=== PATIENT | female | born 1990 | race Caucasian/White ===

== ENCOUNTER → 2017-03-17 | Outpatient (CLI) | payer MEDICAID ==
[2016-03-23 10:17] VITALS: BMI 18.0
[~2017-03-17] MED LIST: ACE3 PO; ACE500 PO; ACET-1966 PO; AMIT-106 PO; AMOX-556 PO; AMOX-559 PO; AMOX1TAB9 PO; AMOX500T10 PO; ANTI10DR13 OT; ANTIDEPRESSANT PO; ANXIETY MED; ARIP15TA9 PO; ARIP20TA11 PO; ARIP300S3 IM; ARIP400S IM; ARIP5TAB28 PO; ASPI-757 PO; ASPI81TA86 PO; AUG875 PO; Acetamin/Butalbital/Caffeine PO; BACDS PO; BIRTH CONTROL PILL; BUPR-126 PO; BUTA1CAP4 PO; BUTA1TAB14 PO; CEFT1VIA52 IM; CEFU500T50 PO; CEP500 PO; CEPH500T7 PO; CHOL10005 PO; CHOL100058 PO; CIP500 PO; CITA-139 PO; CYCL10TA29 PO; DICL-190 PO; DICL100G7 TOP; DICY-42 PO; DIVA-6 PO; DIVA500T98 PO; DOC100 PO; ESZ2 PO; ESZO1TAB19 PO; ETON68IM SQ; ETON68IM2 SQ; FAMO20TA28 PO; FIO PO; FLU20 PO; FLU60SYR30 IM ONLY; FLUC150T40 PO; FLUO-201 PO; FLUO-202 PO; FLUT16SP19 NS; FLUT9.9S; GABA-549 PO; GABA-583 PO; HYDR-3083 PO; HYDR-317; HYDR-317 PO; HYDR-4225 PO; HYDR-4309 PO; HYDR25 PO; HYDR25CA PO; HYDR25CA83 PO; HYDROXZINE; IBU600 PO; KET10 PO; LAM25 PO; LAMO100T56 PO; LAMO150T36 PO; LAMO200T46 PO; LAMO25TA60 PO; LAMO5TB.2 PO; LEVO25TA61 PO; LEVO750T27 PO; LIOT25TA19 PO; LOR05 PO; LOR5 PO; LOR5/325 PO; LORA-1456 PO; MECL25TA9 PO; META800T18 PO; METH-543 PO; METH4TAB66 PO; METR-1 PO; MIR15 PO; MIRT-1 PO; MULT-1379 PO; MULT-865 PO; MULT1TAB64 PO; NICO-219 PO; NICO1PAT45 TD; NICO4LOZ35 BC; NIF10 PO; NIFE10CA38 PO; NITR-105 PO; NO ROUTINE MEDS; NO RTN MEDS; OMEP-125 PO; ORP100 PO; OXAP-1 PO; OXYC1TAB54 PO; PANT40TA13 PO; PANT40TA65 PO; PER PO; PHENA200 PO; POLY119P24 PO; PRE20 PO; PRED-1 PO; PRED20TA6 PO; PREG50CA48 PO; PREG75CA60 PO; PREN-129 PO; PREN-85 PO; PRO25 PO; PROC10TA4 PO; PROM-110 PO; PROM12.514 RC; PROM25SU9 RC; QUET25TA31 PO; RISP0.5T82 PO; Return to Work; SCOT TD; SULF-198 PO; SUMA50TA34 PO; TIZA2CAP3 PO; TIZA4CAP3 PO; TRA50 PO; TRAM-420 PO; TRAM-627 PO; TRAZ50 PO; VEN375 PO; Work Note; ZALE5CAP PO; ZOLP-1 PO; [UNRECOGNIZED DRUG - CODE] PO; [UNRECOGNIZED DRUG - CODE] PO; [UNRECOGNIZED DRUG - CODE] PO; antibiotic PO
--- NOTE | 2017-03-17 14:27 | RADIOLOGY IMAGING REPORT ---
FACILITY: [facility] PATIENT NAME: Jayna Gee : 1990 MR: [id number] V: [id number] EXAM DATE: ORDERING PHYSICIAN: LIBORIO GOTTLIEB TECHNOLOGIST: Location: [facility] Patient: Jayna Gee : 1990 Visit/Account:[id number] Date of Sevice: 03/17/2017 MRI of the right hand without contrast Indication: Fifth metacarpal fracture with persistent pain. Comparison: Plain films 11/08/2016 are reviewed. Technique: T1-weighted and proton density fat saturated, sagittal STIR and proton density fat saturat ed, axial proton-density fat-saturated, T1-weighted, images were obtained through the right hand. Findings: There is subtle marrow edema which remains visible within the fifth metacarpal distally at the juncti on of the head and neck. On the T1 sequences, no residual fracture line is seen. The fifth metacarpal neck fracture healed with a component of volar angulation of the distal fracture fragment which dom ures approximately 40 degrees. No acute appearing fracture deformity seen. The marrow pattern of the remaining included portions of the right hand are normal. Included joint sp aces within the [id number] are normal. The visualized intrinsic musculature of the hand is normal in signal. The flexor tendons to the fingers are well seen and are intact. The visualized extensor te ndons to the fingers also appear unremarkable. IMPRESSION: 1. No residual fracture line seen at the right hand fifth metacarpal neck. There is some residual mar row edema identified. This fracture healed with abnormal volar angulation of the distal fracture frag ment as reported above. Report Dictated By: Esa Serna at 03/17/2017 2:12 PM Report E-Signed By: Esa Serna at 03/17/2017 2:22 PM WSN:[id number]
== END ==
LOC: MRI 01:21
PROVIDERS: ATTEND Clinical Nurse Specialist Family Health
DX: M79.641 Pain in right hand (principal)
CPT/HCPCS: 73221

== ENCOUNTER 2017-04-05 19:03 | Emergency (ER) | payer MEDICAID ==
[2016-03-23 10:17] VITALS: Ht 165.1 cm; Wt 51.7 kg
[~2017-04-05] VITALS: Ht 165.1 cm; Wt 51.7 kg
[2017-04-05 19:09] VITALS: BP 125/84
[2017-04-05] MEDS ORDERED: OLAN10VI IM (19:09)
--- NOTE | 2017-04-05 19:15 | ER Report ---
History and Physical Time Seen By MD: 19:06 Hx. of Stated Complaint: RIGHT HAND PAIN, SLAMMED IT IN CAR DOOR. HPI/ROS CHIEF COMPLAINT: Right hand injury HISTORY OF PRESENT ILLNESS: Patient is a 26-year-old female who presents the ED with complaint of right hand injury that occurred yesterday. She states that she accidentally slammed her hand in a car door. She is continuing to have some pain. She denies any swelling or bruising. She is on taken anything for the pain. REVIEW OF SYSTEMS: Respiratory: No cough, no dyspnea. Cardiovascular: No chest pain, no palpitations. Gastrointestinal: No vomiting, no abdominal pain. Musculoskeletal: See history of present illness. Allergies: Coded Allergies: amoxicillin (Verified Allergy, Mild, itching, 04/05/17) ondansetron HCl (Verified Adverse Reaction, Intermediate, ARRYTHMIA, ) ON 16 APR 2012, AFTER ZOFRAN 4MG IVP ADMIN, PT BRADYCARDIC (PULSE 30-35BPM), ARRHTHMIA ON 3-LEAD EKG. sumatriptan (Verified Adverse Reaction, Intermediate, NAUSEA/VOMITING, ) nitrofurantoin (Verified Adverse Reaction, Mild, 04/05/17) itching ibuprofen (Verified Adverse Reaction, Unknown, REACTION TO COATING ON IBU TABS, 04/05/17) "tears up my stomach" Home Meds Reported Medications Olanzapine (ZYPREXA) 10 Mg Vial, 10 MG IM, VIAL 04/05/17 Lamotrigine (LAMICTAL) 200 Mg Tablet, 1 TAB PO DAILY 01/07/17 Discontinued Reported Medications Multivits,Th W-Fe,Other Min (THERA-M) 1 Each Tablet, 1 EACH PO QDAY 02/05/17 Aripiprazole (ABILIFY MAINTENA) 400 Mg Suser.vial, 400 MG IM Q30D Next injection due 02/06/17. 12/03/16 Discontinued Scripts Butalb/Acetaminophen/Caff 50-325-40 Mg (FIORICET 50-325-40) 1 Each Tablet, 1-2 TAB PO Q6H Y for MIGRAINE, #16 TAB 0 Refills Prov:MAGUI MORRIS APRN [employer]-C 02/11/17 Reviewed Nurses Notes: Yes Old Medical Records Reviewed: Yes Hx Smoking: Yes Smoking Status: Former Smoker Exposure to Second Hand Smoke?: Yes Hx Substance Use Disorder: Yes (marijuana) Hx Alcohol Use: Yes Constitutional Vital Sign - Last 24 Hours 04/05/17 19:09 Temp 98.3 Pulse 94 Resp 18 B/P (MAP) 125/84 Pulse Ox 97 O2 Delivery Room Air Physical Exam General Appearance: The patient is alert, has no immediate need for airway protection and no current signs of toxicity. Patient appears to be no acute distress. Eyes: Pupils equal and round no injection. Respiratory: Chest is non tender, lungs are clear to auscultation. Cardiac: regular rate and rhythm Gastrointestinal: Abdomen is soft and non tender, no masses, bowel sounds normal. Musculoskeletal: Neck: Neck is supple and non tender. There is pain with palpation of the right 4th and 5th MCP areas. No swelling but possible slight ecchymosis in this area. Radial pulses 2+ with normal capillary refill. Normal sensation. Full range of motion of the right fingers with some pain. Skin: No rashes or lesions. DIFFERENTIAL DIAGNOSIS: After history and physical exam differential diagnosis was considered for right hand injury including fracture, sprain, contusion. Medical Decision Making EKG/Imaging Imaging Right Hand Xrays: IMPRESSION: 1. Healed distal fifth metacarpal fracture. 2. No acute osseous abnormality. Report Dictated By: Ubaldo Arce MD at 04/05/2017 7:53 PM Report E-Signed By: Ubaldo Arce MD at 04/05/2017 7:58 PM ED Course/Re-evaluation ED Course Will obtain right hand x-rays. 04/05/2017 8:06:29 pm - discussed normal x-ray results with patient. She does have an old healed fracture of the right 5th metacarpal. She likely has a hand contusion now. May take Tylenol for pain relief. Decision to Disposition Date: Apr 05, 2017 Decision to Disposition Time: 20:07 Depart Departure Latest Vital Signs Vital Signs Date Time Temp Pulse Resp B/P (MAP) Pulse Ox O2 Delivery O2 Flow Rate FiO2 04/05/17 19:09 98.3 94 18 125/84 97 Room Air Impression: Primary Impression: Contusion of right hand Condition: Improved Disposition: HOME OR SELF-CARE Referrals: MAGUI MORRIS APRN [employer]-C (PCP) Patient Instructions: Contusion in Adults (ED) Additional Instructions: Rest, ice, elevate. May take Tylenol for pain relief. Follow up with her primary care provider in 2-3 days. If having any worsening or concerning symptoms may return to the emergency department. Problem Qualifiers Primary Impression: Contusion of right hand Encounter type: initial encounter Qualified Codes: S60.221A - Contusion of right hand, initial encounter DAVEY DANIEL PA-C Apr 05, 2017 19:15
--- NOTE | 2017-04-05 20:03 | RADIOLOGY IMAGING REPORT ---
[place] [facility] [place]IENT NAME: Jayna Gee : 1990 MR: [id number] V: [id number] EXAM DATE: ORDERING PHYSICIAN: DAVEY DANIEL [place]CHN[place]: [place] [facility] [place] : 1990 Visit/Account:[id number] Date of Sevice: 04/05/2017 HAND COMPLETE RIGHT HISTORY: right hand pain, slammed in car door, pain of 4-5th MCP COMPARISON: 11/08/2016 FINDINGS: Healed distal fifth metacarpal fracture. No acute fracture or dislocation. No radiopaque fo reign body. IMPRESSION: 1. Healed distal fifth metacarpal fracture. 2. No acute osseous abnormality. Report Dictated By: Ubaldo Arce MD at 04/05/2017 7:53 PM Report E-Signed By: Ubaldo Arce MD at 04/05/2017 7:58 PM WSN:[id number]
== END 2017-04-05 20:19 | disposition home or self-care (01) ==
LOC: ER 19:08
DX: S60.221A Contusion of right hand, initial encounter (principal); S67.21XA Crushing injury of right hand, initial encounter
CPT/HCPCS: 99282

== ENCOUNTER → 2017-06-06 | Outpatient (CLI) | payer MEDICAID ==
[2016-03-23 10:17] VITALS: BMI 18.0
[~2017-06-06] MED LIST changes: +BENZ200C15 PO; +OLAN10VI IM; +PALI78DI IM
[2017-06-06 16:44] LABS: PLATELET COUNT, AUTOMATED 217 K/uL (150-450)
== END ==
LOC: LAB 16:23
PROVIDERS: ATTEND Nurse Practitioner Family
DX: D75.1 Secondary polycythemia (principal)
CPT/HCPCS: 36415; 85025

== ENCOUNTER 2017-06-23 17:03 | Emergency (ER) | payer MEDICAID ==
[2016-03-23 10:17] VITALS: Wt 51.7 kg
[~2017-06-23 17:03] MED LIST changes: +CHOL200074 PO
[2017-06-23 17:07] VITALS: BP 130/88
--- NOTE | 2017-06-23 17:14 | ER Report ---
History and Physical Time Seen By MD: 17:14 Hx. of Stated Complaint: LOWER BACK PAIN FOR TWO DAYS. "I THINK I PULLED SOMETHING IN MY BACK WHEN I TRIED PICKING UP MY DAUGHTER." HPI/ROS 20-year-old female in [employer] states that she was in [employer] 2 days ago lifted up her 9-year-old daughter who was throwing a tantrum has had low back pain with sciatica sort of symptoms going down bilateral legs him no incontinence of bowel or bladder Allergies: Coded Allergies: amoxicillin (Verified Allergy, Mild, itching, 04/05/17) ondansetron HCl (Verified Adverse Reaction, Intermediate, ARRYTHMIA, ) ON 16 APR 2012, AFTER ZOFRAN 4MG IVP ADMIN, PT BRADYCARDIC (PULSE 30-35BPM), ARRHTHMIA ON 3-LEAD EKG. sumatriptan (Verified Adverse Reaction, Intermediate, NAUSEA/VOMITING, ) nitrofurantoin (Verified Adverse Reaction, Mild, 04/05/17) itching ibuprofen (Verified Adverse Reaction, Unknown, REACTION TO COATING ON IBU TABS, 04/05/17) "tears up my stomach" Home Meds Active Scripts Methylprednisolone (METHYLPREDNISOLONE) 4 Mg Tab.ds.pk, 4 MG PO DIRECTED, #1 TAB Prov:TWILA GRIFFIN 06/23/17 Reported Medications Gabapentin (GABAPENTIN) 300 Mg Capsule, 1 CAP PO TID, CAPSULE 06/16/17 Paliperidone Palmitate (INVEGA SUSTENNA) 78 Mg/0.5 Ml Disp.syrin, 1 TAB IM once a month 06/06/17 Discontinued Reported Medications Cholecalciferol (Vitamin D3) (VITAMIN D-3) 2,000 Unit Capsule, 2000 UNIT PO DAILY, CAPSULE 06/16/17 Hx Smoking: Yes Smoking Status: Former Smoker Exposure to Second Hand Smoke?: Yes Hx Substance Use Disorder: Yes (marijuana) Hx Alcohol Use: Yes Family History of: HTN Constitutional Vital Sign - Last 24 Hours 06/23/17 17:07 Temp 98.0 Pulse 65 Resp 16 B/P (MAP) 130/88 Pulse Ox 97 Physical Exam General Appearance: [The patient is alert, has no immediate need for airway protection and no current signs of toxicity.] [ ] Eyes: Pupils equal and round no injection. Respiratory: Chest is non tender, lungs are clear to auscultation. Cardiac: regular rate and rhythm [ ] Gastrointestinal: Abdomen is soft and non tender, no masses, bowel sounds normal. Musculoskeletal: Low back pain to palpation approximately the level of L5 negative straight leg raise Extremities have full range of motion and are non tender. Skin: No rashes or lesions. [ ] DIFFERENTIAL DIAGNOSIS: After history and physical exam differential diagnosis was considered for lumbar strain versus sciatica [ ] Medical Decision Making Data Points Laboratory Hematology Test 06/23/17 17:31 Urine Color Straw Urine Clarity Clear Urine pH 6.0 pH (4.8-9.5) Urine Specific [place] 1.006 Urine Protein Negative mg/dL (NEGATIVE) Urine Glucose (UA) Negative mg/dL (NEGATIVE) Urine Ketones Negative mg/dL (NEGATIVE) Urine Blood Negative (NEGATIVE) Urine Nitrite Negative (NEGATIVE) Urine Bilirubin Negative (NEGATIVE) Urine Urobilinogen Negative mg/dL (0.2-1.9) Urine Leukocyte Esterase Negative (NEGATIVE) Urine RBC None /HPF (0-2/HPF) Urine WBC <1 /HPF (0-5/HPF) Urine Squamous Epithelial Cells Many /LPF (</=FEW) Urine Bacteria Negative /HPF (NONE-FEW) Urine Mucus None /HPF (NONE-FEW) Urine HCG, Qualitative Negative (NEGATIVE) Chemistry Test 06/23/17 17:31 Urine Color Straw Urine Clarity Clear Urine pH 6.0 pH (4.8-9.5) Urine Specific [place] 1.006 Urine Protein Negative mg/dL (NEGATIVE) Urine Glucose (UA) Negative mg/dL (NEGATIVE) Urine Ketones Negative mg/dL (NEGATIVE) Urine Blood Negative (NEGATIVE) Urine Nitrite Negative (NEGATIVE) Urine Bilirubin Negative (NEGATIVE) Urine Urobilinogen Negative mg/dL (0.2-1.9) Urine Leukocyte Esterase Negative (NEGATIVE) Urine RBC None /HPF (0-2/HPF) Urine WBC <1 /HPF (0-5/HPF) Urine Squamous Epithelial Cells Many /LPF (</=FEW) Urine Bacteria Negative /HPF (NONE-FEW) Urine Mucus None /HPF (NONE-FEW) Urine HCG, Qualitative Negative (NEGATIVE) Urinalysis Test 06/23/17 17:31 Urine Color Straw Urine Clarity Clear Urine pH 6.0 pH (4.8-9.5) Urine Specific [place] 1.006 Urine Protein Negative mg/dL (NEGATIVE) Urine Glucose (UA) Negative mg/dL (NEGATIVE) Urine Ketones Negative mg/dL (NEGATIVE) Urine Blood Negative (NEGATIVE) Urine Nitrite Negative (NEGATIVE) Urine Bilirubin Negative (NEGATIVE) Urine Urobilinogen Negative mg/dL (0.2-1.9) Urine Leukocyte Esterase Negative (NEGATIVE) Urine RBC None /HPF (0-2/HPF) Urine WBC <1 /HPF (0-5/HPF) Urine Squamous Epithelial Cells Many /LPF (</=FEW) Urine Bacteria Negative /HPF (NONE-FEW) Urine Mucus None /HPF (NONE-FEW) Urine HCG, Qualitative Negative (NEGATIVE) EKG/Imaging Imaging FACILITY: [facility] [place] PATIENT NAME: Jayna Gee : 1990 MR: [id number] V: [id number] EXAM DATE: [id number] ORDERING PHYSICIAN: TWILA GRIFFIN TECHNOLOGIST: Location: [facility] Patient: Jayna Gee : 1990 Visit/Account:[id number] Date of Sevice: 06/23/2017 LUMBAR SPINE 2 OR 3 VIEW INDICATION: Low back pain after lifting child 2 days ago. COMPARISON: 02/23/2016. FINDINGS: 3 views lumbar spine. There are 5 nonrib-bearing lumbar vertebral bodies. The vertebral bodies are aligned. No compression fractures, bony lesions or spondylolysis. No significant degenerative changes. The endplates are maintained. The pedicles are well seen. Soft tissues unremarkable. IMPRESSION: Normal exam. Report Dictated By: Álvaro Mera at 06/23/2017 6:19 PM Report E-Signed By: Álvaro Mera at 06/23/2017 6:21 PM WSN:[id number] ED Course/Re-evaluation ED Course Patient did request narcotics for treatment I did give her prednisone stating this was the right medication for her acute back pain she will take Tylenol prednisone at home follow-up with primary care provider as needed Re-evaluation X-rays were read as negative urine showed no infection was negative she is home with a Medrol Dosepak follow-up with primary care physician diagnosis of muscle strain Decision to Disposition Date: Jun 23, 2017 Decision to Disposition Time: 18:31 Depart Departure Latest Vital Signs Vital Signs Date Time Temp Pulse Resp B/P (MAP) Pulse Ox O2 Delivery O2 Flow Rate FiO2 06/23/17 17:07 98.0 65 16 130/88 97 Impression: Primary Impression: Strain of lumbar spine Condition: Improved Disposition: HOME OR SELF-CARE Referrals: MAGUI MORRIS APRN [employer]UFFER-C (PCP) 5 Days New Scripts Methylprednisolone (METHYLPREDNISOLONE) 4 Mg Tab.ds.pk 4 MG PO DIRECTED, #1 TAB Prov: TWILA GRIFFIN 06/23/17 Patient Instructions: Muscle Strain (ED) Additional Instructions: Heating pad, Tylenol for pain, Medrol Dosepak, follow-up with your physician TWILA GRIFFIN Jun 23, 2017 17:14
[2017-06-23] MEDS ORDERED: predniSONE 20 MG TAB PO ONE (17:25)
[2017-06-23] MEDS ORDERED: METH4TAB66 PO (17:32)
--- NOTE | 2017-06-23 18:26 | RADIOLOGY IMAGING REPORT ---
FACILITY: [facility] PATIENT NAME: Jayna Gee : 1990 MR: [id number] V: [id number] EXAM DATE: ORDERING PHYSICIAN: TWILA GRIFFIN TECHNOLOGIST: Location: [facility] [place] Patient: Jayna Gee : 1990 Visit/Account:[id number] Date of Sevice: 06/23/2017 LUMBAR SPINE 2 OR 3 VIEW INDICATION: Low back pain after lifting child 2 days ago. COMPARISON: 02/23/2016. FINDINGS: 3 views lumbar spine. There are 5 nonrib-bearing lumbar vertebral bodies. The vertebral b odies are aligned. No compression fractures, bony lesions or spondylolysis. No significant degenerati ve changes. The endplates are maintained. The pedicles are well seen. Soft tissues unremarkable. IMPRESSION: Normal exam. Report Dictated By: Álvaro Mera at 06/23/2017 6:19 PM Report E-Signed By: Álvaro Mera at 06/23/2017 6:21 PM WSN:[id number]
[2017-06-24] MEDS ORDERED: DULO20CA3 PO (17:25)
== END 2017-06-23 18:40 | disposition home or self-care (01) ==
LOC: ER 17:13
DX: S39.012A Strain of muscle, fascia and tendon of lower back, initial encounter (principal)
CPT/HCPCS: 72100; 81001; 81025; 99283; J7512

== ENCOUNTER → 2017-07-11 | Outpatient (CLI) | payer MEDICAID ==
[2016-03-23 10:17] VITALS: BMI 18.0
[~2017-07-11] MED LIST changes: +DULO20CA3 PO; +MIL50PT PO; +MILN1TAB2 PO; +[UNRECOGNIZED DRUG - CODE] PO
== END ==
LOC: LAB 10:56
PROVIDERS: ATTEND Nurse Practitioner Family
DX: R30.9 Painful micturition, unspecified (principal)
CPT/HCPCS: 81001

== ENCOUNTER 2017-07-12 14:57 | Emergency (ER) | payer MEDICAID ==
[2016-03-23 10:17] VITALS: Wt 58.1 kg
--- NOTE | 2017-07-12 15:10 | ER Report ---
History and Physical Time Seen By MD: 15:10 Hx. of Stated Complaint: Pt states she is dehydrated after hand surgery cannot eat/drink much HPI/ROS CHIEF COMPLAINT: I THINK IM DEHYDRATED HISTORY OF PRESENT ILLNESS: Pt here for evaluation of possible dehydration. Pt states she had surgery on her r hand to clean out her mcp joint after a prior fx. pts surgery was on the . Pt satse the tramadol she was taking for pain made her not want to drink or eat. Pt stopped the tramadol a few days ago but feels that she may be dehydrated because she is urinating less frequently. States hand feels okay so she stopped the tramadol to take motrin and tylenol. no fevers. no abd pain. Pt did have a loose stool today. REVIEW OF SYSTEMS: GEN: no fevers Respiratory: No cough, no dyspnea. Cardiovascular: No chest pain, no palpitations. Gastrointestinal: No vomiting, no abdominal pain. Musculoskeletal: No hand pain Skin: sutures at 5th mcp Allergies: Coded Allergies: amoxicillin (Verified Allergy, Mild, itching, 04/05/17) ondansetron HCl (Verified Adverse Reaction, Intermediate, ARRYTHMIA, ) ON 16 APR 2012, AFTER ZOFRAN 4MG IVP ADMIN, PT BRADYCARDIC (PULSE 30-35BPM), ARRHTHMIA ON 3-LEAD EKG. sumatriptan (Verified Adverse Reaction, Intermediate, NAUSEA/VOMITING, ) nitrofurantoin (Verified Adverse Reaction, Mild, 04/05/17) itching ibuprofen (Verified Adverse Reaction, Unknown, REACTION TO COATING ON IBU TABS, 04/05/17) "tears up my stomach" Home Meds Active Scripts Milnacipran (SAVELLA) 50 Mg Tab, 1 TAB PO BID, #60 TAB 0 Refills Start after completing one week of 25mg tabs Prov:MAGUI MORRIS APRN-Ira 07/01/17 Milnacipran (SAVELLA) 25 Mg Tab, 0.5-1 TAB PO BID for 7 Days, #11 TAB 0 Refills Day 1 - 0.5 tab once Day 2 & 3 - 0.5 tab twice daily Day 4-7 - 1 tab twice daily Prov:MAGUI MORRIS APRN-Ira 07/01/17 Duloxetine HCl (Duloxetine HCl) 20 Mg Capsule.dr, 1 CAP PO DAILY, #30 TAB 0 Refills Prov:N[place] MORRISYN [employer] HEAR[employer] WORKER [employer]-C 06/24/17 Reported Medications Paliperidone Palmitate (INVEGA SUSTENNA) 78 Mg/0.5 Ml Disp.syrin, 1 TAB IM once a month 06/06/17 Discontinued Reported Medications Gabapentin (GABAPENTIN) 300 Mg Capsule, 1 CAP PO TID, CAPSULE 06/16/17 Discontinued Scripts Methylprednisolone (METHYLPREDNISOLONE) 4 Mg Tab.ds.pk, 4 MG PO DIRECTED, #1 TAB Prov:TWILA GRIFFIN Valentina OPEN HEARTH WORKER-C 06/23/17 Past Medical/Surgical History pmhx: otitis media, bipolar Pshx: appy, delvis, meniscusectomy Reviewed Nurses Notes: Yes Old Medical Records Reviewed: Yes Hx Smoking: Yes Smoking Status: Former Smoker Exposure to Second Hand Smoke?: Yes Hx Substance Use Disorder: Yes (marijuana) Hx Alcohol Use: Yes Constitutional Vital Sign - Last 24 Hours 07/12/17 15:02 Temp 98.0 Pulse 72 Resp 16 B/P (MAP) 116/77 Pulse Ox 98 O2 Delivery Room Air Physical Exam General Appearance: The patient is alert, has no immediate need for airway protection and no signs of toxicity. Eyes: Pupils equal and round no pallor or injection, EOMI ENT: no pharyngeal erythema or exudates, Mucous membranes are moist, TM are nl b/l Respiratory: There are no retractions, lungs are clear to auscultation. Cardiovascular: Regular rate and rhythm. pulses are equal and symmetrical Gastrointestinal: Abdomen is soft and non tender, no masses, bowel sounds normal, no guarding, no rigidity or rebound Neurological: Cranial nerves II-XII grossly intact, no sensory or motor loss Skin: Warm and dry, no rashes. Musculoskeletal: Neck is supple non tender, no vertebral tenderness Extremities are nontender, non swollen and have full range of motion. DIFFERENTIAL DIAGNOSIS: After history and physical exam differential diagnosis was considered for dehydration, uti, electrolyte abnl Medical Decision Making Data Points Result Diagram: 07/12/17 1525 Laboratory Hematology Test 07/12/17 15:25 Sodium Level 138 mmol/L (137-145) Potassium Level 3.4 mmol/L (3.5-5.0) Chloride Level 102 mmol/L (98-107) Carbon Dioxide Level 22 mmol/L (22-31) Blood Urea Nitrogen 16 mg/dl (7-18) Creatinine 0.70 mg/dl (0.52-1.04) Glomerular Filtration Rate Calc > 60.0 Random Glucose 97 mg/dl (75-110) Calcium Level 9.4 mg/dl (8.4-10.2) Chemistry Test 07/12/17 15:25 Glomerular Filtration Rate Calc > 60.0 Calcium Level 9.4 mg/dl (8.4-10.2) ED Course/Re-evaluation Clinical Indication for ER IV: Hydration, IV Access ED Course 07/12/2017 4:12:35 pm Pt feeling much better after the liter on NS. Pt potassium is just below normal. will replace Decision to Disposition Date: July 12, 2017 Decision to Disposition Time: 16:13 Depart Departure Latest Vital Signs Vital Signs Date Time Temp Pulse Resp B/P (MAP) Pulse Ox O2 Delivery O2 Flow Rate FiO2 07/12/17 15:02 98.0 72 16 116/77 98 Room Air Impression: Primary Impression: Dehydration, mild Additional Impression: Hypokalemia Condition: Improved Disposition: HOME OR SELF-CARE Referrals: MAGUI MORRIS APRN [employer]-C (PCP) 5 Days Departure Forms: ER Transition Record, Medications Reconciliation, Patient Portal Information Patient Instructions: GENERAL ER DISCHARGE INSTRUCTIONS Additional Instructions: Follow up with your surgeon as scheduled. Return for any concerns Problem Qualifiers NICHELLE CALVERT DO July 12, 2017 15:10
[2017-07-12] MEDS ORDERED: NS(*) 0.9% 1000 ML BAG 1,000 ML IV ONE (15:15)
[2017-07-12] MEDS ORDERED: POTASSIUM CHL 20 MEQ TABCR PO ONE (16:15)
[2017-07-12 16:16] VITALS: BP 112/81
== END 2017-07-12 16:23 | disposition home or self-care (01) ==
LOC: ER 15:11
DX: E86.0 Dehydration (principal); E87.6 Hypokalemia
CPT/HCPCS: 96360; 99284; J7030; 82310; 82374; 82435; 82565; 82947; 84132; 84295; 84520

== ENCOUNTER 2017-07-26 22:50 | Emergency (ER) | payer MEDICAID ==
[2016-03-23 10:17] VITALS: Wt 54.4 kg
[~2017-07-26 22:50] MED LIST changes: -CITA-139 PO; +CITA-145 PO
--- NOTE | 2017-07-26 22:53 | ER Report ---
History and Physical Time Seen By MD: 22:53 HPI/ROS CHIEF COMPLAINT: Depression with suicidal ideation HISTORY OF PRESENT ILLNESS: 27-year-old female presents ambulatory to the ER by herself requesting admission to behavioral health. She's been feeling suicidal for one week. She has plans to do self cutting with a razor blade. She does have a history of cutting. She has 3 previous admissions to behavioral health unit in the last year. , , The last one was in January proximal was 6 months ago. Patient states she last used marijuana 5 days ago. She denies alcohol ingestion. She thinks her symptoms are the result of starting on a new medication, Savella, which she started taking one week ago. She states she's had gradual worsening of her mood. Patient denies overdosing on any medication or [id number] products. REVIEW OF SYSTEMS: Respiratory: No cough, no dyspnea. Cardiovascular: No chest pain, no palpitations. Gastrointestinal: No vomiting, no abdominal pain. Musculoskeletal: No back pain. Allergies: Coded Allergies: amoxicillin (Verified Allergy, Mild, itching, 07/27/17) ondansetron HCl (Verified Adverse Reaction, Intermediate, ARRYTHMIA, ) ON 16 APR 2012, AFTER ZOFRAN 4MG IVP ADMIN, PT BRADYCARDIC (PULSE 30-35BPM), ARRHTHMIA ON 3-LEAD EKG. sumatriptan (Verified Adverse Reaction, Intermediate, NAUSEA/VOMITING, ) nitrofurantoin (Verified Adverse Reaction, Mild, 07/27/17) itching ibuprofen (Verified Adverse Reaction, Unknown, REACTION TO COATING ON IBU TABS, 07/27/17) "tears up my stomach" Home Meds Active Scripts Milnacipran (SAVELLA) 50 Mg Tab, 1 TAB PO BID, #60 TAB 0 Refills Start after completing one week of 25mg tabs Prov:MAGUI MORRIS APRN [employer] 07/01/17 Milnacipran (SAVELLA) 25 Mg Tab, 0.5-1 TAB PO BID for 7 Days, #11 TAB 0 Refills Day 1 - 0.5 tab once Day 2 & 3 - 0.5 tab twice daily Day 4-7 - 1 tab twice daily Prov:MAGUI MORRIS APRN [employer] 07/01/17 Reported Medications Paliperidone Palmitate (INVEGA SUSTENNA) 78 Mg/0.5 Ml Disp.syrin, 1 TAB IM once a month 06/06/17 Discontinued Scripts Duloxetine HCl (Duloxetine HCl) 20 Mg Capsule.dr, 1 CAP PO DAILY, #30 TAB 0 Refills Prov:MAGUI MORRIS APRNP-C 06/24/17 Reviewed Nurses Notes: Yes Old Medical Records Reviewed: Yes Hx Smoking: Yes Smoking Status: Former Smoker Exposure to Second Hand Smoke?: Yes Hx Substance Use Disorder: Yes (marijuana) Hx Alcohol Use: Yes Constitutional Vital Sign - Last 24 Hours 07/26/17 07/26/17 07/26/17 07/26/17 23:00 23:01 23:05 23:20 Temp 98.3 Pulse 66 70 69 Resp 14 B/P (MAP) 139/103 (115) 139/103 Pulse Ox 98 96 95 O2 Delivery Room Air 07/26/17 07/26/17 07/26/17 07/27/17 23:30 23:35 23:50 00:00 Pulse 63 61 B/P (MAP) 110/86 (94) 112/76 (88) Pulse Ox 95 95 Physical Exam General Appearance: The patient is alert, has no immediate need for airway protection and no current signs of toxicity. Vital signs stable, afebrile, pulse ox normal, depressed mood HEENT:: Pupils equal and round no injection. TMs normal, oropharynx without redness or exudate, mucous. Membranes are moist Respiratory: Chest is non tender, lungs are clear to auscultation. Cardiac: regular rate and rhythm Gastrointestinal: Abdomen is soft and non tender, no masses, bowel sounds normal. Musculoskeletal: Neck: Neck is supple and non tender. No thyromegaly Extremities have full range of motion and are non tender. Skin: No rashes or lesions. DIFFERENTIAL DIAGNOSIS: After history and physical exam differential diagnosis was considered for depression including functional and major depression, situational depression, medication side effect, suicidal ideation, adverse medication effect drugs and alcohol abuse. Medical Decision Making Data Points Result Diagram: 07/26/17 3729 07/26/17 4495 Laboratory Hematology Test 07/26/17 22:54 07/26/17 23:15 Urine Color Straw Urine Clarity Slightly-cloudy Urine pH 6.0 pH (4.8-9.5) Urine Specific [place] 1.004 Urine Protein Negative mg/dL (NEGATIVE) Urine Glucose (UA) Negative mg/dL (NEGATIVE) Urine Ketones Negative mg/dL (NEGATIVE) Urine Blood Large (NEGATIVE) Urine Nitrite Negative (NEGATIVE) Urine Bilirubin Negative (NEGATIVE) Urine Urobilinogen Negative mg/dL (0.2-1.9) Urine Leukocyte Esterase Negative (NEGATIVE) Urine RBC 4 /HPF (0-2/HPF) Urine WBC <1 /HPF (0-5/HPF) Urine Squamous Epithelial Cells Many /LPF (</=FEW) Urine Bacteria Few /HPF (NONE-FEW) Urine Mucus None /HPF (NONE-FEW) Urine HCG, Qualitative Negative (NEGATIVE) Urine Opiates Screen Negative Urine Barbiturates Screen Negative Ur Tricyclic Antidepressants Screen Negative Urine Phencyclidine Screen Negative Urine Amphetamines Screen Negative Urine Benzodiazepines Screen Negative Urine Cocaine Screen Negative Urine Cannabinoids Screen Negative Red Blood Count 4.62 M/uL (4.17-5.56) Mean Corpuscular Volume 91.7 fL (80.0-96.0) Mean Corpuscular Hemoglobin 32.7 pg (26.0-33.0) Mean Corpuscular Hemoglobin Concent 35.7 g/dL (32.0-36.0) Red Cell Distribution Width 12.9 % (11.5-14.5) Mean Platelet Volume 7.7 fL (7.2-11.1) Neutrophils (%) (Auto) 58.1 % (39.4-72.5) Lymphocytes (%) (Auto) 31.7 % (17.6-49.6) Monocytes (%) (Auto) 6.7 % (4.1-12.4) Eosinophils (%) (Auto) 2.4 % (0.4-6.7) Basophils (%) (Auto) 1.1 % (0.3-1.4) Nucleated RBC Relative Count (auto) 0.0 /100WBC Neutrophils # (Auto) 3.8 K/uL (2.0-7.4) Lymphocytes # (Auto) 2.1 K/uL (1.3-3.6) Monocytes # (Auto) 0.4 K/uL (0.3-1.0) Eosinophils # (Auto) 0.2 K/uL (0.0-0.5) Basophils # (Auto) 0.1 K/uL (0.0-0.1) Nucleated RBC Absolute Count (auto) 0.00 K/uL Sodium Level 138 mmol/L (137-145) Potassium Level 3.2 mmol/L (3.5-5.0) Chloride Level 102 mmol/L (98-107) Carbon Dioxide Level 24 mmol/L (22-31) Blood Urea Nitrogen 12 mg/dl (7-18) Creatinine 0.80 mg/dl (0.52-1.04) Glomerular Filtration Rate Calc > 60.0 Random Glucose 101 mg/dl (75-110) Calcium Level 9.1 mg/dl (8.4-10.2) Magnesium Level 1.9 mg/dl (1.7-2.2) Total Bilirubin 1.9 mg/dl (0.2-1.3) Aspartate Amino Transf (AST/SGOT) 17 U/L (0-35) Alanine Aminotransferase (ALT/SGPT) 19 U/L (0-56) Alkaline Phosphatase 68 U/L (0-126) Total Protein 6.7 gm/dl (6.3-8.2) Albumin 3.9 g/dl (3.5-5.0) Salicylates Level < 10 mg/L Salicylate Last Dose Date unk Acetaminophen Level < 10 ug/ml Serum Alcohol < 10 mg/dl Chemistry Test 07/26/17 22:54 07/26/17 23:15 Urine Color Straw Urine Clarity Slightly-cloudy Urine pH 6.0 pH (4.8-9.5) Urine Specific [place] 1.004 Urine Protein Negative mg/dL (NEGATIVE) Urine Glucose (UA) Negative mg/dL (NEGATIVE) Urine Ketones Negative mg/dL (NEGATIVE) Urine Blood Large (NEGATIVE) Urine Nitrite Negative (NEGATIVE) Urine Bilirubin Negative (NEGATIVE) Urine Urobilinogen Negative mg/dL (0.2-1.9) Urine Leukocyte Esterase Negative (NEGATIVE) Urine RBC 4 /HPF (0-2/HPF) Urine WBC <1 /HPF (0-5/HPF) Urine Squamous Epithelial Cells Many /LPF (</=FEW) Urine Bacteria Few /HPF (NONE-FEW) Urine Mucus None /HPF (NONE-FEW) Urine HCG, Qualitative Negative (NEGATIVE) Urine Opiates Screen Negative Urine Barbiturates Screen Negative Ur Tricyclic Antidepressants Screen Negative Urine Phencyclidine Screen Negative Urine Amphetamines Screen Negative Urine Benzodiazepines Screen Negative Urine Cocaine Screen Negative Urine Cannabinoids Screen Negative White Blood Count 6.5 k/uL (4.5-11.0) Red Blood Count 4.62 M/uL (4.17-5.56) Hemoglobin 15.1 g/dL (12.0-16.0) Hematocrit 42.4 % (34.0-47.0) Mean Corpuscular Volume 91.7 fL (80.0-96.0) Mean Corpuscular Hemoglobin 32.7 pg (26.0-33.0) Mean Corpuscular Hemoglobin Concent 35.7 g/dL (32.0-36.0) Red Cell Distribution Width 12.9 % (11.5-14.5) Platelet Count 205 K/uL (150-450) Mean Platelet Volume 7.7 fL (7.2-11.1) Neutrophils (%) (Auto) 58.1 % (39.4-72.5) Lymphocytes (%) (Auto) 31.7 % (17.6-49.6) Monocytes (%) (Auto) 6.7 % (4.1-12.4) Eosinophils (%) (Auto) 2.4 % (0.4-6.7) Basophils (%) (Auto) 1.1 % (0.3-1.4) Nucleated RBC Relative Count (auto) 0.0 /100WBC Neutrophils # (Auto) 3.8 K/uL (2.0-7.4) Lymphocytes # (Auto) 2.1 K/uL (1.3-3.6) Monocytes # (Auto) 0.4 K/uL (0.3-1.0) Eosinophils # (Auto) 0.2 K/uL (0.0-0.5) Basophils # (Auto) 0.1 K/uL (0.0-0.1) Nucleated RBC Absolute Count (auto) 0.00 K/uL Glomerular Filtration Rate Calc > 60.0 Calcium Level 9.1 mg/dl (8.4-10.2) Magnesium Level 1.9 mg/dl (1.7-2.2) Total Bilirubin 1.9 mg/dl (0.2-1.3) Aspartate Amino Transf (AST/SGOT) 17 U/L (0-35) Alanine Aminotransferase (ALT/SGPT) 19 U/L (0-56) Alkaline Phosphatase 68 U/L (0-126) Total Protein 6.7 gm/dl (6.3-8.2) Albumin 3.9 g/dl (3.5-5.0) Salicylates Level < 10 mg/L Salicylate Last Dose Date unk Acetaminophen Level < 10 ug/ml Serum Alcohol < 10 mg/dl Toxicology Test 07/26/17 22:54 07/26/17 23:15 Urine Opiates Screen Negative Urine Barbiturates Screen Negative Ur Tricyclic Antidepressants Screen Negative Urine Phencyclidine Screen Negative Urine Amphetamines Screen Negative Urine Benzodiazepines Screen Negative Urine Cocaine Screen Negative Urine Cannabinoids Screen Negative Salicylates Level < 10 mg/L Salicylate Last Dose Date unk Acetaminophen Level < 10 ug/ml Serum Alcohol < 10 mg/dl Urinalysis Test 07/26/17 22:54 Urine Color Straw Urine Clarity Slightly-cloudy Urine pH 6.0 pH (4.8-9.5) Urine Specific [place] 1.004 Urine Protein Negative mg/dL (NEGATIVE) Urine Glucose (UA) Negative mg/dL (NEGATIVE) Urine Ketones Negative mg/dL (NEGATIVE) Urine Blood Large (NEGATIVE) Urine Nitrite Negative (NEGATIVE) Urine Bilirubin Negative (NEGATIVE) Urine Urobilinogen Negative mg/dL (0.2-1.9) Urine Leukocyte Esterase Negative (NEGATIVE) Urine RBC 4 /HPF (0-2/HPF) Urine WBC <1 /HPF (0-5/HPF) Urine Squamous Epithelial Cells Many /LPF (</=FEW) Urine Bacteria Few /HPF (NONE-FEW) Urine Mucus None /HPF (NONE-FEW) Urine HCG, Qualitative Negative (NEGATIVE) ED Course/Re-evaluation ED Course Patient was admitted to an examination room. H&P was done. The differential diagnosis was considered. Patient presents ambulatory to the ER in requesting voluntary admission to [facility]. She's been having suicidal thoughts for one week. She plans and cutting herself with a razor. Had previous self injurious behaviors. Patient has 3 previous psychiatric admissions. Patient with known history of bipolar disorder. Patient admits to some cannabis use, which she discontinued 5 days ago. Patient denies drug or alcohol ingestion. Otherwise. Diagnostic studies are unremarkable. Her tox screen is negative. Blood alcohol level is 0. 07/27/2016 11:53:18 pm case discussed with Mica Cadena nurse practitioner a behavioral health service who accepts the patient for admission. Decision to Disposition Date: July 26, 2017 Decision to Disposition Time: 23:17 Depart Departure Latest Vital Signs Vital Signs Date Time Temp Pulse Resp B/P (MAP) Pulse Ox O2 Delivery O2 Flow Rate FiO2 07/27/17 00:00 112/76 (88) 07/26/17 23:50 61 95 07/26/17 23:01 98.3 14 Room Air Impression: Primary Impression: Depression with suicidal ideation Additional Impressions: Bipolar disorder Cannabis use disorder, mild, abuse Adverse drug reaction Condition: Improved Disposition: XFER TO [facility] Referrals: MAGUI MORRIS APRN [employer] (PCP) Problem Qualifiers Additional Impressions: Bipolar disorder Active/Remission status: remission status unspecified Qualified Codes: F31.9 - Bipolar disorder, unspecified Adverse drug reaction Encounter type: initial encounter Qualified Codes: T88.7XXA - Unspecified adverse effect of drug or medicament, initial encounter DOUGLAS GAYTAN DO July 26, 2017 22:53
[2017-07-26 23:30] LABS: PLATELET COUNT, AUTOMATED 205 K/uL (150-450)
[2017-07-27] VITALS: BP 112/76
[2017-07-28] MEDS ORDERED: MULT-1335 PO (10:25)
[2017-07-28] MEDS ORDERED: OMEG1CAP39 PO (10:26)
== END 2017-07-27 00:40 ==
LOC: ER 23:07
DX: F31.9 Bipolar disorder, unspecified (principal); T88.7XXA Unspecified adverse effect of drug or medicament, initial encounter; F32.9 Major depressive disorder, single episode, unspecified; R45.851 Suicidal ideations; F12.10 Cannabis abuse, uncomplicated
CPT/HCPCS: 80305; 81001; 81025; 83735; 84443; 85025; 99285; G0480; 80320; 80329; 82040; 82247; 82310; 82374; 82435; 82565; 82947; 84075; 84132; 84155; 84295; 84450; 84460; 84520

== ENCOUNTER 2017-07-27 00:11 | Inpatient (IN) | payer MEDICAID ==
[2016-03-23 10:17] VITALS: Ht 165.1 cm; Wt 54.4 kg
[~2017-07-27] VITALS: Ht 165.1 cm; Wt 54.4 kg
[2017-07-27 01:31] VITALS: BP 119/84
[2017-07-27] MEDS: MULTIVITAMINS TAB PO SCH (09:00)
[2017-07-27 13:02] VITALS: BP 92/50
[2017-07-27 20:55] VITALS: BP 102/74
[2017-07-28 06:14] VITALS: BP 112/64
[2017-07-28] MEDS: MULTIVITAMINS TAB PO SCH (08:42)
[2017-07-28] MEDS ORDERED: MULT-1335 PO (10:25)
[2017-07-28] MEDS ORDERED: OMEG1CAP39 PO (10:26)
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
--- NOTE | 2017-07-29 18:20 | DISCHARGE SUMMARY ---
Patient was seen at approximately 1100 hours on July 28, 2017 for note concerning this dictation. FINAL DIAGNOSES PER DSM-V Bipolar 2 disorder. Cannabis use disorder, moderate. Likely cannabis-related disorder. Rule out borderline intellectual functioning. Patient is known to have a very supportive relationship with her . REASON FOR ADMISSION This is a well known 27-year-old female who reports suicidal ideation which she attributes to the use of Savella, a medication recently given to her in injectable form by primary care provider for fibromyalgia. Patient has a long history of somatic complaints and visiting providers, coming to the ER. Patient reports that her bout with fibromyalgia was on the mend prior to getting dose of Savella, which patient no longer wants to take. Patient voluntarily admitted for suicidal ideations, which quickly resolved. Patient then requesting to go home. Contact was made with patient's , who had no reservations about patient's discharge. Patient very polite, cooperative throughout her stay and taking an active role in her treatment. PHYSICAL EXAM GENERAL: Please see emergency room note. Notable for a well-known 27-year-old female who is often in the emergency room with various somatic complaints. VITAL SIGNS: At the time of admission, temperature 98.3, pulse 66, respiratory rate 14, blood pressure 139/103 and pulse oximetry 98 on room air. At the time of discharge from [facility], temperature 99.3. Pulse 48 and low, patient asymptomatic. Respiratory rate 15, blood pressure 112/64, pulse oximetry 96 on room air. LABORATORY DATA CBC unremarkable. CMP unremarkable overall as well. Total bilirubin was, however, 1.9. TSH 3.29 in normal range. Urinalysis unremarkable. screen negative. Toxicology screen negative with a nondetectable serum alcohol level. MENTAL STATUS EXAMINATION AT THE TIME OF DISCHARGE GENERAL APPEARANCE, BEHAVIOR AND ATTITUDE: This is a well-known 27-year-old female, appropriately groomed, making good eye contact. No bizarre mannerisms or tics. No periods of tearfulness. No psychomotor agitation or retardation. Patient interacting well with this provider, treatment team staff and her on the phone. SPEECH: Within normal limits, regular rate, rhythm volume and tone. MOOD: Described as improved and okay. AFFECT: Full at times and mood congruent overall. THOUGHT PROCESSES: Goal directed, logical. No loose associations or flight of ideas. THOUGHT CONTENT: Free of auditory or visual hallucinations, ideas of reference , thought broadcastings, delusions, obsessions, compulsions. Patient adamantly denying suicidal or homicidal ideation. SENSORIUM: Clear. COGNITION: Alert and oriented to person, place, time and situation. MEMORY: Immediate, recent and remote estimated intact. INTELLIGENCE: Below average based on interview and previous knowledge of this patient. INSIGHT AND JUDGMENT: Limited by potential borderline intellectual functioning and illicit substance use. RESULTS OF TESTING IMAGING: None. LABORATORY DATA: See above. PSYCHOLOGICAL TESTING: Not done. CONSULTATIONS: None. TREATMENT Patient was maintained on medications including Invega injectable, which was not changed on the unit. It was recommended that patient take [place]-3 fish oil daily and vitamin D3 daily. Patient was encouraged to stop cannabis and patient continued to improve. CONDITION OF PATIENT ON DISCHARGE Stable. Considered minimal risk to herself or others and appropriate for outpatient care in the absence of cannabis use. DISPOSITION Patient discharged to home to the care of her . She would follow up with continued outpatient followup as scheduled. Patient would continue Invega injectable as scheduled and meet with therapist. Would recommend vitamin D3 1000 international units daily, and [place]-3 fish oil 1000 mg daily. Patient agreed to stop all cannabis use. Crisis line was given should symptoms return. Risks, benefits and alternatives of the above discharge plan were discussed. Informed consent was given to proceed with above discharge plan by this patient and patient's present on the phone. [facility]
[2017-07-31] MEDS ORDERED: KETO30CA16 IM (16:51)
[2017-08-05] MEDS ORDERED: ATEN-65 PO (11:40)
== END 2017-07-28 11:56 | disposition home or self-care (01) | DRG 885 ==
LOC: BHS 00:11
PROVIDERS: ADMIT Nurse Practitioner Psychiatric/Mental Health; ATTEND Nurse Practitioner Psychiatric/Mental Health
DX: F31.81 Bipolar II disorder (principal); R45.851 Suicidal ideations; F41.9 Anxiety disorder, unspecified; I49.9 Cardiac arrhythmia, unspecified; M79.7 Fibromyalgia; R51 Headache; K58.9 Irritable bowel syndrome, unspecified; Z91.5 Personal history of self-harm; Z87.891 Personal history of nicotine dependence; Z90.49 Acquired absence of other specified parts of digestive tract; Z90.89 Acquired absence of other organs; Z98.51 Tubal ligation status; Z97.3 Presence of spectacles and contact lenses; Z62.810 Personal history of physical and sexual abuse in childhood; Z62.820 Parent-biological child conflict; Z83.3 Family history of diabetes mellitus; Z81.8 Family history of other mental and behavioral disorders; T50.995A Adverse effect of other drugs, medicaments and biological substances, initial encounter; F12.280 Cannabis dependence with cannabis-induced anxiety disorder; R41.83 Borderline intellectual functioning
CPT/HCPCS: 80305; 80320; 80329; 81001; 81025; 82040; 82247; 82310; 82374; 82435; 82565; 82947; 83735; 84075; 84132; 84155; 84295; 84443; 84450; 84460; 84520; 85025; 99285

== ENCOUNTER 2017-08-03 18:47 | Emergency (ER) | payer MEDICAID ==
[2016-03-23 10:17] VITALS: BMI 18.0
[~2017-08-03 18:47] MED LIST changes: +KETO30CA16 IM; +MULT-1335 PO; +OMEG1CAP39 PO
--- NOTE | 2017-08-03 19:28 | ER Report ---
History and Physical Time Seen By MD: 19:27 Hx. of Stated Complaint: pT REPORTING MIGRAINE FOR A MONTH. WORSE TODAY. EXCEDRIN MIGRAINE HAS NOT HELPED. NO HEAD TRAUMA OR FEVERS OR STIFF NECK. HPI/ROS CHIEF COMPLAINT: Migraine headache HISTORY OF PRESENT ILLNESS: This is a 27-year-old female, well-known to the emergency department, who presents for a migraine headache. Patient states that she's had an intermittent migraine headache for the past month, patient states that the medications that she's been taking at home such as Excedrin migraine has not been working, she is tried sleeping in a darkened room but the migraine is persistent. Patient states she's had intermittent nausea with no vomiting. This is a typical migraine that's behind the right eye. No neuro deficits or any other concerns. Although the patient does state she thinks she has a urinary tract infection too. Patient denies chest pain or shortness of breath, rashes, or visual changes. REVIEW OF SYSTEMS: Constitutional: No fever, no chills. Eyes: No discharge. ENT: No sore throat. Cardiovascular: No chest pain, no palpitations. Respiratory: No cough, no shortness of breath. Gastrointestinal: No abdominal pain, no vomiting. Genitourinary: As above. Musculoskeletal: No back pain. Skin: No rashes. Neurological: As above. Allergies: Coded Allergies: amoxicillin (Verified Allergy, Mild, itching, 07/27/17) ondansetron HCl (Verified Adverse Reaction, Intermediate, ARRYTHMIA, ) ON 16 APR 2012, AFTER ZOFRAN 4MG IVP ADMIN, PT BRADYCARDIC (PULSE 30-35BPM), ARRHTHMIA ON 3-LEAD EKG. sumatriptan (Verified Adverse Reaction, Intermediate, NAUSEA/VOMITING, ) nitrofurantoin (Verified Adverse Reaction, Mild, 07/27/17) itching amitriptyline (Verified Adverse Reaction, Unknown, 07/31/17) syncope / orthostatic hypotension ibuprofen (Verified Adverse Reaction, Unknown, REACTION TO COATING ON IBU TABS, 07/27/17) "tears up my stomach" lurasidone (Verified Adverse Reaction, Unknown, NAUSEA/VOMITING, 07/31/17) Home Meds Active Scripts Sulfamethoxazole/Trimet 800-160 Mg Tab (BACTRIM DS TABLET) 1 Each Tablet, 1 TAB PO Q12H, #4 TAB 0 Refills Prov:SRIDEONDRECRISTINO [place] Valentina WATCH INSPECTOR FINAL MOVEMENT-BC 08/03/17 Reported Medications Paliperidone Palmitate (INVEGA SUSTENNA) 78 Mg/0.5 Ml Disp.syrin, 1 TAB IM once a month 06/06/17 Discontinued Reported Medications [place]-3S/Dha/Epa/Fish Oil/D3 (FISH OIL + D3 SOFTGEL) 1 Each Capsule, 1 EACH PO DAILY, CAPSULE 07/28/17 Multivitamin With Minerals (MULTIPLE VITAMIN) 1 Each Tablet, 1 EACH PO DAILY, TAB 07/28/17 Discontinued Scripts Milnacipran (SAVELLA) 50 Mg Tab, 1 TAB PO BID, #60 TAB 0 Refills Start after completing one week of 25mg tabs Prov:MAGUI MORRIS APRN WATCH INSPECTOR FIN[employer] MOVEMENT-C 07/01/17 Milnacipran (SAVELLA) 25 Mg Tab, 0.5-1 TAB PO BID for 7 Days, #11 TAB 0 Refills Day 1 - 0.5 tab once Day 2 & 3 - 0.5 tab twice daily Day 4-7 - 1 tab twice daily Prov:MAGUI MORRIS APRN WATCH INSPECTOR [employer]OVEMENT-C 07/01/17 Past Medical/Surgical History Patient has a past medical and surgical history of fibromyalgia, migraines, bradycardia, tachycardia, IBS, cholecystectomy, wears glasses, astigmatism, uses marijuana, anxiety, depression, attempted suicide with overdose, left knee scoped, right hand surgery, Reviewed Nurses Notes: Yes Hx Smoking: Yes Smoking Status: Former Smoker Exposure to Second Hand Smoke?: No Hx Substance Use Disorder: Yes (marijuana) Hx Alcohol Use: Yes Constitutional Vital Sign - Last 24 Hours 08/03/17 08/03/17 08/03/17 08/03/17 19:20 19:21 19:25 19:32 Temp 99.6 Pulse 59 Resp 16 B/P (MAP) 136/85 (102) 136/85 124/71 (88) Pulse Ox 96 95 O2 Delivery Room Air 08/03/17 08/03/17 08/03/17 08/03/17 19:40 19:47 20:00 20:02 Pulse 54 57 B/P (MAP) 117/76 (90) 123/84 (97) Pulse Ox 95 97 5/27/08/03/17 08/03/17 08/03/17 20:07 20:20 20:22 20:37 Pulse 57 50 54 B/P (MAP) 139/86 (103) Pulse Ox 97 96 97 08/03/17 08/03/17 08/03/17 08/03/17 20:40 20:52 21:07 21:12 Pulse 49 47 B/P (MAP) 135/89 (104) 121/78 (92) Pulse Ox 94 95 Physical Exam General Appearance: The patient is alert, has no immediate need for airway protection and no signs of toxicity. Eyes: Pupils equal and round no pallor or injection. ENT, Mouth: Mucous membranes are moist. Respiratory: There are no retractions, lungs are clear to auscultation. Cardiovascular: Regular rate and rhythm. Gastrointestinal: Abdomen is soft and non tender, no masses, bowel sounds normal. Neurological: Alert and oriented 4. Moving all extremities. Following all commands. No focal neuro deficits. Cranial nerves II through XII intact. Skin: Warm and dry, no rashes. Musculoskeletal: Neck is supple non tender. Extremities are nontender, nonswollen and have full range of motion. DIFFERENTIAL DIAGNOSIS: After history and physical exam differential diagnosis was considered for headache including but not limited to subarachnoid hemorrhage , migraine headache, tension headache and infectious causes such as meningitis, pharyngitis and sinusitis. Medical Decision Making Data Points Laboratory Hematology Test 08/03/17 19:40 Urine Color [place] Urine Clarity Slightly-cloudy Urine pH 6.0 pH (4.8-9.5) Urine Specific [place] 1.019 Urine Protein Negative mg/dL (NEGATIVE) Urine Glucose (UA) Negative mg/dL (NEGATIVE) Urine Ketones Negative mg/dL (NEGATIVE) Urine Blood Moderate (NEGATIVE) Urine Nitrite Positive (NEGATIVE) Urine Bilirubin Negative (NEGATIVE) Urine Urobilinogen 4.0 mg/dL (0.2-1.9) Urine Leukocyte Esterase Moderate (NEGATIVE) Urine RBC 8 /HPF (0-2/HPF) Urine WBC 56 /HPF (0-5/HPF) Urine Squamous Epithelial Cells Many /LPF (</=FEW) Urine Bacteria Few /HPF (NONE-FEW) Urine Mucus Few /HPF (NONE-FEW) Chemistry Test 08/03/17 19:40 Urine Color [place] Urine Clarity Slightly-cloudy Urine pH 6.0 pH (4.8-9.5) Urine Specific [place] 1.019 Urine Protein Negative mg/dL (NEGATIVE) Urine Glucose (UA) Negative mg/dL (NEGATIVE) Urine Ketones Negative mg/dL (NEGATIVE) Urine Blood Moderate (NEGATIVE) Urine Nitrite Positive (NEGATIVE) Urine Bilirubin Negative (NEGATIVE) Urine Urobilinogen 4.0 mg/dL (0.2-1.9) Urine Leukocyte Esterase Moderate (NEGATIVE) Urine RBC 8 /HPF (0-2/HPF) Urine WBC 56 /HPF (0-5/HPF) Urine Squamous Epithelial Cells Many /LPF (</=FEW) Urine Bacteria Few /HPF (NONE-FEW) Urine Mucus Few /HPF (NONE-FEW) Urinalysis Test 08/03/17 19:40 Urine Color [place] Urine Clarity Slightly-cloudy Urine pH 6.0 pH (4.8-9.5) Urine Specific [place] 1.019 Urine Protein Negative mg/dL (NEGATIVE) Urine Glucose (UA) Negative mg/dL (NEGATIVE) Urine Ketones Negative mg/dL (NEGATIVE) Urine Blood Moderate (NEGATIVE) Urine Nitrite Positive (NEGATIVE) Urine Bilirubin Negative (NEGATIVE) Urine Urobilinogen 4.0 mg/dL (0.2-1.9) Urine Leukocyte Esterase Moderate (NEGATIVE) Urine RBC 8 /HPF (0-2/HPF) Urine WBC 56 /HPF (0-5/HPF) Urine Squamous Epithelial Cells Many /LPF (</=FEW) Urine Bacteria Few /HPF (NONE-FEW) Urine Mucus Few /HPF (NONE-FEW) ED Course/Re-evaluation Clinical Indication for ER IV: Hydration, IV Access ED Course The patient was admitted to room. A history and physical were obtained. Differential diagnoses were considered. An IV was started. A 1 L normal saline bolus was given. 12.5 mg IV Phenergan, 25 mg IV Benadryl, 8 mg IV Decadron, 30 mg IV Toradol were given. Patient was also concerned about a urinary tract infection, UA was obtained, showing a UTI. Patient was given 1 dose of Bactrim in the ED. A prescription was sent to the patient's pharmacy for 2 days of Bactrim. Patient was instructed to follow-up with her primary care provider and consider following up with the headache specialist in [place]. The patient states he is feeling better after medications and fluids and is rated go home. Patient had no other questions or concerns at this time and discharged home. 08/03/2017 8:51:55 pm patient states she is feeling much better, headache is resolving nausea is resolved. Patient is to get up to go the bathroom. I did tell the patient that she does have a urinary tract infection as well, and treat that with antibiotics. Patient was given 1 dose of antibiotics in the emergency department prescription was sent to the patient's pharmacy. Patient requesting to go home. Decision to Disposition Date: August 03, 2017 Decision to Disposition Time: 21:03 Depart Departure Latest Vital Signs Vital Signs Date Time Temp Pulse Resp B/P (MAP) Pulse Ox O2 Delivery O2 Flow Rate FiO2 08/03/17 21:12 121/78 (92) 08/03/17 21:07 47 95 08/03/17 19:21 99.6 16 Room Air Impression: Primary Impression: Migraine Additional Impression: UTI (urinary tract infection) Condition: Improved Disposition: HOME OR SELF-CARE Referrals: MAGUI MORRIS APRN-C (PCP) New Scripts Sulfamethoxazole/Trimet 800-160 Mg Tab (BACTRIM DS TABLET) 1 Each Tablet 1 TAB PO Q12H, #4 TAB 0 Refills Prov: CRISTINO DONALDSONP- 08/03/17 Patient Instructions: Migraine Headache (ED), Urinary Tract Infection in Women (ED) Additional Instructions: Continue to drink plenty of fluids. Go home and sleep. Follow-up with your primary care provider as scheduled and consider discussing the headache clinic in [place]. Take your medications as prescribed. Return to the emergency department for any other concerns or worsening symptoms. Problem Qualifiers Primary Impression: Migraine Migraine type: unspecified Status migrainosus presence: without status migrainosus Intractability: not intractable Qualified Codes: G43.909 - Migraine, unspecified, not intractable, without status migrainosus Additional Impression: UTI (urinary tract infection) Urinary tract infection type: acute cystitis Hematuria presence: with hematuria Qualified Codes: N30.01 - Acute cystitis with hematuria CRISTINO DONALDSON WATCH INSPECTOR FINAL MOVEMENT- August 03, 2017 19:27
[2017-08-03] MEDS ORDERED: DEXAMETHASONE SOD PHOS 10MG/ML IVP ONE (19:35)
[2017-08-03] MEDS ORDERED: NS(*) 0.9% 1000 ML BAG 1,000 ML IV ONE (19:35)
[2017-08-03] MEDS ORDERED: diphenhydrAMINE 50 MG/ML VIAL IVP ONE (19:35)
[2017-08-03] MEDS ORDERED: PROMETHAZINE 25 MG/ML 1 ML AMP IVP ONE (19:35)
[2017-08-03] MEDS ORDERED: KETOROLAC 30 MG/ML VIAL IVP ONE (19:40)
[2017-08-03] MEDS ORDERED: SULF-198 PO (20:19)
[2017-08-03] MEDS ORDERED: TRIMETHOPRIM/SULFA 160-800 TH 2 TAB/BOTTLE PO ONE (20:20)
[2017-08-03 21:12] VITALS: BP 121/78
[2017-08-05] MEDS ORDERED: ATEN-65 PO (11:40)
[2017-08-07] MEDS ORDERED: DULO30CA6 PO (16:52)
[2017-08-07] MEDS ORDERED: DULO60CA56 PO (16:52)
== END 2017-08-03 21:15 | disposition home or self-care (01) ==
LOC: ER 19:22
DX: G43.909 Migraine, unspecified, not intractable, without status migrainosus (principal); N30.01 Acute cystitis with hematuria
CPT/HCPCS: 81001; 96361; 96374; 96375; 99284; J1100; J1200; J1885; J2550; J7030

== ENCOUNTER 2017-08-05 15:42 | Emergency (ER) | payer MEDICAID ==
[2016-03-23 10:17] VITALS: Wt 54.4 kg
[~2017-08-05 15:42] MED LIST changes: +ATEN-65 PO
--- NOTE | 2017-08-05 15:56 | ER Report ---
History and Physical Time Seen By MD: 15:48 HPI/ROS CHIEF COMPLAINT: Headache HISTORY OF PRESENT ILLNESS: Patient is a 27-year-old female here with complaints of retro-orbital headaches and mild fuzzy vision consistent with her typical migraines. Patient reports taking Excedrin Migraine at home without relief of symptoms. Her current symptoms started approximately 3:00 this morning not been persistent ever since. Patient is afebrile, normotensive. She reports mild photosensitivity. Denies chest pain, shortness breath, vomiting. He does report having mild nausea. REVIEW OF SYSTEMS: Constitutional: No fever, no chills. Eyes: No discharge, + retro orbital pain ENT: No sore throat. Cardiovascular: No chest pain, no palpitations. Respiratory: No cough, no shortness of breath. Gastrointestinal: No abdominal pain, no vomiting, + nausea Genitourinary: No hematuria. Musculoskeletal: No back pain. Skin: No rashes. Neurological: + retro orbital headache. Allergies: Coded Allergies: amoxicillin (Verified Allergy, Mild, itching, 08/05/17) ondansetron HCl (Verified Adverse Reaction, Intermediate, ARRYTHMIA, ) ON 16 APR 2012, AFTER ZOFRAN 4MG IVP ADMIN, PT BRADYCARDIC (PULSE 30-35BPM), ARRHTHMIA ON 3-LEAD EKG. sumatriptan (Verified Adverse Reaction, Intermediate, NAUSEA/VOMITING, ) nitrofurantoin (Verified Adverse Reaction, Mild, 08/05/17) itching amitriptyline (Verified Adverse Reaction, Unknown, 08/05/17) syncope / orthostatic hypotension ibuprofen (Verified Adverse Reaction, Unknown, REACTION TO COATING ON IBU TABS, 08/05/17) "tears up my stomach" lurasidone (Verified Adverse Reaction, Unknown, NAUSEA/VOMITING, 08/05/17) Home Meds Active Scripts Atenolol (ATENOLOL) 25 Mg Tablet, 1 TAB PO QDAY, #30 TAB 1 Refill Prov:MAGUI MORRIS APRN QUALITY ASSURANCE ASSISTANT-C 08/05/17 Sulfamethoxazole/Trimet 800-160 Mg Tab (BACTRIM DS TABLET) 1 Each Tablet, 1 TAB PO Q12H, #4 TAB 0 Refills Prov:CRISTINO DONALDSON QUALITY ASSURANCE ASSISTANT-BC 08/03/17 Reported Medications Paliperidone Palmitate (INVEGA SUSTENNA) 78 Mg/0.5 Ml Disp.syrin, 1 TAB IM once a month 06/06/17 Discontinued Reported Medications [place]-3S/Dha/Epa/Fish Oil/D3 (FISH OIL + D3 SOFTGEL) 1 Each Capsule, 1 EACH PO DAILY, CAPSULE 07/28/17 Multivitamin With Minerals (MULTIPLE VITAMIN) 1 Each Tablet, 1 EACH PO DAILY, TAB 07/28/17 Past Medical/Surgical History migraines Hx Smoking: Yes Smoking Status: Former Smoker Exposure to Second Hand Smoke?: No Hx Substance Use Disorder: Yes (marijuana) Hx Alcohol Use: Yes Constitutional Vital Sign - Last 24 Hours 08/05/17 08/05/17 08/05/17 08/05/17 15:46 15:48 15:57 16:00 Temp 98.0 Pulse 60 68 Resp 16 B/P (MAP) 129/74 (92) 129/74 116/76 (89) Pulse Ox 97 97 O2 Delivery Room Air 08/05/17 08/05/17 08/05/17 08/05/17 16:12 16:27 16:30 16:42 Pulse 57 58 73 B/P (MAP) 119/84 (96) Pulse Ox 97 97 97 08/05/17 08/05/17 16:57 17:00 Pulse 57 B/P (MAP) 114/71 (85) Pulse Ox 97 Physical Exam General Appearance: The patient is alert, has no immediate need for airway protection and no signs of toxicity. Eyes: Pupils equal and round no pallor or injection. ENT, Mouth: Mucous membranes are moist. Respiratory: There are no retractions, lungs are clear to auscultation. Cardiovascular: Regular rate and rhythm. Gastrointestinal: Abdomen is soft and non tender, no masses, bowel sounds normal. Neurological: No focal neuro deficits Skin: Warm and dry, no rashes. Musculoskeletal: Neck is supple non tender. Extremities are nontender, nonswollen and have full range of motion. DIFFERENTIAL DIAGNOSIS: After history and physical exam differential diagnosis was considered for tension headache, migraine, atypical migraine, rebound headaches Medical Decision Making ED Course/Re-evaluation ED Course Patient is a 27-year-old female here with recurrence of her typical migraines. She reports having her typical migraine starting approximately 3:00 this morning refractory to her Excedrin. She was seen for the same symptoms 2 days prior and had complete resolution of symptoms at that time. She was given Reglan , normal saline bolus, Toradol, magnesium, Decadron. Decision to Disposition Date: August 05, 2017 Decision to Disposition Time: 17:15 Depart Departure Latest Vital Signs Vital Signs Date Time Temp Pulse Resp B/P (MAP) Pulse Ox O2 Delivery O2 Flow Rate FiO2 08/05/17 17:00 114/71 (85) 08/05/17 16:57 57 97 08/05/17 15:48 98.0 16 Room Air Impression: Primary Impression: Migraine Condition: Improved Disposition: HOME OR SELF-CARE Referrals: MAGUI MORRIS APRN QUALITY ASSURANCE ASSISTANT-C (PCP) Patient Instructions: Migraine Headache (ED) Additional Instructions: Please continue to keep hydrated. Please follow-up with a family doctor in the next week. Please return promptly if you develop worsening headaches, blurred vision, fevers, chills, chest pain, shortness of breath, nausea, vomiting. SUHA TRIVEDI DO August 05, 2017 15:56
[2017-08-05] MEDS ORDERED: METOCLOPRAMIDE 10 MG/2 ML SDV IVP ONE (16:05)
[2017-08-05] MEDS ORDERED: DEXAMETHASONE SOD PHOS 10MG/ML IVP ONE (16:05)
[2017-08-05] MEDS ORDERED: diphenhydrAMINE 50 MG/ML VIAL IVP ONE (16:05)
[2017-08-05] MEDS ORDERED: IV BOLUS 500 ML IVSOL IV ONE (16:05)
[2017-08-05] MEDS ORDERED: KETOROLAC 30 MG/ML VIAL IVP ONE (16:05)
[2017-08-05] MEDS ORDERED: MAGNESIUM SUL/D5W* 1 GM/100 ML 100 ML IVPB ONE (16:05)
[2017-08-05] MEDS ORDERED: NS(*) 0.9% 1000 ML BAG 1,000 ML IV ONE (16:25)
[2017-08-05 17:00] VITALS: BP 114/71
[2017-08-06] MEDS ORDERED: BACL-1 PO (20:59)
[2017-08-06] MEDS ORDERED: KET10 PO (20:59)
[2017-08-07] MEDS ORDERED: DULO30CA6 PO (16:52)
[2017-08-07] MEDS ORDERED: DULO60CA56 PO (16:52)
== END 2017-08-05 17:20 | disposition home or self-care (01) ==
LOC: ER 15:59
DX: G43.909 Migraine, unspecified, not intractable, without status migrainosus (principal)
CPT/HCPCS: 96365; 96375; 99284; J1100; J1200; J1885; J2765; J3475; J7030

== ENCOUNTER 2017-08-06 09:41 | Emergency (ER) | payer MEDICAID ==
[2016-03-23 10:17] VITALS: Wt 54.4 kg
--- NOTE | 2017-08-06 09:56 | ER Report ---
History and Physical Time Seen By MD: 09:54 Hx. of Stated Complaint: MID TO LOWER BACK PAIN FOR ONE WEEK. HPI/ROS CHIEF COMPLAINT: Right-sided back pain HISTORY OF PRESENT ILLNESS: Patient is a 27-year-old female who reports having right-sided back pain for approximately one week which is progressively worsening. Patient denies hematuria however she does describe pain that radiates to her right groin. Patient reports right paraspinal muscle tenderness worse with range of motion. Patient is afebrile and hemodynamically stable at time of evaluation and denies fevers at home, vomiting. She does endorse nausea and chills. REVIEW OF SYSTEMS: Respiratory: No cough, no dyspnea. Cardiovascular: No chest pain, no palpitations. Gastrointestinal: No vomiting, + Mild abdominal pain. Musculoskeletal: + Right flank back pain. Allergies: Coded Allergies: amoxicillin (Verified Allergy, Mild, itching, 08/05/17) ondansetron HCl (Verified Adverse Reaction, Intermediate, ARRYTHMIA, ) ON 16 APR 2012, AFTER ZOFRAN 4MG IVP ADMIN, PT BRADYCARDIC (PULSE 30-35BPM), ARRHTHMIA ON 3-LEAD EKG. sumatriptan (Verified Adverse Reaction, Intermediate, NAUSEA/VOMITING, ) nitrofurantoin (Verified Adverse Reaction, Mild, 08/05/17) itching amitriptyline (Verified Adverse Reaction, Unknown, 08/05/17) syncope / orthostatic hypotension ibuprofen (Verified Adverse Reaction, Unknown, REACTION TO COATING ON IBU TABS, 08/05/17) "tears up my stomach" lurasidone (Verified Adverse Reaction, Unknown, NAUSEA/VOMITING, 08/05/17) Home Meds Active Scripts Atenolol (ATENOLOL) 25 Mg Tablet, 1 TAB PO QDAY, #30 TAB 1 Refill Prov:MAGUI MORRIS APRN WIG COMBER-C 08/05/17 Sulfamethoxazole/Trimet 800-160 Mg Tab (BACTRIM DS TABLET) 1 Each Tablet, 1 TAB PO Q12H, #4 TAB 0 Refills Prov:CRISTINO DONALDSON WIG COMBER-BC 08/03/17 Reported Medications Paliperidone Palmitate (INVEGA SUSTENNA) 78 Mg/0.5 Ml Disp.syrin, 1 TAB IM once a month 06/06/17 Discontinued Reported Medications [place]-3S/Dha/Epa/Fish Oil/D3 (FISH OIL + D3 SOFTGEL) 1 Each Capsule, 1 EACH PO DAILY, CAPSULE 07/28/17 Multivitamin With Minerals (MULTIPLE VITAMIN) 1 Each Tablet, 1 EACH PO DAILY, TAB 07/28/17 Hx Smoking: Yes Smoking Status: Former Smoker Exposure to Second Hand Smoke?: No Hx Substance Use Disorder: Yes (marijuana) Hx Alcohol Use: Yes Constitutional Vital Sign - Last 24 Hours 08/06/17 08/06/17 08/06/17 09:45 10:00 11:30 Temp 98.8 Pulse 72 72 68 Resp 18 B/P (MAP) 117/74 118/68 (85) 112/70 (84) Pulse Ox 95 97 O2 Delivery Room Air Physical Exam General Appearance: The patient is alert, has no immediate need for airway protection and no current signs of toxicity. Eyes: Pupils equal and round no injection. Respiratory: Chest is non tender, lungs are clear to auscultation. Cardiac: regular rate and rhythm Gastrointestinal: Abdomen is soft and non tender, no masses, bowel sounds normal. Musculoskeletal: Neck: Neck is supple and non tender. + Right paraspinal muscle tenderness from ~ T11-L5 Extremities have full range of motion and are non tender. Skin: No rashes or lesions. [ ] DIFFERENTIAL DIAGNOSIS: After history and physical exam differential diagnosis was considered for muscle strain, muscle spasm, nephrolithiasis, UTI Medical Decision Making Data Points Result Diagram: 08/06/17 1020 08/06/17 1020 Laboratory Hematology Test 08/06/17 09:45 08/06/17 10:20 Urine Color [place] Urine Clarity Clear Urine pH 6.0 pH (4.8-9.5) Urine Specific [place] 1.008 Urine Protein Negative mg/dL (NEGATIVE) Urine Glucose (UA) Negative mg/dL (NEGATIVE) Urine Ketones Negative mg/dL (NEGATIVE) Urine Blood Negative (NEGATIVE) Urine Nitrite Positive (NEGATIVE) Urine Bilirubin Negative (NEGATIVE) Urine Urobilinogen 2.0 mg/dL (0.2-1.9) Urine Leukocyte Esterase Negative (NEGATIVE) Urine RBC <1 /HPF (0-2/HPF) Urine WBC <1 /HPF (0-5/HPF) Urine Squamous Epithelial Cells Many /LPF (</=FEW) Urine Bacteria Negative /HPF (NONE-FEW) Urine Mucus None /HPF (NONE-FEW) Red Blood Count 4.40 M/uL (4.17-5.56) Mean Corpuscular Volume 91.5 fL (80.0-96.0) Mean Corpuscular Hemoglobin 32.2 pg (26.0-33.0) Mean Corpuscular Hemoglobin Concent 35.2 g/dL (32.0-36.0) Red Cell Distribution Width 12.7 % (11.5-14.5) Mean Platelet Volume 8.3 fL (7.2-11.1) Neutrophils (%) (Auto) 90.2 % (39.4-72.5) Lymphocytes (%) (Auto) 5.3 % (17.6-49.6) Monocytes (%) (Auto) 4.3 % (4.1-12.4) Eosinophils (%) (Auto) 0.0 % (0.4-6.7) Basophils (%) (Auto) 0.2 % (0.3-1.4) Nucleated RBC Relative Count (auto) 0.0 /100WBC Neutrophils # (Auto) 9.9 K/uL (2.0-7.4) Lymphocytes # (Auto) 0.6 K/uL (1.3-3.6) Monocytes # (Auto) 0.5 K/uL (0.3-1.0) Eosinophils # (Auto) 0.0 K/uL (0.0-0.5) Basophils # (Auto) 0.0 K/uL (0.0-0.1) Nucleated RBC Absolute Count (auto) 0.00 K/uL Sodium Level 142 mmol/L (137-145) Potassium Level 3.4 mmol/L (3.5-5.0) Chloride Level 107 mmol/L (98-107) Carbon Dioxide Level 19 mmol/L (22-31) Blood Urea Nitrogen 8 mg/dl (7-18) Creatinine 0.70 mg/dl (0.52-1.04) Glomerular Filtration Rate Calc > 60.0 Random Glucose 107 mg/dl (75-110) Calcium Level 9.7 mg/dl (8.4-10.2) Total Bilirubin 1.2 mg/dl (0.2-1.3) Aspartate Amino Transf (AST/SGOT) 22 U/L (0-35) Alanine Aminotransferase (ALT/SGPT) 32 U/L (0-56) Alkaline Phosphatase 72 U/L (0-126) Total Protein 6.9 gm/dl (6.3-8.2) Albumin 4.1 g/dl (3.5-5.0) Lipase 102 U/L (23-300) Human Chorionic Gonadotropin, Qual Negative (NEGATIVE) Chemistry Test 08/06/17 09:45 08/06/17 10:20 Urine Color [place] Urine Clarity Clear Urine pH 6.0 pH (4.8-9.5) Urine Specific [place] 1.008 Urine Protein Negative mg/dL (NEGATIVE) Urine Glucose (UA) Negative mg/dL (NEGATIVE) Urine Ketones Negative mg/dL (NEGATIVE) Urine Blood Negative (NEGATIVE) Urine Nitrite Positive (NEGATIVE) Urine Bilirubin Negative (NEGATIVE) Urine Urobilinogen 2.0 mg/dL (0.2-1.9) Urine Leukocyte Esterase Negative (NEGATIVE) Urine RBC <1 /HPF (0-2/HPF) Urine WBC <1 /HPF (0-5/HPF) Urine Squamous Epithelial Cells Many /LPF (</=FEW) Urine Bacteria Negative /HPF (NONE-FEW) Urine Mucus None /HPF (NONE-FEW) White Blood Count 11.0 k/uL (4.5-11.0) Red Blood Count 4.40 M/uL (4.17-5.56) Hemoglobin 14.2 g/dL (12.0-16.0) Hematocrit 40.2 % (34.0-47.0) Mean Corpuscular Volume 91.5 fL (80.0-96.0) Mean Corpuscular Hemoglobin 32.2 pg (26.0-33.0) Mean Corpuscular Hemoglobin Concent 35.2 g/dL (32.0-36.0) Red Cell Distribution Width 12.7 % (11.5-14.5) Platelet Count 219 K/uL (150-450) Mean Platelet Volume 8.3 fL (7.2-11.1) Neutrophils (%) (Auto) 90.2 % (39.4-72.5) Lymphocytes (%) (Auto) 5.3 % (17.6-49.6) Monocytes (%) (Auto) 4.3 % (4.1-12.4) Eosinophils (%) (Auto) 0.0 % (0.4-6.7) Basophils (%) (Auto) 0.2 % (0.3-1.4) Nucleated RBC Relative Count (auto) 0.0 /100WBC Neutrophils # (Auto) 9.9 K/uL (2.0-7.4) Lymphocytes # (Auto) 0.6 K/uL (1.3-3.6) Monocytes # (Auto) 0.5 K/uL (0.3-1.0) Eosinophils # (Auto) 0.0 K/uL (0.0-0.5) Basophils # (Auto) 0.0 K/uL (0.0-0.1) Nucleated RBC Absolute Count (auto) 0.00 K/uL Glomerular Filtration Rate Calc > 60.0 Calcium Level 9.7 mg/dl (8.4-10.2) Total Bilirubin 1.2 mg/dl (0.2-1.3) Aspartate Amino Transf (AST/SGOT) 22 U/L (0-35) Alanine Aminotransferase (ALT/SGPT) 32 U/L (0-56) Alkaline Phosphatase 72 U/L (0-126) Total Protein 6.9 gm/dl (6.3-8.2) Albumin 4.1 g/dl (3.5-5.0) Lipase 102 U/L (23-300) Human Chorionic Gonadotropin, Qual Negative (NEGATIVE) Urinalysis Test 08/06/17 09:45 Urine Color [place] Urine Clarity Clear Urine pH 6.0 pH (4.8-9.5) Urine Specific [place] 1.008 Urine Protein Negative mg/dL (NEGATIVE) Urine Glucose (UA) Negative mg/dL (NEGATIVE) Urine Ketones Negative mg/dL (NEGATIVE) Urine Blood Negative (NEGATIVE) Urine Nitrite Positive (NEGATIVE) Urine Bilirubin Negative (NEGATIVE) Urine Urobilinogen 2.0 mg/dL (0.2-1.9) Urine Leukocyte Esterase Negative (NEGATIVE) Urine RBC <1 /HPF (0-2/HPF) Urine WBC <1 /HPF (0-5/HPF) Urine Squamous Epithelial Cells Many /LPF (</=FEW) Urine Bacteria Negative /HPF (NONE-FEW) Urine Mucus None /HPF (NONE-FEW) ED Course/Re-evaluation ED Course Patient is a 27-year-old female here with complaints of flank pain with mild right abdominal pain. Patient reports having similar pain for the past week which has been worsening and is located primarily in the right paraspinal musculature at approximately T11-L5. Patient is afebrile, normotensive, hemodynamically stable and in no acute distress. She was given Reglan, Toradol, 1 L normal saline bolus as the patient was complaining of pain and nausea. Labs were unremarkable. I completed a bedside ultrasound evaluation of the kidneys and no hydronephrosis was identified. Bladder was normal size without signs of inflammation or free fluid. Patient moderate relief of symptoms and was discharged in stable condition. Decision to Disposition Date: August 06, 2017 Decision to Disposition Time: 12:00 Depart Departure Latest Vital Signs Vital Signs Date Time Temp Pulse Resp B/P (MAP) Pulse Ox O2 Delivery O2 Flow Rate FiO2 08/06/17 11:30 68 112/70 (84) 08/06/17 10:00 97 08/06/17 09:45 98.8 18 Room Air Impression: Primary Impression: Back pain Condition: Improved Disposition: HOME OR SELF-CARE Referrals: MAGUI MORRIS APRN WIG COMBER-C (PCP) Patient Instructions: Back Pain (ED) SUHA TRIVEDI DO August 06, 2017 09:56
[2017-08-06] MEDS ORDERED: NS(*) 0.9% 1000 ML BAG 1,000 ML IV ONE (10:03)
[2017-08-06] MEDS ORDERED: KETOROLAC 30 MG/ML VIAL IVP ONE (10:05)
[2017-08-06] MEDS ORDERED: METOCLOPRAMIDE 10 MG/2 ML SDV IVP ONE (10:05)
[2017-08-06 10:44] LABS: PLATELET COUNT, AUTOMATED 219 K/uL (150-450)
[2017-08-06 11:30] VITALS: BP 112/70
[2017-08-06] MEDS ORDERED: BACL-1 PO (20:59)
[2017-08-06] MEDS ORDERED: KET10 PO (20:59)
[2017-08-07] MEDS ORDERED: DULO60CA56 PO (16:52)
[2017-08-07] MEDS ORDERED: DULO30CA6 PO (16:52)
== END 2017-08-06 12:07 | disposition home or self-care (01) ==
LOC: ER 09:52
DX: M54.5 Low back pain (principal); M54.6 Pain in thoracic spine
CPT/HCPCS: 81001; 83690; 84703; 85025; 96361; 96374; 96375; 99283; J1885; J2765; J7030; 72120; 82040; 82247; 82310; 82374; 82435; 82565; 82947; 84075; 84132; 84155; 84295; 84450; 84460; 84520; 96372; 99282; A4216; J3490

== ENCOUNTER 2017-08-06 19:08 | Emergency (ER) | payer MEDICAID ==
[2016-03-23 10:17] VITALS: Wt 54.4 kg
--- NOTE | 2017-08-06 19:19 | ER Report ---
History and Physical Time Seen By MD: 19:19 HPI/ROS CHIEF COMPLAINT: Back pain HISTORY OF PRESENT ILLNESS: 27-year-old female patient presents to emergency room with complaint of back pain. Patient states she's been having back pain for the past 2 weeks. Patient states that seems to be getting worse. She states the pain is in the back but does not radiate anywhere. Patient denies having loss of bowel or bladder control. Patient denies having any saddle paresthesia. Patient states that she has not taken any medication for this. She states that any type of movement seems to make the pain worse. States she is unable to sit or lay comfortably. Patient states that couple weeks ago her daughter was throwing a fit at [employer] and she bent down and picked her up and felt a twinge in her back at that time. She believes that this is likely related to that. REVIEW OF SYSTEMS: Respiratory: No cough, no dyspnea. Cardiovascular: No chest pain, no palpitations. Gastrointestinal: No vomiting, no abdominal pain. Musculoskeletal: As noted above Allergies: Coded Allergies: amoxicillin (Verified Allergy, Mild, itching, 08/06/17) ondansetron HCl (Verified Adverse Reaction, Intermediate, ARRYTHMIA, ) ON 16 APR 2012, AFTER ZOFRAN 4MG IVP ADMIN, PT BRADYCARDIC (PULSE 30-35BPM), ARRHTHMIA ON 3-LEAD EKG. sumatriptan (Verified Adverse Reaction, Intermediate, NAUSEA/VOMITING, ) nitrofurantoin (Verified Adverse Reaction, Mild, 08/06/17) itching amitriptyline (Verified Adverse Reaction, Unknown, 08/06/17) syncope / orthostatic hypotension ibuprofen (Verified Adverse Reaction, Unknown, REACTION TO COATING ON IBU TABS, 08/06/17) "tears up my stomach" lurasidone (Verified Adverse Reaction, Unknown, NAUSEA/VOMITING, 08/06/17) Home Meds Active Scripts Baclofen (BACLOFEN) 10 Mg Tablet, 5 MG PO TID, #10 TAB Prov:SUNDAR PUENTES 08/06/17 Ketorolac Tromethamine (KETOROLAC TROMETHAMINE) 10 Mg Tab, 10 MG PO Q6H, #20 TAB Prov:SUNDAR PUENTES 08/06/17 Atenolol (ATENOLOL) 25 Mg Tablet, 1 TAB PO QDAY, #30 TAB 1 Refill Prov:MAGUI MORRIS APRN [employer]-C 08/05/17 Sulfamethoxazole/Trimet 800-160 Mg Tab (BACTRIM DS TABLET) 1 Each Tablet, 1 TAB PO Q12H, #4 TAB 0 Refills Prov:CRISTINO DONALDSON [employer]-BC 08/03/17 Reported Medications Paliperidone Palmitate (INVEGA SUSTENNA) 78 Mg/0.5 Ml Disp.syrin, 1 TAB IM once a month 06/06/17 Discontinued Reported Medications Hammond-3S/Dha/Epa/Fish Oil/D3 (FISH OIL + D3 SOFTGEL) 1 Each Capsule, 1 EACH PO DAILY, CAPSULE 07/28/17 Multivitamin With Minerals (MULTIPLE VITAMIN) 1 Each Tablet, 1 EACH PO DAILY, TAB 07/28/17 Past Medical/Surgical History Patient has a past medical history of fibromyalgia, migraines, bradycardia, tachycardia, asthma, IBS, cholecystitis, right hand fracture, marijuana use, depression, bipolar, anxiety, borderline personality, suicide attempt. Patient has a surgical history of appendectomy, cholecystectomy, tubal ligation , knee surgery 2, right hand surgery. Patient has a family medical history of stroke, diabetes, psychiatric problems. Reviewed Nurses Notes: Yes Hx Smoking: Yes Smoking Status: Former Smoker Exposure to Second Hand Smoke?: No Hx Substance Use Disorder: Yes (marijuana) Hx Alcohol Use: Yes Constitutional Vital Sign - Last 24 Hours 08/06/17 19:24 Temp 98.9 Pulse 78 Resp 14 B/P (MAP) 128/71 Pulse Ox 95 O2 Delivery Room Air Physical Exam General Appearance: The patient is alert, has no immediate need for airway protection and no current signs of toxicity. ENT: Tympanic membranes are pearly-mayes, auditory canals are patent, mucous membranes are moist. Respiratory: Chest is non tender, lungs are clear to auscultation. Cardiac: regular rate and rhythm Gastrointestinal: Abdomen is soft and non tender, no masses, bowel sounds normal. Musculoskeletal: Neck: Neck is supple and non tender. Extremities have full range of motion and are non tender. Back: Patient complaining of midline tenderness to the lumbar spine, no bruising noted, no swelling. Patient didn't have any paraspinous tightness that I noted. Skin: No rashes or lesions. DIFFERENTIAL DIAGNOSIS: After history and physical exam differential diagnosis was considered for back pain including but not limited to muscular pain, herniated disc, spine fracture, intra-abdominal causes and urinary tract infection. Medical Decision Making EKG/Imaging Imaging 4 view lumbar spine COMPARISONS: Two-view lumbar spine dated June 23, 2017 ADDITIONAL PERTINENT HISTORY: Back pain FINDINGS: Vertebral body heights and alignments: Negative. Vertebral bodies: Negative. Disc spaces: Negative. Visualized bony pelvis: Negative. Surrounding soft tissues: Negative. IMPRESSION: Normal views of the lumbar spine. Report Dictated By: Sunny Abraham MD at 08/06/2017 8:26 PM Report E-Signed By: Sunny Abraham MD at 08/06/2017 8:27 PM ED Course/Re-evaluation ED Course Patient was admitted to exam room, history and physical were obtained. Differential diagnoses were considered. On examination patient did have some tenderness to the midline of the lumbar spine. A x-ray was done of the lumbar spine. Patient did receive an IM dose of Zyprexa. The x-ray results were negative. On reevaluation the patient the patient states that she feels significantly better. She states the pain has gone from a 10/10 to a 5/10. Patient states she's feeling much more relaxed. I discussed x-ray results with the patient. We will go ahead and discharge patient home at this time. We will go ahead and treat her with Toradol 10 mg 4 times a day for 5 days. We will also give her a limited supply of baclofen for muscle spasms. I discussed this with the patient who verbalized understanding and agreement with plan. Decision to Disposition Date: August 06, 2017 Decision to Disposition Time: 21:00 Depart Departure Latest Vital Signs Vital Signs Date Time Temp Pulse Resp B/P (MAP) Pulse Ox O2 Delivery O2 Flow Rate FiO2 08/06/17 19:24 98.9 78 14 128/71 95 Room Air Impression: Primary Impression: Back pain Condition: Improved Disposition: HOME OR SELF-CARE Referrals: MAGUI MORRIS APRN-C (PCP) New Scripts Baclofen (BACLOFEN) 10 Mg Tablet 5 MG PO TID, #10 TAB Prov: SUNDAR PUENTES 08/06/17 Ketorolac Tromethamine (KETOROLAC TROMETHAMINE) 10 Mg Tab 10 MG PO Q6H, #20 TAB Prov: SUNDAR PUENTES 08/06/17 Patient Instructions: Acute Low Back Pain (ED) Additional Instructions: Limit activity by pain. Alternate ice and heat to the back. Get plenty of rest. Follow up with your primary care provider. Return to the ER if condition worsens. Take prescriptions as prescribed. No heavy lifting. Increase low impact aerobic activity such as walking. Problem Qualifiers Primary Impression: Back pain Back pain location: low back pain Chronicity: acute Back pain laterality: midline Sciatica presence: without sciatica Qualified Codes: M54.5 - Low back pain SUNDAR PUENTES August 06, 2017 19:19
[2017-08-06] MEDS ORDERED: WATER STERILE 10 ML VIAL IM ONLY ONE (19:30)
[2017-08-06] MEDS ORDERED: OLANZapine 10 MG VIAL IM ONLY ONE (19:30)
[2017-08-06] MEDS ORDERED: WATER FOR INJ,STERILE 20 ML 20 ML ONE (19:45)
[2017-08-06 20:30] VITALS: BP 95/37
--- NOTE | 2017-08-06 20:30 | RADIOLOGY IMAGING REPORT ---
FACILITY: [facility] PATIENT NAME: Jayna Gee : 1990 MR: [id number] V: [id number] EXAM DATE: ORDERING PHYSICIAN: SUNDAR PUENTES TECHNOLOGIST: Location: [facility] Patient: Jayna Gee : 1990 Visit/Account:[id number] Date of Sevice: 08/06/2017 4 view lumbar spine COMPARISONS: Two-view lumbar spine dated June 23, 2017 ADDITIONAL PERTINENT HISTORY: Back pain FINDINGS: Vertebral body heights and alignments: Negative. Vertebral bodies: Negative. Disc spaces: Negative. Visualized bony pelvis: Negative. Surrounding soft tissues: Negative. IMPRESSION: Normal views of the lumbar spine. Report Dictated By: Sunny Abraham MD at 08/06/2017 8:26 PM Report E-Signed By: Sunny Abraham MD at 08/06/2017 8:27 PM WSN:[id number]
[2017-08-06] MEDS ORDERED: BACL-1 PO (20:59)
[2017-08-06] MEDS ORDERED: KET10 PO (20:59)
[2017-08-07] MEDS ORDERED: DULO30CA6 PO (16:52)
[2017-08-07] MEDS ORDERED: DULO60CA56 PO (16:52)
== END 2017-08-06 21:06 | disposition home or self-care (01) ==
LOC: ER 19:32
DX: M54.5 Low back pain (principal)
CPT/HCPCS: 72120; 96372; 99282; A4216; J3490

== ENCOUNTER 2017-09-16 19:30 | Emergency (ER) | payer MEDICAID ==
[2016-03-23 10:17] VITALS: Wt 56.7 kg
[~2017-09-16 19:30] MED LIST changes: -DIVA-6 PO; +DIVA500T47 PO
[2017-09-16] MEDS ORDERED: NS(*) 0.9% 1000 ML BAG 1,000 ML IV ONE (19:51)
[2017-09-16] MEDS ORDERED: KETOROLAC 30 MG/ML VIAL IVP ONE (19:55)
[2017-09-16] MEDS ORDERED: diphenhydrAMINE 50 MG/ML VIAL IVP ONE (19:55)
[2017-09-16] MEDS ORDERED: DEXAMETHASONE SOD PHOS 10MG/ML IVP ONE (19:55)
[2017-09-16] MEDS ORDERED: PROMETHAZINE 25 MG/ML 1 ML AMP IVP ONE (19:55)
--- NOTE | 2017-09-16 20:05 | ER Report ---
History and Physical Time Seen By MD: 19:38 Hx. of Stated Complaint: PATIENT STATES SHE HAS BEEN FEELING DIZZY FOR THE LAST COUPLE OF DAYS, FEELING NAUSEATED WELL. PATIENT STATES SHE PASSED OUT EARILER TODAY. PATIENT STATES SHE HAS A HEADACHE WELL FOR 3DAYS, EXCEDRINE NOT WORKING. HPI/ROS CHIEF COMPLAINT: Migraine headache and dizziness HISTORY OF PRESENT ILLNESS: This is a 27-year-old female, well-known to the emergency department, who presents to the emergency department for a migraine headache and vertigo-type symptoms. Patient states that about 3 days ago she developed a migraine headache has been taking Excedrin Migraine with little relief. Patient also states that about 2 days ago she developed some dizziness worse with positional changes and with her eyes closed. Patient denies any other deficits, no numbness or tingling, no shortness of breath no chest pain intermittent nausea she states that she had one episode of vomiting prior to arrival. No fevers or chills. No rashes or any other complaints. REVIEW OF SYSTEMS: Constitutional: No fever, no chills. Eyes: No discharge. ENT: No sore throat. Cardiovascular: No chest pain, no palpitations. Respiratory: No cough, no shortness of breath. Gastrointestinal: As above. Genitourinary: No hematuria. Musculoskeletal: No back pain. Skin: No rashes. Neurological: As above. Allergies: Coded Allergies: amoxicillin (Verified Allergy, Mild, itching, 09/16/17) ondansetron HCl (Verified Adverse Reaction, Intermediate, ARRYTHMIA, ) ON 16 APR 2012, AFTER ZOFRAN 4MG IVP ADMIN, PT BRADYCARDIC (PULSE 30-35BPM), ARRHTHMIA ON 3-LEAD EKG. sumatriptan (Verified Adverse Reaction, Intermediate, NAUSEA/VOMITING, 12/25) nitrofurantoin (Verified Adverse Reaction, Mild, 09/16/17) itching amitriptyline (Verified Adverse Reaction, Unknown, 09/16/17) syncope / orthostatic hypotension ibuprofen (Verified Adverse Reaction, Unknown, REACTION TO COATING ON IBU TABS, 09/16/17) "tears up my stomach" lurasidone (Verified Adverse Reaction, Unknown, NAUSEA/VOMITING, 09/16/17) milnacipran (Verified Adverse Reaction, Unknown, 09/16/17) suicidal ideation Home Meds Active Scripts Meclizine Hcl (MECLIZINE HCL) 25 Mg Tablet, 25 MG PO BID Y for prn, #10 TAB 0 Refills Prov:CRISTINO DONALDSON [facility]- 09/16/17 Duloxetine Hcl (CYMBALTA) 60 Mg Capsule.dr, 1 TAB PO DAILY, #30 TAB 2 Refills Prov:MAGUI MORRIS APRN [facility]-C 09/15/17 Reported Medications Paliperidone Palmitate (INVEGA SUSTENNA) 78 Mg/0.5 Ml Disp.syrin, 1 TAB IM once a month 06/06/17 Discontinued Scripts Baclofen (BACLOFEN) 10 Mg Tablet, 5 MG PO TID, #10 TAB Prov:SUNDAR PUENTES [facility] 08/06/17 Ketorolac Tromethamine (KETOROLAC TROMETHAMINE) 10 Mg Tab, 10 MG PO Q6H, #20 TAB Prov:SUNDAR PUENTES [facility] 08/06/17 Atenolol (ATENOLOL) 25 Mg Tablet, 1 TAB PO QDAY, #30 TAB 1 Refill Prov:MAGUI MORRIS APRN [facility] 08/05/17 Sulfamethoxazole/Trimet 800-160 Mg Tab (BACTRIM DS TABLET) 1 Each Tablet, 1 TAB PO Q12H, #4 TAB 0 Refills Prov:CRISTINO DONALDSON [facility]-BC 08/03/17 Duloxetine HCl (Duloxetine HCl) 30 Mg Capsule.dr, 1 CAP PO DAILY, #7 CAP 0 Refills Prov:MAGUI MORRIS APRN [facility] 08/07/17 Past Medical/Surgical History Patient has a past medical and surgical history of fibromyalgia, migraines, bradycardia, tachycardia, asthma, IBS, gallbladder disease, GERD, cholecystectomy, right hand fracture, wears glasses, uses marijuana, depression , bipolar, anxiety, borderline personality, suicide attempt, tubal ligation, right hand surgery, orthopedic spoke to the left knee. Reviewed Nurses Notes: Yes Hx Smoking: Yes Smoking Status: Former Smoker Exposure to Second Hand Smoke?: No Hx Substance Use Disorder: Yes (marijuana) Hx Alcohol Use: Yes Constitutional Vital Sign - Last 24 Hours 09/16/17 09/16/17 09/16/17 09/16/17 19:35 19:45 20:00 20:15 Temp 98.2 Pulse 101 108 102 102 Resp 16 0 22 0 B/P (MAP) 127/63 119/86 (97) Pulse Ox 94 95 96 94 O2 Delivery Room Air 09/16/17 09/16/17 09/16/17 09/16/17 20:30 20:35 20:50 21:00 Pulse 92 97 90 Resp 11 19 22 B/P (MAP) 115/80 (92) 118/82 (94) Pulse Ox 95 96 95 Intake and Output 09/16/17 09/16/17 09/17/17 14:59 22:59 06:59 Intake Total 1000 ml Balance 1000 ml Physical Exam General Appearance: The patient is alert, has no immediate need for airway protection and no signs of toxicity, smiling and conversing with her friend at the bedside. Eyes: Pupils equal and round no pallor or injection. EOMs intact. No lateral or vertical nystagmus. ENT, Mouth: Mucous membranes are moist. Respiratory: There are no retractions, lungs are clear to auscultation. Cardiovascular: Regular rate and rhythm, no murmurs, clicks or rubs. Gastrointestinal: Abdomen is soft and non tender, no masses, bowel sounds normal. Neurological: Alert and oriented 4. Moving all extremities. Following all commands. No focal neuro deficits. Cranial nerves II through XII intact. Skin: Warm and dry, no rashes. Musculoskeletal: Neck is supple non tender. Extremities are nontender, nonswollen and have full range of motion. DIFFERENTIAL DIAGNOSIS: After history and physical exam differential diagnosis was considered for headache including but not limited to subarachnoid hemorrhage , migraine headache, tension headache and infectious causes such as meningitis, pharyngitis and sinusitis.dizziness including but not limited to peripheral and central causes of vertigo, orthostatic causes including dehydration, and blood loss. Medical Decision Making Data Points Result Diagram: 09/16/17200309/16/172003 Laboratory Hematology Test 09/16/17 20:04 Red Blood Count 4.78 M/uL (4.17-5.56) Mean Corpuscular Volume 90.0 fL (80.0-96.0) Mean Corpuscular Hemoglobin 32.5 pg (26.0-33.0) Mean Corpuscular Hemoglobin Concent 36.1 g/dL (32.0-36.0) Red Cell Distribution Width 12.4 % (11.5-14.5) Mean Platelet Volume 7.7 fL (7.2-11.1) Neutrophils (%) (Auto) 68.6 % (39.4-72.5) Lymphocytes (%) (Auto) 24.0 % (17.6-49.6) Monocytes (%) (Auto) 5.5 % (4.1-12.4) Eosinophils (%) (Auto) 1.1 % (0.4-6.7) Basophils (%) (Auto) 0.8 % (0.3-1.4) Nucleated RBC Relative Count (auto) 0.0 /100WBC Neutrophils # (Auto) 5.3 K/uL (2.0-7.4) Lymphocytes # (Auto) 1.9 K/uL (1.3-3.6) Monocytes # (Auto) 0.4 K/uL (0.3-1.0) Eosinophils # (Auto) 0.1 K/uL (0.0-0.5) Basophils # (Auto) 0.1 K/uL (0.0-0.1) Nucleated RBC Absolute Count (auto) 0.00 K/uL Sodium Level 141 mmol/L (137-145) Potassium Level 3.5 mmol/L (3.5-5.0) Chloride Level 104 mmol/L (98-107) Carbon Dioxide Level 24 mmol/L (22-31) Blood Urea Nitrogen 12 mg/dl (7-18) Creatinine 1.00 mg/dl (0.52-1.04) Glomerular Filtration Rate Calc > 60.0 Random Glucose 93 mg/dl (75-110) Calcium Level 9.1 mg/dl (8.4-10.2) Total Bilirubin 0.9 mg/dl (0.2-1.3) Aspartate Amino Transf (AST/SGOT) 23 U/L (0-35) Alanine Aminotransferase (ALT/SGPT) 26 U/L (0-56) Alkaline Phosphatase 78 U/L (0-126) Total Protein 7.2 g/dl (6.3-8.2) Albumin 4.2 g/dl (3.5-5.0) Human Chorionic Gonadotropin, Qual Negative (NEGATIVE) Chemistry Test 09/16/17 20:04 White Blood Count 7.7 k/uL (4.5-11.0) Red Blood Count 4.78 M/uL (4.17-5.56) Hemoglobin 15.5 g/dL (12.0-16.0) Hematocrit 43.0 % (34.0-47.0) Mean Corpuscular Volume 90.0 fL (80.0-96.0) Mean Corpuscular Hemoglobin 32.5 pg (26.0-33.0) Mean Corpuscular Hemoglobin Concent 36.1 g/dL (32.0-36.0) Red Cell Distribution Width 12.4 % (11.5-14.5) Platelet Count 220 K/uL (150-450) Mean Platelet Volume 7.7 fL (7.2-11.1) Neutrophils (%) (Auto) 68.6 % (39.4-72.5) Lymphocytes (%) (Auto) 24.0 % (17.6-49.6) Monocytes (%) (Auto) 5.5 % (4.1-12.4) Eosinophils (%) (Auto) 1.1 % (0.4-6.7) Basophils (%) (Auto) 0.8 % (0.3-1.4) Nucleated RBC Relative Count (auto) 0.0 /100WBC Neutrophils # (Auto) 5.3 K/uL (2.0-7.4) Lymphocytes # (Auto) 1.9 K/uL (1.3-3.6) Monocytes # (Auto) 0.4 K/uL (0.3-1.0) Eosinophils # (Auto) 0.1 K/uL (0.0-0.5) Basophils # (Auto) 0.1 K/uL (0.0-0.1) Nucleated RBC Absolute Count (auto) 0.00 K/uL Glomerular Filtration Rate Calc > 60.0 Calcium Level 9.1 mg/dl (8.4-10.2) Total Bilirubin 0.9 mg/dl (0.2-1.3) Aspartate Amino Transf (AST/SGOT) 23 U/L (0-35) Alanine Aminotransferase (ALT/SGPT) 26 U/L (0-56) Alkaline Phosphatase 78 U/L (0-126) Total Protein 7.2 g/dl (6.3-8.2) Albumin 4.2 g/dl (3.5-5.0) Human Chorionic Gonadotropin, Qual Negative (NEGATIVE) ED Course/Re-evaluation Clinical Indication for ER IV: Hydration, IV Access ED Course The patient was admitted to room. A history of physical obtained. Differential diagnoses were considered. An IV was started. A CBC, CMP were obtained. A 1 L normal saline bolus was given. 12.5 mg IV Phenergan, 25 mg IV Benadryl, 5 mg IV Decadron, 30 mg IV Toradol were given. The lab studies were unremarkable. Patient does have improvement of the headache, still having intermittent dizziness. Was given 25 mg meclizine. Mild improvement with the meclizine however still having some dizziness, patient states she is willing to go home and sleep. I did send the patient home with a home pack of meclizine as well as a prescription. Patient was instructed to follow-up with her primary care provider in one week for reevaluation. Patient was also instructed to return to ER for worsening symptoms. Patient had no other questions or concerns at this time and was discharged home. Patient was in agreement with this plan of care. 09/16/2017 8:59:10 pm . The patient, she does still have some mild dizziness however she states she is willing to go home and rest I did send her home with prescription for meclizine and a take home pack as well. Decision to Disposition Date: Sep 16, 2017 Decision to Disposition Time: 20:59 Depart Departure Latest Vital Signs Vital Signs Date Time Temp Pulse Resp B/P (MAP) Pulse Ox O2 Delivery O2 Flow Rate FiO2 09/16/17 21:00 118/82 (94) 09/16/17 20:50 90 22 95 09/16/17 19:35 98.2 Room Air Impression: Primary Impression: Migraine Additional Impression: Vertigo Condition: Improved Disposition: HOME OR SELF-CARE Referrals: MAGUI MORRIS APRN [employer]ER-C (PCP) 1 Week New Scripts Meclizine Hcl (MECLIZINE HCL) 25 Mg Tablet 25 MG PO BID Y for prn, #10 TAB 0 Refills Prov: CRISTINO ODNALDSON [employer]-BC 09/16/17 Patient Instructions: Benign Paroxysmal Positional Vertigo (ED), Migraine Headache (ED) Additional Instructions: Drink plenty of water. Get plenty of rest. Take the Meclizine for the vertigo, be careful it can cause drowsiness. Take your regular migraine headache medications. Be sure to follow up with your primary care provider within one week for reevaluation. Return to the ED for any other concerns or worsening symptoms. Problem Qualifiers Primary Impression: Migraine Migraine type: unspecified Status migrainosus presence: without status migrainosus Intractability: not intractable Qualified Codes: G43.909 - Migraine, unspecified, not intractable, without status migrainosus CRISTINO DONALDSON [employer] Sep 16, 2017 20:05
[2017-09-16 20:23] LABS: PLATELET COUNT, AUTOMATED 220 K/uL (150-450)
[2017-09-16] MEDS ORDERED: MECLIZINE HCL 25 MG TAB PO ONE (20:40)
[2017-09-16] MEDS ORDERED: MECLIZINE HCL 12.5 MG TAB TH PO ONE (20:50)
[2017-09-16] MEDS ORDERED: MECL25TA9 PO (20:53)
[2017-09-16 21:00] VITALS: BP 118/82
== END 2017-09-16 21:08 | disposition home or self-care (01) ==
LOC: ER 19:53
DX: G43.909 Migraine, unspecified, not intractable, without status migrainosus (principal); R42 Dizziness and giddiness
CPT/HCPCS: 84703; 85025; 96374; 96375; 99284; J1100; J1200; J1885; J2550; J7030; J8597; 82040; 82247; 82310; 82374; 82435; 82565; 82947; 84075; 84132; 84155; 84295; 84450; 84460; 84520

== ENCOUNTER → 2017-09-16 | Outpatient (CLI) | payer MEDICAID ==
[2016-03-23 10:17] VITALS: BMI 18.0
[~2017-09-16] MED LIST changes: +BACL-1 PO; +DULO30CA6 PO; +DULO60CA56 PO
== END ==
LOC: LAB 10:24
PROVIDERS: ATTEND Nurse Practitioner Family
DX: N91.2 Amenorrhea, unspecified (principal)
CPT/HCPCS: 36415; 84703

== ENCOUNTER 2017-09-19 23:06 | Emergency (ER) | payer MEDICAID ==
[2016-03-23 10:17] VITALS: Wt 56.7 kg
--- NOTE | 2017-09-19 23:29 | ER Report ---
History and Physical Time Seen By MD: 23:29 HPI/ROS CHIEF COMPLAINT: Alcohol intoxication, crying HISTORY OF PRESENT ILLNESS: 27-year-old female brought to the ER by her friend is concerned about her. Patient's repeatedly saying that she F'D up. She was drinking tonight and had an argument with her . There was no physical or verbal abuse. Patient's here. She does not express suicidal ideation. She notes that she suffers from depression. She needs a respite from caring for her 3 children. She denies other drug ingestion. REVIEW OF SYSTEMS: Respiratory: No cough, no dyspnea. Cardiovascular: No chest pain, no palpitations. Gastrointestinal: No vomiting, no abdominal pain. Musculoskeletal: No back pain. Allergies: Coded Allergies: amoxicillin (Verified Allergy, Mild, itching, 09/19/17) ondansetron HCl (Verified Adverse Reaction, Intermediate, ARRYTHMIA, ) ON 16 APR 2012, AFTER ZOFRAN 4MG IVP ADMIN, PT BRADYCARDIC (PULSE 30-35BPM), ARRHTHMIA ON 3-LEAD EKG. sumatriptan (Verified Adverse Reaction, Intermediate, NAUSEA/VOMITING, ) nitrofurantoin (Verified Adverse Reaction, Mild, 09/19/17) itching amitriptyline (Verified Adverse Reaction, Unknown, 09/19/17) syncope / orthostatic hypotension ibuprofen (Verified Adverse Reaction, Unknown, REACTION TO COATING ON IBU TABS, 09/19/17) "tears up my stomach" lurasidone (Verified Adverse Reaction, Unknown, NAUSEA/VOMITING, 09/19/17) milnacipran (Verified Adverse Reaction, Unknown, 09/19/17) suicidal ideation Home Meds Active Scripts Meclizine Hcl (MECLIZINE HCL) 25 Mg Tablet, 25 MG PO BID Y for prn, #10 TAB 0 Refills Prov:CRISTINO DONALDSON [employer] 09/16/17 Duloxetine Hcl (CYMBALTA) 60 Mg Capsule.dr, 1 TAB PO DAILY, #30 TAB 2 Refills Prov:MAGUI MORRIS APRN [employer] 09/15/17 Reported Medications Paliperidone Palmitate (INVEGA SUSTENNA) 78 Mg/0.5 Ml Disp.syrin, 1 TAB IM once a month 06/06/17 Discontinued Scripts Baclofen (BACLOFEN) 10 Mg Tablet, 5 MG PO TID, #10 TAB Prov:SUNDAR PUENTES [facility] 08/06/17 Ketorolac Tromethamine (KETOROLAC TROMETHAMINE) 10 Mg Tab, 10 MG PO Q6H, #20 TAB Prov:SUNDAR PUENTES [employer] 08/06/17 Atenolol (ATENOLOL) 25 Mg Tablet, 1 TAB PO QDAY, #30 TAB 1 Refill Prov:MAGUI MORRIS APRN [employer] 08/05/17 Sulfamethoxazole/Trimet 800-160 Mg Tab (BACTRIM DS TABLET) 1 Each Tablet, 1 TAB PO Q12H, #4 TAB 0 Refills Prov:CRISTINO DONALDSON [employer] 08/03/17 Duloxetine HCl (Duloxetine HCl) 30 Mg Capsule.dr, 1 CAP PO DAILY, #7 CAP 0 Refills Prov:MAGUI MORRIS APRN [employer] 08/07/17 Reviewed Nurses Notes: Yes Old Medical Records Reviewed: Yes Hx Smoking: Yes Smoking Status: Former Smoker Exposure to Second Hand Smoke?: No Hx Substance Use Disorder: Yes (marijuana) Hx Alcohol Use: Yes Constitutional Vital Sign - Last 24 Hours 09/19/17 09/19/17 09/19/17 09/19/17 23:20 23:21 23:26 23:27 Temp 98.2 Pulse 121 116 114 Resp 14 B/P (MAP) 134/99 (111) 134/99 Pulse Ox 98 96 98 O2 Delivery Room Air 09/19/17 09/19/17 09/20/17 09/20/17 23:41 23:56 00:11 00:26 Pulse ? 09/20/17 09/20/17 00:41 00:51 Pulse ??? B/P (MAP) 98/69 (79) Physical Exam General Appearance: The patient is alert, has no immediate need for airway protection and no current signs of toxicity. Tearful, withdrawn HEENT: Pupils equal and round no injection. Oropharynx without redness or exudate, mucous. Membranes are moist Respiratory: Chest is non tender, lungs are clear to auscultation. Cardiac: regular rate and rhythm Gastrointestinal: Abdomen is soft and non tender, no masses, bowel sounds normal. Musculoskeletal: Neck: Neck is supple and non tender. Extremities have full range of motion and are non tender. Skin: No rashes or lesions. DIFFERENTIAL DIAGNOSIS: After history and physical exam differential diagnosis was considered for depression including functional and major depression, situational depression, medication side effect, drugs and alcohol abuse. Medical Decision Making Data Points Result Diagram: 09/19/17 5527 09/19/17 4357 Laboratory Hematology Test 09/19/17 23:41 09/19/17 23:47 Urine Color Colorless Urine Clarity Clear Urine pH 7.0 pH (4.8-9.5) Urine Specific [place] 1.002 Urine Protein Negative mg/dL (NEGATIVE) Urine Glucose (UA) Negative mg/dL (NEGATIVE) Urine Ketones Negative mg/dL (NEGATIVE) Urine Blood Negative (NEGATIVE) Urine Nitrite Negative (NEGATIVE) Urine Bilirubin Negative (NEGATIVE) Urine Urobilinogen Negative mg/dL (0.2-1.9) Urine Leukocyte Esterase Negative (NEGATIVE) Urine RBC None /HPF (0-2/HPF) Urine WBC None /HPF (0-5/HPF) Urine Squamous Epithelial Cells Few /LPF (</=FEW) Urine Bacteria Negative /HPF (NONE-FEW) Urine Mucus None /HPF (NONE-FEW) Urine HCG, Qualitative Negative (NEGATIVE) Urine Opiates Screen Negative Urine Barbiturates Screen Negative Ur Tricyclic Antidepressants Screen Negative Urine Phencyclidine Screen Negative Urine Amphetamines Screen Negative Urine Benzodiazepines Screen Negative Urine Cocaine Screen Negative Urine Cannabinoids Screen Negative Red Blood Count 4.88 M/uL (4.17-5.56) Mean Corpuscular Volume 90.9 fL (80.0-96.0) Mean Corpuscular Hemoglobin 32.0 pg (26.0-33.0) Mean Corpuscular Hemoglobin Concent 35.2 g/dL (32.0-36.0) Red Cell Distribution Width 12.1 % (11.5-14.5) Mean Platelet Volume 7.2 fL (7.2-11.1) Neutrophils (%) (Auto) 54.3 % (39.4-72.5) Lymphocytes (%) (Auto) 37.9 % (17.6-49.6) Monocytes (%) (Auto) 5.6 % (4.1-12.4) Eosinophils (%) (Auto) 1.4 % (0.4-6.7) Basophils (%) (Auto) 0.8 % (0.3-1.4) Nucleated RBC Relative Count (auto) 0.0 /100WBC Neutrophils # (Auto) 4.0 K/uL (2.0-7.4) Lymphocytes # (Auto) 2.8 K/uL (1.3-3.6) Monocytes # (Auto) 0.4 K/uL (0.3-1.0) Eosinophils # (Auto) 0.1 K/uL (0.0-0.5) Basophils # (Auto) 0.1 K/uL (0.0-0.1) Nucleated RBC Absolute Count (auto) 0.00 K/uL Sodium Level 146 mmol/L (137-145) Potassium Level 3.1 mmol/L (3.5-5.0) Chloride Level 109 mmol/L (98-107) Carbon Dioxide Level 19 mmol/L (22-31) Blood Urea Nitrogen 9 mg/dl (7-18) Creatinine 0.80 mg/dl (0.52-1.04) Glomerular Filtration Rate Calc > 60.0 Random Glucose 98 mg/dl (75-110) Calcium Level 9.0 mg/dl (8.4-10.2) Magnesium Level 2.3 mg/dl (1.7-2.2) Total Bilirubin 0.7 mg/dl (0.2-1.3) Aspartate Amino Transf (AST/SGOT) 58 U/L (0-35) Alanine Aminotransferase (ALT/SGPT) 34 U/L (0-56) Alkaline Phosphatase 93 U/L (0-126) Total Protein 7.6 g/dl (6.3-8.2) Albumin 4.4 g/dl (3.5-5.0) Salicylates Level < 10 mg/L Salicylate Last Dose Date unk Acetaminophen Level < 10 ug/ml Serum Alcohol 200 mg/dl Chemistry Test 09/19/17 23:41 09/19/17 23:47 Urine Color Colorless Urine Clarity Clear Urine pH 7.0 pH (4.8-9.5) Urine Specific [place] 1.002 Urine Protein Negative mg/dL (NEGATIVE) Urine Glucose (UA) Negative mg/dL (NEGATIVE) Urine Ketones Negative mg/dL (NEGATIVE) Urine Blood Negative (NEGATIVE) Urine Nitrite Negative (NEGATIVE) Urine Bilirubin Negative (NEGATIVE) Urine Urobilinogen Negative mg/dL (0.2-1.9) Urine Leukocyte Esterase Negative (NEGATIVE) Urine RBC None /HPF (0-2/HPF) Urine WBC None /HPF (0-5/HPF) Urine Squamous Epithelial Cells Few /LPF (</=FEW) Urine Bacteria Negative /HPF (NONE-FEW) Urine Mucus None /HPF (NONE-FEW) Urine HCG, Qualitative Negative (NEGATIVE) Urine Opiates Screen Negative Urine Barbiturates Screen Negative Ur Tricyclic Antidepressants Screen Negative Urine Phencyclidine Screen Negative Urine Amphetamines Screen Negative Urine Benzodiazepines Screen Negative Urine Cocaine Screen Negative Urine Cannabinoids Screen Negative White Blood Count 7.4 k/uL (4.5-11.0) Red Blood Count 4.88 M/uL (4.17-5.56) Hemoglobin 15.6 g/dL (12.0-16.0) Hematocrit 44.3 % (34.0-47.0) Mean Corpuscular Volume 90.9 fL (80.0-96.0) Mean Corpuscular Hemoglobin 32.0 pg (26.0-33.0) Mean Corpuscular Hemoglobin Concent 35.2 g/dL (32.0-36.0) Red Cell Distribution Width 12.1 % (11.5-14.5) Platelet Count 241 K/uL (150-450) Mean Platelet Volume 7.2 fL (7.2-11.1) Neutrophils (%) (Auto) 54.3 % (39.4-72.5) Lymphocytes (%) (Auto) 37.9 % (17.6-49.6) Monocytes (%) (Auto) 5.6 % (4.1-12.4) Eosinophils (%) (Auto) 1.4 % (0.4-6.7) Basophils (%) (Auto) 0.8 % (0.3-1.4) Nucleated RBC Relative Count (auto) 0.0 /100WBC Neutrophils # (Auto) 4.0 K/uL (2.0-7.4) Lymphocytes # (Auto) 2.8 K/uL (1.3-3.6) Monocytes # (Auto) 0.4 K/uL (0.3-1.0) Eosinophils # (Auto) 0.1 K/uL (0.0-0.5) Basophils # (Auto) 0.1 K/uL (0.0-0.1) Nucleated RBC Absolute Count (auto) 0.00 K/uL Glomerular Filtration Rate Calc > 60.0 Calcium Level 9.0 mg/dl (8.4-10.2) Magnesium Level 2.3 mg/dl (1.7-2.2) Total Bilirubin 0.7 mg/dl (0.2-1.3) Aspartate Amino Transf (AST/SGOT) 58 U/L (0-35) Alanine Aminotransferase (ALT/SGPT) 34 U/L (0-56) Alkaline Phosphatase 93 U/L (0-126) Total Protein 7.6 g/dl (6.3-8.2) Albumin 4.4 g/dl (3.5-5.0) Salicylates Level < 10 mg/L Salicylate Last Dose Date unk Acetaminophen Level < 10 ug/ml Serum Alcohol 200 mg/dl Toxicology Test 09/19/17 23:41 09/19/17 23:47 Urine Opiates Screen Negative Urine Barbiturates Screen Negative Ur Tricyclic Antidepressants Screen Negative Urine Phencyclidine Screen Negative Urine Amphetamines Screen Negative Urine Benzodiazepines Screen Negative Urine Cocaine Screen Negative Urine Cannabinoids Screen Negative Salicylates Level < 10 mg/L Salicylate Last Dose Date unk Acetaminophen Level < 10 ug/ml Serum Alcohol 200 mg/dl Urinalysis Test 09/19/17 23:41 Urine Color Colorless Urine Clarity Clear Urine pH 7.0 pH (4.8-9.5) Urine Specific [place] 1.002 Urine Protein Negative mg/dL (NEGATIVE) Urine Glucose (UA) Negative mg/dL (NEGATIVE) Urine Ketones Negative mg/dL (NEGATIVE) Urine Blood Negative (NEGATIVE) Urine Nitrite Negative (NEGATIVE) Urine Bilirubin Negative (NEGATIVE) Urine Urobilinogen Negative mg/dL (0.2-1.9) Urine Leukocyte Esterase Negative (NEGATIVE) Urine RBC None /HPF (0-2/HPF) Urine WBC None /HPF (0-5/HPF) Urine Squamous Epithelial Cells Few /LPF (</=FEW) Urine Bacteria Negative /HPF (NONE-FEW) Urine Mucus None /HPF (NONE-FEW) Urine HCG, Qualitative Negative (NEGATIVE) ED Course/Re-evaluation ED Course Patient was admitted to an examination room. H&P was done. The differential diagnoses was considered. On clinical examination. Patient has findings of gross alcohol intoxication and regrets. She feels like she needs a break from caring for her children. She is feeling overwhelmed. She denies suicidal ideation. On specific questioning. She denies actual plan. She does have a history of suicidal ideation and previous admits to [facility]. She does not think she needs to be admitted to [facility] tonight. Diagnostic studies returned a blood alcohol of 200. Tox screen is negative. Her vital signs and other diagnostic studies are unremarkable. Tylenol and aspirin are 0. Patient's released home to a sober friend to take her home. Patient's advised to follow-up with her mental health counselor and primary care as instructed. Decision to Disposition Date: Sep 20, 2017 Decision to Disposition Time: 00:39 Depart Departure Latest Vital Signs Vital Signs Date Time Temp Pulse Resp B/P (MAP) Pulse Ox O2 Delivery O2 Flow Rate FiO2 09/20/17 00:51 98/69 (79) 09/20/17 00:41 ??? 09/19/17 23:27 98.2 14 98 Room Air Impression: Primary Impression: Alcohol intoxication Additional Impression: Depression Condition: Improved Disposition: HOME OR SELF-CARE Referrals: MAGUI MORRIS APRN-C (PCP) Patient Instructions: Alcohol Intoxication (ED) Additional Instructions: Follow-up with your primary care and mental health counselor next week Problem Qualifiers Primary Impression: Alcohol intoxication Complication of substance-induced condition: uncomplicated Qualified Codes: F10.920 - Alcohol use, unspecified with intoxication, uncomplicated Additional Impression: Depression Depression Type: unspecified Qualified Codes: F32.9 - Major depressive disorder, single episode, unspecified DOUGLAS GAYTAN DO Sep 19, 2017 23:29
[2017-09-20 00:04] LABS: PLATELET COUNT, AUTOMATED 241 K/uL (150-450)
[2017-09-20 00:51] VITALS: BP 98/69
[2017-09-22] MEDS ORDERED: POTA20TA85 PO (08:39)
== END 2017-09-20 00:53 | disposition home or self-care (01) ==
LOC: ER 23:41
DX: F10.920 Alcohol use, unspecified with intoxication, uncomplicated (principal); F32.9 Major depressive disorder, single episode, unspecified; Y90.7 Blood alcohol level of 200-239 mg/100 ml
CPT/HCPCS: 36415; 80305; 81001; 81025; 83735; 84443; 85025; 99282; G0480; 80320; 80329; 82040; 82247; 82310; 82374; 82435; 82565; 82947; 84075; 84132; 84155; 84295; 84450; 84460; 84520

== ENCOUNTER 2017-09-21 15:51 | Emergency (ER) | payer MEDICAID ==
[2016-03-23 10:17] VITALS: Wt 59.0 kg
--- NOTE | 2017-09-21 16:13 | ER Report ---
History and Physical Time Seen By MD: 16:06 Hx. of Stated Complaint: PELVIC PAIN AND LEFT LOWER ABDO PAIN FOR SEVERAL DAYS. STATES THAT SHE HAS BEEN LAST 2 PERIODS AND IS USUALLY "VERY REGULAR" HPI/ROS CHIEF COMPLAINT: Left lower pelvic pain HISTORY OF PRESENT ILLNESS: This is a 27 year old female. She has been having lower left abdominal/pelvic area pain for a couple of days now. Does not radiate. No dysuria, frequency or urgency. She has only had a few days of spotting with last period, last day was yesterday, no real period the month prior, last normal period was 2 months ago and she is usually very regular. Denies vaginal discharge. No history of sexually transmitted infections. She is sexually active with her only. She has had normal bowels without blood or melena. No other abdominal pain. Has had some nausea, but no vomiting. No shortness of breath or chest pain. She has had some dizziness with some vertigo recently. She has mild blurred vision, no tinnitus or hearing change, no headache. No recent illnesses, fevers, chills, runny nose, cough, or sore throat. Allergies: Coded Allergies: amoxicillin (Verified Allergy, Mild, itching, 09/21/17) ondansetron HCl (Verified Adverse Reaction, Intermediate, ARRYTHMIA, ) ON 16 APR 2012, AFTER ZOFRAN 4MG IVP ADMIN, PT BRADYCARDIC (PULSE 30-35BPM), ARRHTHMIA ON 3-LEAD EKG. sumatriptan (Verified Adverse Reaction, Intermediate, NAUSEA/VOMITING, ) nitrofurantoin (Verified Adverse Reaction, Mild, 09/21/17) itching amitriptyline (Verified Adverse Reaction, Unknown, 09/21/17) syncope / orthostatic hypotension ibuprofen (Verified Adverse Reaction, Unknown, REACTION TO COATING ON IBU TABS, 09/21/17) "tears up my stomach" lurasidone (Verified Adverse Reaction, Unknown, NAUSEA/VOMITING, 09/21/17) milnacipran (Verified Adverse Reaction, Unknown, 09/21/17) suicidal ideation Home Meds Active Scripts Potassium Chloride (KLOR-CON M20) 20 Meq Tab.er.prt, 20 MEQ PO QDAY, #30 TAB 0 Refills Prov:KIRSTIN ARRIAGA MD 09/22/17 Meclizine Hcl (MECLIZINE HCL) 25 Mg Tablet, 25 MG PO BID Y for prn, #10 TAB 0 Refills Prov:CRISTINO DONALDSON [employer]- 09/16/17 Duloxetine Hcl (CYMBALTA) 60 Mg Capsule., 1 TAB PO DAILY, #30 TAB 2 Refills Prov:MAGUI MORRIS APRN-C 09/15/17 Reported Medications Paliperidone Palmitate (INVEGA SUSTENNA) 78 Mg/0.5 Ml Disp.syrin, 1 TAB IM once a month 06/06/17 Discontinued Scripts Baclofen (BACLOFEN) 10 Mg Tablet, 5 MG PO TID, #10 TAB Prov:SUNDAR PUENTESP 08/06/17 Ketorolac Tromethamine (KETOROLAC TROMETHAMINE) 10 Mg Tab, 10 MG PO Q6H, #20 TAB Prov:SUNDAR PUENTES 08/06/17 Atenolol (ATENOLOL) 25 Mg Tablet, 1 TAB PO QDAY, #30 TAB 1 Refill Prov:MAGUI MORRIS APRNP-C 08/05/17 Sulfamethoxazole/Trimet 800-160 Mg Tab (BACTRIM DS TABLET) 1 Each Tablet, 1 TAB PO Q12H, #4 TAB 0 Refills Prov:CRISTINO DONALDSON [facility]- 08/03/17 Duloxetine HCl (Duloxetine HCl) 30 Mg Capsule.dr, 1 CAP PO DAILY, #7 CAP 0 Refills Prov:MAUGI MORRIS APRNP-C 08/07/17 Reviewed Nurses Notes: Yes Hx Smoking: Yes Smoking Status: Former Smoker Exposure to Second Hand Smoke?: No Hx Substance Use Disorder: Yes (marijuana) Hx Alcohol Use: Yes Constitutional Vital Sign - Last 24 Hours 09/21/17 09/21/17 09/21/17 09/21/17 15:58 16:00 16:06 16:18 Temp 98.0 Pulse 103 ??? Resp 18 B/P (MAP) 139/91 139/91 (107) 127/100 (109) Pulse Ox 97 O2 Delivery Room Air 09/21/17 09/21/17 09/21/17 09/21/17 16:30 17:00 17:30 18:00 B/P (MAP) 116/88 (97) 124/90 (101) 112/90 (97) 122/78 (93) 09/21/17 18:30 B/P (MAP) 124/86 (99) Physical Exam General Appearance: The patient is alert. No acute distress. Eyes: Pupils are equal, round. No pallor, injection or icterus. ENT: Mucous membranes are moist. Neck: Supple and non tender. No lymphadenopathy. Respiratory: Lungs are clear to auscultation. Cardiovascular: Regular rate and rhythm. No murmurs, gallops or rubs. Normal capillary refill. No edema. Gastrointestinal: Abdomen is soft, tender in left lower quadrant only. Nondistended. No rebound or guarding. Normal active bowel sounds. No costovertebral angle tenderness with percussion. Neurological: Alert and oriented x3. Skin: Warm and dry. No rashes. Pelvic exam: The vulva was normal no lesions. The vagina did not have significant discharge. The cervix was closed no bleeding and no purulent drainage. The uterus was normal size and non tender. The adnexa had no masses and left adnexal tenderness, but none on the right or over the cervix. The exam was performed by our nurse practitioner student with my direct supervision , and I repeated the bimanual exam. DIFFERENTIAL DIAGNOSIS: After history and physical exam, differential diagnosis was considered for abdominal pain in a female including but not limited to ovarian cyst, pelvic inflammatory disease, ovarian torsion, urinary tract infection, diverticulitis and appendicitis. Medical Decision Making Data Points Result Diagram: 09/21/17 1620 09/21/17 1620 Laboratory Hematology Test 09/21/17 16:10 09/21/17 16:20 09/21/17 16:25 Urine Color Yellow Urine Clarity Slightly-cloudy Urine pH 6.0 pH (4.8-9.5) Urine Specific [place] 1.009 Urine Protein Negative mg/dL (NEGATIVE) Urine Glucose (UA) Negative mg/dL (NEGATIVE) Urine Ketones Trace mg/dL (NEGATIVE) Urine Blood Negative (NEGATIVE) Urine Nitrite Negative (NEGATIVE) Urine Bilirubin Negative (NEGATIVE) Urine Urobilinogen Negative mg/dL (0.2-1.9) Urine Leukocyte Esterase Large (NEGATIVE) Urine RBC 2 /HPF (0-2/HPF) Urine WBC 9 /HPF (0-5/HPF) Urine Squamous Epithelial Cells Many /LPF (</=FEW) Urine Bacteria Negative /HPF (NONE-FEW) Urine Mucus None /HPF (NONE-FEW) Red Blood Count 5.06 M/uL (4.17-5.56) Mean Corpuscular Volume 90.4 fL (80.0-96.0) Mean Corpuscular Hemoglobin 32.2 pg (26.0-33.0) Mean Corpuscular Hemoglobin Concent 35.6 g/dL (32.0-36.0) Red Cell Distribution Width 12.2 % (11.5-14.5) Mean Platelet Volume 7.6 fL (7.2-11.1) Neutrophils (%) (Auto) 68.6 % (39.4-72.5) Lymphocytes (%) (Auto) 24.3 % (17.6-49.6) Monocytes (%) (Auto) 4.8 % (4.1-12.4) Eosinophils (%) (Auto) 1.6 % (0.4-6.7) Basophils (%) (Auto) 0.7 % (0.3-1.4) Nucleated RBC Relative Count (auto) 0.0 /100WBC Neutrophils # (Auto) 5.4 K/uL (2.0-7.4) Lymphocytes # (Auto) 1.9 K/uL (1.3-3.6) Monocytes # (Auto) 0.4 K/uL (0.3-1.0) Eosinophils # (Auto) 0.1 K/uL (0.0-0.5) Basophils # (Auto) 0.1 K/uL (0.0-0.1) Nucleated RBC Absolute Count (auto) 0.00 K/uL Sodium Level 141 mmol/L (137-145) Potassium Level 2.9 mmol/L (3.5-5.0) Chloride Level 104 mmol/L (98-107) Carbon Dioxide Level 20 mmol/L (22-31) Blood Urea Nitrogen 14 mg/dl (7-18) Creatinine 1.00 mg/dl (0.52-1.04) Glomerular Filtration Rate Calc > 60.0 Random Glucose 97 mg/dl (75-110) Calcium Level 9.4 mg/dl (8.4-10.2) Total Bilirubin 1.3 mg/dl (0.2-1.3) Aspartate Amino Transf (AST/SGOT) 28 U/L (0-35) Alanine Aminotransferase (ALT/SGPT) 32 U/L (0-56) Alkaline Phosphatase 109 U/L (0-126) Total Protein 7.7 g/dl (6.3-8.2) Albumin 4.5 g/dl (3.5-5.0) Human Chorionic Gonadotropin, Qual Negative (NEGATIVE) Chemistry Test 09/21/17 16:10 09/21/17 16:20 09/21/17 16:25 Urine Color Yellow Urine Clarity Slightly-cloudy Urine pH 6.0 pH (4.8-9.5) Urine Specific [place] 1.009 Urine Protein Negative mg/dL (NEGATIVE) Urine Glucose (UA) Negative mg/dL (NEGATIVE) Urine Ketones Trace mg/dL (NEGATIVE) Urine Blood Negative (NEGATIVE) Urine Nitrite Negative (NEGATIVE) Urine Bilirubin Negative (NEGATIVE) Urine Urobilinogen Negative mg/dL (0.2-1.9) Urine Leukocyte Esterase Large (NEGATIVE) Urine RBC 2 /HPF (0-2/HPF) Urine WBC 9 /HPF (0-5/HPF) Urine Squamous Epithelial Cells Many /LPF (</=FEW) Urine Bacteria Negative /HPF (NONE-FEW) Urine Mucus None /HPF (NONE-FEW) White Blood Count 7.8 k/uL (4.5-11.0) Red Blood Count 5.06 M/uL (4.17-5.56) Hemoglobin 16.3 g/dL (12.0-16.0) Hematocrit 45.7 % (34.0-47.0) Mean Corpuscular Volume 90.4 fL (80.0-96.0) Mean Corpuscular Hemoglobin 32.2 pg (26.0-33.0) Mean Corpuscular Hemoglobin Concent 35.6 g/dL (32.0-36.0) Red Cell Distribution Width 12.2 % (11.5-14.5) Platelet Count 270 K/uL (150-450) Mean Platelet Volume 7.6 fL (7.2-11.1) Neutrophils (%) (Auto) 68.6 % (39.4-72.5) Lymphocytes (%) (Auto) 24.3 % (17.6-49.6) Monocytes (%) (Auto) 4.8 % (4.1-12.4) Eosinophils (%) (Auto) 1.6 % (0.4-6.7) Basophils (%) (Auto) 0.7 % (0.3-1.4) Nucleated RBC Relative Count (auto) 0.0 /100WBC Neutrophils # (Auto) 5.4 K/uL (2.0-7.4) Lymphocytes # (Auto) 1.9 K/uL (1.3-3.6) Monocytes # (Auto) 0.4 K/uL (0.3-1.0) Eosinophils # (Auto) 0.1 K/uL (0.0-0.5) Basophils # (Auto) 0.1 K/uL (0.0-0.1) Nucleated RBC Absolute Count (auto) 0.00 K/uL Glomerular Filtration Rate Calc > 60.0 Calcium Level 9.4 mg/dl (8.4-10.2) Total Bilirubin 1.3 mg/dl (0.2-1.3) Aspartate Amino Transf (AST/SGOT) 28 U/L (0-35) Alanine Aminotransferase (ALT/SGPT) 32 U/L (0-56) Alkaline Phosphatase 109 U/L (0-126) Total Protein 7.7 g/dl (6.3-8.2) Albumin 4.5 g/dl (3.5-5.0) Human Chorionic Gonadotropin, Qual Negative (NEGATIVE) Urinalysis Test 09/21/17 16:10 Urine Color Yellow Urine Clarity Slightly-cloudy Urine pH 6.0 pH (4.8-9.5) Urine Specific [place] 1.009 Urine Protein Negative mg/dL (NEGATIVE) Urine Glucose (UA) Negative mg/dL (NEGATIVE) Urine Ketones Trace mg/dL (NEGATIVE) Urine Blood Negative (NEGATIVE) Urine Nitrite Negative (NEGATIVE) Urine Bilirubin Negative (NEGATIVE) Urine Urobilinogen Negative mg/dL (0.2-1.9) Urine Leukocyte Esterase Large (NEGATIVE) Urine RBC 2 /HPF (0-2/HPF) Urine WBC 9 /HPF (0-5/HPF) Urine Squamous Epithelial Cells Many /LPF (</=FEW) Urine Bacteria Negative /HPF (NONE-FEW) Urine Mucus None /HPF (NONE-FEW) Microbiology Microbiology Date/Time Source Procedure Growth Status 09/21/17 16:25 Cervical Wet Prep - Final Complete 09/21/17 16:10 Clean Catch Midstream Ur Urine Culture - Preliminary CONTAMINATED URINE:... Resulted ED Course/Re-evaluation ED Course Pelvic pain, non-febrile and normal white count, urinalysis without infection but with signs of contamination. Urine culture and Chlamydia/GC pending. Ultrasound negative. Potassium was low, and gave 20mEq KCL rider with a liter of normal saline. Starting Decision to Disposition Date: Sep 21, 2017 Decision to Disposition Time: 18:06 Depart Departure Latest Vital Signs Vital Signs Date Time Temp Pulse Resp B/P (MAP) Pulse Ox O2 Delivery O2 Flow Rate FiO2 09/21/17 18:30 124/86 (99) 09/21/17 16:00 ??? 09/21/17 15:58 98.0 18 97 Room Air Impression: Primary Impression: Pelvic pain Additional Impression: Hypokalemia Condition: Improved Disposition: HOME OR SELF-CARE Referrals: MAGUI MORRIS APRN [employer]-[facility] (PCP) New Scripts Potassium Chloride (KLOR-CON M20) 20 Meq Tab.er.prt 20 MEQ PO QDAY, #30 TAB 0 Refills Prov: KIRSTIN ARRIAGA MD 09/22/17 Patient Instructions: Pelvic Pain in Women (ED) Additional Instructions: We did not find a cause for your pelvic pain. Urine culture and cervical swab testing should be done in the next 48 hours. Take Tylenol for pain. If pain persists, please make and appointment with your [facility] for further evaluation. Problem Qualifiers KIRSTIN ARRIAGA MD Sep 21, 2017 16:13
[2017-09-21 16:35] LABS: PLATELET COUNT, AUTOMATED 270 K/uL (150-450)
[2017-09-21] MEDS ORDERED: KCL (*) 20 MEQ/100 ML PREMIX 100 ML IV ONE (16:45)
[2017-09-21] MEDS ORDERED: NS(*) 0.9% 1000 ML BAG 1,000 ML IV ONE (16:45)
--- NOTE | 2017-09-21 18:20 | RADIOLOGY IMAGING REPORT ---
FACILITY: [facility] PATIENT NAME: Jayna Gee : 1990 MR: [id number] V: [id number] EXAM DATE: ORDERING PHYSICIAN: KIRSTIN ARRIAGA TECHNOLOGIST: Location: [facility] - [place], [place] Patient: Jayna Gee : 1990 Visit/Account:[id number] Date of Sevice: 09/21/2017 Transvaginal pelvic ultrasound INDICATION: Left-sided lower pelvic pain. COMPARISON: None Available FINDINGS: Uterus measures 7.4 x 3.3 x 4.3 cm. Double wall endometrial stripe measures 5 mm. There is no free fluid in the cul-de-sac. Urinary bladder is empty. Pelvic vessels appear unremarkable on this examination. Right ovary measures 3.0 x 2.6 x 1.8 cm cm and shows normal blood flow and contains several small fol licles. Left ovary measures 3.0 x 1.9 x 1.3 cm and shows normal blood flow and contains several small follicl es. IMPRESSION: 1. No acute findings. No explanation for the patient's clinical symptoms. Report Dictated By: Aleksandr Wiggins MD at 09/21/2017 6:16 PM Report E-Signed By: Aleksandr Wiggins MD at 09/21/2017 6:17 PM WSN:[id number]
[2017-09-21 18:30] VITALS: BP 124/86
[2017-09-22] MEDS ORDERED: POTA20TA85 PO (08:39)
== END 2017-09-21 19:06 | disposition home or self-care (01) ==
LOC: ER 15:59
DX: E87.6 Hypokalemia (principal); R10.2 Pelvic and perineal pain
CPT/HCPCS: 76830; 81001; 84703; 85025; 87088; 87210; 87491; 87591; 96365; 96366; 99284; J3480; J7030; 82040; 82247; 82310; 82374; 82435; 82565; 82947; 84075; 84132; 84155; 84295; 84450; 84460; 84520

== ENCOUNTER 2017-09-23 11:26 | Inpatient (IN) | payer MEDICAID ==
[~2017-09-23] VITALS: Ht 165.1 cm; Wt 55.3 kg
[~2017-09-23 11:26] MED LIST changes: +POTA20TA85 PO
--- NOTE | 2017-09-23 11:35 | ER Report ---
History and Physical Time Seen By MD: 11:35 HPI/ROS CHIEF COMPLAINT: Benadryl overdose, suicidal ideation HISTORY OF PRESENT ILLNESS: This is a 27-year-old female. She came to ER today because she overdosed on Benadryl. She says that she took a half bottle of Benadryl, uncertain of the exact amount. She thinks the bottle would've held about about 360 tablets one full 360 tablets when full, she does not know the amount that was left in the bottle, but did take the remainder. She did so with the intent to kill herself. She is not forthcoming on the reasons for her depression, but does state that she hates herself. The ingestion happened about 45 minutes prior to arrival. REVIEW OF SYSTEMS: Allergies: Coded Allergies: amoxicillin (Verified Allergy, Mild, itching, 09/23/17) ondansetron HCl (Verified Adverse Reaction, Intermediate, ARRYTHMIA, ) ON 16 APR 2012, AFTER ZOFRAN 4MG IVP ADMIN, PT BRADYCARDIC (PULSE 30-35BPM), ARRHTHMIA ON 3-LEAD EKG. sumatriptan (Verified Adverse Reaction, Intermediate, NAUSEA/VOMITING, ) nitrofurantoin (Verified Adverse Reaction, Mild, 09/23/17) itching amitriptyline (Verified Adverse Reaction, Unknown, 09/23/17) syncope / orthostatic hypotension ibuprofen (Verified Adverse Reaction, Unknown, REACTION TO COATING ON IBU TABS, 09/23/17) "tears up my stomach" lurasidone (Verified Adverse Reaction, Unknown, NAUSEA/VOMITING, 09/23/17) milnacipran (Verified Adverse Reaction, Unknown, 09/23/17) suicidal ideation Home Meds Active Scripts Duloxetine Hcl (CYMBALTA) 60 Mg Capsule.dr, 1 TAB PO DAILY, #30 TAB 2 Refills Prov:MAGUI MORRIS APRN [employer] 09/15/17 Discontinued Reported Medications Paliperidone Palmitate (INVEGA SUSTENNA) 78 Mg/0.5 Ml Disp.syrin, 1 TAB IM once a month 06/06/17 Discontinued Scripts Potassium Chloride (KLOR-CON M20) 20 Meq Tab.er.prt, 20 MEQ PO QDAY, #30 TAB 0 Refills Prov:KIRSTIN ARRIAGA MD 09/22/17 Meclizine Hcl (MECLIZINE HCL) 25 Mg Tablet, 25 MG PO BID Y for prn, #10 TAB 0 Refills Prov:CRISTINO DONALDSON [employer] 09/16/17 Reviewed Nurses Notes: Yes Hx Smoking: Yes Smoking Status: Former Smoker Exposure to Second Hand Smoke?: No Hx Substance Use Disorder: Yes (marijuana) Hx Alcohol Use: Yes Constitutional Vital Sign - Last 24 Hours 09/23/17 09/23/17 09/23/17 09/23/17 11:30 11:34 11:41 11:56 Temp 98.5 Pulse 107 123 254 Resp 16 10 6 B/P (MAP) 134/102 134/102 (113) Pulse Ox 97 97 98 O2 Delivery Room Air 09/23/17 09/23/17 09/23/17 09/23/17 12:00 12:11 12:16 12:30 Pulse 127 126 Resp 6 6 B/P (MAP) 126/91 (103) 118/96 (103) Pulse Ox 97 97 09/23/17 09/23/17 09/23/17 09/23/17 12:31 12:46 13:00 13:01 Pulse 119 119 110 Resp 22 18 B/P (MAP) 120/96 (104) Pulse Ox 95 99 96 09/23/17 09/23/17 09/23/17 09/23/17 13:16 13:30 13:31 13:46 Pulse 107 107 103 B/P (MAP) 114/85 (95) Pulse Ox 98 97 96 09/23/17 09/23/17 09/23/17 09/23/17 13:51 14:00 14:06 14:21 Pulse 98 98 Resp 7 13 B/P (MAP) 105/87 (93) Pulse Ox 96 96 95 09/23/1718 18 09/23/17 14:30 14:36 14:51 15:00 Pulse 89 89 Resp 11 17 B/P (MAP) 105/78 (87) 119/89 (99) Pulse Ox 94 93 18 18 09/23/17 15:03 15:08 15:23 Pulse 91 94 98 Resp 11 10 13 Pulse Ox 93 95 96 Physical Exam General Appearance: The patient is alert. Sad and depressed affect, but otherwise calm and no distress. Non-toxic in appearance. Eyes: Pupils are equal, round. Reactive to light. No pallor, injection or icterus. Extraocular movements are intact. ENT: Mucous membranes are moist. Normal oral mucosa. Posterior oropharynx is normal. Neck: Supple and non tender. No lymphadenopathy. Respiratory: Lungs are clear to auscultation. Cardiovascular: Regular rate and rhythm. No murmurs, gallops or rubs. Normal capillary refill. No edema. Gastrointestinal: Abdomen is soft and non tender. Nondistended. Normal active bowel sounds. No costovertebral angle tenderness with percussion. Neurological: Alert and oriented x3. Cranial nerves II through XII show no acute deficits on my exam. No focal neurologic deficits in the extremities. Skin: Warm and dry. No rashes. DIFFERENTIAL DIAGNOSIS: After history and physical exam, differential diagnosis was considered for a patient with suicidal ideation and Benadryl overdose. The nurses are in contact with the Poison Control Center. Medical Decision Making Data Points Result Diagram: 09/24/17 0535 09/24/17 0535 Laboratory Hematology Test 09/23/17 11:30 09/23/17 11:45 Urine Color Straw Urine Clarity Clear Urine pH 6.0 pH (4.8-9.5) Urine Specific [place] 1.005 Urine Protein Negative mg/dL (NEGATIVE) Urine Glucose (UA) Negative mg/dL (NEGATIVE) Urine Ketones Trace mg/dL (NEGATIVE) Urine Blood Negative (NEGATIVE) Urine Nitrite Negative (NEGATIVE) Urine Bilirubin Negative (NEGATIVE) Urine Urobilinogen Negative mg/dL (0.2-1.9) Urine Leukocyte Esterase Trace (NEGATIVE) Urine RBC <1 /HPF (0-2/HPF) Urine WBC 1 /HPF (0-5/HPF) Urine Squamous Epithelial Cells Many /LPF (</=FEW) Urine Bacteria Few /HPF (NONE-FEW) Urine Mucus None /HPF (NONE-FEW) Urine HCG, Qualitative Negative (NEGATIVE) Urine Opiates Screen Negative Urine Barbiturates Screen Negative Ur Tricyclic Antidepressants Screen Negative Urine Phencyclidine Screen Negative Urine Amphetamines Screen Negative Urine Benzodiazepines Screen Negative Urine Cocaine Screen Negative Urine Cannabinoids Screen Negative Thyroid Stimulating Hormone (TSH) 1.63 uIU/ml (0.46-4.68) Serum Alcohol < 10 mg/dl Chemistry Test 09/23/17 11:30 09/23/17 11:45 Urine Color Straw Urine Clarity Clear Urine pH 6.0 pH (4.8-9.5) Urine Specific [place] 1.005 Urine Protein Negative mg/dL (NEGATIVE) Urine Glucose (UA) Negative mg/dL (NEGATIVE) Urine Ketones Trace mg/dL (NEGATIVE) Urine Blood Negative (NEGATIVE) Urine Nitrite Negative (NEGATIVE) Urine Bilirubin Negative (NEGATIVE) Urine Urobilinogen Negative mg/dL (0.2-1.9) Urine Leukocyte Esterase Trace (NEGATIVE) Urine RBC <1 /HPF (0-2/HPF) Urine WBC 1 /HPF (0-5/HPF) Urine Squamous Epithelial Cells Many /LPF (</=FEW) Urine Bacteria Few /HPF (NONE-FEW) Urine Mucus None /HPF (NONE-FEW) Urine HCG, Qualitative Negative (NEGATIVE) Urine Opiates Screen Negative Urine Barbiturates Screen Negative Ur Tricyclic Antidepressants Screen Negative Urine Phencyclidine Screen Negative Urine Amphetamines Screen Negative Urine Benzodiazepines Screen Negative Urine Cocaine Screen Negative Urine Cannabinoids Screen Negative Thyroid Stimulating Hormone (TSH) 1.63 uIU/ml (0.46-4.68) Serum Alcohol < 10 mg/dl Toxicology Test 09/23/17 11:30 09/23/17 11:45 Urine Opiates Screen Negative Urine Barbiturates Screen Negative Ur Tricyclic Antidepressants Screen Negative Urine Phencyclidine Screen Negative Urine Amphetamines Screen Negative Urine Benzodiazepines Screen Negative Urine Cocaine Screen Negative Urine Cannabinoids Screen Negative Serum Alcohol < 10 mg/dl Urinalysis Test 09/23/17 11:30 Urine Color Straw Urine Clarity Clear Urine pH 6.0 pH (4.8-9.5) Urine Specific [place] 1.005 Urine Protein Negative mg/dL (NEGATIVE) Urine Glucose (UA) Negative mg/dL (NEGATIVE) Urine Ketones Trace mg/dL (NEGATIVE) Urine Blood Negative (NEGATIVE) Urine Nitrite Negative (NEGATIVE) Urine Bilirubin Negative (NEGATIVE) Urine Urobilinogen Negative mg/dL (0.2-1.9) Urine Leukocyte Esterase Trace (NEGATIVE) Urine RBC <1 /HPF (0-2/HPF) Urine WBC 1 /HPF (0-5/HPF) Urine Squamous Epithelial Cells Many /LPF (</=FEW) Urine Bacteria Few /HPF (NONE-FEW) Urine Mucus None /HPF (NONE-FEW) Urine HCG, Qualitative Negative (NEGATIVE) EKG/Imaging EKG Interpretation 12 lead EKG: Rhythm: PVCs with bigeminy pattern. ST segments: No ST change noted. 12 lead EKG: Rhythm: normal sinus rhythm [place]: normal QRS: low voltage ST segments: no elevation or depression, Nonspecific Twave flattening ED Course/Re-evaluation Clinical Indication for ER IV: Hydration, IV Access ED Course Initial treatment with 50 grams of activated charcoal with sorbitol. Monitoring. Poison control called. Initial cardiac irritability, which then calmed down. She is not sedated by the medication. Labs unremarkable. Dr. Hernandez came to the ER to evaluate and will be admitting to the ICU. I also called and let Dr. Lamb know about the admission and need for psychiatric evaluation as well. She is voluntary, but if she decides she wants to leave, we will need to do an emergency chcf. I talked to the patient about this as well and she understands. Decision to Disposition Date: Sep 24, 2017 Decision to Disposition Time: 14:30 Depart Departure Latest Vital Signs Vital Signs Date Time Temp Pulse Resp B/P (MAP) Pulse Ox O2 Delivery O2 Flow Rate FiO2 09/23/17 15:23 98 13 96 09/23/17 15:00 119/89 (99) 09/23/17 11:30 98.5 Room Air Impression: Primary Impression: Diphenhydramine overdose Additional Impression: Depression with suicidal ideation Condition: Condition Unchanged Disposition: Admitted from ER Referrals: MAGUI MORRIS APRN [employer] SUPER[employer]OR-C (PCP) Problem Qualifiers Primary Impression: Diphenhydramine overdose Encounter type: initial encounter Injury intent: intentional self-harm Qualified Codes: T45.0X2A - Poisoning by antiallergic and antiemetic drugs, intentional self-harm, initial encounter KIRSTIN ARRIAGA MD Sep 23, 2017 11:35
[2017-09-23] MEDS ORDERED: NS(*) 0.9% 1000 ML BAG 1,000 ML IV ONE (11:40)
[2017-09-23] MEDS ORDERED: ACTIVATED CHAR/SORB 25GM/120ML PO ONE ×2 (11:40)
--- NOTE | 2017-09-23 11:52 | EKG ---
[place] [facility] [place] NAME[place] MARCELINO PEREZ : [id number] MR: [id number] V: [id number] EXAM DATE: ORDERING PHYSICIAN: KIRSTIN ARRIAGA TECHNOLOGIST: HUMBLE Hanson Reason : TACHY Blood Pressure : / mmHG Vent. Rate : 129 BPM Atrial Rate : 129 BPM P-R Int : 124 ms QRS Dur : 086 ms QT Int : 288 ms P-R-T Axes : 069 042 055 degrees QTc Int : 421 ms Sinus tachycardia with frequent premature ventricular complexes in a pattern of bigeminy Otherwise normal ECG When compared with ECG of 28-JAN-2017 17:01, premature ventricular complexes are now present Vent. rate has increased BY 68 BPM T wave inversion no longer evident in Anterior leads Confirmed by IRAM AUGUSTIN ([id number]) on 09/23/2017 3:09:19 PM Referred By: BART Confirmed By:IRAM AUGUSTIN
[2017-09-23 12:09] LABS: PLATELET COUNT, AUTOMATED 276 K/uL (150-450)
--- NOTE | 2017-09-23 13:53 | EKG ---
FACILITY: [facility] PATIENT NAME: MARCELINO PEREZ : [id number] MR: [id number] V: [id number] EXAM DATE: ORDERING PHYSICIAN: KIRSTIN ARRIAGA TECHNOLOGIST: HUMBLE Hanson Reason : IRREG HR Blood Pressure : / mmHG Vent. Rate : 105 BPM Atrial Rate : 105 BPM P-R Int : 132 ms QRS Dur : 080 ms QT Int : 338 ms P-R-T Axes : 066 039 007 degrees QTc Int : 446 ms Sinus tachycardia Nonspecific T wave abnormality Abnormal ECG When compared with ECG of 23-SEP-2017 11:48, premature ventricular complexes are no longer present Nonspecific T wave abnormality now evident in Inferior leads Nonspecific T wave abnormality now evident in Anterior leads Confirmed by IRAM AUGUSTIN ([id number]) on 09/23/2017 3:09:51 PM Referred By: BART Confirmed By:IRAM AUGUSTIN
[2017-09-23] MEDS ORDERED: INFLUENZA VIRUS VAC 0.5 ML SYR IM ONLY ONE (15:55)
--- NOTE | 2017-09-23 16:20 | EKG ---
FACILITY: [facility] - [place] PATIENT NAME: MARCELINO PEREZ : [id number] MR: [id number] V: [id number] EXAM DATE: ORDERING PHYSICIAN: IRAM AUGUSTIN TECHNOLOGIST: HUMBLE Hanson Reason : REPEAT EKG Blood Pressure : / mmHG Vent. Rate : 095 BPM Atrial Rate : 095 BPM P-R Int : 130 ms QRS Dur : 084 ms QT Int : 354 ms P-R-T Axes : 059 038 -17 degrees QTc Int : 444 ms Normal sinus rhythm Nonspecific T wave abnormality Abnormal ECG When compared with ECG of 23-SEP-2017 13:40, No significant change was found Confirmed by IRAM AUGUSTIN ([id number]) on 09/23/2017 7:19:13 PM Referred By: BART Confirmed By:IRAM AUGUSTIN
[2017-09-23] MEDS ORDERED: KCL (*) 20 MEQ/100 ML PREMIX 100 ML IV ONE (16:30)
--- NOTE | 2017-09-23 16:31 | History & Physical ---
History of Present Illness History of Present Illness 27yo female with h/o depression and suicide ideation who came to the ER for a Benadryl ingestion. She reports for the last couple weeks that she takes about 5 Benadryl 2-3 times a day because it give her a high. Today, she felt like she was worthless and wanted to "end it". She took about 175 pills of Benadryl about 45 minutes prior to coming to the ER. She doesn't know the dose. She thought about taking all of her Cymbalta, but didn't think that would do anything. She denies any other ingestion. Her last drink of alcohol was about 4 days ago. She rarely drinks alcohol, chronically. Her last marijuana use was a couple of weeks ago. She denies any other illicit drug use. She reports a previous drug ingestion with an intent to hurt herself when she was 11yo. She took a bottle of ibuprofen without any adverse sequelae. Currently, she is reporting a slow sensation that the world is spinning. No n/v/diarrhea. In the ER, she received activated charcoal with sorbitol and IVF. History Problems: (1) History of cholecystectomy Status: Chronic (2) History of appendectomy Status: Chronic (3) Status post wrist surgery Status: Chronic (4) Depression with suicidal ideation Status: Chronic (5) Bipolar disorder Status: Chronic (6) Fibromyalgia Status: Chronic Home Meds Active Scripts Duloxetine Hcl (CYMBALTA) 60 Mg Capsule.dr, 1 TAB PO DAILY, #30 TAB 2 Refills Prov:MAGUI MORRIS APRN [employer] 09/15/17 Reported Medications Paliperidone Palmitate (INVEGA SUSTENNA) 78 Mg/0.5 Ml Disp.syrin, 1 TAB IM once a month 06/06/17 Discontinued Scripts Potassium Chloride (KLOR-CON M20) 20 Meq Tab.er.prt, 20 MEQ PO QDAY, #30 TAB 0 Refills Prov:KIRSTIN ARRIAGA MD 09/22/17 Meclizine Hcl (MECLIZINE HCL) 25 Mg Tablet, 25 MG PO BID Y for prn, #10 TAB 0 Refills Prov:CRISTINO DONALDSON [employer] 09/16/17 Baclofen (BACLOFEN) 10 Mg Tablet, 5 MG PO TID, #10 TAB Prov:SUNDAR PUENTES [employer] 08/06/17 Ketorolac Tromethamine (KETOROLAC TROMETHAMINE) 10 Mg Tab, 10 MG PO Q6H, #20 TAB Prov:SUNDAR PUENTES [facility] 08/06/17 Atenolol (ATENOLOL) 25 Mg Tablet, 1 TAB PO QDAY, #30 TAB 1 Refill Prov:ARTUROMAGUI MOHSEN [employer] 08/05/17 Sulfamethoxazole/Trimet 800-160 Mg Tab (BACTRIM DS TABLET) 1 Each Tablet, 1 TAB PO Q12H, #4 TAB 0 Refills Prov:CRISTINO DONALDSON [employer] 08/03/17 Allergies: Coded Allergies: amoxicillin (Verified Allergy, Mild, itching, 09/23/17) ondansetron HCl (Verified Adverse Reaction, Intermediate, ARRYTHMIA, ) ON 16 APR 2012, AFTER ZOFRAN 4MG IVP ADMIN, PT BRADYCARDIC (PULSE 30-35BPM), ARRHTHMIA ON 3-LEAD EKG. sumatriptan (Verified Adverse Reaction, Intermediate, NAUSEA/VOMITING, ) nitrofurantoin (Verified Adverse Reaction, Mild, 09/23/17) itching amitriptyline (Verified Adverse Reaction, Unknown, 09/23/17) syncope / orthostatic hypotension ibuprofen (Verified Adverse Reaction, Unknown, REACTION TO COATING ON IBU TABS, 09/23/17) "tears up my stomach" lurasidone (Verified Adverse Reaction, Unknown, NAUSEA/VOMITING, 09/23/17) milnacipran (Verified Adverse Reaction, Unknown, 09/23/17) suicidal ideation Patient History: Fibromyalgia FATHER BROTHER OR SISTER No pertinent family history MOTHER BROTHER OR SISTER BROTHER OR SISTER BROTHER OR SISTER BROTHER OR SISTER CHILD CHILD CHILD Other Social/Family Hx . Has 3 children. See HPI. Hx Smoking: Yes Smoking Status: Former Smoker Exposure to Second Hand Smoke?: No Caffeine Intake: Coffee, Soda Caffeine/Cups Per Day: 4-6 Hx Alcohol Use: Yes Alcohol Use: Occassional Hx Substance Use Disorder: Yes Social Drug Use: Currently Social Drugs: Marijuana Amount Of Social Drug/s Used: daily History of IV Drug Use: No Review of Systems All Systems Reviewed/Normal: Yes, Except as Noted Exam Vital Signs Vital Signs Date Time Temp Pulse Resp B/P (MAP) Pulse Ox O2 Delivery O2 Flow Rate FiO2 09/23/17 16:03 89 8 95 09/23/17 16:00 112/81 (91) 09/23/17 11:30 98.5 Room Air General Appearance: Alert, Awake, No Acute Distress Eyes: Other (About 5-7mm diameter pupils) ENT: Moist Mucous Membranes (Tremulous tongue) Cardiovascular: Regular Rate and Rhythm Respiratory: Clear to Auscultation GI: Abd Soft and Non-Tender Extremities: No Edema Integumentary: No Jaundice, No Cyanosis Medical Decision Making Data Points Result Diagram: 09/23/17 1145 09/23/17 1145 Item Value Date Time Neutrophils (%) (Auto) 68.4 % 09/23/17 1145 Lymphocytes (%) (Auto) 24.8 % 09/23/17 1145 Monocytes (%) (Auto) 5.0 % 09/23/17 1145 Eosinophils (%) (Auto) 0.6 % 09/23/17 1145 Basophils (%) (Auto) 1.2 % 09/23/17 1145 Potassium Level 2.9 mmol/L *L 09/21/17 1620 Potassium Level 3.4 mmol/L L 09/23/17 1145 Total Bilirubin 1.0 mg/dl 09/23/17 1145 Aspartate Amino Transf (AST/SGOT) 28 U/L 09/23/17 1145 Alanine Aminotransferase (ALT/SGPT) 30 U/L 09/23/17 1145 Alkaline Phosphatase 102 U/L 09/23/17 1145 Magnesium Level 1.8 mg/dl 09/23/17 1145 Urine Leukocyte Esterase Trace H 09/23/17 1130 Urine Leukocyte Esterase Large H 09/21/17 1610 Urine RBC 2 /HPF 09/21/17 1610 Urine RBC <1 /HPF 09/23/17 1130 Urine WBC 1 /HPF 09/23/17 1130 Urine WBC 9 /HPF 09/21/17 1610 Urine Squamous Epithelial Cells Many /LPF H 09/21/17 1610 Acetaminophen Level < 10 ug/ml 09/23/17 1145 Serum Alcohol < 10 mg/dl 09/23/17 1145 Urine Barbiturates Screen Negative 09/23/17 1130 Urine Opiates Screen Negative 09/23/17 1130 Ur Tricyclic Antidepressants Screen Negative 09/23/17 1130 Urine Phencyclidine Screen Negative 09/23/17 1130 Urine Amphetamines Screen Negative 09/23/17 1130 Urine Benzodiazepines Screen Negative 09/23/17 1130 Urine Cocaine Screen Negative 09/23/17 1130 Urine Cannabinoids Screen Negative 09/23/17 1130 EKG / Imaging EKG Interpretation Vent. Rate : 105 BPM Atrial Rate : 105 BPM P-R Int : 132 ms QRS Dur : 080 ms QT Int : 338 ms P-R-T Axes : 066 039 007 degrees QTc Int : 446 ms Sinus tachycardia Nonspecific T wave abnormality Abnormal ECG When compared with ECG of 23-SEP-2017 11:48, premature ventricular complexes are no longer present Nonspecific T wave abnormality now evident in Inferior leads Nonspecific T wave abnormality now evident in Anterior leads Confirmed by IRAM AUGUSTIN ([id number]) on 09/23/2017 3:09:51 PM Vent. Rate : 129 BPM Atrial Rate : 129 BPM P-R Int : 124 ms QRS Dur : 086 ms QT Int : 288 ms P-R-T Axes : 069 042 055 degrees QTc Int : 421 ms Sinus tachycardia with frequent premature ventricular complexes in a pattern of bigeminy Otherwise normal ECG When compared with ECG of 28-JAN-2017 17:01, premature ventricular complexes are now present Vent. rate has increased BY 68 BPM T wave inversion no longer evident in Anterior leads Confirmed by IRAM AUGUSTIN ([id number]) on 09/23/2017 3:09:19 PM Assessment and Plan Problems: (1) Diphenhydramine overdose Status: Acute Assessment & Plan: She presented with a reported 150-175 pill ingestion of diphenhydramine 45 minutes prior to coming to the ER in a suicide attempt. She received Charcoal with Sorbitol in the ER. She was initially mildly tachycardic and had a PVC bigeminy that has since resolved. Repeat ECG shows normal QRS and QTc. She does have mildly dilated pupils and a tremulous tongue. Will watch in the ICU and repeat ECG/APAP/salicylate levels. Dr. Lamb knows that the patient has been admitted. (2) Hypokalemia Status: Acute Assessment & Plan: Possibly secondary to the ingestion. It was worse 2 days ago. Will give 20mEq IV, and recheck in the morning with a Mg. (3) Bipolar disorder Status: Chronic Assessment & Plan: Chronically on Cymbalta which will be held. Also, she gets Invega injections. Copies to: MAGUI MORRIS APRN [employer]; BECKA LAMB MD; HUSAM RAYMOND NP Venous Thromboembolism Antithrombotics Is Pt On Any Antithrombotics?: No Exam Sepsis Risk: No Definite Risk IRAM AUGUSTIN MD Sep 23, 2017 16:31
[2017-09-23 16:38] VITALS: BP 115/86
[2017-09-23] MEDS ORDERED: NS(*) 0.9% 250 ML BAG 250 ML ONE (17:32)
[2017-09-23 17:34] VITALS: BP 112/82
[2017-09-23] MEDS ORDERED: NS(*) 0.9% 1000 ML BAG 1,000 ML IV PRN (18:40)
[2017-09-23] MEDS ORDERED: CALCIUM CARBONATE 500 MG CHEW PO PRN (18:40)
[2017-09-23] MEDS ORDERED: PROMETHAZINE 25 MG/ML 1 ML AMP IVP PRN (18:40)
[2017-09-23] MEDS ORDERED: NS(*) 0.9% 1000 ML BAG 1,000 ML ONE (18:46)
[2017-09-23 19:20] VITALS: BP 126/93
[2017-09-23 20:25] VITALS: BP 115/87
[2017-09-23 21:27] VITALS: BP 115/86
[2017-09-23 23:00] VITALS: BP 108/84
[2017-09-24] VITALS (7 sets, daily range): BP systolic 100–117; BP diastolic 67–91; Ht 165.1 cm; Wt 55.3 kg
[2017-09-24 06:02] LABS: PLATELET COUNT, AUTOMATED 231 K/uL (150-450)
--- NOTE | 2017-09-24 12:36 | Hospitalist Depart ---
Discharge Summary Reason for Hosp/Final Diag: (1) Diphenhydramine overdose Status: Acute Hospital Course & Plan: She presented with a reported 150-175 pill ingestion of diphenhydramine 45 minutes prior to coming to the ER in a suicide attempt. She received Charcoal with Sorbitol in the ER. She was initially mildly tachycardic and had a PVC bigeminy that resolved. Repeat ECG showed normal QRS and QTc. She does have mildly dilated pupils and a tremulous tongue. Toxicology ruled out co-ingestion. Dr. Lamb knows that the patient has been admitted, patient agreeable to admission to [facility] and is medically stable for discharge to [facility]. (2) Bipolar disorder Status: Chronic Hospital Course & Plan: Uncontrolled. Chronically on Cymbalta and Invega injections. Patient being discharged to [facility] for inpatient stabilization, evaluation and medication optimization. (3) Hypokalemia Status: Resolved Hospital Course & Plan: Resolved with replacement. Departure Weight (Pounds): 122 Result Diagram: 09/24/17 0535 09/24/17 0535 Condition: Improved (NOTE: Medication list below is incorrect, please see printed copy.) Discharge: [facility] Discharge Instructions Home Meds Active Scripts Duloxetine Hcl (CYMBALTA) 60 Mg Capsule.dr, 1 TAB PO DAILY, #30 TAB 2 Refills Prov:MAGUI MORRIS APRN-C 09/15/17 Discontinued Reported Medications Paliperidone Palmitate (INVEGA SUSTENNA) 78 Mg/0.5 Ml Disp.syrin, 1 TAB IM once a month 06/06/17 Discontinued Scripts Potassium Chloride (KLOR-CON M20) 20 Meq Tab.er.prt, 20 MEQ PO QDAY, #30 TAB 0 Refills Prov:KIRSTIN ARRIAGA MD 09/22/17 Meclizine Hcl (MECLIZINE HCL) 25 Mg Tablet, 25 MG PO BID Y for prn, #10 TAB 0 Refills Prov:CRISTINO DONALDSON-BC 09/16/17 Diet: Regular Activity: As Tolerated Copies to: MAGUI MORRIS APRN-C Venous Thromboembolism Antithrombotics Is Pt On Any Antithrombotics?: No RICHY GÓMEZ DO Sep 24, 2017 12:36
== END 2017-09-24 13:26 | DRG 918 ==
LOC: ER 11:41 → MED 15:23 → ICU 15:23
PROVIDERS: ADMIT Internal Medicine; ATTEND Internal Medicine
DX: T45.0X2A Poisoning by antiallergic and antiemetic drugs, intentional self-harm, initial encounter (principal); R45.851 Suicidal ideations; E87.6 Hypokalemia; M79.7 Fibromyalgia; Z88.0 Allergy status to penicillin; F31.9 Bipolar disorder, unspecified; Z88.8 Allergy status to other drugs, medicaments and biological substances; Z87.891 Personal history of nicotine dependence; Z90.49 Acquired absence of other specified parts of digestive tract
CPT/HCPCS: 36415; 80305; 80320; 80329; 81001; 81025; 82040; 82247; 82310; 82374; 82435; 82565; 82947; 83735; 84075; 84132; 84155; 84295; 84443; 84450; 84460; 84520; 85025; 93005; J2550; J3480; J7030

== ENCOUNTER 2017-09-24 13:40 | Inpatient (IN) | payer MEDICAID ==
[~2017-09-24] VITALS: Ht 165.1 cm; Wt 47.6 kg
[2017-09-24 08:15] VITALS: Ht 165.1 cm; Wt 47.6 kg
[2017-09-24] MEDS ORDERED: ACETAMINOPHEN 325 MG TAB PO PRN (14:00)
[2017-09-24] MEDS ORDERED: MAG HYD/AL HYD/SIMETH 30ML UDC PO PRN (14:00)
[2017-09-24 14:30] VITALS: BP 105/70
[2017-09-24 23:56] VITALS: BP 107/65
[2017-09-25] MEDS: MULTIVITAMINS PO SCH (08:19)
[2017-09-25 09:13] VITALS: BP 113/73
[2017-09-25] MEDS: DULoxetine HCL 30 MG CAPCR PO SCH ×2 (11:18→11:31)
[2017-09-25] MEDS ORDERED: PALIPERIDONE PALMITATE IM ONE (11:30)
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
[2017-09-25 21:42] VITALS: BP 102/57
[2017-09-26 05:55] VITALS: BP 96/60
[2017-09-26] MEDS: DULoxetine HCL 30 MG CAPCR PO SCH (08:03)
[2017-09-26] MEDS: MULTIVITAMINS PO SCH (08:12)
[2017-09-26] MEDS ORDERED: MULT-859 PO (11:11)
[2017-09-26] MEDS ORDERED: PALI78DI IM (11:12)
--- NOTE | 2017-09-26 14:48 | BHS Discharge Summary ---
[facility] Discharge Summary Xfsf-cp-[id number] Encounter Date: Sep 26, 2017 Lfxz-kn-Pfzy Encounter Time: 10:15 Reason-Hosp/Final Diag (DSM-V): (1) Diphenhydramine overdose Status: Acute Hospital Course & Plan: Pt was admitted to [facility] and maintained on suicide precautions. Her outpatient meds were restarted on 09/25/17, including Invega sustena 78 mg IM, and cymbalta 60 mg daily. She was a bit gamey at first regarding WHY she had taken and overdose. We worked with her to establish personal responsibility for her behavior and clarity about the precipitants. She was able to identify that she was needing attention, that she and husb had been arguing, that she felt abandoned by a friend who she texted but who did not respond, that she felt guilty because she drank alcohol on Friday for the first time in 6 months, and that she had missed about 4 therapy sessions in a row. We spoke with pt's and also to her out-patient therapist Isela, and coordinated out-pt care: she will see Isela on Friday at noon. She denied SI throughout her hospital stay, and was stable for discharge on 09/26/17. (2) Cluster B personality disorder (3) Alcohol use disorder, mild, in controlled environment Physical Exam Latest Vital Signs Vital Signs 09/24/17 09/26/17 23:56 05:55 Temp 98.4 Pulse 65 Resp 15 B/P (MAP) 96/60 (72) Pulse Ox 98 O2 Delivery Room Air Mental Status Exam General Appearance: Casual, Well Groomed, Good Eye Contact, Cooperative, Polite , Good Interaction Speech: Clear, Spontaneous, Normal Rate, Normal Rhythm, Normal Volume, Normal Tone Mood: Euthymic Affect: Full and Appropriate, Calm Thought Process: Organized, Logical, Goal Directed Thought Content: No Suicidal Ideation, No Homicidal Ideation, No Delusions, No Auditory Halllucinations, No Visual Hallucinations, No Thought Broadcasting, No Ideas of Reference, No Obsessions, No Compulsions, No Other Sensorium: Clear Cognition: Alert & Oriented-Person, Alert & Oriented-Place, Alert & Oriented- Time, Kltjz-Rebqwyqd-Eindbkrsl Memory: Immediate, Recent, Remote Intelligence: Below Average Insight Judgment: Fair Departure Condition: Improved Discharge Instructions Home Meds Active Scripts Duloxetine Hcl (CYMBALTA) 60 Mg Capsule., 1 TAB PO DAILY, #30 TAB 2 Refills Prov:MAGUI MORRIS APRN SENIOR ACCOUNTS PAYABLE CLERK-C 09/15/17 Reported Medications Paliperidone Palmitate (INVEGA SUSTENNA) 78 Mg/0.5 Ml Disp.syrin, 78 MG IM Q30D 09/26/17 Multivits,Ca,Minerals/Iron/Fa (THERA-M TABLET) 1 Each Tablet, 1 EACH PO DAILY 09/26/17 Discontinued Reported Medications Paliperidone Palmitate (INVEGA SUSTENNA) 78 Mg/0.5 Ml Disp.syrin, 1 TAB IM once a month 06/06/17 Discontinued Scripts Potassium Chloride (KLOR-CON M20) 20 Meq Tab.er.prt, 20 MEQ PO QDAY, #30 TAB 0 Refills Prov:KIRSTIN ARRIAGA MD 09/22/17 Meclizine Hcl (MECLIZINE HCL) 25 Mg Tablet, 25 MG PO BID Y for prn, #10 TAB 0 Refills Prov:CRISTINO DONALDSON SENIOR ACCOUNTS PAYABLE CLERK-BC 09/16/17 Multpiple Antipsychotics Used: No Diet: Regular Activity: As Tolerated Special Instructions: Discharge home. Follow up with outpatient therapy and medication management as recommended. ABSTAIN FROM ALCOHOL. Take meds only as prescribed. JAMEE CHRIS MD Sep 26, 2017 14:48
== END 2017-09-26 12:40 | disposition home or self-care (01) | DRG 918 ==
LOC: BHS 13:40
PROVIDERS: ADMIT Psychiatry & Neurology Psychiatry; ATTEND Psychiatry & Neurology Psychiatry
DX: T45.0X2A Poisoning by antiallergic and antiemetic drugs, intentional self-harm, initial encounter (principal); F34.1 Dysthymic disorder; F10.10 Alcohol abuse, uncomplicated; F60.9 Personality disorder, unspecified; Z72.89 Other problems related to lifestyle; Z91.5 Personal history of self-harm; Z62.810 Personal history of physical and sexual abuse in childhood; Z87.891 Personal history of nicotine dependence; Z63.0 Problems in relationship with spouse or partner; Z56.0 Unemployment, unspecified; Z90.49 Acquired absence of other specified parts of digestive tract
CPT/HCPCS: 36415; 80305; 80320; 80329; 81001; 81025; 82040; 82247; 82310; 82374; 82435; 82565; 82947; 83735; 84075; 84132; 84155; 84295; 84443; 84450; 84460; 84520; 85025; 93005; J2550; J3480; J7030

== ENCOUNTER 2017-10-05 15:07 | Emergency (ER) | payer MEDICAID ==
[2017-09-24 08:15] VITALS: Wt 56.7 kg
[~2017-10-05 15:07] MED LIST changes: +MULT-859 PO
--- NOTE | 2017-10-05 15:16 | ER Report ---
History and Physical Time Seen By MD: 15:13 HPI/ROS CHIEF COMPLAINT: Chest pain HISTORY OF PRESENT ILLNESS: This is a 27-year-old female, well-known to the emergency department, who presents today for chest pain. Patient states that about 2-3 days ago she developed some midsternal chest pain while "chasing after her kids". Patient states that she had continued chest pain since and decided to come to the ED for further evaluation. The patient was admitted to the hospital approximately 10 days ago for a Benadryl overdose, she was cleared by medical subsequently sent to the behavioral health unit was discharged from the behavioral health unit, she is currently taking her regular medications suicidal thoughts. She also states she has dizziness that is worse when her eyes are closed and "numbness all over". She has a steady gait. She denies fevers, chills, shortness of breath, headaches or rashes. REVIEW OF SYSTEMS: Constitutional: No fever, no chills. Eyes: No discharge. ENT: No sore throat. Cardiovascular: As above. Respiratory: No cough, no shortness of breath. Gastrointestinal: No abdominal pain, no vomiting. Genitourinary: No hematuria. Musculoskeletal: No back pain. Skin: No rashes. Neurological: No headache. Allergies: Coded Allergies: amoxicillin (Verified Allergy, Mild, itching, 09/23/17) ondansetron HCl (Verified Adverse Reaction, Intermediate, ARRYTHMIA, ) ON 16 APR 2012, AFTER ZOFRAN 4MG IVP ADMIN, PT BRADYCARDIC (PULSE 30-35BPM), ARRHTHMIA ON 3-LEAD EKG. sumatriptan (Verified Adverse Reaction, Intermediate, NAUSEA/VOMITING, ) nitrofurantoin (Verified Adverse Reaction, Mild, 09/23/17) itching amitriptyline (Verified Adverse Reaction, Unknown, 09/23/17) syncope / orthostatic hypotension ibuprofen (Verified Adverse Reaction, Unknown, REACTION TO COATING ON IBU TABS, 09/23/17) "tears up my stomach" lurasidone (Verified Adverse Reaction, Unknown, NAUSEA/VOMITING, 09/23/17) milnacipran (Verified Adverse Reaction, Unknown, 09/23/17) suicidal ideation Home Meds Active Scripts Duloxetine Hcl (CYMBALTA) 60 Mg Capsule., 1 TAB PO DAILY, #30 TAB 2 Refills Prov:MAGUI MORRIS COMMUNICATIONS PROGRAM MANAGER PAINTER BARREL-C 09/15/17 Reported Medications Paliperidone Palmitate (INVEGA SUSTENNA) 78 Mg/0.5 Ml Disp.syrin, 78 MG IM Q30D 09/26/17 Discontinued Reported Medications Multivits,Ca,Minerals/Iron/Fa (THERA-M TABLET) 1 Each Tablet, 1 EACH PO DAILY 09/26/17 Past Medical/Surgical History The patient has a past medical and surgical history of fibromyalgia, migraines, bradycardia and tachycardia, asthma, IBS, cholecystectomy, right hand fracture, wears glasses, astigmatism, uses marijuana, vaginal delivery, depression, bipolar, anxiety, borderline personality, attempted suicide, appendectomy. Reviewed Nurses Notes: Yes Hx Smoking: Yes Smoking Status: Former Smoker Exposure to Second Hand Smoke?: No Hx Substance Use Disorder: Yes (marijuana) Hx Alcohol Use: Yes Constitutional Vital Sign - Last 24 Hours 10/05/17 10/05/17 10/05/17 10/05/17 15:12 15:37 15:41 16:07 Pulse 95 85 75 Resp 17 8 14 B/P (MAP) 115/87 (96) Pulse Ox 96 95 95 O2 Delivery Room Air 10/05/17 10/05/17 10/05/17 10/05/17 16:37 16:42 17:12 17:42 Pulse 84 87 69 Resp 9 17 18 B/P (MAP) 115/78 (90) Pulse Ox 96 96 96 10/05/17 10/05/17 17:42 18:12 Pulse 76 88 Resp 17 B/P (MAP) 120/69 (86) Pulse Ox 96 Intake and Output 10/05/17 10/05/17 10/06/17 15:00 23:00 07:00 Intake Total 1000 ml Balance 1000 ml Physical Exam General Appearance: The patient is alert, has no immediate need for airway protection and no signs of toxicity. Eyes: Pupils equal and round no pallor or injection. ENT, Mouth: Mucous membranes are moist. Respiratory: There are no retractions, lungs are clear to auscultation. Cardiovascular: Regular rate and rhythm, no murmurs, clicks or rubs. Gastrointestinal: Abdomen is soft and non tender, no masses, bowel sounds normal. Neurological: Alert and oriented 4. Moving all extremities. Following all commands. No focal neurologic deficits. Skin: Warm and dry, no rashes. Musculoskeletal: Neck is supple non tender. Extremities are nontender, nonswollen and have full range of motion. DIFFERENTIAL DIAGNOSIS: After history and physical exam differential diagnosis was considered for chest pain including but not limited to myocardial ischemia, pericarditis pulmonary embolus, chest wall pain, pleural inflammation and pulmonary infectious causes. Medical Decision Making Data Points Result Diagram: 10/05/17 1534 10/05/17 1534 Laboratory Hematology Test 10/05/17 15:34 Red Blood Count 4.61 M/uL (4.17-5.56) Mean Corpuscular Volume 91.6 fL (80.0-96.0) Mean Corpuscular Hemoglobin 32.1 pg (26.0-33.0) Mean Corpuscular Hemoglobin Concent 35.1 g/dL (32.0-36.0) Red Cell Distribution Width 12.4 % (11.5-14.5) Mean Platelet Volume 7.5 fL (7.2-11.1) Neutrophils (%) (Auto) 52.8 % (39.4-72.5) Lymphocytes (%) (Auto) 35.8 % (17.6-49.6) Monocytes (%) (Auto) 8.1 % (4.1-12.4) Eosinophils (%) (Auto) 2.7 % (0.4-6.7) Basophils (%) (Auto) 0.6 % (0.3-1.4) Nucleated RBC Relative Count (auto) 0.0 /100WBC Neutrophils # (Auto) 2.3 K/uL (2.0-7.4) Lymphocytes # (Auto) 1.6 K/uL (1.3-3.6) Monocytes # (Auto) 0.4 K/uL (0.3-1.0) Eosinophils # (Auto) 0.1 K/uL (0.0-0.5) Basophils # (Auto) 0.0 K/uL (0.0-0.1) Nucleated RBC Absolute Count (auto) 0.00 K/uL D-Dimer Quantitative (PE/DVT) 0.66 ug/ml (0-0.50) Sodium Level 140 mmol/L (137-145) Potassium Level 3.6 mmol/L (3.5-5.0) Chloride Level 101 mmol/L (98-107) Carbon Dioxide Level 29 mmol/L (22-31) Blood Urea Nitrogen 9 mg/dl (7-18) Creatinine 0.80 mg/dl (0.52-1.04) Glomerular Filtration Rate Calc > 60.0 Random Glucose 95 mg/dl (75-110) Calcium Level 9.0 mg/dl (8.4-10.2) Total Bilirubin 0.9 mg/dl (0.2-1.3) Aspartate Amino Transf (AST/SGOT) 30 U/L (0-35) Alanine Aminotransferase (ALT/SGPT) 30 U/L (0-56) Alkaline Phosphatase 58 U/L (0-126) Troponin I < 0.012 ng/ml Total Protein 7.0 g/dl (6.3-8.2) Albumin 4.2 g/dl (3.5-5.0) Human Chorionic Gonadotropin, Qual Negative (NEGATIVE) Chemistry Test 10/05/17 15:34 White Blood Count 4.4 k/uL (4.5-11.0) Red Blood Count 4.61 M/uL (4.17-5.56) Hemoglobin 14.8 g/dL (12.0-16.0) Hematocrit 42.2 % (34.0-47.0) Mean Corpuscular Volume 91.6 fL (80.0-96.0) Mean Corpuscular Hemoglobin 32.1 pg (26.0-33.0) Mean Corpuscular Hemoglobin Concent 35.1 g/dL (32.0-36.0) Red Cell Distribution Width 12.4 % (11.5-14.5) Platelet Count 232 K/uL (150-450) Mean Platelet Volume 7.5 fL (7.2-11.1) Neutrophils (%) (Auto) 52.8 % (39.4-72.5) Lymphocytes (%) (Auto) 35.8 % (17.6-49.6) Monocytes (%) (Auto) 8.1 % (4.1-12.4) Eosinophils (%) (Auto) 2.7 % (0.4-6.7) Basophils (%) (Auto) 0.6 % (0.3-1.4) Nucleated RBC Relative Count (auto) 0.0 /100WBC Neutrophils # (Auto) 2.3 K/uL (2.0-7.4) Lymphocytes # (Auto) 1.6 K/uL (1.3-3.6) Monocytes # (Auto) 0.4 K/uL (0.3-1.0) Eosinophils # (Auto) 0.1 K/uL (0.0-0.5) Basophils # (Auto) 0.0 K/uL (0.0-0.1) Nucleated RBC Absolute Count (auto) 0.00 K/uL D-Dimer Quantitative (PE/DVT) 0.66 ug/ml (0-0.50) Glomerular Filtration Rate Calc > 60.0 Calcium Level 9.0 mg/dl (8.4-10.2) Total Bilirubin 0.9 mg/dl (0.2-1.3) Aspartate Amino Transf (AST/SGOT) 30 U/L (0-35) Alanine Aminotransferase (ALT/SGPT) 30 U/L (0-56) Alkaline Phosphatase 58 U/L (0-126) Troponin I < 0.012 ng/ml Total Protein 7.0 g/dl (6.3-8.2) Albumin 4.2 g/dl (3.5-5.0) Human Chorionic Gonadotropin, Qual Negative (NEGATIVE) Coagulation Test 10/05/17 15:34 D-Dimer Quantitative (PE/DVT) 0.66 ug/ml EKG/Imaging EKG Interpretation 12 lead EKG: Time of EKG 1523. Rhythm: Normal sinus rhythm, ventricular rate 87 BPM. [place]: normal QRS: normal ST segments: No ST depression or elevation identified. Inverted T waves in V2, flattened T waves in V3, V4 and V5. No significant changes from the 09/23/2017 EKG. Imaging EXAMINATION: CTA of the chest with IV contrast HISTORY: Chest pain. Elevated d-dimer. TECHNIQUE: Pulmonary embolus protocol - Thin axial CT images of the chest were obtained with IV contrast during maximal pulmonary arterial opacification. Reconstruction of the source data includes multiplanar 2D coronal and sagittal reconstructed images, and 3D coronal and sagittal MIP images. Yard Worker images have been stored on PACS. One of the following dose optimization techniques was utilized in the performance of this exam: Automated exposure control; adjustment of the mA and/ or kV according to the patient's size; or use of an iterative reconstruction technique. Specific details can be referenced in the facility's radiology CT exam operational policy. Contrast: 75 mL of IV Isovue-370. COMPARISON: None. FINDINGS: Pulmonary arteries: The pulmonary arteries are well opacified, without suspicious filling defect. Heart, aorta, and great vessels: Normal caliber thoracic aorta, without aneurysm or dissection. Normal heart size. No pericardial effusion. Lungs and pleura: The lungs are clear. No focal consolidation. No pleural effusion or pneumothorax. Mediastinum and aleksey: Negative. Visualized upper abdomen: Unremarkable. Chest wall: Negative. Bones: Negative. IMPRESSION: 1. No evidence of pulmonary embolism. 2. No other acute findings in the chest. The lungs are clear. Report Dictated By: Ty Lanza MD at 10/05/2017 5:39 PM Report E-Signed By: Ty Lanza MD at 10/05/2017 5:46 PM WSN:[id number] Location: [facility] [place] Patient: Jayna Gee : 1990 Visit/Account:[id number] Date of Sevice: 10/05/2017 EXAMINATION: Chest 2 Views HISTORY: Chest pain. COMPARISON: 01/17/2017. FINDINGS: The lungs are clear. No focal consolidation or pleural fluid. No pneumothorax. Normal cardiomediastinal silhouette, with normal heart size and pulmonary vascularity. Visualized osseous structures are unremarkable. IMPRESSION: Negative chest. Report Dictated By: Ty Lanza MD at 10/05/2017 4:13 PM Report E-Signed By: Ty Lanza MD at 10/05/2017 4:17 PM WSN:[id number] ED Course/Re-evaluation Clinical Indication for ER IV: Hydration, IV Access ED Course The patient was admitted to room. A history and physical were obtained. Differential diagnoses were considered. An IV was started. A CBC, CMP, troponin and d-dimer were obtained. CBC and CMP unremarkable. Negative troponin. Positive d-dimer. Two-view chest x-ray was negative for any acute cardiopulmonary processes. I did review with the positive d-dimer lab results with the patient, I did recommend a CTA of the chest with her chest pain, recent Benadryl history and the positive test. The patient was in agreement with this. A CT of the chest was negative for pulmonary embolus.EKG showing normal sinus rhythm. Patient was given 324 mg aspirin. The patient and I talked extensively about the lab results, the negative chest CT and also her current mental status. Patient states she is feeling better [facility], she does have a counselor that she did be following up with she has scheduled appointments with her primary care provider as well. The patient denied any suicidal or homicidal thoughts. The patient states she is feeling better after the fluids, less unsteady and is requesting to go home at this time. Patient is smiling and laughing. Patient also states that her chest discomfort has resolved. Patient had no other questions or concerns at this time and was discharged home. Return to ER for any concerns or worsening symptoms. Decision to Disposition Date: Oct 05, 2017 Decision to Disposition Time: 18:15 Depart Departure Latest Vital Signs Vital Signs Date Time Temp Pulse Resp B/P (MAP) Pulse Ox O2 Delivery O2 Flow Rate FiO2 10/05/17 18:12 88 17 120/69 (86) 96 10/05/17 15:12 Room Air Impression: Primary Impression: Chest pain of unknown etiology Additional Impression: Lightheadedness Condition: Improved Disposition: HOME OR SELF-CARE Referrals: MAGUI MORRIS APRN-C (PCP) Patient Instructions: Chest Pain (ED), Lightheadedness (ED) Additional Instructions: I did not find any clear explanation as to why her having the chest pain, however there does not be any cardiac involvement or clot in the lungs today. Drink plenty of water. Get plenty of rest. Follow-up with her primary care provider as scheduled. Follow-up with her counselor as scheduled. Continue taking your regular medications. Return to the emergency department for any other concerns or worsening symptoms. Problem Qualifiers CRISTINO DONALDSON PAINTER BARREL-BC Oct 05, 2017 15:16
[2017-10-05] MEDS ORDERED: NS(*) 0.9% 1000 ML BAG 1,000 ML IV ONE (15:22)
[2017-10-05] MEDS ORDERED: ASPIRIN 81 MG CHEW PO ONE (15:25)
--- NOTE | 2017-10-05 15:27 | EKG ---
FACILITY: [facility] PATIENT NAME: MARCELINO PEREZ : [id number] MR: [id number] V: [id number] EXAM DATE: ORDERING PHYSICIAN: CRISTINO DONALDSON TECHNOLOGIST: Test Reason : Blood Pressure : / mmHG Vent. Rate : 087 BPM Atrial Rate : 087 BPM P-R Int : 144 ms QRS Dur : 098 ms QT Int : 350 ms P-R-T Axes : 048 027 041 degrees QTc Int : 421 ms Normal sinus rhythm Nonspecific T wave abnormality Abnormal ECG Confirmed by JUAN ALBERTO DE LA CRUZ ([id number]) on 10/05/2017 9:27:17 PM Referred By: Confirmed By:JUAN ALBERTO DE LA CRUZ
[2017-10-05 15:46] LABS: PLATELET COUNT, AUTOMATED 232 K/uL (150-450)
--- NOTE | 2017-10-05 16:21 | RADIOLOGY IMAGING REPORT ---
[place] [facility] [place] NAME: Jayna Gee : 1990 MR: [id number] V: [id number] EXAM DATE: ORDERING PHYSICIAN: CRISTINO DONALDSON TECHNOLOGIST: [facility] Patient: Jayna Gee : 1990 Visit/Account:[id number] Date of Sevice: 10/05/2017 EXAMINATION: Chest 2 Views HISTORY: Chest pain. COMPARISON: 01/17/2017. FINDINGS: The lungs are clear. No focal consolidation or pleural fluid. No pneumothorax. Normal cardiomediastinal silhouette, with normal heart size and pulmonary vascularity. Visualized osseous structures are unremarkable. IMPRESSION: Negative chest. Report Dictated By: Ty Lanza MD at 10/05/2017 4:13 PM Report E-Signed By: Ty Lanza MD at 10/05/2017 4:17 PM WSN:[id number]
[2017-10-05] MEDS ORDERED: NS 0.9% 25 ML BAG 50 ML ONE (16:47)
[2017-10-05] MEDS ORDERED: IOPAMIDOL 76% 100 ML INFUS BTL 100 ML ONE (16:47)
--- NOTE | 2017-10-05 17:50 | RADIOLOGY IMAGING REPORT ---
[place] [facility] [place] NAME: Jayna Gee : 1990 MR: [id number] V: [id number] EXAM DATE: ORDERING PHYSICIAN: CRISTINO DONALDSON TECHNOLOGIST: Location: [facility] Patient: Jayna Gee : 1990 Visit/Account:[id number] Date of Sevice: 10/05/2017 EXAMINATION: CTA of the chest with IV contrast HISTORY: Chest pain. Elevated d-dimer. TECHNIQUE: Pulmonary embolus protocol - Thin axial CT images of the chest were obtained with IV con trast during maximal pulmonary arterial opacification. Reconstruction of the source data includes mul tiplanar 2D coronal and sagittal reconstructed images, and 3D coronal and sagittal MIP images. Repres entative images have been stored on PACS. One of the following dose optimization techniques was utilized in the performance of this exam: Autom ated exposure control; adjustment of the mA and/or kV according to the patient's size; or use of an i terative reconstruction technique. Specific details can be referenced in the facility's radiology C T exam operational policy. Contrast: 75 mL of IV Isovue-370. COMPARISON: None. FINDINGS: Pulmonary arteries: The pulmonary arteries are well opacified, without suspicious filling defect. Heart, aorta, and great vessels: Normal caliber thoracic aorta, without aneurysm or dissection. Norm al heart size. No pericardial effusion. Lungs and pleura: The lungs are clear. No focal consolidation. No pleural effusion or pneumothorax. Mediastinum and aleksey: Negative. Visualized upper abdomen: Unremarkable. Chest wall: Negative. Bones: Negative. IMPRESSION: 1. No evidence of pulmonary embolism. 2. No other acute findings in the chest. The lungs are clear. Report Dictated By: Ty Lanza MD at 10/05/2017 5:39 PM Report E-Signed By: Ty Lanza MD at 10/05/2017 5:46 PM WSN:[id number]
[2017-10-05 18:12] VITALS: BP 120/69
[2017-10-06] MEDS ORDERED: PANT40TA65 PO (14:37)
== END 2017-10-05 18:35 | disposition home or self-care (01) ==
LOC: ER 15:10
DX: R07.89 Other chest pain (principal); R42 Dizziness and giddiness; F17.200 Nicotine dependence, unspecified, uncomplicated
CPT/HCPCS: 71046; 71275; 84484; 84703; 85025; 85379; 93005; 96360; 96361; 99284; J7030; Q9967; 82040; 82247; 82310; 82374; 82435; 82565; 82947; 84075; 84132; 84155; 84295; 84450; 84460; 84520

== ENCOUNTER → 2017-10-07 | Outpatient (CLI) | payer MEDICAID ==
[2017-09-24 08:15] VITALS: BMI 20.3
--- NOTE | 2017-10-08 17:21 | RT HOLTER TEST ---
FACILITY: [facility] PATIENT NAME: MARCELINO PEREZ : [id number] MR: [id number] V: [id number] EXAM DATE: ORDERING PHYSICIAN: MAGUI MORRIS TECHNOLOGIST: SHELLIE Hook-up date: 2017-10-07 13:16:00 Duration: 23:41:00 Test Indications: chest pain unknown Medications: [id number] QRS complexes 89 Ventricular ectopics which represent <1 % of total QRS comp. * Supraventricular ectopics which represent % of total QRS comp. * Paced QRS complexes which represent % of total QRS comp. VENTRICULAR ECTOPY 89 Isolated 4 Bigeminal Cycles 0 Couplets 0 Runs 0 Beats in Runs * Beats LONGEST at * BPM at :: -- * Beats FASTEST at * BPM at :: -- SUPRAVENTRICULAR ECTOPY * Isolated * Couplets * Runs * Beats in Runs * Beats LONGEST at * BPM at :: -- * Beats FASTEST at * BPM at :: -- HEART RATES 41 MIN at 01:42:22 2017-10-08 82 AVG 127 MAX at 18:28:46 2017-10-07 LONGEST RR 2.088 secs at 01:26:19 2017-10-08 S-T LEVELS Channel 1 -12.800 mm MIN at 13:16:00 2017-10-07 -12.800 mm MAX at 13:16:00 2017-10-07 Channel 2 -12.800 mm MIN at 13:16:00 2017-10-07 -12.800 mm MAX at 13:16:00 2017-10-07 Channel 3 -12.800 mm MIN at 13:16:00 2017-10-07 -12.800 mm MAX at 13:16:00 2017-10-07 Rare ventricular ectopy with some bigeminy. No couplets, triplets, or runs were noted. No supraventricular ectopy was recorded. Sinus bradycardia with rates in the 40s were noted during usual sleeping hours. A pause of just over two (2) seconds was recorded during usual sleeping hours as well. Confirmed by JB CONLEY ([id number]) on 10/08/2017 5:20:17 PM Referred By: Overread By: JB CONLEY
== END ==
LOC: RESP 07:02
PROVIDERS: ATTEND Nurse Practitioner Family
DX: I49.3 Ventricular premature depolarization (principal); R00.1 Bradycardia, unspecified
CPT/HCPCS: 93225; 93226; 99283

== ENCOUNTER 2017-10-08 16:28 | Emergency (ER) | payer MEDICAID ==
[2017-09-24 08:15] VITALS: Wt 56.7 kg
[2017-10-08 16:32] VITALS: BP 129/85
--- NOTE | 2017-10-08 16:38 | ER Report ---
History and Physical Time Seen By MD: 16:34 HPI/ROS CHIEF COMPLAINT: [Right hand pain] HISTORY OF PRESENT ILLNESS: Patient states that she slammed her right hand a trunk of a car is pain to the lateral aspect of the base of the 5th medic tarsal correction metacarpal 2nd metacarpals able to move the fingers no respecter tennis no additional complaints noted REVIEW OF SYSTEMS: Respiratory: No cough, no dyspnea. Cardiovascular: No chest pain, no palpitations. Gastrointestinal: No vomiting, no abdominal pain. Musculoskeletal: Right hand pain Remainder of the 14 system rev: Yes Allergies: Coded Allergies: amoxicillin (Verified Allergy, Mild, itching, 09/23/17) ondansetron HCl (Verified Adverse Reaction, Intermediate, ARRYTHMIA, ) ON 16 APR 2012, AFTER ZOFRAN 4MG IVP ADMIN, PT BRADYCARDIC (PULSE 30-35BPM), ARRHTHMIA ON 3-LEAD EKG. sumatriptan (Verified Adverse Reaction, Intermediate, NAUSEA/VOMITING, ) nitrofurantoin (Verified Adverse Reaction, Mild, 09/23/17) itching amitriptyline (Verified Adverse Reaction, Unknown, 09/23/17) syncope / orthostatic hypotension ibuprofen (Verified Adverse Reaction, Unknown, REACTION TO COATING ON IBU TABS, 09/23/17) "tears up my stomach" lurasidone (Verified Adverse Reaction, Unknown, NAUSEA/VOMITING, 09/23/17) milnacipran (Verified Adverse Reaction, Unknown, 09/23/17) suicidal ideation Home Meds Active Scripts Pantoprazole Sodium (PANTOPRAZOLE SODIUM) 40 Mg Tablet.dr, 1 TAB PO QDAY, #14 TAB.SR 0 Refills Prov:MAGUI MORRIS APRNP-C 10/06/17 Duloxetine Hcl (CYMBALTA) 60 Mg Capsule.dr, 1 TAB PO DAILY, #30 TAB 2 Refills Prov:MAGUI MORRIS APRN WHEEL FILLER-C 09/15/17 Reported Medications Paliperidone Palmitate (INVEGA SUSTENNA) 78 Mg/0.5 Ml Disp.syrin, 78 MG IM Q30D 09/26/17 Discontinued Reported Medications Multivits,Ca,Minerals/Iron/Fa (THERA-M TABLET) 1 Each Tablet, 1 EACH PO DAILY 09/26/17 Reviewed Nurses Notes: Yes Old Medical Records Reviewed: Yes Hx Smoking: Yes Smoking Status: Former Smoker Exposure to Second Hand Smoke?: No Hx Substance Use Disorder: Yes (marijuana) Hx Alcohol Use: Yes Constitutional Vital Sign - Last 24 Hours 10/08/17 16:32 Temp 98.2 Pulse 101 Resp 16 B/P (MAP) 129/85 Pulse Ox 97 O2 Delivery Room Air Physical Exam General appearance: Alert no distress. Respiratory: Chest is non tender, lungs are clear to auscultation. Cardiac: Regular rate and rhythm [ ] Right hand examination shows pain and swelling at the base of the right metacarpal of the 5th metacarpal 4th metacarpal pain with extension flexion joint DIFFERENTIAL DIAGNOSIS: After history and physical exam differential diagnosis was considered for right hand fracture contusion Medical Decision Making ED Course/Re-evaluation ED Course ED clinical course medical decision making this is a [age] female who is been to the emergency department 1812 times patient is on a care plan for frequent visits and narcotic abuse x-ray of her hand however shows no fracture that is acute she does have an old chronic fracture which is unchanged she has some swelling we'll put her in Jorge A wrap and advised to take anti-inflammatory and Tylenol for pain and follow-up with primary care Decision to Disposition Date: Oct 08, 2017 Decision to Disposition Time: 17:01 Depart Departure Latest Vital Signs Vital Signs Date Time Temp Pulse Resp B/P (MAP) Pulse Ox O2 Delivery O2 Flow Rate FiO2 10/08/17 16:32 98.2 101 16 129/85 97 Room Air Impression: Primary Impression: Contusion, hand Condition: Improved Disposition: HOME OR SELF-CARE Referrals: MAGUI MORRIS APRN WHEEL FILLER-C (PCP) 5 Days Patient Instructions: Contusion in Adults (DC) NED BAE MD Oct 08, 2017 16:38
--- NOTE | 2017-10-08 16:56 | RADIOLOGY IMAGING REPORT ---
FACILITY: [facility] PATIENT NAME: Jayna Gee : 1990 MR: [id number] V: [id number] EXAM DATE: ORDERING PHYSICIAN: NED BAE TECHNOLOGIST: Location: [facility] - [place] Patient: Jayna Gee : 1990 Visit/Account:[id number] Date of Sevice: 10/08/2017 EXAMINATION: Right hand radiographs 3 views HISTORY: Trauma. Slammed hand in truck door. Pain/swelling/bruising near distal fifth metacarpal. COMPARISON: 04/05/2017. FINDINGS: PA, lateral and oblique views of the right hand are obtained. Bones: Chronic healed fracture deformity of the distal fifth metacarpal. No acute fracture. Joint spaces: Negative. Hardware: None. Soft tissues: Soft tissue swelling along the distal fifth metacarpal. IMPRESSION: No acute right hand fracture. Soft tissue swelling along the distal fifth metacarpal. Chronic healed fracture deformity of the fifth metacarpal. Report Dictated By: Edward Corado MD at 10/08/2017 4:49 PM Report E-Signed By: Edward Corado MD at 10/08/2017 4:51 PM WSN:[id number]
== END 2017-10-08 17:08 | disposition home or self-care (01) ==
LOC: ER 16:36
DX: S60.221A Contusion of right hand, initial encounter (principal); W23.0XXA Caught, crushed, jammed, or pinched between moving objects, initial encounter; Z87.891 Personal history of nicotine dependence
CPT/HCPCS: 99283

== ENCOUNTER 2017-10-09 13:24 | Emergency (ER) | payer MEDICAID ==
[2017-09-24 08:15] VITALS: Wt 56.7 kg
--- NOTE | 2017-10-09 13:43 | ER Report ---
History and Physical Time Seen By MD: 13:42 Hx. of Stated Complaint: pt reports sternal chest pain since friday, worse today HPI/ROS This is a 27-year-old female who presents to the emergency department with left- sided upper chest pain since Friday. She has the pain both at rest and with exertion. No shortness of breath. No recent trauma. Is not taking anything for the pain. She states she does not drink alcohol in 2 weeks. No rashes. No history of a PE or DVT. He was seen in this emergency department yesterday for a different complaint. Remainder of the 14 system rev: Yes Allergies: Coded Allergies: amoxicillin (Verified Allergy, Mild, itching, 09/23/17) ondansetron HCl (Verified Adverse Reaction, Intermediate, ARRYTHMIA, ) ON 16 APR 2012, AFTER ZOFRAN 4MG IVP ADMIN, PT BRADYCARDIC (PULSE 30-35BPM), ARRHTHMIA ON 3-LEAD EKG. sumatriptan (Verified Adverse Reaction, Intermediate, NAUSEA/VOMITING, ) nitrofurantoin (Verified Adverse Reaction, Mild, 09/23/17) itching amitriptyline (Verified Adverse Reaction, Unknown, 09/23/17) syncope / orthostatic hypotension ibuprofen (Verified Adverse Reaction, Unknown, REACTION TO COATING ON IBU TABS, 09/23/17) "tears up my stomach" lurasidone (Verified Adverse Reaction, Unknown, NAUSEA/VOMITING, 09/23/17) milnacipran (Verified Adverse Reaction, Unknown, 09/23/17) suicidal ideation Home Meds Active Scripts Duloxetine Hcl (CYMBALTA) 60 Mg Capsule.dr, 1 TAB PO DAILY, #30 TAB 2 Refills Prov:MAGUI MORRIS APRN-C 09/15/17 Reported Medications Paliperidone Palmitate (INVEGA SUSTENNA) 78 Mg/0.5 Ml Disp.syrin, 78 MG IM Q30D 09/26/17 Discontinued Reported Medications Multivits,Ca,Minerals/Iron/Fa (THERA-M TABLET) 1 Each Tablet, 1 EACH PO DAILY 09/26/17 Discontinued Scripts Pantoprazole Sodium (PANTOPRAZOLE SODIUM) 40 Mg Tablet., 1 TAB PO QDAY, #14 TAB.SR 0 Refills Prov:MAGUI MORRIS APRN-C 10/06/17 Reviewed Nurses Notes: Yes Old Medical Records Reviewed: Yes Hx Smoking: Yes Smoking Status: Former Smoker Exposure to Second Hand Smoke?: No Hx Substance Use Disorder: Yes (marijuana) Hx Alcohol Use: Yes (OCC) Constitutional Vital Sign - Last 24 Hours 10/09/17 10/09/17 10/09/17 10/09/17 13:24 13:27 13:29 13:37 Temp 98.7 Pulse ??? 118 Resp 18 B/P (MAP) 131/98 (109) 131/94 131/92 (105) Pulse Ox 94 O2 Delivery Room Air 10/09/17 10/09/17 10/09/17 10/09/17 13:39 13:54 14:00 14:09 Pulse 117 119 113 Resp 21 16 33 B/P (MAP) 124/93 (103) Pulse Ox 94 95 96 10/09/17 10/09/17 10/09/17 10/09/17 14:24 14:30 14:39 14:54 Pulse 106 103 101 Resp 9 B/P (MAP) 120/80 (93) Pulse Ox 95 95 94 10/09/17 10/09/17 10/09/17 10/09/17 15:00 15:09 15:14 15:29 Pulse ? 95 Resp 10 B/P (MAP) 124/84 (97) Pulse Ox 95 10/09/17 10/09/17 10/09/17 10/09/17 15:30 15:44 15:59 16:00 Pulse 93 97 Resp 9 11 B/P (MAP) 118/80 (93) 117/77 (90) Pulse Ox 94 95 10/09/17 10/09/17 16:14 16:24 Pulse ??? B/P (MAP) 122/88 (99) Physical Exam General Appearance: The patient is alert, has no immediate need for airway protection and no current signs of toxicity. Eyes: Pupils equal and round no injection. Respiratory: Chest is non tender, lungs are clear to auscultation. Cardiac: regular rate and rhythm. No chest wall tenderness to palpation Gastrointestinal: Abdomen is soft and non tender, no masses, bowel sounds normal. Extremities have full range of motion and are non tender. Skin: No rashes or lesions. DIFFERENTIAL DIAGNOSIS: After history and physical exam differential diagnosis was considered for chest pain including but not limited to myocardial ischemia, pericarditis pulmonary embolus, chest wall pain, pleural inflammation and pulmonary infectious causes. Medical Decision Making Data Points Result Diagram: 10/09/17 1400 10/09/17 1400 Laboratory Hematology Test 10/09/17 14:00 Red Blood Count 4.75 M/uL (4.17-5.56) Mean Corpuscular Volume 91.6 fL (80.0-96.0) Mean Corpuscular Hemoglobin 32.4 pg (26.0-33.0) Mean Corpuscular Hemoglobin Concent 35.4 g/dL (32.0-36.0) Red Cell Distribution Width 12.7 % (11.5-14.5) Mean Platelet Volume 7.7 fL (7.2-11.1) Neutrophils (%) (Auto) 45.7 % (39.4-72.5) Lymphocytes (%) (Auto) 41.1 % (17.6-49.6) Monocytes (%) (Auto) 9.0 % (4.1-12.4) Eosinophils (%) (Auto) 3.1 % (0.4-6.7) Basophils (%) (Auto) 1.1 % (0.3-1.4) Nucleated RBC Relative Count (auto) 0.1 /100WBC Neutrophils # (Auto) 1.8 K/uL (2.0-7.4) Lymphocytes # (Auto) 1.6 K/uL (1.3-3.6) Monocytes # (Auto) 0.4 K/uL (0.3-1.0) Eosinophils # (Auto) 0.1 K/uL (0.0-0.5) Basophils # (Auto) 0.0 K/uL (0.0-0.1) Nucleated RBC Absolute Count (auto) 0.00 K/uL D-Dimer Quantitative (PE/DVT) 0.57 ug/ml (0-0.50) Urine HCG, Qualitative Negative (NEGATIVE) Sodium Level 141 mmol/L (137-145) Potassium Level 3.6 mmol/L (3.5-5.0) Chloride Level 102 mmol/L (98-107) Carbon Dioxide Level 28 mmol/L (22-31) Blood Urea Nitrogen 6 mg/dl (7-18) Creatinine 0.80 mg/dl (0.52-1.04) Glomerular Filtration Rate Calc > 60.0 Random Glucose 93 mg/dl (75-110) Calcium Level 9.2 mg/dl (8.4-10.2) Total Bilirubin 0.8 mg/dl (0.2-1.3) Aspartate Amino Transf (AST/SGOT) 104 U/L (0-35) Alanine Aminotransferase (ALT/SGPT) 95 U/L (0-56) Alkaline Phosphatase 79 U/L (0-126) Troponin I < 0.012 ng/ml Total Protein 4.5 g/dl (6.3-8.2) Albumin 4.5 g/dl (3.5-5.0) Chemistry Test 10/09/17 14:00 White Blood Count 4.0 k/uL (4.5-11.0) Red Blood Count 4.75 M/uL (4.17-5.56) Hemoglobin 15.4 g/dL (12.0-16.0) Hematocrit 43.5 % (34.0-47.0) Mean Corpuscular Volume 91.6 fL (80.0-96.0) Mean Corpuscular Hemoglobin 32.4 pg (26.0-33.0) Mean Corpuscular Hemoglobin Concent 35.4 g/dL (32.0-36.0) Red Cell Distribution Width 12.7 % (11.5-14.5) Platelet Count 227 K/uL (150-450) Mean Platelet Volume 7.7 fL (7.2-11.1) Neutrophils (%) (Auto) 45.7 % (39.4-72.5) Lymphocytes (%) (Auto) 41.1 % (17.6-49.6) Monocytes (%) (Auto) 9.0 % (4.1-12.4) Eosinophils (%) (Auto) 3.1 % (0.4-6.7) Basophils (%) (Auto) 1.1 % (0.3-1.4) Nucleated RBC Relative Count (auto) 0.1 /100WBC Neutrophils # (Auto) 1.8 K/uL (2.0-7.4) Lymphocytes # (Auto) 1.6 K/uL (1.3-3.6) Monocytes # (Auto) 0.4 K/uL (0.3-1.0) Eosinophils # (Auto) 0.1 K/uL (0.0-0.5) Basophils # (Auto) 0.0 K/uL (0.0-0.1) Nucleated RBC Absolute Count (auto) 0.00 K/uL D-Dimer Quantitative (PE/DVT) 0.57 ug/ml (0-0.50) Urine HCG, Qualitative Negative (NEGATIVE) Glomerular Filtration Rate Calc > 60.0 Calcium Level 9.2 mg/dl (8.4-10.2) Total Bilirubin 0.8 mg/dl (0.2-1.3) Aspartate Amino Transf (AST/SGOT) 104 U/L (0-35) Alanine Aminotransferase (ALT/SGPT) 95 U/L (0-56) Alkaline Phosphatase 79 U/L (0-126) Troponin I < 0.012 ng/ml Total Protein 4.5 g/dl (6.3-8.2) Albumin 4.5 g/dl (3.5-5.0) Coagulation Test 10/09/17 14:00 D-Dimer Quantitative (PE/DVT) 0.57 ug/ml Urinalysis Test 10/09/17 14:00 Urine HCG, Qualitative Negative (NEGATIVE) EKG/Imaging EKG Interpretation 12 lead EKG: Rhythm: Sinus tachycardia [place]: normal QRS: normal ST segments: normal Monitor Interpretation: Sinus Tachycardia ED Course/Re-evaluation ED Course 27-year-old female who presents to emergency department with 4 days of constant chest pain. No trauma. No rashes. No fever chills. No PE or DVT risk factors. She had a positive d-dimer, but a CTA of the chest was negative for PE. Given she has had constant chest pain for 4 days, a single troponin was negative and no further testing is necessary. She notes that it could be a muscle strain from playing with her children. I discussed her mild elevation in LFTs. Does have a history of alcohol use and abuse, so I counseled her to abstain from alcohol as well as abstain from taking any acetaminophen. She will follow up with her primary physician for repeat LFTs. Decision to Disposition Date: Oct 09, 2017 Decision to Disposition Time: 16:19 Depart Departure Latest Vital Signs Vital Signs Date Time Temp Pulse Resp B/P (MAP) Pulse Ox O2 Delivery O2 Flow Rate FiO2 10/09/17 16:24 122/88 (99) 10/09/17 16:14 ??? 10/09/17 15:59 11 95 10/09/17 13:29 98.7 Room Air Impression: Primary Impression: Chest pain of unknown etiology Condition: Improved Disposition: HOME OR SELF-CARE Referrals: MAGUI MORRIS APRN BIRTHING NURSE-C (PCP) Patient Instructions: Chest Pain (ED) Additional Instructions: Your liver tests are mildly elevated. Abstain from alcohol use or any acetaminophen use. Take ibuprofen or other NSAIDs for pain. HARRIETT TOLLIVER MD Oct 09, 2017 13:43
[2017-10-09] MEDS ORDERED: KETOROLAC 30 MG/ML VIAL IVP ONE (13:45)
[2017-10-09] MEDS ORDERED: NS(*) 0.9% 1000 ML BAG 1,000 ML IV ONE (13:45)
[2017-10-09 14:22] LABS: PLATELET COUNT, AUTOMATED 227 K/uL (150-450)
[2017-10-09] MEDS ORDERED: NS 0.9% 25 ML BAG 50 ML ONE (15:07)
[2017-10-09] MEDS ORDERED: IOPAMIDOL 76% 75 ML INFUS BTL 75 ML ONE (15:07)
--- NOTE | 2017-10-09 15:54 | RADIOLOGY IMAGING REPORT ---
FACILITY: [facility] PATIENT NAME: Jayna Gee : 1990 MR: [id number] V: [id number] EXAM DATE: ORDERING PHYSICIAN: HARRIETT TOLLIVER TECHNOLOGIST: Location: [facility] [place] Patient: Jayna Gee : 1990 Visit/Account:[id number] Date of Sevice: 10/09/2017 CTA CHEST WW/O CNTR (PULM ANG) HISTORY: Elevated d-dimer ADDITIONAL HISTORY: None. TECHNIQUE: CTA chest with intravenous contrast. Axial imaging acquired following administration of IV contrast timed for maximum opacification of the pulmonary arterial vasculature. Slab 3-D MIP josé manuel nstructed images were also created for further evaluation and interpretation. Reconstruction of the [facility] data set includes multiplanar 2-D in the sagittal and coronal planes and 3-D reconstructed shilpi nal slab MIP series. 3-D images were created by the technologist. Dose Lowering Technique One of the following dose optimization techniques was utilized in the performance of this exam: Autom ated exposure control; adjustment of the mA and/or kV according to the patient's size; or use of an i terative reconstruction technique. Specific details can be referenced in the facility's radiology C T exam operational policy. CONTRAST: 75 mL Isovue-370 COMPARISON: October 05, 2017 FINDINGS: Lungs/pleura: Negative. Heart/vessels: Negative. There are no filling defects seen in the pulmonary arteries worrisome for a pulmonary embolus. Mediastinum/lymph nodes: Negative. Visualized upper abdomen: Negative. Bones/soft tissues: Negative. Additional findings: None IMPRESSION: Unremarkable CTA of the chest with no evidence of pulmonary embolism Report Dictated By: Charlene Talavera MD at 10/09/2017 3:45 PM Report E-Signed By: Charlene Talavera MD at 10/09/2017 3:51 PM WSN:[id number]
[2017-10-09 16:24] VITALS: BP 122/88
--- NOTE | 2017-10-09 17:39 | EKG ---
FACILITY: [facility] PATIENT NAME: MARCELINO PEREZ : [id number] MR: [id number] V: [id number] EXAM DATE: ORDERING PHYSICIAN: HARRIETT TOLLIVER TECHNOLOGIST: Test Reason : Blood Pressure : / mmHG Vent. Rate : 115 BPM Atrial Rate : 115 BPM P-R Int : 194 ms QRS Dur : 088 ms QT Int : 310 ms P-R-T Axes : 052 021 016 degrees QTc Int : 428 ms Sinus tachycardia Possible Left atrial enlargement T flattening consistent with inferior ischemia vs normal variant Compared to previous, now with inferior T flattening Confirmed by IRAM AUGUSTIN ([id number]) on 10/09/2017 9:33:45 PM Referred By: Confirmed By:IRAM AUGUSTIN
[2017-10-14] MEDS ORDERED: PRED20TA6 PO (14:46)
== END 2017-10-09 16:30 | disposition home or self-care (01) ==
LOC: ER 13:36
DX: R07.89 Other chest pain (principal)
CPT/HCPCS: 71275; 81025; 84484; 85025; 85379; 93005; 96361; 96374; 99284; J1885; J7030; Q9967; 82040; 82247; 82310; 82374; 82435; 82565; 82947; 84075; 84132; 84155; 84295; 84450; 84460; 84520

== ENCOUNTER 2017-10-11 16:06 | Emergency (ER) | payer MEDICAID ==
[2017-09-24 08:15] VITALS: Wt 56.7 kg
[2017-10-11] MEDS ORDERED: MECLIZINE HCL 25 MG TAB PO ONE (16:35)
[2017-10-11] MEDS ORDERED: ACETAMINOPHEN 325 MG TAB PO ONE (16:35)
--- NOTE | 2017-10-11 16:40 | ER Report ---
History and Physical Time Seen By MD: 16:29 Hx. of Stated Complaint: dizziness and mid chest pain HPI/ROS CHIEF COMPLAINT: Dizziness HISTORY OF PRESENT ILLNESS: This is a 27-year-old female, who is very well- known to the emergency department, presents today for dizziness. The patient presented 2 days ago with very similar symptoms, had a complete cardiac and CTA workup. Both which were negative. Patient states that today she began developing anxiousness and developed a rapid heart rate, her chest was pounding and she became dizzy. Patient's then decided to come into the ER for further evaluation. The patient appears anxious, states she does not have pain medicine at home. I asked patient if everything is okay at home, if she is feeling suicidal again, the patient denied such feelings. No nausea or vomiting, no rashes, no headaches, no visual changes. The patient states she does have a follow-up appointment with her primary care provider October 20. Patient also does not think she needs a "complete workup" again. REVIEW OF SYSTEMS: Constitutional: No fever, no chills. Eyes: No discharge. ENT: No sore throat. Cardiovascular: As above. Respiratory: No cough, no shortness of breath. Gastrointestinal: No abdominal pain, no vomiting. Genitourinary: No hematuria. Musculoskeletal: No back pain. Skin: No rashes. Neurological: As above. Allergies: Coded Allergies: amoxicillin (Verified Allergy, Mild, itching, 09/23/17) ondansetron HCl (Verified Adverse Reaction, Intermediate, ARRYTHMIA, ) ON 16 APR 2012, AFTER ZOFRAN 4MG IVP ADMIN, PT BRADYCARDIC (PULSE 30-35BPM), ARRHTHMIA ON 3-LEAD EKG. sumatriptan (Verified Adverse Reaction, Intermediate, NAUSEA/VOMITING, ) nitrofurantoin (Verified Adverse Reaction, Mild, 09/23/17) itching amitriptyline (Verified Adverse Reaction, Unknown, 09/23/17) syncope / orthostatic hypotension ibuprofen (Verified Adverse Reaction, Unknown, REACTION TO COATING ON IBU TABS, 09/23/17) "tears up my stomach" lurasidone (Verified Adverse Reaction, Unknown, NAUSEA/VOMITING, 09/23/17) milnacipran (Verified Adverse Reaction, Unknown, 09/23/17) suicidal ideation Home Meds Active Scripts Meclizine Hcl (MECLIZINE HCL) 25 Mg Tablet, 25 MG PO BID, #10 TAB 0 Refills Prov:MADELINYULIYACRISTINO ISRAEL Valentina INFORMATION RECEPTIONIST-BC 10/11/17 Duloxetine Hcl (CYMBALTA) 60 Mg Capsule.dr, 1 TAB PO DAILY, #30 TAB 2 Refills Prov:MAGUI MORRIS APRN INFORMATION RECEPTIONIST-C 09/15/17 Reported Medications Paliperidone Palmitate (INVEGA SUSTENNA) 78 Mg/0.5 Ml Disp.syrin, 78 MG IM Q30D 09/26/17 Discontinued Reported Medications Multivits,Ca,Minerals/Iron/Fa (THERA-M TABLET) 1 Each Tablet, 1 EACH PO DAILY 09/26/17 Discontinued Scripts Pantoprazole Sodium (PANTOPRAZOLE SODIUM) 40 Mg Tablet.dr, 1 TAB PO QDAY, #14 TAB.SR 0 Refills Prov:MAGUI MORRIS APRNP-C 10/06/17 Past Medical/Surgical History The patient has a past medical and surgical history of fibromyalgia, migraines, bradycardia, tachycardia, asthma, seasonal allergies, GERD, cholecystectomy, occasional weakness, right hand fracture, wears glasses, astigmatism, uses marijuana, depression, bipolar, anxiety, borderline personality, suicide attempt , appendectomy, tubal ligation, left knee scope. Reviewed Nurses Notes: Yes Hx Smoking: Yes Smoking Status: Former Smoker Exposure to Second Hand Smoke?: No Hx Substance Use Disorder: Yes (marijuana) Hx Alcohol Use: Yes (OCC) Constitutional Vital Sign - Last 24 Hours 10/11/17 10/11/17 10/11/17 10/11/17 16:06 16:10 16:12 16:21 Temp 97.8 Pulse ??? 116 112 Resp 16 B/P (MAP) 151/99 (116) 151/99 Pulse Ox 95 96 O2 Delivery Room Air 10/11/17 10/11/17 10/11/17 10/11/17 16:23 16:30 16:36 16:51 Pulse 104 99 B/P (MAP) 122/84 (97) 122/89 (100) Pulse Ox 94 95 10/11/17 10/11/17 10/11/17 10/11/17 17:00 17:06 17:21 17:30 Pulse 99 ??? B/P (MAP) 113/80 (91) ???/??? (3415) Pulse Ox 95 10/11/17 10/11/17 17:36 17:51 Pulse ? Physical Exam General Appearance: The patient is alert, has no immediate need for airway protection and no signs of toxicity. Eyes: Pupils equal and round no pallor or injection. ENT, Mouth: Mucous membranes are moist. Respiratory: There are no retractions, lungs are clear to auscultation. Cardiovascular: Regular rate and rhythm, no murmurs, clicks or rubs. Gastrointestinal: Abdomen is soft and non tender, no masses, bowel sounds normal. Neurological: Alert and oriented 4. Moving all extremities. Following all commands. No focal neuro deficits. Skin: Warm and dry, no rashes. Musculoskeletal: Neck is supple non tender. Extremities are nontender, nonswollen and have full range of motion. DIFFERENTIAL DIAGNOSIS: After history and physical exam differential diagnosis was considered for chest pain including but not limited to myocardial ischemia, costochondritis, pericarditis pulmonary embolus, chest wall pain, pleural inflammation and pulmonary infectious causes. Medical Decision Making EKG/Imaging EKG Interpretation 12 lead EKG: Time of EKG 1616. Rhythm: Sinus tachycardia, ventricular rate 109 BPM. [place]: normal QRS: normal ST segments: No ST depression or elevation identified. EKG showing no significant changes from the 10/09/2017 EKG. ED Course/Re-evaluation ED Course The patient was admitted to room. A history and physical were obtained. Differential diagnoses were considered. An EKG showing sinus tachycardia, same rhythm the patient has been in the last 3 times in the emergency department. I did have a rather sebastián conversation with the patient and she agreed that she did not want a CAT scan or blood work done today patient was requesting some pain relief from the discomfort in the dizziness primarily medication relief. Was given meclizine and Tylenol. Patient states that the discomfort had improved. I also asked the patient if she was having depressive or suicidal thoughts, she states no. Patient was also given oral fluids. I did talk to the patient about her dizziness as well she states that she feels well to go, I gave her a prescription for meclizine. Patient was instructed to follow-up with her primary care provider on the , she needs to go into the [facility] sooner or she can certainly do that with one of the other providers. Patient expressed understanding and was discharged home. Decision to Disposition Date: Oct 11, 2017 Decision to Disposition Time: 17:45 Depart Departure Latest Vital Signs Vital Signs Date Time Temp Pulse Resp B/P (MAP) Pulse Ox O2 Delivery O2 Flow Rate FiO2 10/11/17 17:51 ??? 10/11/17 17:30 ???/??? (1665) 10/11/17 17:06 95 10/11/17 16:12 97.8 16 Room Air Impression: Primary Impression: Chest wall pain Condition: Improved Disposition: HOME OR SELF-CARE Referrals: MAGUI MORRIS APRNP-C (PCP) New Scripts Meclizine Hcl (MECLIZINE HCL) 25 Mg Tablet 25 MG PO BID, #10 TAB 0 Refills Prov: CRISTINO DONALDSONP- 10/11/17 Patient Instructions: Chest Wall Pain (ED) Additional Instructions: The pain you are experiencing could be chest wall pain, therefore my suggestion is to take 650mg Tylenol every 8 hours for the next 2-3 days. Take the Meclizine for dizziness. Be sure to drink plenty of fluids. Get plenty of rest. If you need to follow up with your PCP sooner than your appointment, consider following up with Cristel Smiley. Return to the ED for any other concerns or worsening symptoms. CRISTINO DONALDSONP- Oct 11, 2017 16:40
[2017-10-11] MEDS ORDERED: MECL25TA9 PO (17:48)
--- NOTE | 2017-10-13 08:19 | EKG ---
FACILITY: [facility] PATIENT NAME: MARCELINO PEREZ : [id number] MR: [id number] V: [id number] EXAM DATE: ORDERING PHYSICIAN: CRISTINO DONALDSON TECHNOLOGIST: Test Reason : dizziness Blood Pressure : / mmHG Vent. Rate : 109 BPM Atrial Rate : 109 BPM P-R Int : 000 ms QRS Dur : 086 ms QT Int : 466 ms P-R-T Axes : 000 027 024 degrees QTc Int : 627 ms Sinus tachycardia Possible Anterior infarct , age undetermined Abnormal ECG No previous ECGs available Confirmed by DOC MEZA ([id number]) on 10/13/2017 9:54:32 AM Referred By: Confirmed By:DOC MEZA
[2017-10-14] MEDS ORDERED: PRED20TA6 PO (14:46)
== END 2017-10-11 18:00 | disposition home or self-care (01) ==
LOC: ER 16:18
DX: R07.89 Other chest pain (principal); M79.7 Fibromyalgia; K21.9 Gastro-esophageal reflux disease without esophagitis; F32.9 Major depressive disorder, single episode, unspecified; F41.9 Anxiety disorder, unspecified; Z87.891 Personal history of nicotine dependence; Z79.899 Other long term (current) drug therapy
CPT/HCPCS: 93005; 99283; J8597

== ENCOUNTER 2017-10-13 14:27 | Emergency (ER) | payer MEDICAID ==
[2017-09-24 08:15] VITALS: Wt 56.7 kg
--- NOTE | 2017-10-13 14:34 | ER Report ---
History and Physical Time Seen By MD: 14:33 HPI/ROS CHIEF COMPLAINT: Chest pain HISTORY OF PRESENT ILLNESS: Patient has been seen on October 05, 07 of October, 09 of October, 11 of October for chest pain. During these visits she has had an extensive workup including cardiac workups as well as to CTA for PEs which have all been negative. She had a Holter monitor report resulted on October 13 that shows rare ventricular ectopy with some bigeminy, no couplets or triplets or runs were noted. No supraventricular ectopy was noted sinus bradycardia with rates in the 40s were noted during sleeping hours. Patient did have a TSH that was drawn on 09/23/2017 that was normal. Patient denies feeling anxious or under stress however the electronic medical record shows that on September 23 patient was seen in the emergency department and admitted for an overdose of Benadryl note at that time stated that this was a suicide attempt. There is also a history in September for an ER visit for alcohol intoxication. Patient states that the chest pain has been getting worse over the last 24 hours it is substernal on the left side. She states that she feels as if she is going to black out. She states the pain is worse with walking or standing. She denies a positional component. She denies any fevers or chills. REVIEW OF SYSTEMS: Constitutional: No fever, no chills. Eyes: No discharge. ENT: No sore throat. Cardiovascular: Chest pain Respiratory: No cough, no shortness of breath. Gastrointestinal: No abdominal pain, no vomiting. Genitourinary: No hematuria. Musculoskeletal: No back pain. Skin: No rashes. Neurological: No headache. Allergies: Coded Allergies: amoxicillin (Verified Allergy, Mild, itching, 10/13/17) ondansetron HCl (Verified Adverse Reaction, Intermediate, ARRYTHMIA, ) ON 16 APR 2012, AFTER ZOFRAN 4MG IVP ADMIN, PT BRADYCARDIC (PULSE 30-35BPM), ARRHTHMIA ON 3-LEAD EKG. sumatriptan (Verified Adverse Reaction, Intermediate, NAUSEA/VOMITING, 10/13) nitrofurantoin (Verified Adverse Reaction, Mild, 10/13/17) itching amitriptyline (Verified Adverse Reaction, Unknown, 10/13/17) syncope / orthostatic hypotension ibuprofen (Verified Adverse Reaction, Unknown, REACTION TO COATING ON IBU TABS, 10/13/17) "tears up my stomach" lurasidone (Verified Adverse Reaction, Unknown, NAUSEA/VOMITING, 10/13/17) milnacipran (Verified Adverse Reaction, Unknown, 10/13/17) suicidal ideation Home Meds Active Scripts Meclizine Hcl (MECLIZINE HCL) 25 Mg Tablet, 25 MG PO BID, #10 TAB 0 Refills Prov:CRISTINO DONALDSON HOSIERY OPERATOR-BC 10/11/17 Duloxetine Hcl (CYMBALTA) 60 Mg Capsule.dr, 1 TAB PO DAILY, #30 TAB 2 Refills Prov:MAGUI MORRIS APRN HOSIERY OPERATOR-C 09/15/17 Reported Medications Paliperidone Palmitate (INVEGA SUSTENNA) 78 Mg/0.5 Ml Disp.syrin, 78 MG IM Q30D 09/26/17 Discontinued Scripts Pantoprazole Sodium (PANTOPRAZOLE SODIUM) 40 Mg Tablet.dr, 1 TAB PO QDAY, #14 TAB.SR 0 Refills Prov:MAGUI MORRIS APRN HOSIERY OPERATOR-C 10/06/17 Past Medical/Surgical History Multiple visits to the ER in the last week for chest pain evaluation also recent evaluation for suicide attempts. Hx Smoking: Yes Smoking Status: Former Smoker Exposure to Second Hand Smoke?: No Hx Substance Use Disorder: Yes (marijuana) Hx Alcohol Use: Yes (OCC) Constitutional Vital Sign - Last 24 Hours 10/13/17 14:35 Temp 98.4 Pulse 130 Resp 28 B/P (MAP) 123/93 Pulse Ox 99 O2 Delivery Room Air Physical Exam General/Constitutional: Patient is awake, alert, nontoxic and in no acute respiratory distress. Head: Normocephalic and atraumatic. Eyes: Conjunctival clear, Pupils are equal and reactive to light. Sclera are clear and anicteric. Ears:External canals are clear. Tympanic membranes are clear with normal landmarks and light reflex. Nares: No rhinorrhea or bleeding. Turbinates are pink and moist. Oropharyngeal: Mucous membranes are moist. Neck: Supple, no adenopathy. No thyroid enlargement Cardiovascular: Heart is regular rate and occasionally tachycardic but with regular rhythm no murmurs rubs or gallops. Chest wall is nontender pain is nonreproducible Pulmonary: Lungs are clear to auscultation bilaterally. There are no wheezes, rales, or rhonchi. Chest rise is symmetrical Abdomen: Soft, nontender, no guarding or peritoneal signs. Extremities: No gross deformities, No peripheral cyanosis. Able to move all 4 extremities. Neuro: Alert and oriented X3, Skin: No rashes, skin is warm dry and well perfused. Medical Decision Making Data Points Laboratory Hematology Test 10/13/17 15:09 Urine Color Yellow Urine Clarity Clear Urine pH 6.0 pH (4.8-9.5) Urine Specific [place] 1.008 Urine Protein Negative mg/dL (NEGATIVE) Urine Glucose (UA) Negative mg/dL (NEGATIVE) Urine Ketones 20 mg/dL (NEGATIVE) Urine Blood Negative (NEGATIVE) Urine Nitrite Negative (NEGATIVE) Urine Bilirubin Negative (NEGATIVE) Urine Urobilinogen Negative mg/dL (0.2-1.9) Urine Leukocyte Esterase Negative (NEGATIVE) Urine RBC None /HPF (0-2/HPF) Urine WBC <1 /HPF (0-5/HPF) Urine Squamous Epithelial Cells Many /LPF (</=FEW) Urine Bacteria Negative /HPF (NONE-FEW) Urine Mucus None /HPF (NONE-FEW) Urine HCG, Qualitative Negative (NEGATIVE) Chemistry Test 10/13/17 15:09 Urine Color Yellow Urine Clarity Clear Urine pH 6.0 pH (4.8-9.5) Urine Specific [place] 1.008 Urine Protein Negative mg/dL (NEGATIVE) Urine Glucose (UA) Negative mg/dL (NEGATIVE) Urine Ketones 20 mg/dL (NEGATIVE) Urine Blood Negative (NEGATIVE) Urine Nitrite Negative (NEGATIVE) Urine Bilirubin Negative (NEGATIVE) Urine Urobilinogen Negative mg/dL (0.2-1.9) Urine Leukocyte Esterase Negative (NEGATIVE) Urine RBC None /HPF (0-2/HPF) Urine WBC <1 /HPF (0-5/HPF) Urine Squamous Epithelial Cells Many /LPF (</=FEW) Urine Bacteria Negative /HPF (NONE-FEW) Urine Mucus None /HPF (NONE-FEW) Urine HCG, Qualitative Negative (NEGATIVE) Urinalysis Test 10/13/17 15:09 Urine Color Yellow Urine Clarity Clear Urine pH 6.0 pH (4.8-9.5) Urine Specific [place] 1.008 Urine Protein Negative mg/dL (NEGATIVE) Urine Glucose (UA) Negative mg/dL (NEGATIVE) Urine Ketones 20 mg/dL (NEGATIVE) Urine Blood Negative (NEGATIVE) Urine Nitrite Negative (NEGATIVE) Urine Bilirubin Negative (NEGATIVE) Urine Urobilinogen Negative mg/dL (0.2-1.9) Urine Leukocyte Esterase Negative (NEGATIVE) Urine RBC None /HPF (0-2/HPF) Urine WBC <1 /HPF (0-5/HPF) Urine Squamous Epithelial Cells Many /LPF (</=FEW) Urine Bacteria Negative /HPF (NONE-FEW) Urine Mucus None /HPF (NONE-FEW) Urine HCG, Qualitative Negative (NEGATIVE) EKG/Imaging EKG Interpretation EKG shows sinus tachycardia with a ventricular rate of 102 bpm otherwise normal EKG. Monitor Interpretation: Normal Sinus Rhythm ED Course/Re-evaluation ED Course 10/13/2017 3:21:26 pm patient with 5 visits for chest pain since October 05 further an evaluation for suicide attempt September 23. Patient has had very thorough and extensive workups in the preceding ER visits all which have been negative patient has had a negative Holter monitor as well. I did discuss other etiologies for her chest pain as I feel that it is extremely extremely unlikely this is related to any type of heart related event or pulmonary events. More likely this could represent GI or esophageal spasm or perhaps there is some symmetric sensation that is occurring from stress. Patient is [facility] last visit was today for routine follow-up. Plan at this time will be to administer Maalox. I will encourage follow-up with her primary care provider about a feel no further testing is necessary and potentially infect detrimental at this time. Decision to Disposition Date: Oct 13, 2017 Decision to Disposition Time: 15:24 Depart Departure Latest Vital Signs Vital Signs Date Time Temp Pulse Resp B/P (MAP) Pulse Ox O2 Delivery O2 Flow Rate FiO2 10/13/17 14:35 98.4 130 28 123/93 99 Room Air Impression: Primary Impression: Non-cardiac chest pain Condition: Condition Unchanged Referrals: MAGUI MORRIS APRN HOSIERY OPERATOR-C (PCP) Patient Instructions: Noncardiac Chest Pain (DC) Additional Instructions: Keep your follow-up appointment with your primary care provider on 10/20/2017 KILEY SHARP MD Oct 13, 2017 14:33
--- NOTE | 2017-10-13 14:47 | EKG ---
[facility] PATIENT NAME: MARCELINO PEREZ : [id number] MR: [id number] V: [id number] EXAM DATE: ORDERING PHYSICIAN: KILEY SHARP TECHNOLOGIST: MARIA TERESA Hanson Reason : CP Blood Pressure : / mmHG Vent. Rate : 102 BPM Atrial Rate : 102 BPM P-R Int : 122 ms QRS Dur : 090 ms QT Int : 436 ms P-R-T Axes : 070 029 047 degrees QTc Int : 568 ms Sinus tachycardia Otherwise normal ECG When compared with ECG of 11-OCT-2017 16:16, QT has shortened Confirmed by DOC MEZA ([id number]) on 10/13/2017 4:12:58 PM Referred By: Confirmed By:DOC MEZA
[2017-10-13 15:15] VITALS: BP 118/80
[2017-10-13] MEDS ORDERED: MAG HYD/AL HYD/SIMETH 30ML UDC PO ONE (15:25)
[2017-10-14] MEDS ORDERED: PRED20TA6 PO (14:46)
== END 2017-10-13 15:43 | disposition home or self-care (01) ==
LOC: ER 14:41
DX: R07.89 Other chest pain (principal); Z87.891 Personal history of nicotine dependence
CPT/HCPCS: 81001; 81025; 93005; 99283

== ENCOUNTER 2017-11-11 22:36 | Emergency (ER) | payer MEDICAID ==
[2017-09-24 08:15] VITALS: Wt 56.7 kg
[2017-11-11] MEDS ORDERED: ARIP400S IM (22:45)
--- NOTE | 2017-11-11 22:53 | ER Report ---
History and Physical Time Seen By MD: 22:53 Hx. of Stated Complaint: PT TWISTED L KNEE LAST WEEK. STILL HAVING PAIN HPI/ROS CHIEF COMPLAINT: Left knee pain HISTORY OF PRESENT ILLNESS: This is a 27-year-old female. She twisted her knee last week on Friday. Having lateral knee pain. Nothing is helping it. She has had a history of surgery with meniscus removal in the past. Pain worsens with any movement and weightbearing. Normal sensation in the leg and foot. Allergies: Coded Allergies: amoxicillin (Verified Allergy, Mild, itching, 10/13/17) ondansetron HCl (Verified Adverse Reaction, Intermediate, ARRYTHMIA, 10/13/17) ON 16 APR 2012, AFTER ZOFRAN 4MG IVP ADMIN, PT BRADYCARDIC (PULSE 30-35BPM), ARRHTHMIA ON 3-LEAD EKG. sumatriptan (Verified Adverse Reaction, Intermediate, NAUSEA/VOMITING, 10/13/17) nitrofurantoin (Verified Adverse Reaction, Mild, 10/13/17) itching amitriptyline (Verified Adverse Reaction, Unknown, 10/13/17) syncope / orthostatic hypotension ibuprofen (Verified Adverse Reaction, Unknown, REACTION TO COATING ON IBU TABS, 10/13/17) "tears up my stomach" lurasidone (Verified Adverse Reaction, Unknown, NAUSEA/VOMITING, 10/13/17) milnacipran (Verified Adverse Reaction, Unknown, 10/13/17) suicidal ideation Home Meds Active Scripts Tramadol Hcl (TRAMADOL HCL) 50 Mg Tablet, 50 MG PO Q6H PRN for PAIN, #12 TAB 0 Refills Prov:KIRSTIN ARRIAGA MD 11/12/17 Duloxetine Hcl (CYMBALTA) 60 Mg Capsule.dr, 1 TAB PO DAILY, #30 TAB 5 Refills Prov:MAGUI MORRIS APRN GERICARE AIDE-C 10/20/17 Reported Medications Aripiprazole (ABILIFY MAINTENA) 400 Mg Suser.vial, 400 MG IM 11/11/17 Discontinued Reported Medications Paliperidone Palmitate (INVEGA SUSTENNA) 78 Mg/0.5 Ml Disp.syrin, 78 MG IM Q30D 09/26/17 Discontinued Scripts Tramadol Hcl (TRAMADOL HCL) 50 Mg Tablet, 1 TAB PO TID, #6 TAB 0 Refills Prov:MAGUI MORRIS APRN GERICARE AIDE-C 11/05/17 Reviewed Nurses Notes: Yes Hx Smoking: Yes Smoking Status: Former Smoker Exposure to Second Hand Smoke?: No Hx Substance Use Disorder: Yes (marijuana) Hx Alcohol Use: Yes (OCC) Constitutional Vital Sign - Last 24 Hours 11/11/17 11/12/17 22:40 00:19 Temp 98.0 98.1 Pulse 85 88 Resp 16 16 B/P (MAP) 130/80 110/76 (87) Pulse Ox 99 98 O2 Delivery Room Air Room Air Physical Exam General appearance: Alert no distress. Musculoskeletal: Left knee shows no significant swelling. There is no effusion. There is no obvious deformity of the knee. Patella had pain with palpation on the lateral side and inferiorly. Medial jointline is nontender to palpation. Lateral jointline is tender to palpation. Sha is negative, although with guarding making the exam somewhat difficult. Joint appears stable but she has significant guarding so unable to tell if there is any lateral or medial laxity Neurologic: The patient has normal sensation distal to the injury. Cardiovascular: Normal pulses and capillary refill in the foot Skin: No rashes. No skin breakdown. DIFFERENTIAL DIAGNOSIS: After history and physical exam differential diagnosis was considered for knee injury including sprain, fracture, meniscus injury and soft tissue injury. Medical Decision Making EKG/Imaging Imaging INDICATION: Left knee pain/injury. EXAM DATE: 11/11/2017 10:58 PM COMPARISON: 04/04/2011. FINDINGS: 4 views left knee. Mineralization is normal. No acute alignment abnormality or fracture. Bone island in the lateral femoral condyle. Concave contour of the superolateral aspect of the patella is unchanged. Soft tissues are unremarkable. IMPRESSION: No acute osseous abnormality of the left knee. Report Dictated By: Edgar He MD at 11/11/2017 11:54 PM ED Course/Re-evaluation ED Course X-ray negative, discussed this with the patient. Recommended follow-up with orthopedic surgery. Prescribed some tramadol and provided a dose tonight and a take home pack. Decision to Disposition Date: Nov 12, 2017 Decision to Disposition Time: 00:09 Depart Departure Latest Vital Signs Vital Signs Date Time Temp Pulse Resp B/P (MAP) Pulse Ox O2 Delivery O2 Flow Rate FiO2 11/12/17 00:19 98.1 88 16 110/76 (87) 98 Room Air Impression: Primary Impression: Knee pain, left Condition: Improved Disposition: HOME OR SELF-CARE Referrals: MAGUI MORRIS APRN GERICARE AIDE-C (PCP) RANDALL TORREZ MD New Scripts Tramadol Hcl (TRAMADOL HCL) 50 Mg Tablet 50 MG PO Q6H PRN for PAIN, #12 TAB 0 Refills Prov: KIRSTIN ARRIAGA MD 11/12/17 Patient Instructions: Knee Pain (ED) Additional Instructions: Continue to use the MARLA wrap for compression. Call and make an appointment to see Dr. Torrez at [facility]. Tramadol 50mg, one every 4 hours as needed for severe pain. Problem Qualifiers Primary Impression: Knee pain, left Chronicity: unspecified Qualified Codes: M25.562 - Pain in left knee KIRSTIN ARRIAGA MD Nov 11, 2017 22:52
--- NOTE | 2017-11-12 | RADIOLOGY IMAGING REPORT ---
FACILITY: [facility] [place] PATIENT NAME: Jayna Gee : 1990 MR: [id number] V: [id number] EXAM DATE: ORDERING PHYSICIAN: KIRSTIN ARRIAGA TECHNOLOGIST: Location: [facility] Patient: Jayna Gee : 1990 Visit/Account:[id number] Date of Sevice: 11/11/2017 INDICATION: Left knee pain/injury. EXAM DATE: 11/11/2017 10:58 PM COMPARISON: 04/04/2011. FINDINGS: 4 views left knee. Mineralization is normal. No acute alignment abnormality or fracture. Bone island in the lateral femoral condyle. Concave contour of the superolateral aspect of the patella is uncha nged. Soft tissues are unremarkable. IMPRESSION: No acute osseous abnormality of the left knee. Report Dictated By: Edgar He MD at 11/11/2017 11:54 PM Report E-Signed By: Edgar He MD at 11/11/2017 11:55 PM WSN:[id number]
[2017-11-12] MEDS ORDERED: TRAM-420 PO (00:10)
[2017-11-12] MEDS ORDERED: traMADol 50 MG TAB PO ONE (00:10)
[2017-11-12] MEDS ORDERED: traMADol 50 MG TAB TH 2 TAB/BOTTLE PO ONE (00:10)
[2017-11-12 00:19] VITALS: BP 110/76
== END 2017-11-12 00:20 | disposition home or self-care (01) ==
LOC: ER 23:19
DX: M25.562 Pain in left knee (principal)
CPT/HCPCS: 73564; 99283; C9399

== ENCOUNTER → 2017-11-28 | Outpatient (CLI) | payer MEDICAID ==
[2017-09-24 08:15] VITALS: BMI 20.3
[~2017-11-28] MED LIST changes: +LIDO1ADH44 TP
== END ==
LOC: LAB 11:13
PROVIDERS: ATTEND Nurse Practitioner Primary Care
DX: R35.0 Frequency of micturition (principal); R30.0 Dysuria
CPT/HCPCS: 81001

== ENCOUNTER 2017-11-29 18:24 | Emergency (ER) | payer MEDICAID ==
[2017-09-24 08:15] VITALS: Wt 56.7 kg
--- NOTE | 2017-11-29 18:31 | ER Report ---
History and Physical Time Seen By MD: 18:31 Hx. of Stated Complaint: c/o increased dysuria, frequency and urgency x1 month. On pyridium. Was seen at MD's office with negative UA earlier this week. HPI/ROS CHIEF COMPLAINT: Urinary tract infection HISTORY OF PRESENT ILLNESS: This is a 27-year-old female, well-known to the emergency department presents for a urinary tract infection. Patient states that over the last week she's had increased frequency, urgency and painful urination. Patient states she was seen at her primary care provider's office they did a UA which was negative, patient is taking Azo however she's not taken anything since yesterday. Denies fevers or chills. No nausea vomiting. No other complaints. REVIEW OF SYSTEMS: Respiratory: No cough, no dyspnea. Cardiovascular: No chest pain, no palpitations. Gastrointestinal: No vomiting, no abdominal pain. Genitourinary: As above. Musculoskeletal: No back pain. Allergies: Coded Allergies: amoxicillin (Verified Allergy, Mild, itching, 11/29/17) ondansetron HCl (Verified Adverse Reaction, Intermediate, ARRYTHMIA, 11/29/17) ON 16 APR 2012, AFTER ZOFRAN 4MG IVP ADMIN, PT BRADYCARDIC (PULSE 30-35BPM), ARRHTHMIA ON 3-LEAD EKG. sumatriptan (Verified Adverse Reaction, Intermediate, NAUSEA/VOMITING, 11/29/17) nitrofurantoin (Verified Adverse Reaction, Mild, 11/29/17) itching amitriptyline (Verified Adverse Reaction, Unknown, 11/29/17) syncope / orthostatic hypotension ibuprofen (Verified Adverse Reaction, Unknown, REACTION TO COATING ON IBU TABS, 11/29/17) "tears up my stomach" lurasidone (Verified Adverse Reaction, Unknown, NAUSEA/VOMITING, 11/29/17) milnacipran (Verified Adverse Reaction, Unknown, 11/29/17) suicidal ideation Home Meds Active Scripts Sulfamethoxazole/Trimet 800-160 Mg Tab (BACTRIM DS TABLET) 1 Each Tablet, 1 TAB PO Q12H, #4 TAB 0 Refills Prov:CRISTINO DONALDSON SENIOR INSTRUCTOR-BC 11/29/17 Omeprazole (OMEPRAZOLE) 20 Mg Capsule.dr, 1 TAB PO DAILY, #14 CAP 0 Refills Prov:MAGUI MORRIS APRN [facility]- 11/21/17 Duloxetine Hcl (CYMBALTA) 60 Mg Capsule.dr, 1 TAB PO DAILY, #30 TAB 5 Refills Prov:MAGUI MORRIS APRN [facility]-C 10/20/17 Reported Medications Aripiprazole (ABILIFY MAINTENA) 400 Mg Suser.vial, 400 MG IM 11/11/17 Discontinued Scripts Tramadol Hcl (TRAMADOL HCL) 50 Mg Tablet, 50 MG PO Q6H PRN for PAIN, #12 TAB 0 Refills Prov:MAGUI MORRIS [employer] [facility] 11/21/17 Lidocaine (Aspercreme) 4 % Adh..patch, 1 PATCH TP DAILY, #[address] patch to area of pain & leave in place 12 hrs then remove & leave off 12 hrs prior to replacing with a new patch. Prov:MAGUI MORRIS [employer] [facility]- 11/21/17 Past Medical/Surgical History The patient has a past medical and surgical history of fibromyalgia, bradycardia, tachycardia, seasonal allergies, asthma, IBS, cholecystectomy, right hand fracture, wears glasses, astigmatism, uses marijuana, depression, bipolar, anxiety, borderline personality, suicide attempt, appendectomy, tubal ligation, left knee surgery, right hand surgery. Reviewed Nurses Notes: Yes Hx Smoking: Yes Smoking Status: Former Smoker Exposure to Second Hand Smoke?: No Hx Substance Use Disorder: Yes (marijuana) Hx Alcohol Use: Yes (OCC) Constitutional Vital Sign - Last 24 Hours 11/29/17 18:28 Temp 98.4 Pulse 74 Resp 16 B/P (MAP) 123/80 Pulse Ox 96 O2 Delivery Room Air Physical Exam General Appearance: The patient is alert, has no immediate need for airway protection and no current signs of toxicity. Eyes: Pupils equal and round no injection. Respiratory: Chest is non tender, lungs are clear to auscultation. Cardiac: regular rate and rhythm. Gastrointestinal: Abdomen is soft and non tender, no masses, bowel sounds normal. Musculoskeletal: Neck: Neck is supple and non tender. Extremities have full range of motion and are non tender. Skin: No rashes or lesions. DIFFERENTIAL DIAGNOSIS: After history and physical exam differential diagnosis was considered for urinary tract infection, STD and urethral trauma. Medical Decision Making Data Points Laboratory Hematology Test 11/29/17 18:38 Urine Color Yellow Urine Clarity Slightly-cloudy Urine pH 6.0 pH (4.8-9.5) Urine Specific [place] 1.026 Urine Protein Negative mg/dL (NEGATIVE) Urine Glucose (UA) Negative mg/dL (NEGATIVE) Urine Ketones Trace mg/dL (NEGATIVE) Urine Blood Negative (NEGATIVE) Urine Nitrite Negative (NEGATIVE) Urine Bilirubin Small (NEGATIVE) Urine Urobilinogen 4.0 mg/dL (0.2-1.9) Urine Leukocyte Esterase Small (NEGATIVE) Urine RBC 2 /HPF (0-2/HPF) Urine WBC 54 /HPF (0-5/HPF) Urine Squamous Epithelial Cells Many /LPF (</=FEW) Urine Amorphous Crystals Few /HPF Urine Bacteria Few /HPF (NONE-FEW) Urine Mucus Few /HPF (NONE-FEW) Urine HCG, Qualitative Negative (NEGATIVE) Chemistry Test 11/29/17 18:38 Urine Color Yellow Urine Clarity Slightly-cloudy Urine pH 6.0 pH (4.8-9.5) Urine Specific [place] 1.026 Urine Protein Negative mg/dL (NEGATIVE) Urine Glucose (UA) Negative mg/dL (NEGATIVE) Urine Ketones Trace mg/dL (NEGATIVE) Urine Blood Negative (NEGATIVE) Urine Nitrite Negative (NEGATIVE) Urine Bilirubin Small (NEGATIVE) Urine Urobilinogen 4.0 mg/dL (0.2-1.9) Urine Leukocyte Esterase Small (NEGATIVE) Urine RBC 2 /HPF (0-2/HPF) Urine WBC 54 /HPF (0-5/HPF) Urine Squamous Epithelial Cells Many /LPF (</=FEW) Urine Amorphous Crystals Few /HPF Urine Bacteria Few /HPF (NONE-FEW) Urine Mucus Few /HPF (NONE-FEW) Urine HCG, Qualitative Negative (NEGATIVE) Urinalysis Test 11/29/17 18:38 Urine Color Yellow Urine Clarity Slightly-cloudy Urine pH 6.0 pH (4.8-9.5) Urine Specific [place] 1.026 Urine Protein Negative mg/dL (NEGATIVE) Urine Glucose (UA) Negative mg/dL (NEGATIVE) Urine Ketones Trace mg/dL (NEGATIVE) Urine Blood Negative (NEGATIVE) Urine Nitrite Negative (NEGATIVE) Urine Bilirubin Small (NEGATIVE) Urine Urobilinogen 4.0 mg/dL (0.2-1.9) Urine Leukocyte Esterase Small (NEGATIVE) Urine RBC 2 /HPF (0-2/HPF) Urine WBC 54 /HPF (0-5/HPF) Urine Squamous Epithelial Cells Many /LPF (</=FEW) Urine Amorphous Crystals Few /HPF Urine Bacteria Few /HPF (NONE-FEW) Urine Mucus Few /HPF (NONE-FEW) Urine HCG, Qualitative Negative (NEGATIVE) ED Course/Re-evaluation ED Course The patient was admitted to room. A history and physical were obtained. Differential diagnoses were considered. UA was collected. UA showing trace ketones, small bilirubin, [id number] 4.0, high leukocyte esterase, uri ne white blood cell count of 54. As patient is symptomatically treat as a urinary tract infection. Patient was given a take-home pack for Bactrim, will fill the prescription and complete the course. Follow-up with her primary care provider. Return to the ER for any concerns or worsening symptoms. Decision to Disposition Date: Nov 29, 2017 Decision to Disposition Time: 19:23 Depart Departure Latest Vital Signs Vital Signs Date Time Temp Pulse Resp B/P (MAP) Pulse Ox O2 Delivery O2 Flow Rate FiO2 11/29/17 18:28 98.4 74 16 123/80 96 Room Air Impression: Primary Impression: UTI (urinary tract infection) Condition: Improved Disposition: HOME OR SELF-CARE Referrals: MAGUI MORRIS APRN-C (PCP) New Scripts Sulfamethoxazole/Trimet 800-160 Mg Tab (BACTRIM DS TABLET) 1 Each Tablet 1 TAB PO Q12H, #4 TAB 0 Refills Prov: CRISTINO DONALDSON SENIOR INSTRUCTOR-BC 11/29/17 Patient Instructions: Urinary Tract Infection in Women (ED) Additional Instructions: You have a urinary tract infection. Take the antibiotics as prescribed. You have been given a take home pack, take one tonight and the second in the morning, then fill the prescription and complete the course. Drink plenty of water. Get plenty of rest. Return to the ED for any other concerns or worsening symptoms. Problem Qualifiers Primary Impression: UTI (urinary tract infection) Urinary tract infection type: acute cystitis Hematuria presence: without hematuria Qualified Codes: N30.00 - Acute cystitis without hematuria CRISTINO DONALDSON SENIOR INSTRUCTOR-BC Nov 29, 2017 18:31
[2017-11-29 19:00] VITALS: BP 115/68
[2017-11-29] MEDS ORDERED: SULF-198 PO (19:26)
[2017-11-29] MEDS ORDERED: TRIMETHOPRIM/SULFA 160-800 TH 2 TAB/BOTTLE PO ONE (19:30)
== END 2017-11-29 19:43 | disposition home or self-care (01) ==
LOC: ER 18:33
DX: N30.00 Acute cystitis without hematuria (principal)
CPT/HCPCS: 81001; 81025; 99282

== ENCOUNTER 2018-02-03 17:36 | Emergency (ER) | payer MEDICAID ==
[2017-09-24 08:15] VITALS: Wt 56.7 kg
[~2018-02-03 17:36] MED LIST changes: -HYDR-4309 PO; +HYDR-653 PO
--- NOTE | 2018-02-03 17:44 | ER Report ---
History and Physical Time Seen By MD: 17:45 Hx. of Stated Complaint: MIGRAINE SINCE YESTERDAY UNRELIEVED BY EXCEDRIN HPI/ROS CHIEF COMPLAINT: Migraine headache HISTORY OF PRESENT ILLNESS: This is a 27-year-old female who presents to the emergency department for a migraine headache. Patient states this is a typical pattern-type migraine headache that began roughly a 1-2 days ago, states she's been under increased stress recently, has been taking her Excedrin Migraine with little to no relief. States having some slight nausea today unable to decrease the intensity of the headache therefore she decided to come in for further evaluation. No other complaints. No fevers or chills. No diarrhea. No chest pain or shortness breath. REVIEW OF SYSTEMS: Respiratory: No cough, no dyspnea. Cardiovascular: No chest pain, no palpitations. Gastrointestinal: No vomiting, no abdominal pain. Musculoskeletal: No back pain. Neuro: As above. Allergies: Coded Allergies: amoxicillin (Verified Allergy, Mild, itching, 02/03/18) ondansetron HCl (Verified Adverse Reaction, Intermediate, ARRYTHMIA, 02/03/18) ON 16 APR 2012, AFTER ZOFRAN 4MG IVP ADMIN, PT BRADYCARDIC (PULSE 30-35BPM), ARRHTHMIA ON 3-LEAD EKG. sumatriptan (Verified Adverse Reaction, Intermediate, NAUSEA/VOMITING, 02/03/18) nitrofurantoin (Verified Adverse Reaction, Mild, 02/03/18) itching amitriptyline (Verified Adverse Reaction, Unknown, 02/03/18) syncope / orthostatic hypotension ibuprofen (Verified Adverse Reaction, Unknown, REACTION TO COATING ON IBU TABS, 02/03/18) "tears up my stomach" lurasidone (Verified Adverse Reaction, Unknown, NAUSEA/VOMITING, 02/03/18) milnacipran (Verified Adverse Reaction, Unknown, 02/03/18) suicidal ideation Home Meds Active Scripts Gabapentin (GABAPENTIN) 300 Mg Capsule, 1 TAB PO HS, #30 CAPSULE 5 Refills Prov:MAGUI MORRIS APRN [employer]-C 12/26/17 Omeprazole (OMEPRAZOLE) 20 Mg Capsule., 1 TAB PO DAILY, #14 CAP 0 Refills Prov:MAGUI MORRIS APRN [employer] MACHINE OPERATOR-C 11/21/17 Duloxetine Hcl (CYMBALTA) 60 Mg Capsule., 1 TAB PO DAILY, #30 TAB 5 Refills Prov:MAGUI MORRIS APRN [employer] MACHINE OPERATOR-C 10/20/17 Reported Medications Aripiprazole (ABILIFTrever MAINTENA) 400 Mg Suser.vial, 400 MG IM 11/11/17 Past Medical/Surgical History The patient has a past medical and surgical history of fibromyalgia, migraine headaches, bradycardia, tachycardia, asthma, IBS, colitis disease, cholecystectomy, right hand fracture, wears glasses, astigmatism, does use marijuana occasionally, depression, bipolar, anxiety, borderline personality, vaginal deliveries, suicide attempt, left knee surgery, tubal ligation. Reviewed Nurses Notes: Yes Hx Smoking: Yes Smoking Status: Former Smoker Exposure to Second Hand Smoke?: No Hx Substance Use Disorder: Yes (marijuana) Hx Alcohol Use: Yes (OCC) Constitutional Vital Sign - Last 24 Hours 02/03/18 02/03/18 17:41 19:04 Temp 97.9 Pulse 83 76 Resp 18 14 B/P (MAP) 120/83 115/77 (90) Pulse Ox 97 97 O2 Delivery Room Air Room Air Physical Exam General Appearance: The patient is alert, has no immediate need for airway protection and no current signs of toxicity. Eyes: Pupils equal and round no injection. EOMs intact. Respiratory: Chest is non tender, lungs are clear to auscultation. Cardiac: regular rate and rhythm. Gastrointestinal: Abdomen is soft and non tender, no masses, bowel sounds normal. Musculoskeletal: Neck: Neck is supple and non tender. Neuro: Alert and oriented 4. Moving all extremities. Following all commands. No focal neuro deficits. Extremities have full range of motion and are non tender. Skin: No rashes or lesions. DIFFERENTIAL DIAGNOSIS: After history and physical exam differential diagnosis was considered for headache including but not limited to subarachnoid hemorrhage, migraine headache, tension headache and infectious causes such as meningitis, pharyngitis and sinusitis. Medical Decision Making ED Course/Re-evaluation ED Course The patient was admitted to a room. A history and physical were obtained. Differential diagnoses were considered. Patient was given 5 mg IM Decadron, 25 g IM Benadryl, 12.5 mg IM Phenergan, 30 mg IM Toradol and 60 mg IM Norflex. Patient is beginning to have some relief of her headache. Patient states that she'll go home and try to rest, she'll follow up with her primary care provider at her scheduled appointment and discuss headaches. I did talk to her about the headache clinic in [place] as an option. Patient expressed understanding and was discharged home. Decision to Disposition Date: Feb 03, 2018 Decision to Disposition Time: 19:27 Depart Departure Latest Vital Signs Vital Signs Date Time Temp Pulse Resp B/P (MAP) Pulse Ox O2 Delivery O2 Flow Rate FiO2 02/03/18 19:04 76 14 115/77 (90) 97 Room Air 02/03/18 17:41 97.9 Impression: Primary Impression: Migraine Condition: Improved Disposition: HOME OR SELF-CARE Referrals: MAGUI MORRIS APRN-C (PCP) 1 Week Patient Instructions: Migraine Headache (ED) Additional Instructions: With your typical migraine pattern, I would recommend a dark room and sleeping as much she can tonight. Continue taking your regular medications. Follow-up with your primary care provider as scheduled. Be sure to drink plenty of water. Get plenty of rest. Return to the ER for any concerns or worsening symptoms. Problem Qualifiers Primary Impression: Migraine Migraine type: unspecified Status migrainosus presence: without status migrainosus Intractability: not intractable Qualified Codes: G43.909 - Migraine, unspecified, not intractable, without status migrainosus CRISTINO DONALDSON-FRANCESCO Feb 03, 2018 17:44
[2018-02-03] MEDS ORDERED: diphenhydrAMINE 50 MG/ML VIAL IM ONE (17:55)
[2018-02-03] MEDS ORDERED: DEXAMETHASONE SOD PHOS 10MG/ML IM ONE (17:55)
[2018-02-03] MEDS ORDERED: ORPHENADRINE 60MG/2ML INJ IM ONE (17:55)
[2018-02-03] MEDS ORDERED: PROMETHAZINE 25 MG/ML 1 ML AMP IM ONE (17:55)
[2018-02-03] MEDS ORDERED: KETOROLAC 30 MG/ML VIAL IM ONE (18:55)
[2018-02-03 19:04] VITALS: BP 115/77
[2018-02-04] MEDS ORDERED: PRED20TA6 PO (23:39)
[2018-02-04] MEDS ORDERED: KET10 PO (23:39)
== END 2018-02-03 19:34 | disposition home or self-care (01) ==
LOC: ER 17:57
DX: G43.909 Migraine, unspecified, not intractable, without status migrainosus (principal)
CPT/HCPCS: 96372; 99283; J1100; J1200; J1885; J2360; J2550

== ENCOUNTER 2018-02-04 19:57 | Emergency (ER) | payer MEDICAID ==
[2017-09-24 08:15] VITALS: Wt 59.0 kg
--- NOTE | 2018-02-04 20:07 | ER Report ---
History and Physical Time Seen By MD: 20:08 HPI/ROS CHIEF COMPLAINT: Headache HISTORY OF PRESENT ILLNESS: 27-year-old female patient presents to emergency room with complaint of headache. Patient states this been going on for the past 4 days. She states she seen here yesterday in the emergency room has not gotten any better. She denies any vomiting or diarrhea. States she's been nauseated, respiratory and keep her food down. 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 She states that she's been under mild stress, but not horrendous. She states she's not sure as to why her headache is like this. She states her headache is different than normal as is right in the frontal aspect as opposed to the temples which is more normal. She states that today she took Excedrin 2 with no relief. REVIEW OF SYSTEMS: Respiratory: No cough, no dyspnea. Cardiovascular: No chest pain, no palpitations. Gastrointestinal: No vomiting, no abdominal pain. Musculoskeletal: No back pain. Allergies: Coded Allergies: amoxicillin (Verified Allergy, Mild, itching, 02/04/18) ondansetron HCl (Verified Adverse Reaction, Intermediate, ARRYTHMIA, 02/04/18) ON 16 APR 2012, AFTER ZOFRAN 4MG IVP ADMIN, PT BRADYCARDIC (PULSE 30-35BPM), ARRHTHMIA ON 3-LEAD EKG. sumatriptan (Verified Adverse Reaction, Intermediate, NAUSEA/VOMITING, 02/04/18) nitrofurantoin (Verified Adverse Reaction, Mild, 02/04/18) itching amitriptyline (Verified Adverse Reaction, Unknown, 02/04/18) syncope / orthostatic hypotension ibuprofen (Verified Adverse Reaction, Unknown, REACTION TO COATING ON IBU TABS, 02/04/18) "tears up my stomach" lurasidone (Verified Adverse Reaction, Unknown, NAUSEA/VOMITING, 02/04/18) milnacipran (Verified Adverse Reaction, Unknown, 02/04/18) suicidal ideation Home Meds Active Scripts Ketorolac Tromethamine (KETOROLAC TROMETHAMINE) 10 Mg Tab, 10 MG PO Q6H, #20 TAB Prov:SUNDAR PUENTES 02/04/18 Prednisone (PREDNISONE) 20 Mg Tablet, 40 MG PO DAILY, #10 TAB Prov:SUNDAR PUENTES 02/04/18 Gabapentin (GABAPENTIN) 300 Mg Capsule, 1 TAB PO HS, #30 CAPSULE 5 Refills Prov:MAGUI MORRIS APRN [facility] 12/26/17 Omeprazole (OMEPRAZOLE) 20 Mg Capsule.dr, 1 TAB PO DAILY, #14 CAP 0 Refills Prov:MGAUI MORRIS APRN [facility] 11/21/17 Duloxetine Hcl (CYMBALTA) 60 Mg Capsule.dr, 1 TAB PO DAILY, #30 TAB 5 Refills Prov:MAGUI MORRIS APRN [facility] 10/20/17 Reported Medications Aripiprazole (ABILIFY MAINTENA) 400 Mg Suser.vial, 400 MG IM 11/11/17 Past Medical/Surgical History Patient has a past medical history of fibromyalgia, migraines, tachy-bradycardia arrhythmias, asthma, IBS, cholecystitis, right hand fracture, marijuana abuse, alcohol use, depression, bipolar, anxiety, borderline personality, suicide attempt. Patient has a surgical history of knee surgery 2, right hand surgery, tubal li gation, cholecystectomy, appendectomy. Patient has a family medical history of stroke, diabetes, psychiatric problems. Reviewed Nurses Notes: Yes Hx Smoking: Yes Smoking Status: Former Smoker Exposure to Second Hand Smoke?: No Hx Substance Use Disorder: Yes (marijuana) Hx Alcohol Use: Yes (OCC) Constitutional Vital Sign - Last 24 Hours 02/04/18 02/04/18 02/04/18 02/04/18 20:06 20:06 20:12 20:27 Temp 98.3 Pulse 87 80 77 Resp 16 B/P (MAP) 125/73 (90) 125/73 Pulse Ox 97 96 96 O2 Delivery Room Air 02/04/18 02/04/18 02/04/18 02/04/18 20:42 20:57 21:08 21:27 Pulse 72 74 64 B/P (MAP) 107/66 (80) Pulse Ox 95 96 95 02/04/18 02/04/18 02/04/18 02/04/18 21:42 21:50 22:20 22:35 Pulse 75 69 65 68 Pulse Ox 96 95 95 95 02/04/18 02/04/18 02/04/18 02/04/18 22:50 23:05 23:12 23:30 B/P (MAP) 118/88 (98) 119/82 (94) Pulse Ox 95 96 02/04/18 23:32 Pulse 76 Pulse Ox 97 Intake and Output 02/04/18 02/04/18 02/05/18 14:58 22:58 06:58 Intake Total 1000 ml Balance 1000 ml Physical Exam General Appearance: The patient is alert, has no immediate need for airway protection and no current signs of toxicity. Eyes: Pupils equal and round no injection. ENT: Tympanic membranes are pearly-mayes, auditory canals are patent, mucous membranes are moist. Respiratory: Chest is non tender, lungs are clear to auscultation. Cardiac: regular rate and rhythm Gastrointestinal: Abdomen is soft and non tender, no masses, bowel sounds normal. Musculoskeletal: Neck: Neck is supple and non tender. Extremities have full range of motion and are non tender. Skin: No rashes or lesions. DIFFERENTIAL DIAGNOSIS: After history and physical exam differential diagnosis was considered for headache including but not limited to subarachnoid hemorrhage, migraine headache, tension headache and infectious causes such as meningitis, pharyngitis and sinusitis. Medical Decision Making Data Points Result Diagram: 02/04/18205402/04/182054 Laboratory Hematology Test 02/04/18 20:55 Red Blood Count 4.62 M/uL (4.17-5.56) Mean Corpuscular Volume 92.0 fL (80.0-96.0) Mean Corpuscular Hemoglobin 32.1 pg (26.0-33.0) Mean Corpuscular Hemoglobin Concent 34.9 g/dL (32.0-36.0) Red Cell Distribution Width 12.1 % (11.5-14.5) Mean Platelet Volume 7.7 fL (7.2-11.1) Neutrophils (%) (Auto) 50.0 % (39.4-72.5) Lymphocytes (%) (Auto) 40.9 % (17.6-49.6) Monocytes (%) (Auto) 6.4 % (4.1-12.4) Eosinophils (%) (Auto) 1.8 % (0.4-6.7) Basophils (%) (Auto) 0.9 % (0.3-1.4) Nucleated RBC Relative Count (auto) 0.1 /100WBC Neutrophils # (Auto) 4.6 K/uL (2.0-7.4) Lymphocytes # (Auto) 3.8 K/uL (1.3-3.6) Monocytes # (Auto) 0.6 K/uL (0.3-1.0) Eosinophils # (Auto) 0.2 K/uL (0.0-0.5) Basophils # (Auto) 0.1 K/uL (0.0-0.1) Nucleated RBC Absolute Count (auto) 0.01 K/uL Erythrocyte Sedimentation Rate 2 mm/HOUR (0-20) Sodium Level 139 mmol/L (137-145) Potassium Level 3.0 mmol/L (3.5-5.0) Chloride Level 105 mmol/L (98-107) Carbon Dioxide Level 24 mmol/L (22-31) Blood Urea Nitrogen 24 mg/dl (7-18) Creatinine 0.80 mg/dl (0.52-1.04) Glomerular Filtration Rate Calc > 60.0 Random Glucose 108 mg/dl (75-110) Calcium Level 9.2 mg/dl (8.4-10.2) Total Bilirubin 0.7 mg/dl (0.2-1.3) Aspartate Amino Transf (AST/SGOT) 26 U/L (0-35) Alanine Aminotransferase (ALT/SGPT) 23 U/L (0-56) Alkaline Phosphatase 59 U/L (0-126) C-Reactive Protein < 0.5 mg/dl (<1.0) Total Protein 6.9 g/dl (6.3-8.2) Albumin 4.0 g/dl (3.5-5.0) Chemistry Test 02/04/18 20:55 White Blood Count 9.3 k/uL (4.5-11.0) Red Blood Count 4.62 M/uL (4.17-5.56) Hemoglobin 14.8 g/dL (12.0-16.0) Hematocrit 42.5 % (34.0-47.0) Mean Corpuscular Volume 92.0 fL (80.0-96.0) Mean Corpuscular Hemoglobin 32.1 pg (26.0-33.0) Mean Corpuscular Hemoglobin Concent 34.9 g/dL (32.0-36.0) Red Cell Distribution Width 12.1 % (11.5-14.5) Platelet Count 280 K/uL (150-450) Mean Platelet Volume 7.7 fL (7.2-11.1) Neutrophils (%) (Auto) 50.0 % (39.4-72.5) Lymphocytes (%) (Auto) 40.9 % (17.6-49.6) Monocytes (%) (Auto) 6.4 % (4.1-12.4) Eosinophils (%) (Auto) 1.8 % (0.4-6.7) Basophils (%) (Auto) 0.9 % (0.3-1.4) Nucleated RBC Relative Count (auto) 0.1 /100WBC Neutrophils # (Auto) 4.6 K/uL (2.0-7.4) Lymphocytes # (Auto) 3.8 K/uL (1.3-3.6) Monocytes # (Auto) 0.6 K/uL (0.3-1.0) Eosinophils # (Auto) 0.2 K/uL (0.0-0.5) Basophils # (Auto) 0.1 K/uL (0.0-0.1) Nucleated RBC Absolute Count (auto) 0.01 K/uL Erythrocyte Sedimentation Rate 2 mm/HOUR (0-20) Glomerular Filtration Rate Calc > 60.0 Calcium Level 9.2 mg/dl (8.4-10.2) Total Bilirubin 0.7 mg/dl (0.2-1.3) Aspartate Amino Transf (AST/SGOT) 26 U/L (0-35) Alanine Aminotransferase (ALT/SGPT) 23 U/L (0-56) Alkaline Phosphatase 59 U/L (0-126) C-Reactive Protein < 0.5 mg/dl (<1.0) Total Protein 6.9 g/dl (6.3-8.2) Albumin 4.0 g/dl (3.5-5.0) EKG/Imaging Imaging HEAD W/O CONTRAST Provided history: HEADACHE Additional pertinent history: none TECHNIQUE: Imaging was obtained from the skull base through the vertex without intravenous contrast. Source images were reformatted in the coronal sagittal planes. One of the following dose optimization techniques was utilized in the perform ance of this exam: Automated exposure control; adjustment of the mA and/or kV according to the patient's size; or use of an iterative reconstruction technique. Specific details can be referenced in the facility's radiology CT exam operational policy. Additional imaging: none COMPARISON STUDIES: MRI 02/14/17 FINDINGS: Brain volume: Normal Acute cortical ischemia: None Chronic cortical and ganglionic ischemia: none significant Hemorrhage: None Masses / edema: None White matter: Normal Vessels: Normal Extra-axial: None significant Calvarium / scalp: Negative Skull base: negative Visualized sinuses / orbits: Moderate mucosal thickening left maxillary sinus, progressive from the MRI. The left maxillary sinus is also symmetrically small typically from chronic inflammatory disease. Prominent flaca bullosa right middle turbinate without inflammatory disease. Moderate leftward deviation nasal septum. IMPRESSION: Normal CT of the brain. No evidence of mass, acute ischemia or hemorrhage. Left maxillary sinus inflammatory disease. Report Dictated By: Abner Torrez MD at 02/04/2018 9:22 PM Report E-Signed By: Abner Torrez MD at 02/04/2018 9:25 PM ED Course/Re-evaluation ED Course Patient was admitted to an exam room, history of physical were obtained. Differential diagnoses were considered. On examination lungs are clear, heart is regular, abdomen is soft and nontender. Neuro exam was normal. Because the patient came back in with complaints of headache a CT scan of the head was done. I did show no acute abnormalities, however did show inflammatory changes to the left maxillary sinus. I discussed this with the patient. She states that she is currently on antibiotics for sinusitis. I find her lip believe that is likely the underlying cause of her headache. Patient was given 15 mg of Toradol, 12.5 mg of Phenergan, 25 mg of Benadryl, 30 mg of Norflex and 4 mg of Decadron IV. On reevaluation patient had improvement in her headache and she rated it a 3 out of 10. I discussed my belief that the inflammation is likely the cause of her headache. We will go ahead and do a burst of steroids for the next 5 days. We'll also give her a limited supply of Toradol to help if the pain becomes more s evere. The patient verbalized understanding and agreement with plan. Decision to Disposition Date: Feb 04, 2018 Decision to Disposition Time: 23:42 Depart Departure Latest Vital Signs Vital Signs Date Time Temp Pulse Resp B/P (MAP) Pulse Ox O2 Delivery O2 Flow Rate FiO2 02/04/18 23:32 76 97 02/04/18 23:30 119/82 (94) 02/04/18 20:06 98.3 16 Room Air Impression: Primary Impression: Migraine Additional Impression: Sinusitis Condition: Improved Disposition: HOME OR SELF-CARE Referrals: MAGUI MORRIS APRN-C (PCP) New Scripts Ketorolac Tromethamine (KETOROLAC TROMETHAMINE) 10 Mg Tab 10 MG PO Q6H, #20 TAB Prov: SUNDAR PUENTES 02/04/18 Prednisone (PREDNISONE) 20 Mg Tablet 40 MG PO DAILY, #10 TAB Prov: SUNDAR PUENTES 02/04/18 Patient Instructions: Migraine Headache (ED) Additional Instructions: Increase fluid intake. Get plenty of rest. Follow up with your primary care provider in the next week. Return to the ER if condition worsens. Take medication as prescribed. Take them with food as they can be hard on your stomach. Problem Qualifiers Primary Impression: Migraine Migraine type: without aura Status migrainosus presence: without status migrainosus Intractability: not intractable Qualified Codes: G43.009 - Migraine without aura, not intractable, without status migrainosus Additional Impression: Sinusitis Sinusitis location: maxillary Chronicity: acute Recurrence: non- recurrent Qualified Codes: J01.00 - Acute maxillary sinusitis, unspecified SUNDAR PUENTES Feb 04, 2018 20:07
[2018-02-04] MEDS ORDERED: NS(*) 0.9% 1000 ML BAG 1,000 ML IV ONE (20:14)
[2018-02-04 21:07] LABS: PLATELET COUNT, AUTOMATED 280 K/uL (150-450)
--- NOTE | 2018-02-04 21:29 | RADIOLOGY IMAGING REPORT ---
FACILITY: [facility] - [place] PATIENT NAME: Jayna Gee : 1990 MR: [id number] V: [id number] EXAM DATE: ORDERING PHYSICIAN: SUNDAR PUENTES TECHNOLOGIST: Location: [facility] [place] Patient: Jayna Gee : 1990 Visit/Account:[id number] Date of Sevice: 02/04/2018 HEAD W/O CONTRAST Provided history: HEADACHE Additional pertinent history: none TECHNIQUE: Imaging was obtained from the skull base through the vertex without intravenous contrast. Source images were reformatted in the coronal sagittal planes. One of the following dose optimization techniques was utilized in the performance of this exam: Autom ated exposure control; adjustment of the mA and/or kV according to the patient's size; or use of an i terative reconstruction technique. Specific details can be referenced in the facility's radiology CT exam operational policy. Additional imaging: none COMPARISON STUDIES: MRI 02/14/17 FINDINGS: Brain volume: Normal Acute cortical ischemia: None Chronic cortical and ganglionic ischemia: none significant Hemorrhage: None Masses / edema: None White matter: Normal Vessels: Normal Extra-axial: None significant Calvarium / scalp: Negative Skull base: negative Visualized sinuses / orbits: Moderate mucosal thickening left maxillary sinus, progressive from the MRI. The left maxillary sinus is also symmetrically small typically from chronic inflammatory diseas e. Prominent flaca bullosa right middle turbinate without inflammatory disease. Moderate leftward deviation nasal septum. IMPRESSION: Normal CT of the brain. No evidence of mass, acute ischemia or hemorrhage. Left maxillary sinus inflammatory disease. Report Dictated By: Abner Torrez MD at 02/04/2018 9:22 PM Report E-Signed By: Abner Torrez MD at 02/04/2018 9:25 PM WSN:[id number]
[2018-02-04] MEDS ORDERED: diphenhydrAMINE 50 MG/ML VIAL IVP ONE (21:35)
[2018-02-04] MEDS ORDERED: DEXAMETHASONE SOD 4 MG/ML VIAL IVP ONE (21:35)
[2018-02-04] MEDS ORDERED: PROMETHAZINE 25 MG/ML 1 ML AMP IVP ONE (21:35)
[2018-02-04] MEDS ORDERED: KETOROLAC 15 MG/ML VIAL IVP ONE (21:35)
[2018-02-04] MEDS ORDERED: ORPHENADRINE 60MG/2ML INJ IVP ONE (21:35)
[2018-02-04 23:30] VITALS: BP 119/82
[2018-02-04] MEDS ORDERED: KET10 PO (23:39)
[2018-02-04] MEDS ORDERED: PRED20TA6 PO (23:39)
== END 2018-02-04 23:51 | disposition home or self-care (01) ==
LOC: ER 20:20
DX: G43.009 Migraine without aura, not intractable, without status migrainosus (principal); J01.00 Acute maxillary sinusitis, unspecified
CPT/HCPCS: 70450; 85025; 85651; 86140; 96361; 96374; 96375; 99284; J1100; J1200; J1885; J2360; J2550; J7030; 82040; 82247; 82310; 82374; 82435; 82565; 82947; 84075; 84132; 84155; 84295; 84450; 84460; 84520

== ENCOUNTER 2018-02-18 18:18 | Emergency (ER) | payer MEDICAID ==
[2017-09-24 08:15] VITALS: Wt 61.2 kg
[2018-02-18 18:23] VITALS: BP 111/67
--- NOTE | 2018-02-18 18:30 | ER Report ---
History and Physical Time Seen By MD: 18:30 Hx. of Stated Complaint: patient reports painful urination. she believes she has a urinary tract infection HPI/ROS CHIEF COMPLAINT: Burning with urination, dysuria HISTORY OF PRESENT ILLNESS: 27-year-old female patient presents to emergency room with complaint of burning with urination. She states that this been going on since about 8:00 this morning. Patient states that she has had significant amounts of urgency, frequency. She states she did take a Pyridium which did cause some discomfort. She denies having any fevers, chills, nausea, vomiting or diarrhea. Patient has not taken any other medications in the Pyridium. She states that she is out at this time. Allergies: Coded Allergies: amoxicillin (Verified Allergy, Mild, itching, 02/04/18) ondansetron HCl (Verified Adverse Reaction, Intermediate, ARRYTHMIA, 02/04/18) ON 16 APR 2012, AFTER ZOFRAN 4MG IVP ADMIN, PT BRADYCARDIC (PULSE 30-35BPM), ARRHTHMIA ON 3-LEAD EKG. sumatriptan (Verified Adverse Reaction, Intermediate, NAUSEA/VOMITING, 02/04/18) nitrofurantoin (Verified Adverse Reaction, Mild, 02/04/18) itching amitriptyline (Verified Adverse Reaction, Unknown, 02/04/18) syncope / orthostatic hypotension ibuprofen (Verified Adverse Reaction, Unknown, REACTION TO COATING ON IBU TABS, 02/04/18) "tears up my stomach" lurasidone (Verified Adverse Reaction, Unknown, NAUSEA/VOMITING, 02/04/18) milnacipran (Verified Adverse Reaction, Unknown, 02/04/18) suicidal ideation Home Meds Active Scripts Phenazopyridine Hcl (PHENAZOPYRIDINE HCL) 200 Mg Tablet, 200 MG PO TID, #15 TAB Prov:SUNDAR PUENTES 02/18/18 Sulfamethoxazole/Trimet 800-160 Mg Tab (BACTRIM DS TABLET) 1 Each Tablet, 1 TAB PO Q12H, #14 TAB Prov:SUNDAR PUENTES 02/18/18 Ketorolac Tromethamine (KETOROLAC TROMETHAMINE) 10 Mg Tab, 10 MG PO Q6H, #20 TAB Prov:SUNDAR PUENTESP 02/04/18 Prednisone (PREDNISONE) 20 Mg Tablet, 40 MG PO DAILY, #10 TAB Prov:DELORISSUNDAR MATERIALS ENGINEERING TECHNICIAN 02/04/18 Gabapentin (GABAPENTIN) 300 Mg Capsule, 1 TAB PO HS, #30 CAPSULE 5 Refills Prov:MAGUI MORRIS APRN [facility] 12/26/17 Omeprazole (OMEPRAZOLE) 20 Mg Capsule.dr, 1 TAB PO DAILY, #14 CAP 0 Refills Prov:MAGUI MORRIS APRN [facility] 11/21/17 Duloxetine Hcl (CYMBALTA) 60 Mg Capsule.dr, 1 TAB PO DAILY, #30 TAB 5 Refills Prov:MAGUI MORRIS APRN [facility] 10/20/17 Reported Medications Aripiprazole (ABILIFY MAINTENA) 400 Mg Suser.vial, 400 MG IM 11/11/17 Past Medical/Surgical History Patient has a past medical history of fibromyalgia, migraines, bradycardia, tachycardia, asthma, IBS, cholecystitis, right hand fracture, marijuana use, alcohol use, depression, bipolar, anxiety, borderline, suicide attempt. Patient has a surgical history cholecystectomy, appendectomy, tubal ligation, knee surgery 2, right hand surgery. Patient has a family medical history of psychiatric problems, diabetes, stroke. Reviewed Nurses Notes: Yes Hx Smoking: Yes Smoking Status: Former Smoker Exposure to Second Hand Smoke?: No Hx Substance Use Disorder: Yes (marijuana) Hx Alcohol Use: Yes (OCC) Constitutional Vital Sign - Last 24 Hours 02/18/18 18:23 Temp 98.7 Pulse 82 Resp 20 B/P (MAP) 111/67 Pulse Ox 94 O2 Delivery Room Air Physical Exam General appearance: Alert no distress. Respiratory: Chest is non tender, lungs are clear to auscultation. Cardiac: Regular rate and rhythm. Gastrointestinal: Bowel sounds are active 4, patient had no obvious tenderness to palpation. DIFFERENTIAL DIAGNOSIS: After history and physical exam differential diagnosis was considered for urinary tract infection, cystitis Medical Decision Making Data Points Laboratory Hematology Test 02/18/18 18:28 Urine Color [place] Urine Clarity Clear Urine pH 6.0 pH (4.8-9.5) Urine Specific [place] 1.021 Urine Protein Negative mg/dL (NEGATIVE) Urine Glucose (UA) Negative mg/dL (NEGATIVE) Urine Ketones Negative mg/dL (NEGATIVE) Urine Blood Negative (NEGATIVE) Urine Nitrite Positive (NEGATIVE) Urine Bilirubin Negative (NEGATIVE) Urine Urobilinogen 4.0 mg/dL (0.2-1.9) Urine Leukocyte Esterase Negative (NEGATIVE) Urine RBC None /HPF (0-2/HPF) Urine WBC 34 /HPF (0-5/HPF) Urine Squamous Epithelial Cells Many /LPF (</=FEW) Urine Bacteria Negative /HPF (NONE-FEW) Urine Mucus Few /HPF (NONE-FEW) Chemistry Test 02/18/18 18:28 Urine Color [place] Urine Clarity Clear Urine pH 6.0 pH (4.8-9.5) Urine Specific [place] 1.021 Urine Protein Negative mg/dL (NEGATIVE) Urine Glucose (UA) Negative mg/dL (NEGATIVE) Urine Ketones Negative mg/dL (NEGATIVE) Urine Blood Negative (NEGATIVE) Urine Nitrite Positive (NEGATIVE) Urine Bilirubin Negative (NEGATIVE) Urine Urobilinogen 4.0 mg/dL (0.2-1.9) Urine Leukocyte Esterase Negative (NEGATIVE) Urine RBC None /HPF (0-2/HPF) Urine WBC 34 /HPF (0-5/HPF) Urine Squamous Epithelial Cells Many /LPF (</=FEW) Urine Bacteria Negative /HPF (NONE-FEW) Urine Mucus Few /HPF (NONE-FEW) Urinalysis Test 02/18/18 18:28 Urine Color [place] Urine Clarity Clear Urine pH 6.0 pH (4.8-9.5) Urine Specific [place] 1.021 Urine Protein Negative mg/dL (NEGATIVE) Urine Glucose (UA) Negative mg/dL (NEGATIVE) Urine Ketones Negative mg/dL (NEGATIVE) Urine Blood Negative (NEGATIVE) Urine Nitrite Positive (NEGATIVE) Urine Bilirubin Negative (NEGATIVE) Urine Urobilinogen 4.0 mg/dL (0.2-1.9) Urine Leukocyte Esterase Negative (NEGATIVE) Urine RBC None /HPF (0-2/HPF) Urine WBC 34 /HPF (0-5/HPF) Urine Squamous Epithelial Cells Many /LPF (</=FEW) Urine Bacteria Negative /HPF (NONE-FEW) Urine Mucus Few /HPF (NONE-FEW) ED Course/Re-evaluation ED Course Patient was admitted and examined, history and physical were obtained. Differential diagnoses were considered. On examination lungs are clear, heart is regular, abdomen is soft and nontender. A urinalysis obtained which showed positive nitrates. Was negative for leukocyte esterase. We will go ahead and treat her with Bactrim one tab by mouth twice a day 7 days. I discussed the findings with the patient. We'll go ahead and discharge her home at this time. A urine culture will be ordered. Patient verbalized understanding of plan. Decision to Disposition Date: Feb 18, 2018 Decision to Disposition Time: 18:50 Depart Departure Latest Vital Signs Vital Signs Date Time Temp Pulse Resp B/P (MAP) Pulse Ox O2 Delivery O2 Flow Rate FiO2 02/18/18 18:23 98.7 82 20 111/67 94 Room Air Impression: Primary Impression: UTI (urinary tract infection) Condition: Improved Disposition: HOME OR SELF-CARE Referrals: MAGUI MORRIS APRN-C (PCP) New Scripts Phenazopyridine Hcl (PHENAZOPYRIDINE HCL) 200 Mg Tablet 200 MG PO TID, #15 TAB Prov: SUNDAR PUENTES 02/18/18 Sulfamethoxazole/Trimet 800-160 Mg Tab (BACTRIM DS TABLET) 1 Each Tablet 1 TAB PO Q12H, #14 TAB Prov: SUNDAR PUENTES 02/18/18 Patient Instructions: Urinary Tract Infection in Women (ED) Additional Instructions: Increase fluid intake. Get plenty of rest. Follow up with your primary care provider in the next week. Return to the ER if condition worsens. You may take Pyridium up to 3 times a day. We are culturing the urine and will call if we need to change your antibiotics. Problem Qualifiers Primary Impression: UTI (urinary tract infection) Urinary tract infection type: acute cystitis Hematuria presence: without hematuria Qualified Codes: N30.00 - Acute cystitis without hematuria SUNDAR PUENTES Feb 18, 2018 18:30
[2018-02-18] MEDS ORDERED: SULF-198 PO (18:49)
[2018-02-18] MEDS ORDERED: PHEN200T32 PO (18:57)
== END 2018-02-18 19:02 | disposition home or self-care (01) ==
LOC: ER 18:32
DX: N30.00 Acute cystitis without hematuria (principal)
CPT/HCPCS: 81001; 87088; 99282

== ENCOUNTER 2018-03-21 16:35 | Emergency (ER) | payer MEDICAID ==
[2017-09-24 08:15] VITALS: Wt 61.2 kg
[~2018-03-21 16:35] MED LIST changes: +PHEN200T32 PO
--- NOTE | 2018-03-21 16:48 | ER Report ---
History and Physical Time Seen By MD: 16:45 Hx. of Stated Complaint: MIGRAINE ALL DAY. FEELS LIKE MIGRAINES SHE NORMALLY GETS. TOOK EXCEDRIN WITH NO RELIEF HPI/ROS CHIEF COMPLAINT: Migraine headache HISTORY OF PRESENT ILLNESS: This is a 27-year-old female, well-known to the emergency department presents for a migraine headache. Patient states that she woke this morning with a "typical migraine headache". She is taken Excedrin at home with little to no relief. She is photophobic. This is the typical presentation for the patient's migraine headache, frontal behind both eyes and sharp. Mild nausea. No meningismus. No chest pain or shortness breath. No fevers or chills. No other complaints. REVIEW OF SYSTEMS: Constitutional: No fever, no chills. Eyes: No discharge. ENT: No sore throat. Cardiovascular: No chest pain, no palpitations. Respiratory: No cough, no shortness of breath. Gastrointestinal: No abdominal pain, no vomiting. Genitourinary: No hematuria. Musculoskeletal: No back pain. Skin: No rashes. Neurological: As above. Allergies: Coded Allergies: amoxicillin (Verified Allergy, Mild, itching, 02/04/18) ondansetron HCl (Verified Adverse Reaction, Intermediate, ARRYTHMIA, 02/04/18) ON 16 APR 2012, AFTER ZOFRAN 4MG IVP ADMIN, PT BRADYCARDIC (PULSE 30-35BPM), ARRHTHMIA ON 3-LEAD EKG. sumatriptan (Verified Adverse Reaction, Intermediate, NAUSEA/VOMITING, 02/04/18) nitrofurantoin (Verified Adverse Reaction, Mild, 02/04/18) itching amitriptyline (Verified Adverse Reaction, Unknown, 02/04/18) syncope / orthostatic hypotension ibuprofen (Verified Adverse Reaction, Unknown, REACTION TO COATING ON IBU TABS, 02/04/18) "tears up my stomach" lurasidone (Verified Adverse Reaction, Unknown, NAUSEA/VOMITING, 02/04/18) milnacipran (Verified Adverse Reaction, Unknown, 02/04/18) suicidal ideation Home Meds Active Scripts Gabapentin (GABAPENTIN) 300 Mg Capsule, 1 TAB PO BID, #60 CAPSULE 0 Refills Prov:MAGUI MORRIS APRN DIGITAL MARKETING APPRENTICE-C 02/26/18 Phenazopyridine Hcl (PHENAZOPYRIDINE HCL) 200 Mg Tablet, 200 MG PO TID, #15 TAB Prov:SUNDAR PUENTES [facility] 02/18/18 Omeprazole (OMEPRAZOLE) 20 Mg Capsule., 1 TAB PO DAILY, #14 CAP 0 Refills Prov:MAGUI MORRIS APRN [facility] 11/21/17 Duloxetine Hcl (CYMBALTA) 60 Mg Capsule., 1 TAB PO DAILY, #30 TAB 5 Refills Prov:MAGUI MORRIS APRN [facility] 10/20/17 Reported Medications Aripiprazole (ABILIFY MAINTENA) 400 Mg Suser.vial, 400 MG IM 11/11/17 Discontinued Scripts Sulfamethoxazole/Trimet 800-160 Mg Tab (BACTRIM DS TABLET) 1 Each Tablet, 1 TAB PO Q12H, #14 TAB Prov:[facility] 02/18/18 Ketorolac Tromethamine (KETOROLAC TROMETHAMINE) 10 Mg Tab, 10 MG PO Q6H, #20 TAB Prov:[facility] 02/04/18 Prednisone (PREDNISONE) 20 Mg Tablet, 40 MG PO DAILY, #10 TAB Prov:[facility] 02/04/18 Past Medical/Surgical History The patient has a past medical and surgical history of fibromyalgia, migraine headaches, bradycardia, tachycardia, asthma, IBS, colitis disease, cholecystectomy, right hand fracture, wears glasses, astigmatism, does use marijuana occasionally, depression, bipolar, anxiety, borderline personality, v aginal deliveries, suicide attempt, left knee surgery, tubal ligation. Reviewed Nurses Notes: Yes Hx Smoking: Yes Smoking Status: Former Smoker Exposure to Second Hand Smoke?: No Hx Substance Use Disorder: Yes (marijuana) Hx Alcohol Use: Yes (OCC) Constitutional Vital Sign - Last 24 Hours 03/21/18 03/21/18 03/21/18 03/21/18 16:38 16:38 17:00 17:05 Temp 97.9 Pulse 71 69 Resp 16 B/P (MAP) 115/76 (89) 115/76 102/66 (78) Pulse Ox 96 94 O2 Delivery Room Air 03/21/18 03/21/18 17:35 17:40 Pulse 60 61 Pulse Ox 95 94 Physical Exam General Appearance: The patient is alert, has no immediate need for airway protection and no signs of toxicity. Eyes: Pupils equal and round no pallor or injection. EOMs intact. ENT, Mouth: Mucous membranes are moist. Respiratory: There are no retractions, lungs are clear to auscultation. Cardiovascular: Regular rate and rhythm. Gastrointestinal: Abdomen is soft and non tender, no masses, bowel sounds normal. Neurological: Alert and oriented to 4. Moving all extremities. Following all commands. No focal its. Skin: Warm and dry, no rashes. Musculoskeletal: Neck is supple non tender. Extremities are nontender, nonswollen and have full range of motion. DIFFERENTIAL DIAGNOSIS: After history and physical exam differential diagnosis was considered for headache including but not limited to subarachnoid hemorrhage, migraine headache, tension headache and infectious causes such as meningitis, pharyngitis and sinusitis. Medical Decision Making ED Course/Re-evaluation ED Course The patient was admitted to room. A history of physical were obtained. Differential diagnoses were considered. As this is a typical presentation for the patient's migraine headache, we discussed options, she did state that the intramuscular medications do seem to help her more than the IV medications and do last longer. The patient was given 5 mg IM Decadron, 25 mg IM Benadryl, 12.5 mg IM Phenergan, 30 mg IM Toradol, 60 mg IM Norflex. The patient had significant relief of her migraine headache. The patient had no other questions or concerns at this time and was discharged home. I did encourage the patient to follow-up with her primary care provider, she states she will call her Friday. Decision to Disposition Date: Mar 21, 2018 Decision to Disposition Time: 18:04 Depart Departure Latest Vital Signs Vital Signs Date Time Temp Pulse Resp B/P (MAP) Pulse Ox O2 Delivery O2 Flow Rate FiO2 03/21/18 17:40 61 94 03/21/18 17:00 102/66 (78) 03/21/18 16:38 97.9 16 Room Air Impression: Primary Impression: Migraine Condition: Improved Disposition: HOME OR SELF-CARE Referrals: MAGUI MORRIS APRN-C (PCP) 1 Week Patient Instructions: Migraine Headache (ED) Additional Instructions: Please follow-up with your primary care provider within one week for reevaluation. I highly recommend following up with the [facility] within the next 1-2 weeks for long-term treatment of your migraines. Get plenty of rest. Drink plenty of water, this will help with the migraine headaches. Continue taking your regular medications. Problem Qualifiers Primary Impression: Migraine Migraine type: without aura Status migrainosus presence: without status migrainosus Intractability: not intractable Qualified Codes: G43.009 - Migraine without aura, not intractable, without status migrainosus CRISTINO DONALDSON DIGITAL MARKETING APPRENTICE-BC Mar 21, 2018 16:48
[2018-03-21] MEDS ORDERED: PROMETHAZINE 25 MG/ML 1 ML AMP IM ONE (16:55)
[2018-03-21] MEDS ORDERED: DEXAMETHASONE SOD PHOS 10MG/ML IM ONE (16:55)
[2018-03-21] MEDS ORDERED: diphenhydrAMINE 50 MG/ML VIAL IM ONE (16:55)
[2018-03-21] MEDS ORDERED: KETOROLAC 30 MG/ML VIAL IM ONE (16:55)
[2018-03-21] MEDS ORDERED: ORPHENADRINE 60MG/2ML INJ IM ONE (16:55)
[2018-03-21 17:00] VITALS: BP 102/66
== END 2018-03-21 18:05 | disposition home or self-care (01) ==
LOC: ER 16:43
DX: G43.009 Migraine without aura, not intractable, without status migrainosus (principal)
CPT/HCPCS: 96372; 99284; J1100; J1200; J1885; J2360; J2550

== ENCOUNTER 2018-03-22 15:42 | Emergency (ER) | payer MEDICAID ==
[2017-09-24 08:15] VITALS: Wt 61.2 kg
--- NOTE | 2018-03-22 15:45 | ER Report ---
History and Physical Time Seen By MD: 15:44 HPI/ROS CHIEF COMPLAINT: Migraine headache HISTORY OF PRESENT ILLNESS: Patient is a 27-year-old female here with complaints of recurrent migraine headache. Patient reports that it is her typical migraines started when she woke up this morning. Patient was seen yesterday for similar s ymptoms and had near complete resolution of symptoms. Patient reports pressure and pain behind her eyes, nausea, photosensitivity. Denies new symptoms. Denies trauma. REVIEW OF SYSTEMS: Constitutional: No fever, no chills. Eyes: + photosensitivity, + pressure behind eyes ENT: No sore throat. Cardiovascular: No chest pain, no palpitations. Respiratory: No cough, no shortness of breath. Gastrointestinal: No abdominal pain, no vomiting, + nausea Genitourinary: No hematuria. Musculoskeletal: No back pain. Skin: No rashes. Neurological: + typical headache. Allergies: Coded Allergies: amoxicillin (Verified Allergy, Mild, itching, 02/04/18) ondansetron HCl (Verified Adverse Reaction, Intermediate, ARRYTHMIA, 02/04/18) ON 16 APR 2012, AFTER ZOFRAN 4MG IVP ADMIN, PT BRADYCARDIC (PULSE 30-35BPM), ARRHTHMIA ON 3-LEAD EKG. sumatriptan (Verified Adverse Reaction, Intermediate, NAUSEA/VOMITING, 02/04/18) nitrofurantoin (Verified Adverse Reaction, Mild, 02/04/18) itching amitriptyline (Verified Adverse Reaction, Unknown, 02/04/18) syncope / orthostatic hypotension ibuprofen (Verified Adverse Reaction, Unknown, REACTION TO COATING ON IBU TABS, 02/04/18) "tears up my stomach" lurasidone (Verified Adverse Reaction, Unknown, NAUSEA/VOMITING, 02/04/18) milnacipran (Verified Adverse Reaction, Unknown, 02/04/18) suicidal ideation Home Meds Active Scripts Gabapentin (GABAPENTIN) 300 Mg Capsule, 1 TAB PO BID, #60 CAPSULE 0 Refills Prov:MAGUI MORRIS APRN [employer] ENGINEER-C 02/26/18 Phenazopyridine Hcl (PHENAZOPYRIDINE HCL) 200 Mg Tablet, 200 MG PO TID, #15 TAB Prov:SUNDAR PUENTES [employer] SYSTEM[employer] ENGINEER 02/18/18 Omeprazole (OMEPRAZOLE) 20 Mg Capsule., 1 TAB PO DAILY, #14 CAP 0 Refills Prov:MAGUI MORRIS [employer]AD [employer] SYSTEMS ENGINEER-C 11/21/17 Duloxetine Hcl (CYMBALTA) 60 Mg Capsule.dr, 1 TAB PO DAILY, #30 TAB 5 Refills Prov:MAGUI MORRIS APRN [employer] ENGINEER-C 10/20/17 Reported Medications Aripiprazole (ABILIFY MAINTENA) 400 Mg Suser.vial, 400 MG IM 11/11/17 Discontinued Scripts Sulfamethoxazole/Trimet 800-160 Mg Tab (BACTRIM DS TABLET) 1 Each Tablet, 1 TAB PO Q12H, #14 TAB Prov:SUNDAR PUENTES [facility] 02/18/18 Ketorolac Tromethamine (KETOROLAC TROMETHAMINE) 10 Mg Tab, 10 MG PO Q6H, #20 TAB Prov:SUNDAR PUENTES [facility] 02/04/18 Prednisone (PREDNISONE) 20 Mg Tablet, 40 MG PO DAILY, #10 TAB Prov:SUNDAR PUENTES [facility] 02/04/18 Hx Smoking: Yes Smoking Status: Former Smoker Exposure to Second Hand Smoke?: No Hx Substance Use Disorder: Yes (marijuana) Hx Alcohol Use: Yes (OCC) Constitutional Vital Sign - Last 24 Hours 03/22/18 15:47 Temp 98.8 Pulse 60 Resp 14 B/P (MAP) 115/71 Pulse Ox 96 Physical Exam General Appearance: The patient is alert, has no immediate need for airway protection and no signs of toxicity. NAD Eyes: Pupils equal and round no pallor or injection. ENT, Mouth: Mucous membranes are moist. Respiratory: There are no retractions, lungs are clear to auscultation. Cardiovascular: Regular rate and rhythm. [ ] Gastrointestinal: Abdomen is soft and non tender, no masses, bowel sounds normal. Neurological: No focal findings Skin: Warm and dry, no rashes. Musculoskeletal: Neck is supple non tender. Extremities are nontender, nonswollen and have full range of motion. DIFFERENTIAL DIAGNOSIS: After history and physical exam differential diagnosis was considered for headache including but not limited to subarachnoid hemorrhage, migraine headache, tension headache and infectious causes such as meningitis, pharyngitis and sinusitis. Medical Decision Making ED Course/Re-evaluation ED Course Patient is a 27-year-old female here with complaints of typical migraine headache symptoms. Patient has been seen in the emergency department numerous times for similar symptoms last of which was yesterday. Patient had resolution of symptoms however had a recurrence this morning when she woke up. Patient was given Toradol, Reglan, magnesium, Benadryl, Decadron, normal saline bolus. On reevaluation after administration of a migraine cocktail, patient had moderate relief of symptoms. I discussed with her that some of the medications will take time to take effect. Patient voiced understanding. Patient was hemodynamically stable at time of discharge. Return precautions were provided Decision to Disposition Date: Mar 22, 2018 Decision to Disposition Time: 17:02 Depart Departure Latest Vital Signs Vital Signs Date Time Temp Pulse Resp B/P (MAP) Pulse Ox O2 Delivery O2 Flow Rate FiO2 03/22/18 15:47 98.8 60 14 115/71 96 Impression: Primary Impression: Migraine Condition: Improved Disposition: HOME OR SELF-CARE Referrals: MAGUI MORRIS APRN [employer]IN[employer] SYSTEMS ENGINEER-C (PCP) Patient Instructions: Migraine Headache (GEN) Additional Instructions: Please drink plenty of water. Please follow-up with your family doctor in the next 24-48 hours for outpatient reevaluation and care. Please return promptly with recurrent symptoms, worsening pain, fevers, inability to keep down food or fluids due to nausea or vomiting. SUHA TRIVEDI DO Mar 22, 2018 15:45
[2018-03-22] MEDS ORDERED: NS(*) 0.9% 1000 ML BAG 1,000 ML IV ONE (15:51)
[2018-03-22] MEDS ORDERED: KETOROLAC 30 MG/ML VIAL IVP ONE (15:55)
[2018-03-22] MEDS ORDERED: DEXAMETHASONE SOD PHOS 10MG/ML IVP ONE (15:55)
[2018-03-22] MEDS ORDERED: MAGNESIUM SUL 50% 1GM/2ML VIAL IVP ONE (15:55)
[2018-03-22] MEDS ORDERED: diphenhydrAMINE 50 MG/ML VIAL IVP ONE (15:55)
[2018-03-22] MEDS ORDERED: METOCLOPRAMIDE 10 MG/2 ML SDV IVP ONE (15:55)
[2018-03-22 17:00] VITALS: BP 117/73
[2018-03-23] MEDS ORDERED: ARI2 PO (15:57)
[2018-03-23] MEDS ORDERED: AMOX-559 PO (18:15)
== END 2018-03-22 17:11 | disposition home or self-care (01) ==
LOC: ER 16:01
DX: G43.909 Migraine, unspecified, not intractable, without status migrainosus (principal)
CPT/HCPCS: 96361; 96374; 96375; 99284; J1100; J1200; J1885; J2765; J3475; J7030

== ENCOUNTER 2018-03-23 15:44 | Emergency (ER) | payer MEDICAID ==
[2017-09-24 08:15] VITALS: Wt 61.2 kg
[2018-03-23] MEDS ORDERED: ARI2 PO (15:57)
--- NOTE | 2018-03-23 16:07 | ER Report ---
History and Physical Time Seen By MD: 16:07 Hx. of Stated Complaint: HEADACHE BASE OF SKULL INTO TEMPLES BEHIND EYES, "FEELS LIKE IT'S GOING TO EXPLODE" X4 DAYS, VOMITING HPI/ROS CHIEF COMPLAINT: Migraine headache HISTORY OF PRESENT ILLNESS: This is a 27-year-old female, well-known to the emergency department that presents for recurrent migraine headaches. Patient was seen on March 03, March 21, March 22 and today March 23 for recurrent migraine headaches. Patient has been given medications during each visit for her migraines. Patient states having mild relief, patient states she contacted her primary care provider today, and was told that if she has a recurrent headache and is not improving that she should come to the emergency department for further evaluation. She is photophobic, mild nausea no vomiting. No diarrhea. No chest pain or shortness of breath. No rashes. No meningismus. REVIEW OF SYSTEMS: Constitutional: No fever, no chills. Eyes: No discharge. ENT: No sore throat. Cardiovascular: No chest pain, no palpitations. Respiratory: No cough, no shortness of breath. Gastrointestinal: No abdominal pain, no vomiting. Genitourinary: No hematuria. Musculoskeletal: No back pain. Skin: No rashes. Neurological: As above. Allergies: Coded Allergies: amoxicillin (Verified Allergy, Mild, itching, 02/04/18) ondansetron HCl (Verified Adverse Reaction, Intermediate, ARRYTHMIA, 02/04/18) ON 16 APR 2012, AFTER ZOFRAN 4MG IVP ADMIN, PT BRADYCARDIC (PULSE 30-35BPM), ARRHTHMIA ON 3-LEAD EKG. sumatriptan (Verified Adverse Reaction, Intermediate, NAUSEA/VOMITING, 02/04/18) nitrofurantoin (Verified Adverse Reaction, Mild, 02/04/18) itching amitriptyline (Verified Adverse Reaction, Unknown, 02/04/18) syncope / orthostatic hypotension ibuprofen (Verified Adverse Reaction, Unknown, REACTION TO COATING ON IBU TABS, 02/04/18) "tears up my stomach" lurasidone (Verified Adverse Reaction, Unknown, NAUSEA/VOMITING, 02/04/18) milnacipran (Verified Adverse Reaction, Unknown, 02/04/18) suicidal ideation Home Meds Active Scripts Amoxicillin/Pot Clav 875-125 Mg Tab (AUGMENTIN 875-125 TABLET) 1 Each Tablet, 1 TAB PO Q12H for 7 Days, #14 TAB 0 Refills Prov:CRISTINO DONALDSON Valentina [employer]PER[employer] TECHNICIAN-BC 03/23/18 Gabapentin (GABAPENTIN) 300 Mg Capsule, 1 TAB PO BID, #60 CAPSULE 0 Refills Prov:MAGUI MORRIS APRNP-C 02/26/18 Omeprazole (OMEPRAZOLE) 20 Mg Capsule.dr, 1 TAB PO DAILY, #14 CAP 0 Refills Prov:MAGUI MORRIS APRN [facility] 11/21/17 Duloxetine Hcl (CYMBALTA) 60 Mg Capsule.dr, 1 TAB PO DAILY, #30 TAB 5 Refills Prov:MAGUI MORRIS APRN [facility] 10/20/17 Reported Medications Aripiprazole (ABILIFY) 2 Mg Tablet, 200 MG PO QDAY, TAB 03/23/18 Discontinued Reported Medications Aripiprazole (ABILIFY MAINTENA) 400 Mg Suser.vial, 400 MG IM 11/11/17 Discontinued Scripts Phenazopyridine Hcl (PHENAZOPYRIDINE HCL) 200 Mg Tablet, 200 MG PO TID, #15 TAB Prov:SUNDAR PUENTES [facility] 02/18/18 Sulfamethoxazole/Trimet 800-160 Mg Tab (BACTRIM DS TABLET) 1 Each Tablet, 1 TAB PO Q12H, #14 TAB Prov:SUNDAR PUENTES [facility] 02/18/18 Ketorolac Tromethamine (KETOROLAC TROMETHAMINE) 10 Mg Tab, 10 MG PO Q6H, #20 TAB Prov:SUNDAR PUENTES [facility] 02/04/18 Prednisone (PREDNISONE) 20 Mg Tablet, 40 MG PO DAILY, #10 TAB Prov:SUNDAR PUENTES [facility] 02/04/18 Past Medical/Surgical History The patient has a past medical and surgical history of fibromyalgia, migraine headaches, bradycardia, tachycardia, asthma, IBS, colitis disease, cholecystectomy, right hand fracture, wears glasses, astigmatism, does use marijuana occasionally, depression, bipolar, anxiety, borderline personality, vaginal deliveries, suicide attempt, left knee surgery, tubal ligation. Reviewed Nurses Notes: Yes Hx Smoking: Yes Smoking Status: Former Smoker Exposure to Second Hand Smoke?: No Hx Substance Use Disorder: No (marijuana HX) Hx Alcohol Use: Yes (RARE) Constitutional Vital Sign - Last 24 Hours 1/14/19 1/14/19 1/14/19 1/14/19 15:52 16:29 16:30 16:44 Temp 98.7 Pulse 70 ??? 66 Resp 16 B/P (MAP) 135/72 94/70 (78) Pulse Ox 98 99 O2 Delivery Room Air 03/23/18 03/23/18 03/23/18 03/23/18 16:59 17:07 17:14 17:29 Pulse ??? 74 62 Resp 14 18 B/P (MAP) 119/76 (90) Pulse Ox 96 98 03/23/18 17:30 B/P (MAP) 119/72 (88) Physical Exam General Appearance: The patient is alert, has no immediate need for airway protection and no signs of toxicity. Eyes: Pupils equal and round no pallor or injection. EOMs intact, no nystagmus. ENT, Mouth: Mucous membranes are moist. Respiratory: There are no retractions, lungs are clear to auscultation. Cardiovascular: Regular rate and rhythm, no murmurs, clicks or rubs. Gastrointestinal: Abdomen is soft and non tender, no masses, bowel sounds normal. Neurological: Alert and oriented 4. Moving all extremities. Following all commands. No focal neuro deficits. GCS 15. Skin: Warm and dry, no rashes. Musculoskeletal: Neck is supple non tender. Extremities are nontender, nonswollen and have full range of motion. DIFFERENTIAL DIAGNOSIS: After history and physical exam differential diagnosis was considered for headache including but not limited to subarachnoid hemorrhage, migraine headache, tension headache and infectious causes such as meningitis, pharyngitis and sinusitis. Medical Decision Making Data Points Result Diagram: 03/23/18 1635 03/23/18 1635 Laboratory Hematology Test 03/23/18 16:35 03/23/18 17:08 Red Blood Count 4.72 M/uL (4.17-5.56) Mean Corpuscular Volume 92.8 fL (80.0-96.0) Mean Corpuscular Hemoglobin 31.5 pg (26.0-33.0) Mean Corpuscular Hemoglobin Concent 34.0 g/dL (32.0-36.0) Red Cell Distribution Width 12.9 % (11.5-14.5) Mean Platelet Volume 8.5 fL (7.2-11.1) Neutrophils (%) (Auto) 63.5 % (39.4-72.5) Lymphocytes (%) (Auto) 29.6 % (17.6-49.6) Monocytes (%) (Auto) 5.9 % (4.1-12.4) Eosinophils (%) (Auto) 0.3 % (0.4-6.7) Basophils (%) (Auto) 0.7 % (0.3-1.4) Nucleated RBC Relative Count (auto) 0.0 /100WBC Neutrophils # (Auto) 6.1 K/uL (2.0-7.4) Lymphocytes # (Auto) 2.9 K/uL (1.3-3.6) Monocytes # (Auto) 0.6 K/uL (0.3-1.0) Eosinophils # (Auto) 0.0 K/uL (0.0-0.5) Basophils # (Auto) 0.1 K/uL (0.0-0.1) Nucleated RBC Absolute Count (auto) 0.00 K/uL Sodium Level 141 mmol/L (137-145) Potassium Level 3.4 mmol/L (3.5-5.0) Chloride Level 107 mmol/L (98-107) Carbon Dioxide Level 24 mmol/L (22-31) Blood Urea Nitrogen 16 mg/dl (7-18) Creatinine 0.70 mg/dl (0.52-1.04) Glomerular Filtration Rate Calc > 60.0 Random Glucose 84 mg/dl (75-110) Calcium Level 9.6 mg/dl (8.4-10.2) Total Bilirubin 1.0 mg/dl (0.2-1.3) Aspartate Amino Transf (AST/SGOT) 21 U/L (0-35) Alanine Aminotransferase (ALT/SGPT) 17 U/L (0-56) Alkaline Phosphatase 57 U/L (0-126) Total Protein 7.4 g/dl (6.3-8.2) Albumin 4.5 g/dl (3.5-5.0) Human Chorionic Gonadotropin, Qual Negative (NEGATIVE) Urine Color Straw Urine Clarity Clear Urine pH 6.0 pH (4.8-9.5) Urine Specific [place] 1.011 Urine Protein Negative mg/dL (NEGATIVE) Urine Glucose (UA) Negative mg/dL (NEGATIVE) Urine Ketones Negative mg/dL (NEGATIVE) Urine Blood Negative (NEGATIVE) Urine Nitrite Negative (NEGATIVE) Urine Bilirubin Negative (NEGATIVE) Urine Urobilinogen Negative mg/dL (0.2-1.9) Urine Leukocyte Esterase Negative (NEGATIVE) Urine RBC None /HPF (0-2/HPF) Urine WBC <1 /HPF (0-5/HPF) Urine Squamous Epithelial Cells Many /LPF (</=FEW) Urine Bacteria Negative /HPF (NONE-FEW) Urine Mucus Few /HPF (NONE-FEW) Chemistry Test 03/23/18 16:35 03/23/18 17:08 White Blood Count 9.6 k/uL (4.5-11.0) Red Blood Count 4.72 M/uL (4.17-5.56) Hemoglobin 14.9 g/dL (12.0-16.0) Hematocrit 43.8 % (34.0-47.0) Mean Corpuscular Volume 92.8 fL (80.0-96.0) Mean Corpuscular Hemoglobin 31.5 pg (26.0-33.0) Mean Corpuscular Hemoglobin Concent 34.0 g/dL (32.0-36.0) Red Cell Distribution Width 12.9 % (11.5-14.5) Platelet Count 215 K/uL (150-450) Mean Platelet Volume 8.5 fL (7.2-11.1) Neutrophils (%) (Auto) 63.5 % (39.4-72.5) Lymphocytes (%) (Auto) 29.6 % (17.6-49.6) Monocytes (%) (Auto) 5.9 % (4.1-12.4) Eosinophils (%) (Auto) 0.3 % (0.4-6.7) Basophils (%) (Auto) 0.7 % (0.3-1.4) Nucleated RBC Relative Count (auto) 0.0 /100WBC Neutrophils # (Auto) 6.1 K/uL (2.0-7.4) Lymphocytes # (Auto) 2.9 K/uL (1.3-3.6) Monocytes # (Auto) 0.6 K/uL (0.3-1.0) Eosinophils # (Auto) 0.0 K/uL (0.0-0.5) Basophils # (Auto) 0.1 K/uL (0.0-0.1) Nucleated RBC Absolute Count (auto) 0.00 K/uL Glomerular Filtration Rate Calc > 60.0 Calcium Level 9.6 mg/dl (8.4-10.2) Total Bilirubin 1.0 mg/dl (0.2-1.3) Aspartate Amino Transf (AST/SGOT) 21 U/L (0-35) Alanine Aminotransferase (ALT/SGPT) 17 U/L (0-56) Alkaline Phosphatase 57 U/L (0-126) Total Protein 7.4 g/dl (6.3-8.2) Albumin 4.5 g/dl (3.5-5.0) Human Chorionic Gonadotropin, Qual Negative (NEGATIVE) Urine Color Straw Urine Clarity Clear Urine pH 6.0 pH (4.8-9.5) Urine Specific [place] 1.011 Urine Protein Negative mg/dL (NEGATIVE) Urine Glucose (UA) Negative mg/dL (NEGATIVE) Urine Ketones Negative mg/dL (NEGATIVE) Urine Blood Negative (NEGATIVE) Urine Nitrite Negative (NEGATIVE) Urine Bilirubin Negative (NEGATIVE) Urine Urobilinogen Negative mg/dL (0.2-1.9) Urine Leukocyte Esterase Negative (NEGATIVE) Urine RBC None /HPF (0-2/HPF) Urine WBC <1 /HPF (0-5/HPF) Urine Squamous Epithelial Cells Many /LPF (</=FEW) Urine Bacteria Negative /HPF (NONE-FEW) Urine Mucus Few /HPF (NONE-FEW) Urinalysis Test 03/23/18 17:08 Urine Color Straw Urine Clarity Clear Urine pH 6.0 pH (4.8-9.5) Urine Specific [place] 1.011 Urine Protein Negative mg/dL (NEGATIVE) Urine Glucose (UA) Negative mg/dL (NEGATIVE) Urine Ketones Negative mg/dL (NEGATIVE) Urine Blood Negative (NEGATIVE) Urine Nitrite Negative (NEGATIVE) Urine Bilirubin Negative (NEGATIVE) Urine Urobilinogen Negative mg/dL (0.2-1.9) Urine Leukocyte Esterase Negative (NEGATIVE) Urine RBC None /HPF (0-2/HPF) Urine WBC <1 /HPF (0-5/HPF) Urine Squamous Epithelial Cells Many /LPF (</=FEW) Urine Bacteria Negative /HPF (NONE-FEW) Urine Mucus Few /HPF (NONE-FEW) EKG/Imaging Imaging Location: [facility] Patient: Jayna Gee : 1990 Visit/Account:[id number] Date of Sevice: 03/23/2018 EXAMINATION: CT HEAD WITHOUT CONTRAST COMPARISON: 02/04/2018 HISTORY: Headache with nausea and vomiting. PROCEDURE: Noncontrast CT from the vertex through the skull base. One of the following dose optimization techniques was utilized in the performance of this exam: Automated exposure control; adjustment of the mA and/or kV according to the patient's size; or use of an iterative reconstruction technique. Specific details can be referenced in the facility's radiology CT exam operational policy. FINDINGS: Brain volume: Age-appropriate. Hemorrhage/extra-axial fluid: None. Mass effect/midline shift/edema: None. Ischemia: Melara-white differentiation is preserved. Ventricles and basal cisterns: Within normal limits. Posterior fossa: Negative. Vessels: Negative. Calvarium, skull base, and scalp: Negative. Visualized sinuses and orbits: Incompletely visualized left maxillary sinus mucosal inflammation. IMPRESSION: 1. Incompletely visualized left maxillary sinus mucosal inflammation. 2. Otherwise negative noncontrast head CT. Report Dictated By: Marv Hilton MD at 03/23/2018 5:20 PM Report E-Signed By: Marv Hilton MD at 03/23/2018 5:28 PM [id number] ED Course/Re-evaluation ED Course The patient was admitted to room. A history and physical were obtained. Differential diagnoses were considered. An IV was started. A 1 L normal saline bolus was given. CBC, CMP and UA were collected. Lab studies unremarkable, negative UA. As the patient has had continuous migraine headache has been to the emergency department 3 days in a row with the same complaint I did a CT of the head, showing maxillary sinus disease. I reviewed the CT results with the patient, I did start her on Augmentin as the sinus infection is likely the cause of her headaches. Patient expresses understanding and will follow-up with her primary care provider this week. No other questions or concerns, patient was in agreement with this plan of care and discharged home. Decision to Disposition Date: Mar 23, 2018 Decision to Disposition Time: 18:14 Depart Departure Latest Vital Signs Vital Signs Date Time Temp Pulse Resp B/P (MAP) Pulse Ox O2 Delivery O2 Flow Rate FiO2 1/14/19 17:30 119/72 (88) 03/23/18 17:29 62 18 98 03/23/18 15:52 98.7 Room Air Impression: Primary Impression: Sinusitis Condition: Improved Disposition: HOME OR SELF-CARE Referrals: MAGUI MORRIS APRN (PCP) New Scripts Amoxicillin/Pot Clav 875-125 Mg Tab (AUGMENTIN 875-125 TABLET) 1 Each Tablet 1 TAB PO Q12H for 7 Days, #14 TAB 0 Refills Prov: CRISTINO DONALDSON 03/23/18 Patient Instructions: Sinusitis (ED) Additional Instructions: You have a sinus inflammation noted on your CT, this could be triggering your headaches. As you have had augmentin in the past, I will start you on augmentin. Drink plenty of water. Get plenty of rest. Take your regular medications for your headaches. Return to the ED for any other concerns or worsening symptoms. Follow up with your PCP in 5-7 days. Problem Qualifiers Primary Impression: Sinusitis Sinusitis location: maxillary Chronicity: unspecified Qualified Codes: J32.0 - Chronic maxillary sinusitis CRISTINO DONALDSON-FRANCESCO Mar 23, 2018 16:07
[2018-03-23] MEDS ORDERED: NS(*) 0.9% 1000 ML BAG 1,000 ML IV ONE (16:13)
[2018-03-23] MEDS ORDERED: MAGNESIUM SUL* 2 GM/50 ML IVPB 50 ML IVPB ONE (16:15)
[2018-03-23] MEDS ORDERED: PROMETHAZINE 25 MG/ML 1 ML AMP IVP ONE (16:15)
[2018-03-23] MEDS ORDERED: ORPHENADRINE 60MG/2ML INJ IVP ONE (16:15)
[2018-03-23] MEDS ORDERED: diphenhydrAMINE 50 MG/ML VIAL IVP ONE (16:15)
[2018-03-23 17:11] LABS: PLATELET COUNT, AUTOMATED 215 K/uL (150-450)
[2018-03-23 17:30] VITALS: BP 119/72
--- NOTE | 2018-03-23 17:31 | RADIOLOGY IMAGING REPORT ---
FACILITY: [facility] PATIENT NAME: Jayna Gee : 1990 MR: [id number] V: [id number] EXAM DATE: ORDERING PHYSICIAN: CRISTINO DONALDSON TECHNOLOGIST: Location: [facility] [place] Patient: Jayna Gee : 1990 Visit/Account:[id number] Date of Sevice: 03/23/2018 EXAMINATION: CT HEAD WITHOUT CONTRAST COMPARISON: 02/04/2018 HISTORY: Headache with nausea and vomiting. PROCEDURE: Noncontrast CT from the vertex through the skull base. One of the following dose optimizat ion techniques was utilized in the performance of this exam: Automated exposure control; adjustment o f the mA and/or kV according to the patient's size; or use of an iterative reconstruction technique. Specific details can be referenced in the facility's radiology CT exam operational policy. FINDINGS: Brain volume: Age-appropriate. Hemorrhage/extra-axial fluid: None. Mass effect/midline shift/edema: None. Ischemia: Melara-white differentiation is preserved. Ventricles and basal cisterns: Within normal limits. Posterior fossa: Negative. Vessels: Negative. Calvarium, skull base, and scalp: Negative. Visualized sinuses and orbits: Incompletely visualized left maxillary sinus mucosal inflammation. IMPRESSION: 1. Incompletely visualized left maxillary sinus mucosal inflammation. 2. Otherwise negative noncontrast head CT. Report Dictated By: Marv Hilton MD at 03/23/2018 5:20 PM Report E-Signed By: Marv Hilton MD at 03/23/2018 5:28 PM [id number]
[2018-03-23] MEDS ORDERED: AMOX-559 PO (18:15)
== END 2018-03-23 18:30 | disposition home or self-care (01) ==
LOC: ER 16:33
DX: J32.0 Chronic maxillary sinusitis (principal)
CPT/HCPCS: 70450; 81001; 84703; 85025; 96365; 96375; 99284; J1200; J2360; J2550; J3475; J7030; 82040; 82247; 82310; 82374; 82435; 82565; 82947; 84075; 84132; 84155; 84295; 84450; 84460; 84520

== ENCOUNTER 2018-04-08 17:03 | Emergency (ER) | payer MEDICAID ==
[2017-09-24 08:15] VITALS: Wt 59.0 kg
[~2018-04-08 17:03] MED LIST changes: +ARI2 PO; +NARA1TAB9 PO; +PROP80CA40 PO
--- NOTE | 2018-04-08 17:34 | ER Report ---
History and Physical Time Seen By MD: 17:34 Hx. of Stated Complaint: PT STATES SHE HAD NAUSEA THIS AM AND WAS LYING AROUND ALL DAY. NOW HER BACK HURTS HPI/ROS CHIEF COMPLAINT: Back pain HISTORY OF PRESENT ILLNESS: 27-year-old female patient presents to emergency room with complaint of back pain. Patient states she was awoken at 1:00 this morning with back pain. She states that she's felt nauseated all day. Patient states that she is not had much desire to do anything today. She denies having any vomiting, she denies having any diarrhea. She denies having a fever. Patient states she does have pain to the left flank. She denies any hematuria, urinary urgency or frequency. Patient has taken some Tylenol for this with no improvement. REVIEW OF SYSTEMS: Respiratory: No cough, no dyspnea. Cardiovascular: No chest pain, no palpitations. Gastrointestinal: No vomiting, no abdominal pain. Musculoskeletal: As noted above Allergies: Coded Allergies: amoxicillin (Verified Allergy, Mild, itching, 02/04/18) naratriptan (Verified Allergy, Unknown, 04/03/18) itching ondansetron HCl (Verified Adverse Reaction, Intermediate, ARRYTHMIA, 02/04/18) ON 16 APR 2012, AFTER ZOFRAN 4MG IVP ADMIN, PT BRADYCARDIC (PULSE 30-35BPM), ARRHTHMIA ON 3-LEAD EKG. sumatriptan (Verified Adverse Reaction, Intermediate, NAUSEA/VOMITING, 02/04/18) nitrofurantoin (Verified Adverse Reaction, Mild, 02/04/18) itching amitriptyline (Verified Adverse Reaction, Unknown, 02/04/18) syncope / orthostatic hypotension ibuprofen (Verified Adverse Reaction, Unknown, REACTION TO COATING ON IBU TABS, 02/04/18) "tears up my stomach" lurasidone (Verified Adverse Reaction, Unknown, NAUSEA/VOMITING, 02/04/18) milnacipran (Verified Adverse Reaction, Unknown, 02/04/18) suicidal ideation Home Meds Active Scripts Methocarbamol (ROBAXIN-750) 750 Mg Tablet, 1500 MG PO TID, #18 TAB Prov:SUNDAR PUENTES 04/08/18 Ketorolac Tromethamine (KETOROLAC TROMETHAMINE) 10 Mg Tab, 10 MG PO Q6H, #20 TAB Prov:SUNDAR PUENTES 04/08/18 Propranolol Hcl (INDERAL LA) 80 Mg Cap.sa.24h, 1 CAP PO DAILY, #30 CAP 0 Refills Prov:MAGUI MORRIS APRN [facility]- 04/03/18 Gabapentin (GABAPENTIN) 300 Mg Capsule, 1 TAB PO BID, #60 CAPSULE 0 Refills Prov:MAGUI MORRIS APRN [facility]- 02/26/18 Duloxetine Hcl (CYMBALTA) 60 Mg Capsule.dr, 1 TAB PO DAILY, #30 TAB 5 Refills Prov:MAGUI MORRIS APRN [facility]- 10/20/17 Reported Medications Aripiprazole (ABILIFY) 2 Mg Tablet, 200 MG PO QDAY, TAB 03/23/18 Discontinued Scripts Naratriptan Hcl (AMERGE) 1 Mg Tablet, 1 TAB PO DAILY PRN for MIGRAINE, #9 TAB 0 Refills Take 1 tab at first sign of a MARY if not improved in 4 hours may take a second tab Prov:MAGUI MORRIS STORE LEAD [facility]- 03/27/18 Amoxicillin/Pot Clav 875-125 Mg Tab (AUGMENTIN 875-125 TABLET) 1 Each Tablet, 1 TAB PO Q12H for 7 Days, #14 TAB 0 Refills Prov:CRISTINO DONALDSON [facility]- 03/23/18 Omeprazole (OMEPRAZOLE) 20 Mg Capsule.dr, 1 TAB PO DAILY, #14 CAP 0 Refills Prov:MAGUI MORRIS APRN [facility]- 11/21/17 Past Medical/Surgical History Patient has a past medical history of fibromyalgia, migraines, bradycardia, tachycardia, asthma, IBS, cholecystitis, right hand fracture, marijuana use, alcohol use, depression, bipolar, anxiety, borderline, suicide attempt. Patient has a surgical history cholecystectomy, appendectomy, tubal ligation, knee surgery 2, right hand surgery. Patient has a family medical history of psychiatric problems, diabetes, stroke. Reviewed Nurses Notes: Yes Hx Smoking: Yes Smoking Status: Former Smoker Exposure to Second Hand Smoke?: No Hx Substance Use Disorder: No (marijuana HX) Hx Alcohol Use: Yes (RARE) Constitutional Vital Sign - Last 24 Hours 04/08/18 04/08/18 04/08/18 04/08/18 17:07 17:07 17:18 17:30 Temp 97.6 Pulse 59 57 Resp 20 B/P (MAP) 130/97 (108) 130/97 111/68 (82) Pulse Ox 95 94 O2 Delivery Room Air 04/08/18 04/08/18 04/08/18 04/08/18 17:33 17:48 18:00 18:03 Pulse 54 60 58 B/P (MAP) 120/77 (91) Pulse Ox 94 96 98 04/08/18 04/08/18 04/08/18 18:18 18:30 18:33 Pulse 50 51 B/P (MAP) 114/80 (91) Pulse Ox 96 95 Physical Exam General Appearance: The patient is alert, has no immediate need for airway protection and no current signs of toxicity. Respiratory: Chest is non tender, lungs are clear to auscultation. Cardiac: regular rate and rhythm Gastrointestinal: Abdomen is soft and non tender, no masses, bowel sounds normal. Musculoskeletal: Neck: Neck is supple and non tender. Back: Patient does have tenderness to the left paraspinal muscles. There is no bruising or swelling noted. Extremities have full range of motion and are non tender. Skin: No rashes or lesions. DIFFERENTIAL DIAGNOSIS: After history and physical exam differential diagnosis was considered for back pain including but not limited to muscular pain, herniated disc, spine fracture, intra-abdominal causes and urinary tract infection. Medical Decision Making Data Points Laboratory Hematology Test 04/08/18 18:09 Urine Color Straw Urine Clarity Clear Urine pH 5.0 pH (4.8-9.5) Urine Specific [place] 1.005 Urine Protein Negative mg/dL (NEGATIVE) Urine Glucose (UA) Negative mg/dL (NEGATIVE) Urine Ketones Negative mg/dL (NEGATIVE) Urine Blood Negative (NEGATIVE) Urine Nitrite Negative (NEGATIVE) Urine Bilirubin Negative (NEGATIVE) Urine Urobilinogen Negative mg/dL (0.2-1.9) Urine Leukocyte Esterase Negative (NEGATIVE) Urine RBC 1 /HPF (0-2/HPF) Urine WBC <1 /HPF (0-5/HPF) Urine Squamous Epithelial Cells Many /LPF (</=FEW) Urine Bacteria Negative /HPF (NONE-FEW) Urine Mucus None /HPF (NONE-FEW) Chemistry Test 04/08/18 18:09 Urine Color Straw Urine Clarity Clear Urine pH 5.0 pH (4.8-9.5) Urine Specific [place] 1.005 Urine Protein Negative mg/dL (NEGATIVE) Urine Glucose (UA) Negative mg/dL (NEGATIVE) Urine Ketones Negative mg/dL (NEGATIVE) Urine Blood Negative (NEGATIVE) Urine Nitrite Negative (NEGATIVE) Urine Bilirubin Negative (NEGATIVE) Urine Urobilinogen Negative mg/dL (0.2-1.9) Urine Leukocyte Esterase Negative (NEGATIVE) Urine RBC 1 /HPF (0-2/HPF) Urine WBC <1 /HPF (0-5/HPF) Urine Squamous Epithelial Cells Many /LPF (</=FEW) Urine Bacteria Negative /HPF (NONE-FEW) Urine Mucus None /HPF (NONE-FEW) Urinalysis Test 04/08/18 18:09 Urine Color Straw Urine Clarity Clear Urine pH 5.0 pH (4.8-9.5) Urine Specific [place] 1.005 Urine Protein Negative mg/dL (NEGATIVE) Urine Glucose (UA) Negative mg/dL (NEGATIVE) Urine Ketones Negative mg/dL (NEGATIVE) Urine Blood Negative (NEGATIVE) Urine Nitrite Negative (NEGATIVE) Urine Bilirubin Negative (NEGATIVE) Urine Urobilinogen Negative mg/dL (0.2-1.9) Urine Leukocyte Esterase Negative (NEGATIVE) Urine RBC 1 /HPF (0-2/HPF) Urine WBC <1 /HPF (0-5/HPF) Urine Squamous Epithelial Cells Many /LPF (</=FEW) Urine Bacteria Negative /HPF (NONE-FEW) Urine Mucus None /HPF (NONE-FEW) ED Course/Re-evaluation ED Course Patient was admitted to an exam room, history and physical were obtained. Differential diagnoses were considered. On examination lungs are clear, heart is regular, abdomen soft nontender. Patient does have some tenderness to the low back. She rates the pain a 7-8 out of 10. We discussed doing an x-ray which patient refused stating there is no injury to the back. We did get a urine sample and gave the patient and I am dose of Toradol. Patient states she did have some improvement in her discomfort. We will go ahead and discharge her home at this time. Patient will be given a prescription for Toradol as well as a muscle relaxer. She is return to emergency room if condition worsens. She is follow-up with her primary care provider with any concerns. Patient verbalized understanding and agreement with plan. Decision to Disposition Date: Apr 08, 2018 Decision to Disposition Time: 18:37 Depart Departure Latest Vital Signs Vital Signs Date Time Temp Pulse Resp B/P (MAP) Pulse Ox O2 Delivery O2 Flow Rate FiO2 04/08/18 18:33 51 95 04/08/18 18:30 114/80 (91) 04/08/18 17:07 97.6 20 Room Air Impression: Primary Impression: Back pain Condition: Stable Disposition: HOME OR SELF-CARE Referrals: MAGUI MORRIS APRN [employer] (PCP) New Scripts Methocarbamol (ROBAXIN-750) 750 Mg Tablet 1500 MG PO TID, #18 TAB Prov: SUNDAR PUENTES 04/08/18 Ketorolac Tromethamine (KETOROLAC TROMETHAMINE) 10 Mg Tab 10 MG PO Q6H, #20 TAB Prov: SUNDAR PUENTES 04/08/18 Patient Instructions: Acute Low Back Pain (ED) Additional Instructions: Limit activity by pain. Increase fluid intake. Alternate Ice and Heat. No heavy lifting. Take the medication as prescribed. Follow up with your counselor as directed. Problem Qualifiers Primary Impression: Back pain Back pain location: low back pain Chronicity: acute Back pain laterality: left Sciatica presence: without sciatica Qualified Codes: M54.5 - Low back pain SUNDAR PUENTES Apr 08, 2018 17:34
[2018-04-08 18:30] VITALS: BP 114/80
[2018-04-08] MEDS ORDERED: KETOROLAC 30 MG/ML VIAL IM ONE (18:35)
[2018-04-08] MEDS ORDERED: KET10 PO (18:38)
[2018-04-08] MEDS ORDERED: METH-543 PO (18:38)
== END 2018-04-08 19:06 | disposition home or self-care (01) ==
LOC: ER 17:09
DX: M54.5 Low back pain (principal)
CPT/HCPCS: 81001; 99283; J1885

== ENCOUNTER 2018-06-05 14:52 | Emergency (ER) | payer MEDICAID ==
[2017-09-24 08:15] VITALS: Wt 59.0 kg
[~2018-06-05 14:52] MED LIST changes: -LAMO25TA60 PO; +LAMO25TA68 PO
[2018-06-05 14:55] VITALS: BP 123/71
[2018-06-05] MEDS ORDERED: LAMOT150PT GT (15:00)
--- NOTE | 2018-06-05 15:01 | ER Report ---
History and Physical Time Seen By MD: 15:01 Hx. of Stated Complaint: EARACHE R EAR 2 WEEKS HPI/ROS CHIEF COMPLAINT: Ear pain HISTORY OF PRESENT ILLNESS: This is a [id number] female presents to the emergency department for ear pain. 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 She has a little bit of throat irritation but no pain. No nausea or vomiting. No fevers or chills. REVIEW OF SYSTEMS: EENT: As above. Respiratory: No cough, no dyspnea. Cardiovascular: No chest pain, no palpitations. Gastrointestinal: No vomiting, no abdominal pain. Musculoskeletal: No back pain. Allergies: Coded Allergies: amoxicillin (Verified Allergy, Mild, itching, 02/04/18) naratriptan (Verified Allergy, Unknown, 04/03/18) itching ondansetron HCl (Verified Adverse Reaction, Intermediate, ARRYTHMIA, 02/04/18) ON 16 APR 2012, AFTER ZOFRAN 4MG IVP ADMIN, PT BRADYCARDIC (PULSE 30-35BPM), ARRHTHMIA ON 3-LEAD EKG. sumatriptan (Verified Adverse Reaction, Intermediate, NAUSEA/VOMITING, 02/04/18) nitrofurantoin (Verified Adverse Reaction, Mild, 02/04/18) itching amitriptyline (Verified Adverse Reaction, Unknown, 02/04/18) syncope / orthostatic hypotension ibuprofen (Verified Adverse Reaction, Unknown, REACTION TO COATING ON IBU TABS, 02/04/18) "tears up my stomach" lurasidone (Verified Adverse Reaction, Unknown, NAUSEA/VOMITING, 02/04/18) milnacipran (Verified Adverse Reaction, Unknown, 02/04/18) suicidal ideation Home Meds Active Scripts Gabapentin (GABAPENTIN) 300 Mg Capsule, 1-2 TAB PO BID, #90 CAPSULE 1 Refill 1 cap in the morning and 2 caps at bedtime Prov:MAGUI MORRIS APRN-C 05/25/18 Duloxetine Hcl (CYMBALTA) 60 Mg Capsule.dr, 1 TAB PO DAILY, #30 TAB 5 Refills Prov:MAGUI MORRIS APRN DISTRICT LEADER-C 10/20/17 Reported Medications Lamotrigine (LAMICTAL) 150 Mg Tablet, 150 MG GT 06/05/18 Aripiprazole (ABILIFY) 2 Mg Tablet, 200 MG PO QDAY, TAB 03/23/18 Past Medical/Surgical History The patient has a past medical and surgical history fibromyalgia, bradycardia, tachycardia, asthma, IBS, cholecystectomy, right hand fracture, wears glasses, uses marijuana, depression, suicide attempt, cholecystectomy, appendectomy, tubal ligation, left knee surgery, right hand surgery. Reviewed Nurses Notes: Yes Hx Smoking: Yes Smoking Status: Former Smoker Exposure to Second Hand Smoke?: No Hx Substance Use Disorder: No (marijuana HX) Hx Alcohol Use: No (RARE) Constitutional Vital Sign - Last 24 Hours 06/05/18 14:55 Temp 97.9 Pulse 81 Resp 16 B/P (MAP) 123/71 Pulse Ox 98 O2 Delivery Room Air Physical Exam General Appearance: The patient is alert, has no immediate need for airway protection and no current signs of toxicity. Eyes: Pupils equal and round no injection. Ears: TMs pearly mayes, landmarks noted, mild bulging of bilateral TMs, no erythema or injection, no serous otitis. Respiratory: Chest is non tender, lungs are clear to auscultation. Cardiac: regular rate and rhythm. Gastrointestinal: Abdomen is soft and non tender, no masses, bowel sounds normal. Musculoskeletal: Neck: Neck is supple and non tender. Extremities have full range of motion and are non tender. Skin: No rashes or lesions. DIFFERENTIAL DIAGNOSIS: After history and physical exam differential diagnosis was considered for otitis media, otitis externa, eustachian tube dysfunction, foreign body, viral syndrome, seasonal allergies. Medical Decision Making ED Course/Re-evaluation ED Course The patient was admitted to room. A history and physical obtained. Differential diagnoses were considered. After examination the patient was determined there was no otitis media, did discuss this with the patient, I did discuss the possibility of seasonal allergies congealing to the pressure in her ear as well as [place]. Patient expressed understanding, I did recommend Flonase and Zyrtec and following up with her primary care provider next week for reevaluation. She requested understanding was agreeable and discharged home. Decision to Disposition Date: Jun 05, 2018 Decision to Disposition Time: 15:10 Depart Departure Latest Vital Signs Vital Signs Date Time Temp Pulse Resp B/P (MAP) Pulse Ox O2 Delivery O2 Flow Rate FiO2 06/05/18 14:55 97.9 81 16 123/71 98 Room Air Impression: Primary Impression: Seasonal allergies Additional Impression: Ear pain, right Condition: Improved Disposition: HOME OR SELF-CARE Referrals: MAGUI MORRIS APRN-C (PCP) 1 Week Patient Instructions: Allergies (ED), Earache (ED) Additional Instructions: There is no sign of ear infection, I feel that your symptoms are consistent with seasonal type allergies. You do have pressure behind both eardrums. Try taking 1 Zyrtec tablets once a day for the next 7 days. Try Flonase, one spray in each nostril twice a day for the next 7 days. You can try aemr-ujw-mssqejs medication such as ibuprofen or Tylenol for the discomfort. Please follow-up with your primary care provider for any other concerns. Drink plenty of water. Get plenty of rest. Return to the ER for any concerns or worsening symptoms. Problem Qualifiers CRISTINO DONALDSON-BC Jun 05, 2018 15:01
== END 2018-06-05 15:30 | disposition home or self-care (01) ==
LOC: ER 15:29
DX: H92.01 Otalgia, right ear (principal); J30.2 Other seasonal allergic rhinitis
CPT/HCPCS: 99281

== ENCOUNTER 2018-07-18 22:28 | Emergency (ER) | payer MEDICAID ==
[2017-09-24 08:15] VITALS: Wt 59.0 kg
[~2018-07-18 22:28] MED LIST changes: +LAMOT150PT GT
--- NOTE | 2018-07-18 23:06 | ER Report ---
History and Physical Time Seen By MD: 22:56 Hx. of Stated Complaint: chest pain for one month, states today she has been sleeping more and having chills/ hot flashes. HPI/ROS CHIEF COMPLAINT: chest pain HISTORY OF PRESENT ILLNESS: This is a 27 year old female. She has been having chest pain constantly for about 1 month now. She feels it substernal area, squeezing quality, no radiation, worsens with movement. Sometimes feels a little short of breath, but not short of breath now. 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 No nausea or vomiting, no significant heartburn or acid reflux. No cough or fevers. No skin rashes. Normal bowels and urination. Allergies: Coded Allergies: amoxicillin (Verified Allergy, Mild, itching, 02/04/18) naratriptan (Verified Allergy, Unknown, 04/03/18) itching ondansetron HCl (Verified Adverse Reaction, Intermediate, ARRYTHMIA, 02/04/18) ON 16 APR 2012, AFTER ZOFRAN 4MG IVP ADMIN, PT BRADYCARDIC (PULSE 30-35BPM), ARRHTHMIA ON 3-LEAD EKG. sumatriptan (Verified Adverse Reaction, Intermediate, NAUSEA/VOMITING, 02/04/18) nitrofurantoin (Verified Adverse Reaction, Mild, 02/04/18) itching amitriptyline (Verified Adverse Reaction, Unknown, 02/04/18) syncope / orthostatic hypotension ibuprofen (Verified Adverse Reaction, Unknown, REACTION TO COATING ON IBU TABS, 02/04/18) "tears up my stomach" lurasidone (Verified Adverse Reaction, Unknown, NAUSEA/VOMITING, 02/04/18) milnacipran (Verified Adverse Reaction, Unknown, 02/04/18) suicidal ideation Home Meds Active Scripts Duloxetine Hcl (CYMBALTA) 60 Mg Capsule.dr, 1 TAB PO DAILY, #90 TAB 0 Refills Prov:ELVIN SANCHEZ DNP, AMER[employer] HISTORY TEACHER-BC 06/26/18 Gabapentin (GABAPENTIN) 300 Mg Capsule, 1-2 TAB PO BID, #90 CAPSULE 1 Refill 1 cap in the morning and 2 caps at bedtime Prov:MAGUI MORRIS APRN AMER[employer] HISTORY TEACHER-C 05/25/18 Reported Medications Lamotrigine (LAMICTAL) 150 Mg Tablet, 150 MG GT 06/05/18 Aripiprazole (ABILIFY) 2 Mg Tablet, 200 MG PO QDAY, TAB 03/23/18 Reviewed Nurses Notes: Yes Hx Smoking: Yes Smoking Status: Former Smoker Exposure to Second Hand Smoke?: No Hx Substance Use Disorder: No (marijuana HX) Hx Alcohol Use: No (RARE) Constitutional Vital Sign - Last 24 Hours 07/18/18 07/18/18 07/18/18 07/18/18 22:28 22:33 22:35 22:58 Temp 97.9 Pulse ??? 76 70 Resp 16 7 B/P (MAP) 113/69 113/69 (84) Pulse Ox 98 93 O2 Delivery Room Air 07/18/18 07/18/18 07/18/18 07/18/18 23:00 23:28 23:30 23:35 Pulse 70 61 Resp 13 18 B/P (MAP) 113/64 (80) 104/63 (77) Pulse Ox 96 96 07/19/18 07/19/18 07/19/18 07/19/18 00:00 00:05 00:30 00:35 Pulse 62 59 Resp 10 14 B/P (MAP) 116/78 (91) 96/60 (72) Pulse Ox 99 96 07/19/18 07/19/18 07/19/18 07/19/18 01:00 01:05 01:10 01:30 Pulse 67 67 Resp 18 15 B/P (MAP) 93/54 (67) 101/59 (73) Pulse Ox 95 94 07/19/18 01:40 Resp 29 Pulse Ox 96 Intake and Output 07/18/18 07/18/18 07/19/18 15:00 23:00 07:00 Intake Total 1000 ml Balance 1000 ml Physical Exam General Appearance: The patient is alert. No acute distress. Eyes: Pupils are equal, round. No pallor, injection or icterus. ENT: Mucous membranes are moist. Normal oral mucosa. Posterior oropharynx is normal. Neck: Supple and non tender. Respiratory: Lungs are clear to auscultation. Cardiovascular: Regular rate and rhythm. No murmurs, gallops or rubs. Normal capillary refill. No edema. Gastrointestinal: Abdomen is soft and non tender. Nondistended. Normal active bowel sounds. Neurological: Alert and oriented x3. Skin: Warm and dry. No rashes. Musculoskeletal: Has some pain with palpation over the central chest over sternum and costochondral area. Full range of motion. No tenderness in palpation of the cervical, thoracic and lumbar spine. DIFFERENTIAL DIAGNOSIS: After history and physical exam, differential diagnosis was considered for chest pain including but not limited to myocardial ischemia, pericarditis pulmonary embolus, chest wall pain, pleural inflammation and pulmonary infectious causes. Medical Decision Making Data Points Result Diagram: 07/18/18 2322 07/18/18 2322 Laboratory Hematology Test 07/18/18 23:22 Red Blood Count 4.49 M/uL (4.17-5.56) Mean Corpuscular Volume 94.0 fL (80.0-96.0) Mean Corpuscular Hemoglobin 32.5 pg (26.0-33.0) Mean Corpuscular Hemoglobin Concent 34.6 g/dL (32.0-36.0) Red Cell Distribution Width 12.1 % (11.5-14.5) Mean Platelet Volume 7.8 fL (7.2-11.1) Neutrophils (%) (Auto) 63.7 % (39.4-72.5) Lymphocytes (%) (Auto) 27.0 % (17.6-49.6) Monocytes (%) (Auto) 6.1 % (4.1-12.4) Eosinophils (%) (Auto) 2.3 % (0.4-6.7) Basophils (%) (Auto) 0.9 % (0.3-1.4) Nucleated RBC Relative Count (auto) 0.0 /100WBC Neutrophils # (Auto) 4.4 K/uL (2.0-7.4) Lymphocytes # (Auto) 1.9 K/uL (1.3-3.6) Monocytes # (Auto) 0.4 K/uL (0.3-1.0) Eosinophils # (Auto) 0.2 K/uL (0.0-0.5) Basophils # (Auto) 0.1 K/uL (0.0-0.1) Nucleated RBC Absolute Count (auto) 0.00 K/uL D-Dimer Quantitative (PE/DVT) < 0.27 ug/ml (0-0.50) Sodium Level 139 mmol/L (137-145) Potassium Level 3.7 mmol/L (3.5-5.0) Chloride Level 105 mmol/L (98-107) Carbon Dioxide Level 27 mmol/L (22-31) Blood Urea Nitrogen 16 mg/dl (7-18) Creatinine 0.80 mg/dl (0.52-1.04) Glomerular Filtration Rate Calc > 60.0 Random Glucose 86 mg/dl (75-110) Calcium Level 8.8 mg/dl (8.4-10.2) Total Bilirubin 1.1 mg/dl (0.2-1.3) Aspartate Amino Transf (AST/SGOT) 13 U/L (0-35) Alanine Aminotransferase (ALT/SGPT) 20 U/L (0-56) Alkaline Phosphatase 50 U/L (0-126) Troponin I < 0.012 ng/ml C-Reactive Protein < 0.5 mg/dl (<1.0) B-Type Natriuretic Peptide 29 pg/ml (0-100) Total Protein 6.3 g/dl (6.3-8.2) Albumin 3.8 g/dl (3.5-5.0) Human Chorionic Gonadotropin, Qual Negative (NEGATIVE) Chemistry Test 07/18/18 23:22 White Blood Count 6.9 k/uL (4.5-11.0) Red Blood Count 4.49 M/uL (4.17-5.56) Hemoglobin 14.6 g/dL (12.0-16.0) Hematocrit 42.1 % (34.0-47.0) Mean Corpuscular Volume 94.0 fL (80.0-96.0) Mean Corpuscular Hemoglobin 32.5 pg (26.0-33.0) Mean Corpuscular Hemoglobin Concent 34.6 g/dL (32.0-36.0) Red Cell Distribution Width 12.1 % (11.5-14.5) Platelet Count 194 K/uL (150-450) Mean Platelet Volume 7.8 fL (7.2-11.1) Neutrophils (%) (Auto) 63.7 % (39.4-72.5) Lymphocytes (%) (Auto) 27.0 % (17.6-49.6) Monocytes (%) (Auto) 6.1 % (4.1-12.4) Eosinophils (%) (Auto) 2.3 % (0.4-6.7) Basophils (%) (Auto) 0.9 % (0.3-1.4) Nucleated RBC Relative Count (auto) 0.0 /100WBC Neutrophils # (Auto) 4.4 K/uL (2.0-7.4) Lymphocytes # (Auto) 1.9 K/uL (1.3-3.6) Monocytes # (Auto) 0.4 K/uL (0.3-1.0) Eosinophils # (Auto) 0.2 K/uL (0.0-0.5) Basophils # (Auto) 0.1 K/uL (0.0-0.1) Nucleated RBC Absolute Count (auto) 0.00 K/uL D-Dimer Quantitative (PE/DVT) < 0.27 ug/ml (0-0.50) Glomerular Filtration Rate Calc > 60.0 Calcium Level 8.8 mg/dl (8.4-10.2) Total Bilirubin 1.1 mg/dl (0.2-1.3) Aspartate Amino Transf (AST/SGOT) 13 U/L (0-35) Alanine Aminotransferase (ALT/SGPT) 20 U/L (0-56) Alkaline Phosphatase 50 U/L (0-126) Troponin I < 0.012 ng/ml C-Reactive Protein < 0.5 mg/dl (<1.0) B-Type Natriuretic Peptide 29 pg/ml (0-100) Total Protein 6.3 g/dl (6.3-8.2) Albumin 3.8 g/dl (3.5-5.0) Human Chorionic Gonadotropin, Qual Negative (NEGATIVE) Coagulation Test 07/18/18 23:22 D-Dimer Quantitative (PE/DVT) < 0.27 ug/ml EKG/Imaging EKG Interpretation 12 lead EKG: Rhythm: Normal sinus rhythm, rate 64 [place]: normal QRS: normal ST segments: Nonspecific T-wave flattening, no elevation or depression of ST segments Imaging TWO VIEW CHEST 07/19/2018 12:01 AM. INDICATION: Chest pain for one month. COMPARISON: Multiple prior examinations including CTA chest 10/09/2017 and 09/26/1917 as well as chest radiograph 09/26/2017. FINDINGS: Lungs are well-expanded. The lungs are clear. No pneumothorax or pleural effusion. Heart size is normal. Cholecystectomy clips. IMPRESSION: No acute abnormality. Report Dictated By: Edgar He MD at 07/19/2018 12:08 AM ED Course/Re-evaluation Clinical Indication for ER IV: Hydration, IV Access ED Course Laboratory studies are negative as are her EKG and chest x-ray. Reviewed this with the patient. This may be stress related, could be inflammation in the chest wall, could be related to GI symptoms that she is under a lot of stress recently. Recommended trial of Zantac or Pepcid. Recommended follow-up with her primary care provider and she does have an appointment this week. Recommended th at she talk to her provider about other studies could be done including possible need for stress testing. Decision to Disposition Date: July 19, 2018 Decision to Disposition Time: 01:24 Depart Departure Latest Vital Signs Vital Signs Date Time Temp Pulse Resp B/P (MAP) Pulse Ox O2 Delivery O2 Flow Rate FiO2 07/19/18 01:40 29 96 07/19/18 01:30 101/59 (73) 07/19/18 01:10 67 07/18/18 22:33 97.9 Room Air Impression: Primary Impression: Chest pain of unknown etiology Condition: Improved Disposition: HOME OR SELF-CARE Referrals: MAGUI MORRIS APRNP-C (PCP) Patient Instructions: Chest Pain (ED) Additional Instructions: We did not find an exact cause for chest pain tonight. Most likely, this undifferentiated chest pain is coming from you GI tract, from inflammation in the stomach or esophagus. This can be made worse by the recent stress that you have been under. Follow-up with your PCP this week as planned and discuss the possibility of further testing. Things like upper endoscopy can be done, or a stress test if felt that this could be cardiac related. Take Zantac 150mg twice a day for Pepcid 20mg twice a day. KIRSTIN ARRIAGA MD July 18, 2018 23:06
[2018-07-18] MEDS ORDERED: NS(*) 0.9% 1000 ML BAG 1,000 ML IV ONE (23:07)
[2018-07-18] MEDS ORDERED: ASPIRIN 81 MG CHEW PO ONE (23:10)
[2018-07-18 23:43] LABS: PLATELET COUNT, AUTOMATED 194 K/uL (150-450)
--- NOTE | 2018-07-19 00:05 | EKG ---
FACILITY: [facility] - [place] PATIENT NAME: MARCELINO PEREZ : [id number] MR: [id number] V: [id number] EXAM DATE: ORDERING PHYSICIAN: KIRSTIN ARRIAGA TECHNOLOGIST: ANALILIA Hanson Reason : CP Blood Pressure : / mmHG Vent. Rate : 064 BPM Atrial Rate : 064 BPM P-R Int : 140 ms QRS Dur : 086 ms QT Int : 394 ms P-R-T Axes : 056 033 048 degrees QTc Int : 406 ms Normal sinus rhythm Nonspecific T wave abnormality Abnormal ECG Confirmed by JUAN ALBERTO DE LA CRUZ ([id number]) on 07/19/2018 7:43:43 PM Referred By: Confirmed By:JUAN ALBERTO DE LA CRUZ
--- NOTE | 2018-07-19 00:14 | RADIOLOGY IMAGING REPORT ---
FACILITY: [facility] PATIENT NAME: Jayna Gee : 1990 MR: [id number] V: [id number] EXAM DATE: ORDERING PHYSICIAN: KIRSTIN ARRIAGA TECHNOLOGIST: Location: [facility] Patient: Jayna Gee : 1990 Visit/Account:[id number] Date of Sevice: 07/18/2018 TWO VIEW CHEST 07/19/2018 12:01 AM. INDICATION: Chest pain for one month. COMPARISON: Multiple prior examinations including CTA chest 10/09/2017 and 09/26/1917 as well as chest r adiograph 09/26/2017. FINDINGS: Lungs are well-expanded. The lungs are clear. No pneumothorax or pleural effusion. Heart size is normal. Cholecystectomy clips. IMPRESSION: No acute abnormality. Report Dictated By: Edgar He MD at 07/19/2018 12:08 AM Report E-Signed By: Edgar He MD at 07/19/2018 12:10 AM WSN:[id number]
[2018-07-19] MEDS ORDERED: RANITIDINE HCL 150 MG TAB PO ONE (01:25)
[2018-07-19 01:30] VITALS: BP 101/59
[2018-07-21] MEDS ORDERED: GABA-549 PO (14:41)
== END 2018-07-19 01:42 | disposition home or self-care (01) ==
LOC: ER 23:01
DX: R07.9 Chest pain, unspecified (principal)
CPT/HCPCS: 71046; 83880; 84484; 84703; 85025; 85379; 86140; 93005; 96360; 99284; J7030; 82040; 82247; 82310; 82374; 82435; 82565; 82947; 84075; 84132; 84155; 84295; 84450; 84460; 84520

== ENCOUNTER 2018-08-07 22:28 | Emergency (ER) | payer MEDICAID ==
[2017-09-24 08:15] VITALS: Wt 57.6 kg
[~2018-08-07 22:28] MED LIST changes: -ARIP10TA4 PO; -DULO60CA7 PO; -LAMO25TA64 PO; -NICO-219 BC; -OMEP-125 PO; +OMEP-126 PO
[2018-08-07 23:06] LABS: PLATELET COUNT, AUTOMATED 234 K/uL (150-450)
--- NOTE | 2018-08-07 23:27 | ER Report ---
History and Physical Time Seen By MD: 23:26 Hx. of Stated Complaint: ANXIETY FOR 3 DAYS, THINKING ABOUT KILLING HERSELF. HPI/ROS CHIEF COMPLAINT: Suicidal ideation HISTORY OF PRESENT ILLNESS: 28-year-old female presents ambulatory to the ER stating that she's been having suicidal thoughts in [place] to cut on herself for the last 3 days. She has a long history of mental illness with previous admissions to [facility] the last was nearly a year ago. Patient states she is compliant on her medication. She denies drug or alcohol use. She states she was at her counselor one day ago but failed to mention she was having a suicidal thoughts. She sees Lenore Lanza. REVIEW OF SYSTEMS: Respiratory: No cough, no dyspnea. Cardiovascular: No chest pain, no palpitations. Gastrointestinal: No vomiting, no abdominal pain. Musculoskeletal: No back pain. Allergies: Coded Allergies: amoxicillin (Verified Allergy, Mild, itching, 02/04/18) naratriptan (Verified Allergy, Unknown, 04/03/18) itching ondansetron HCl (Verified Adverse Reaction, Intermediate, ARRYTHMIA, 02/04/18) ON 16 APR 2012, AFTER ZOFRAN 4MG IVP ADMIN, PT BRADYCARDIC (PULSE 30-35BPM), ARRHTHMIA ON 3-LEAD EKG. sumatriptan (Verified Adverse Reaction, Intermediate, NAUSEA/VOMITING, 02/04/18) nitrofurantoin (Verified Adverse Reaction, Mild, 02/04/18) itching amitriptyline (Verified Adverse Reaction, Unknown, 02/04/18) syncope / orthostatic hypotension ibuprofen (Verified Adverse Reaction, Unknown, REACTION TO COATING ON IBU TABS, 02/04/18) "tears up my stomach" lurasidone (Verified Adverse Reaction, Unknown, NAUSEA/VOMITING, 02/04/18) milnacipran (Verified Adverse Reaction, Unknown, 02/04/18) suicidal ideation Home Meds Active Scripts Aripiprazole (ABILIFY) 2 Mg Tablet, 400 MG IM Q30D, #1 VIAL Prov:ELVIN SANCHEZ DNP, [facility] LIAISON-BC 08/07/18 Gabapentin (GABAPENTIN) 300 Mg Capsule, 1-2 TAB PO BID, #90 CAPSULE 5 Refills 1 cap in the morning and 2 caps at bedtime Prov:MAGUI MORRIS APRN [facility] LIAISON-C 07/21/18 Duloxetine Hcl (CYMBALTA) 60 Mg Capsule.dr, 1 TAB PO DAILY, #90 TAB 0 Refills Prov:ELVIN SANCHEZ DNP, [facility] LIAISON-BC 06/26/18 Reported Medications Lamotrigine (LAMICTAL) 150 Mg Tablet, 150 MG GT 06/05/18 Reviewed Nurses Notes: Yes Old Medical Records Reviewed: Yes Hx Smoking: Yes Smoking Status: Former Smoker Exposure to Second Hand Smoke?: No Hx Substance Use Disorder: No (marijuana HX) Hx Alcohol Use: No (RARE) Constitutional Vital Sign - Last 24 Hours 08/07/18 08/07/18 08/07/18 22:41 23:28 23:34 Temp 98.5 Pulse 89 84 Resp 16 B/P (MAP) 125/84 132/87 (102) Pulse Ox 97 97 Physical Exam General appearance: Alert no distress. Respiratory: Chest is non tender, lungs are clear to auscultation. Cardiac: Regular rate and rhythm Extremities without evidence of cut montoya. Neurovascularly intact DIFFERENTIAL DIAGNOSIS: After history and physical exam differential diagnosis was considered for depression including functional and major depression, situational depression, medication side effect, drugs and alcohol abuse. Medical Decision Making Data Points Result Diagram: 08/07/18225508/07/182255 Laboratory Hematology Test 08/07/18 22:38 08/07/18 22:56 Urine Color Yellow Urine Clarity Cloudy Urine pH 5.0 pH (4.8-9.5) Urine Specific [place] 1.026 Urine Protein Negative mg/dL (NEGATIVE) Urine Glucose (UA) Negative mg/dL (NEGATIVE) Urine Ketones Negative mg/dL (NEGATIVE) Urine Blood Negative (NEGATIVE) Urine Nitrite Negative (NEGATIVE) Urine Bilirubin Negative (NEGATIVE) Urine Urobilinogen Negative mg/dL (0.2-1.9) Urine Leukocyte Esterase Trace (NEGATIVE) Urine RBC 1 /HPF (0-2/HPF) Urine WBC 2 /HPF (0-5/HPF) Urine Squamous Epithelial Cells Many /LPF (</=FEW) Urine Bacteria Negative /HPF (NONE-FEW) Urine Mucus Few /HPF (NONE-FEW) Urine Opiates Screen Negative Urine Barbiturates Screen Negative Ur Tricyclic Antidepressants Screen Negative Urine Phencyclidine Screen Negative Urine Amphetamines Screen Negative Urine Benzodiazepines Screen Negative Urine Cocaine Screen Negative Urine Cannabinoids Screen Negative Red Blood Count 4.51 M/uL (4.17-5.56) Mean Corpuscular Volume 93.2 fL (80.0-96.0) Mean Corpuscular Hemoglobin 32.2 pg (26.0-33.0) Mean Corpuscular Hemoglobin Concent 34.6 g/dL (32.0-36.0) Red Cell Distribution Width 12.4 % (11.5-14.5) Mean Platelet Volume 7.6 fL (7.2-11.1) Neutrophils (%) (Auto) 68.1 % (39.4-72.5) Lymphocytes (%) (Auto) 22.4 % (17.6-49.6) Monocytes (%) (Auto) 5.9 % (4.1-12.4) Eosinophils (%) (Auto) 1.4 % (0.4-6.7) Basophils (%) (Auto) 2.2 % (0.3-1.4) Nucleated RBC Relative Count (auto) 0.0 /100WBC Neutrophils # (Auto) 4.6 K/uL (2.0-7.4) Lymphocytes # (Auto) 1.5 K/uL (1.3-3.6) Monocytes # (Auto) 0.4 K/uL (0.3-1.0) Eosinophils # (Auto) 0.1 K/uL (0.0-0.5) Basophils # (Auto) 0.1 K/uL (0.0-0.1) Nucleated RBC Absolute Count (auto) 0.00 K/uL Sodium Level 141 mmol/L (137-145) Potassium Level 3.5 mmol/L (3.5-5.0) Chloride Level 106 mmol/L (98-107) Carbon Dioxide Level 24 mmol/L (22-31) Blood Urea Nitrogen 20 mg/dl (7-18) Creatinine 0.60 mg/dl (0.52-1.04) Glomerular Filtration Rate Calc > 60.0 Random Glucose 106 mg/dl (75-110) Calcium Level 9.6 mg/dl (8.4-10.2) Magnesium Level 1.9 mg/dl (1.7-2.2) Total Bilirubin 1.5 mg/dl (0.2-1.3) Aspartate Amino Transf (AST/SGOT) 15 U/L (0-35) Alanine Aminotransferase (ALT/SGPT) 12 U/L (0-56) Alkaline Phosphatase 54 U/L (0-126) Total Protein 7.0 g/dl (6.3-8.2) Albumin 4.3 g/dl (3.5-5.0) Human Chorionic Gonadotropin, Qual Negative (NEGATIVE) Salicylates Level < 10 mg/L Salicylate Last Dose Date ? Acetaminophen Level < 10 ug/ml Serum Alcohol < 10 mg/dl Chemistry Test 08/07/18 22:38 08/07/18 22:56 Urine Color Yellow Urine Clarity Cloudy Urine pH 5.0 pH (4.8-9.5) Urine Specific [place] 1.026 Urine Protein Negative mg/dL (NEGATIVE) Urine Glucose (UA) Negative mg/dL (NEGATIVE) Urine Ketones Negative mg/dL (NEGATIVE) Urine Blood Negative (NEGATIVE) Urine Nitrite Negative (NEGATIVE) Urine Bilirubin Negative (NEGATIVE) Urine Urobilinogen Negative mg/dL (0.2-1.9) Urine Leukocyte Esterase Trace (NEGATIVE) Urine RBC 1 /HPF (0-2/HPF) Urine WBC 2 /HPF (0-5/HPF) Urine Squamous Epithelial Cells Many /LPF (</=FEW) Urine Bacteria Negative /HPF (NONE-FEW) Urine Mucus Few /HPF (NONE-FEW) Urine Opiates Screen Negative Urine Barbiturates Screen Negative Ur Tricyclic Antidepressants Screen Negative Urine Phencyclidine Screen Negative Urine Amphetamines Screen Negative Urine Benzodiazepines Screen Negative Urine Cocaine Screen Negative Urine Cannabinoids Screen Negative White Blood Count 6.7 k/uL (4.5-11.0) Red Blood Count 4.51 M/uL (4.17-5.56) Hemoglobin 14.5 g/dL (12.0-16.0) Hematocrit 42.0 % (34.0-47.0) Mean Corpuscular Volume 93.2 fL (80.0-96.0) Mean Corpuscular Hemoglobin 32.2 pg (26.0-33.0) Mean Corpuscular Hemoglobin Concent 34.6 g/dL (32.0-36.0) Red Cell Distribution Width 12.4 % (11.5-14.5) Platelet Count 234 K/uL (150-450) Mean Platelet Volume 7.6 fL (7.2-11.1) Neutrophils (%) (Auto) 68.1 % (39.4-72.5) Lymphocytes (%) (Auto) 22.4 % (17.6-49.6) Monocytes (%) (Auto) 5.9 % (4.1-12.4) Eosinophils (%) (Auto) 1.4 % (0.4-6.7) Basophils (%) (Auto) 2.2 % (0.3-1.4) Nucleated RBC Relative Count (auto) 0.0 /100WBC Neutrophils # (Auto) 4.6 K/uL (2.0-7.4) Lymphocytes # (Auto) 1.5 K/uL (1.3-3.6) Monocytes # (Auto) 0.4 K/uL (0.3-1.0) Eosinophils # (Auto) 0.1 K/uL (0.0-0.5) Basophils # (Auto) 0.1 K/uL (0.0-0.1) Nucleated RBC Absolute Count (auto) 0.00 K/uL Glomerular Filtration Rate Calc > 60.0 Calcium Level 9.6 mg/dl (8.4-10.2) Magnesium Level 1.9 mg/dl (1.7-2.2) Total Bilirubin 1.5 mg/dl (0.2-1.3) Aspartate Amino Transf (AST/SGOT) 15 U/L (0-35) Alanine Aminotransferase (ALT/SGPT) 12 U/L (0-56) Alkaline Phosphatase 54 U/L (0-126) Total Protein 7.0 g/dl (6.3-8.2) Albumin 4.3 g/dl (3.5-5.0) Human Chorionic Gonadotropin, Qual Negative (NEGATIVE) Salicylates Level < 10 mg/L Salicylate Last Dose Date ? Acetaminophen Level < 10 ug/ml Serum Alcohol < 10 mg/dl Toxicology Test 08/07/18 22:38 08/07/18 22:56 Urine Opiates Screen Negative Urine Barbiturates Screen Negative Ur Tricyclic Antidepressants Screen Negative Urine Phencyclidine Screen Negative Urine Amphetamines Screen Negative Urine Benzodiazepines Screen Negative Urine Cocaine Screen Negative Urine Cannabinoids Screen Negative Salicylates Level < 10 mg/L Salicylate Last Dose Date ? Acetaminophen Level < 10 ug/ml Serum Alcohol < 10 mg/dl Urinalysis Test 08/07/18 22:38 Urine Color Yellow Urine Clarity Cloudy Urine pH 5.0 pH (4.8-9.5) Urine Specific [place] 1.026 Urine Protein Negative mg/dL (NEGATIVE) Urine Glucose (UA) Negative mg/dL (NEGATIVE) Urine Ketones Negative mg/dL (NEGATIVE) Urine Blood Negative (NEGATIVE) Urine Nitrite Negative (NEGATIVE) Urine Bilirubin Negative (NEGATIVE) Urine Urobilinogen Negative mg/dL (0.2-1.9) Urine Leukocyte Esterase Trace (NEGATIVE) Urine RBC 1 /HPF (0-2/HPF) Urine WBC 2 /HPF (0-5/HPF) Urine Squamous Epithelial Cells Many /LPF (</=FEW) Urine Bacteria Negative /HPF (NONE-FEW) Urine Mucus Few /HPF (NONE-FEW) ED Course/Re-evaluation ED Course Patient was admitted to an examination room. H&P was done. The differential diagnosis was considered. Patient presents requesting voluntary admission to [facility] for 3 days of suicidal ideation. Patient plans on self cutting. She has a history of cutting. Patient denies any drug ingestion. Her diagnostic studies are unremarkable. Her case is discussed with behavioral health telephone betting clerk. 08/07/2018 11:52:08 pm case discussed with Mica Cadena nurse practitioner a behavioral health. Decision to Disposition Date: August 07, 2018 Decision to Disposition Time: 23:26 Depart Departure Latest Vital Signs Vital Signs Date Time Temp Pulse Resp B/P (MAP) Pulse Ox O2 Delivery O2 Flow Rate FiO2 08/07/18 23:34 132/87 (102) 08/07/18 23:28 84 97 08/07/18 22:41 98.5 16 Impression: Primary Impression: Depression with suicidal ideation Additional Impression: Anxiety Condition: Improved Disposition: XFER TO [facility] Referrals: MAGUI MORRIS APRN [facility]SFER LIAISON-C (PCP) Problem Qualifiers DOUGLAS GAYTAN DO August 07, 2018 23:27
[2018-08-07 23:34] VITALS: BP 132/87
[2018-08-09] MEDS ORDERED: DULO60CA7 PO (09:31)
[2018-08-09] MEDS ORDERED: LAMO25TA64 PO (09:33)
[2018-08-09] MEDS ORDERED: GABA-549 PO ×2 (09:34→09:35)
[2018-08-09] MEDS ORDERED: MULT-1379 PO (09:35)
[2018-08-09] MEDS ORDERED: ARIP10TA4 PO (09:36)
[2018-08-09] MEDS ORDERED: NICO-219 BC (09:43)
== END 2018-08-08 00:28 ==
LOC: ER 23:28
DX: F32.9 Major depressive disorder, single episode, unspecified (principal); R45.851 Suicidal ideations; F41.9 Anxiety disorder, unspecified
CPT/HCPCS: 36415; 80305; 81001; 83735; 84443; 84703; 85025; 99284; G0480; 80320; 80329; 82040; 82247; 82310; 82374; 82435; 82565; 82947; 84075; 84132; 84155; 84295; 84450; 84460; 84520

== ENCOUNTER → 2018-08-07 | Outpatient (CLI) | payer MEDICAID ==
[2017-09-24 08:15] VITALS: BMI 20.3
[~2018-08-07] MED LIST changes: +ARI2 IM; +ARIP10TA4 PO; +DULO60CA7 PO; +LAMO25TA64 PO; +NICO-219 BC
[2018-08-07 14:21] LABS: PLATELET COUNT, AUTOMATED 254 K/uL (150-450)
== END ==
LOC: LAB 13:47
PROVIDERS: ATTEND Nurse Practitioner Primary Care
DX: R07.9 Chest pain, unspecified (principal)
CPT/HCPCS: 36415; 82040; 82247; 82310; 82374; 82435; 82565; 82947; 84075; 84132; 84155; 84295; 84450; 84460; 84484; 84520; 85025; 85379

== ENCOUNTER 2018-08-08 | Inpatient (IN) | payer MEDICAID ==
[2017-09-24 08:15] VITALS: Ht 165.1 cm; Wt 57.6 kg
[~2018-08-08] VITALS: Ht 165.1 cm; Wt 57.6 kg
[2018-08-08 00:35] VITALS: BP 121/91
[2018-08-08] MEDS ORDERED: MAG HYD/AL HYD/SIMETH 30ML UDC PO PRN (02:10)
[2018-08-08] MEDS: NICOTINE POLACRILEX 2 MG GUM PO PRN ×4 (08:45→18:17)
[2018-08-08] MEDS: MULTIVITAMINS TAB PO SCH (09:00)
[2018-08-08] MEDS ORDERED: DULoxetine HCL 30 MG CAPCR PO SCH ×2 (09:05→21:00)
[2018-08-08] MEDS ORDERED: ARIPiprazole 2 MG TAB PO SCH (09:05)
[2018-08-08] MEDS ORDERED: lamoTRIgine 100 MG TAB PO SCH ×2 (09:05→21:00)
[2018-08-08] MEDS: GABAPENTIN 300 MG CAP PO SCH ×2 (10:45→20:28)
[2018-08-08 11:15] VITALS: BP 112/63
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
[2018-08-08 20:05] VITALS: BP 100/79
[2018-08-08] MEDS ORDERED: ARIPiprazole 10 MG TAB PO SCH (21:00)
[2018-08-08] MEDS ORDERED: GABAPENTIN 300 MG CAP PO SCH (21:00)
[2018-08-09 05:15] VITALS: BP 105/65
[2018-08-09] MEDS: NICOTINE POLACRILEX 2 MG GUM PO PRN (08:15)
[2018-08-09] MEDS: MULTIVITAMINS TAB PO SCH (08:16)
[2018-08-09] MEDS ORDERED: GABAPENTIN 300 MG CAP PO SCH (09:00)
[2018-08-09] MEDS ORDERED: DULO60CA7 PO (09:31)
--- NOTE | 2018-08-09 09:32 | BHS Progress Note ---
BHS - Subjective Progress Notes Subjective "I feel a lot better. I was just really exhausted. I want to go home today." Denies depression or thoughts of hurting self Denies urge to cut or self harm Denies anxiety or anger Slept well, denies racing thoughts Discuss in length her upcoming appointments and outpatient follow up d Suicidal Ideation: None Homicidal Ideation: None BHS - Objective Physical Exam Vital Signs Medications (Trade) Dose Ordered Sig/Nisha Route PRN Reason Start Time Stop Time Status Last Admin Dose Admin Aripiprazole (Abilify 10 Mg Tab (Or Equiv)) 10 mg QHS PO 08/08/18 21:00 09/07/18 20:59 08/08/18 20:29 Duloxetine HCl (Cymbalta 30 Mg Capcr (Or Equiv)) 60 mg QHS PO 08/08/18 21:00 09/07/18 20:59 08/08/18 20:29 Gabapentin (Neurontin(*) 300 Mg Cap (Or Equiv)) 600 mg QHS PO 08/08/18 21:00 09/07/18 20:59 08/08/18 20:29 Lamotrigine (LaMICtal 100 MG TAB (OR EQUIV)) 150 mg QHS PO 08/08/18 21:00 09/07/18 20:59 08/08/18 20:30 Nicotine Polacrilex (Nicorette 2 Mg Gum (Or Equiv)) 2 mg Q1-2H PRN PO NICOTINE REPLACEMET 08/08/18 08:30 09/07/18 08:29 08/09/18 08:15 Muscle Strength and Tone: WNL Gait and Station: Steady [facility] Medications Reviewed: Side Effects, Benefits of Medication, Risks Allergies Reviewed: Yes Mental Status Exam General Appearance: Casual, Well Groomed, Good Eye Contact, Cooperative, Polite, Good Interaction Speech: Spontaneous, Normal Rate, Normal Rhythm, Normal Volume, Normal Tone Mood: Euthymic; No Hyperthymic Affect: Full and Appropriate, Calm; No Sad, No Neutral, No Flat, No Withdrawn, No Tearful, No Anxious, No Agitated Thought Process: Organized, Logical, Goal Directed; No Loose Associations, No Flight of Ideas Thought Content: No Suicidal Ideation, No Homicidal Ideation, No Delusions, No Auditory Halllucinations, No Visual Hallucinations, No Thought Broadcasting, No Ideas of Reference, No Obsessions, No Compulsions Sensorium: Clear Cognition: Alert & Oriented-Person, Alert & Oriented-Place, Alert & Oriented- Time, Oozse-Orxyslas-Tldldoojf Memory: Immediate, Recent, Remote Intelligence: Average Insight Judgment: Good Additional Findings/Notes: Medications (Trade) Dose Ordered Sig/Nisah Route PRN Reason Start Time Stop Time Status Last Admin Dose Admin Aripiprazole (Abilify 10 Mg Tab (Or Equiv)) 10 mg QHS PO 08/08/18 21:00 09/07/18 20:59 08/08/18 20:29 Duloxetine HCl (Cymbalta 30 Mg Capcr (Or Equiv)) 60 mg QHS PO 08/08/18 21:00 09/07/18 20:59 08/08/18 20:29 Gabapentin (Neurontin(*) 300 Mg Cap (Or Equiv)) 600 mg QHS PO 08/08/18 21:00 09/07/18 20:59 08/08/18 20:29 Lamotrigine (LaMICtal 100 MG TAB (OR EQUIV)) 150 mg QHS PO 08/08/18 21:00 09/07/18 20:59 08/08/18 20:30 Nicotine Polacrilex (Nicorette 2 Mg Gum (Or Equiv)) 2 mg Q1-2H PRN PO NICOTINE REPLACEMET 08/08/18 08:30 09/07/18 08:29 08/09/18 08:15 [facility] Assessment and Plan [id number] Encounter Date: Aug 09, 2018 [id number] Encounter Time: 09:21 [facility] Plan: Admit to Unit, Necessary Precautions, Individual/Group Therapy, Educate Patient Tobacco Medications: Not Appropriate Condition Multpiple Antipsychotics Used: No Problems: (1) Adjustment disorder with mixed anxiety and depressed mood (2) Cluster B personality disorder Condition Discharge to home Discharge medications per medications reconciliation Abstain from ETOH.illicit substances Encourage outpatient individual therapy and medication management Return to emergency room for suicidal/homicidal ideation KRISTI ZAMORA NP Aug 09, 2018 09:32
[2018-08-09] MEDS ORDERED: LAMO25TA64 PO (09:33)
[2018-08-09] MEDS ORDERED: GABA-549 PO ×2 (09:34→09:35)
[2018-08-09] MEDS ORDERED: MULT-1379 PO (09:35)
[2018-08-09] MEDS ORDERED: ARIP10TA4 PO (09:36)
[2018-08-09] MEDS ORDERED: NICO-219 BC (09:43)
[2018-08-09 09:53] VITALS: BP 102/68
--- NOTE | 2018-08-10 01:25 | DISCHARGE SUMMARY ---
DATE OF ADMISSION: August 07, 2018 DATE OF DISCHARGE: August 09, 2018 ATTENDING PROVIDER Mica Cadena, Psychiatric Mental Health Nurse Practitioner FINAL DIAGNOSES PER DSM-V Adjustment disorder with mixed anxiety and depressed mood. Cluster B personality disorder. Persistent depressive disorder. Alcohol and cannabis use disorders, current remission. REASON FOR ADMISSION/BRIEF HISTORY This patient is a 28-year-old female who presented to the emergency department on a voluntary basis requesting admission to Behavioral Health Unit for suicidal ideation with a plan to cut herself. She reported she had been having thoughts of self-harm for the last three days. She had gone off of her medications. She currently does have an individual outpatient therapist, Irma Lanza, whom she meets with twice per week, as well as a medication management provider, Meryl Calderon, Psychiatric Mental Health Nurse Practitioner. Patient reports that she and her family had been on vacation for two weeks to [place], where her fdeyjy-bj-ggs lives. She had gotten into an argument with her [id number]. She reports that their relationship is strained because of her mental state and her history of mental health issues, which the pydyqi-sj-uxj is not supportive of. Patient reported that she had thoughts of self-harming by cutting the night of admission, which were 10/10. She reports her last suicide attempt was in September 2017, at which time she overdosed and was admitted to Behavioral Health Unit at that time. Patient has had multiple inpatient psychiatric admissions to the Behavioral Health Unit under similar circumstances. 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 She has been free of alcohol and cannabis use during that time. She reports a good relationship with her . She also has three small children, and she had requested inpatient voluntary admission to prevent self-harm behaviors. PHYSICAL EXAMINATION Please see emergency room notes for physical exam. Vital signs at time of admission include temperature of 99.3, pulse 82, respiratory rate 16, blood pressure 121/91, pulse oximetry 97% on room air. Vital signs at time of discharge include temperature of 98.2, pulse 66, respiratory rate 16, blood pressure 102/68, pulse oximetry 95% on room air. LABORATORY DATA CBC within normal limits. Chemistry panel within normal limits, with elevated BUN of 20, elevated total bilirubin of 1.5. Thyroid stimulating hormone is pending. HCG qualitative is negative. Urine screen with trace amount of leukocyte esterase, many squamous epithelial cells. Toxicology includes salicylate, acetaminophen, serum alcohol levels less than 10. Urine screen negative for opiates, barbiturates, tricyclics, phencyclidine, amphetamines, benzodiazepines, cocaine, and cannabinoids. MENTAL STATUS EXAMINATION GENERAL APPEARANCE, BEHAVIOR AND ATTITUDE: Patient is calm and cooperative at time of discharge interview. No periods of tearfulness. Smiling and interacting well with team members. No psychomotor agitation or retardation. SPEECH: Regular rate, rhythm, volume and tone. MOOD: Euthymic. AFFECT: Minimally constricted, mood-congruent. THOUGHT PROCESSES: Logical, goal-directed. No loose associations or flight of ideas. THOUGHT CONTENT: Free of auditory or visual hallucinations, ideas of reference, thought broadcasting, delusions, obsessions, compulsions. Patient denying suicidal or homicidal ideation. SENSORIUM: Clear. COGNITION: Alert and oriented to person, place, time, and situation. MEMORY: Immediate, recent, and remote intact. INTELLIGENCE: Average, based on interview. INSIGHT AND JUDGMENT: Considered improved, as patient agreeable with ongoing outpatient mental health care with appointments established prior to discharge. CONSULTATIONS None. TREATMENT Patient participated in individual and group therapy. HOSPITAL COURSE Patient was able to work on coping mechanisms and identify certain stressors which were a trigger for her thoughts of self-harm. Her medications were restarted, and she has established outpatient mental health appointments with her medication provider, Meryl Calderon, as well as Irma Lanza for individual psychotherapy. DISCHARGE MEDICATIONS 1. Gabapentin 300 mg, one p.o. every a.m., 600 mg p.o. at bedtime. 2. Lamotrigine restarted at 25 mg, one p.o. at bedtime. 3. Duloxetine restarted at 60 mg, one p.o. at bedtime. 4. Abilify restarted at 10 mg, one p.o. at bedtime. 5. Also, she was given nicotine replacement in the form of Nicorette gum 2 mg one to two hours p.r.n. for nicotine replacement. CONDITION OF PATIENT ON DISCHARGE She is stable. She is considered a minimal risk to herself or others. DISPOSITION This patient is discharged to home. She is to take medications only as prescribed. Discharge medications as stated above. She is to follow up with her individual therapist with an appointment set for Friday, August 10, 2018, Irma Lanza, as well as her medication management provider, Meryl Calderon, Psychiatric Mental Health Nurse Practitioner, where she will be resuming her injectable antipsychotic, Abilify. Patient denies any thoughts of self-harm, denies suicidal or homicidal ideation. The crisis line number is given, and encouraged use for worsening symptoms. She is to abstain from alcohol and all illicit substances. She is to return to the emergency room for worsening symptoms, suicidal or homicidal ideation. Patient is competent and agreeable with the above discharge plan. ALMA
== END 2018-08-09 10:23 | disposition home or self-care (01) | DRG 882 ==
LOC: BHS
PROVIDERS: ADMIT Nurse Practitioner Psychiatric/Mental Health; ATTEND Nurse Practitioner Psychiatric/Mental Health
DX: F43.23 Adjustment disorder with mixed anxiety and depressed mood (principal); R45.851 Suicidal ideations; F34.1 Dysthymic disorder; F10.11 Alcohol abuse, in remission; F12.11 Cannabis abuse, in remission; T43.596A Underdosing of other antipsychotics and neuroleptics, initial encounter; T43.216A Underdosing of selective serotonin and norepinephrine reuptake inhibitors, initial encounter; Y90.0 Blood alcohol level of less than 20 mg/100 ml; Z62.810 Personal history of physical and sexual abuse in childhood; Z91.128 Patient's intentional underdosing of medication regimen for other reason; Z91.5 Personal history of self-harm; Z63.1 Problems in relationship with in-laws; Z90.49 Acquired absence of other specified parts of digestive tract

== ENCOUNTER 2018-09-01 09:38 | Emergency (ER) | payer MEDICAID ==
[2017-09-24 08:15] VITALS: Wt 59.0 kg
[~2018-09-01 09:38] MED LIST changes: +ARIP10TA4 PO; +DULO60CA7 PO; +LAMO25TA64 PO; +NAPR500T31 PO; +NICO-219 BC
--- NOTE | 2018-09-01 09:41 | ER Report ---
History and Physical Time Seen By MD: 09:39 HPI/ROS CHIEF COMPLAINT: Chest pain HISTORY OF PRESENT ILLNESS: Patient is a 28-year-old female here with complaints of chest pain which is sharp, severe, located in the left chest radiating to the jaw and the arm which is been present for the past 3 days. Patient denies fevers, admits to chills, nausea without vomiting. Denies prior similar pain. Patient does report that she is under a significant amount of stress currently. Patient is afebrile, tachycardic at time of evaluation, otherwise hemo dynamically stable. REVIEW OF SYSTEMS: Constitutional: No fever, + chills. Eyes: No discharge. ENT: No sore throat. Cardiovascular: + chest pain, no palpitations. Respiratory: No cough, no shortness of breath. Gastrointestinal: No abdominal pain, no vomiting, + nausea Genitourinary: No hematuria. Musculoskeletal: No back pain. Skin: No rashes. Neurological: + headache. Allergies: Coded Allergies: amoxicillin (Verified Allergy, Mild, itching, 02/04/18) naratriptan (Verified Allergy, Unknown, 04/03/18) itching ondansetron HCl (Verified Adverse Reaction, Intermediate, ARRYTHMIA, 02/04/18) ON 16 APR 2012, AFTER ZOFRAN 4MG IVP ADMIN, PT BRADYCARDIC (PULSE 30-35BPM), ARRHTHMIA ON 3-LEAD EKG. sumatriptan (Verified Adverse Reaction, Intermediate, NAUSEA/VOMITING, 02/04/18) nitrofurantoin (Verified Adverse Reaction, Mild, 02/04/18) itching amitriptyline (Verified Adverse Reaction, Unknown, 02/04/18) syncope / orthostatic hypotension ibuprofen (Verified Adverse Reaction, Unknown, REACTION TO COATING ON IBU TABS, 02/04/18) "tears up my stomach" lurasidone (Verified Adverse Reaction, Unknown, NAUSEA/VOMITING, 02/04/18) milnacipran (Verified Adverse Reaction, Unknown, 02/04/18) suicidal ideation Home Meds Active Scripts Cyclobenzaprine Hcl (CYCLOBENZAPRINE HCL) 10 Mg Tablet, 0.5-1 TAB PO TID PRN for muscle pain, #9 TAB 0 Refills Prov:ELVIN SANCHEZ DNP, ASSISTANT STORE MANAGER OPERATIONS-[facility] 08/13/18 Naproxen (NAPROXEN) 500 Mg Tablet, 1 TAB PO BID PRN for PAIN, #10 TAB 0 Refills Prov:ELVIN SANCHEZ Kings DNP, ASSISTANT STORE MANAGER OPERATIONS-[facility] 08/13/18 Reported Medications Nicotine Polacrilex (NICORETTE) 2 Mg Gum, 2 MG BC Q1-2H PRN for NICOTINE REPLACEMENT, GUM 08/09/18 Aripiprazole (ABILIFY) 10 Mg Tablet, 10 MG PO QHS, TAB 08/09/18 Multivits,Th W-Fe,Other Min (THERA-M) 1 Each Tablet, 1 EACH PO QDAY 08/09/18 Gabapentin (GABAPENTIN) 300 Mg Capsule, 600 MG PO QHS, CAPSULE 08/09/18 Gabapentin (GABAPENTIN) 300 Mg Capsule, 300 MG PO QAM, CAPSULE 08/09/18 Lamotrigine (LAMICTAL) 25 Mg Tablet, 25 MG PO QHS 08/09/18 Duloxetine HCl (Duloxetine HCl) 60 Mg Capsule.dr, 60 MG PO QHS 08/09/18 Hx Smoking: Yes Smoking Status: Former Smoker Exposure to Second Hand Smoke?: No Hx Substance Use Disorder: No (marijuana HX) Hx Alcohol Use: No (RARE) Constitutional Vital Sign - Last 24 Hours 09/01/18 09/01/18 09/01/18 09/01/18 09:38 09:41 09:45 10:00 Temp 98.6 Pulse 118 118 Resp 16 B/P (MAP) 122/83 (96) 122/83 128/89 (102) Pulse Ox 98 97 O2 Delivery Room Air 09/01/18 09/01/18 09/01/18 09/01/18 10:08 10:13 10:30 10:43 Pulse 126 108 106 Resp 20 10 20 B/P (MAP) 120/79 (93) Pulse Ox 97 98 92 Physical Exam General Appearance: The patient is alert, has no immediate need for airway protection and no signs of toxicity. Anxious appearing Eyes: Pupils equal and round no pallor or injection. ENT, Mouth: Mucous membranes are moist. Respiratory: There are no retractions, lungs are clear to auscultation. Cardiovascular: Sinus tachycardia Gastrointestinal: Abdomen is soft and non tender, no masses, bowel sounds normal. Neurological: Alert and oriented, no focal neurological findings on examination Skin: Warm and dry, no rashes. Musculoskeletal: Neck is supple non tender. Extremities are nontender, nonswollen and have full range of motion. DIFFERENTIAL DIAGNOSIS: After history and physical exam differential diagnosis was considered for chest pain including but not limited to myocardial ischemia, pericarditis pulmonary embolus, chest wall pain, pleural inflammation and pulmonary infectious causes. Medical Decision Making Data Points Result Diagram: 09/01/18 0955 09/01/18 0955 Laboratory Hematology Test 09/01/18 00:00 09/01/18 09:55 Urine Color Yellow Urine Clarity Clear Urine pH 6.0 pH (4.8-9.5) Urine Specific [place] 1.017 Urine Protein Negative mg/dL (NEGATIVE) Urine Glucose (UA) Negative mg/dL (NEGATIVE) Urine Ketones 20 mg/dL (NEGATIVE) Urine Blood Negative (NEGATIVE) Urine Nitrite Negative (NEGATIVE) Urine Bilirubin Negative (NEGATIVE) Urine Urobilinogen Negative mg/dL (0.2-1.9) Urine Leukocyte Esterase Negative (NEGATIVE) Urine RBC <1 /HPF (0-2/HPF) Urine WBC 1 /HPF (0-5/HPF) Urine Squamous Epithelial Cells Many /LPF (</=FEW) Urine Bacteria Negative /HPF (NONE-FEW) Urine Mucus None /HPF (NONE-FEW) Urine Opiates Screen Negative Urine Barbiturates Screen Negative Ur Tricyclic Antidepressants Screen Negative Urine Phencyclidine Screen Negative Urine Amphetamines Screen Negative Urine Benzodiazepines Screen Negative Urine Cocaine Screen Negative Urine Cannabinoids Screen Negative Red Blood Count 4.94 M/uL (4.17-5.56) Mean Corpuscular Volume 93.2 fL (80.0-96.0) Mean Corpuscular Hemoglobin 32.9 pg (26.0-33.0) Mean Corpuscular Hemoglobin Concent 35.3 g/dL (32.0-36.0) Red Cell Distribution Width 13.0 % (11.5-14.5) Mean Platelet Volume 7.3 fL (7.2-11.1) Neutrophils (%) (Auto) 69.7 % (39.4-72.5) Lymphocytes (%) (Auto) 21.0 % (17.6-49.6) Monocytes (%) (Auto) 7.4 % (4.1-12.4) Eosinophils (%) (Auto) 1.2 % (0.4-6.7) Basophils (%) (Auto) 0.7 % (0.3-1.4) Nucleated RBC Relative Count (auto) 0.0 /100WBC Neutrophils # (Auto) 4.4 K/uL (2.0-7.4) Lymphocytes # (Auto) 1.3 K/uL (1.3-3.6) Monocytes # (Auto) 0.5 K/uL (0.3-1.0) Eosinophils # (Auto) 0.1 K/uL (0.0-0.5) Basophils # (Auto) 0.0 K/uL (0.0-0.1) Nucleated RBC Absolute Count (auto) 0.00 K/uL Prothrombin Time 13.9 seconds (12.0-14.4) Prothromb Time International Ratio 1.06 Activated Partial Thromboplast Time 31 seconds (23-35) D-Dimer Quantitative (PE/DVT) < 0.27 ug/ml (0-0.50) Sodium Level 140 mmol/L (137-145) Potassium Level 3.3 mmol/L (3.5-5.0) Chloride Level 105 mmol/L (98-107) Carbon Dioxide Level 21 mmol/L (22-31) Blood Urea Nitrogen 14 mg/dl (7-18) Creatinine 0.90 mg/dl (0.52-1.04) Glomerular Filtration Rate Calc > 60.0 Random Glucose 104 mg/dl (75-110) Calcium Level 10.0 mg/dl (8.4-10.2) Total Bilirubin 1.6 mg/dl (0.2-1.3) Aspartate Amino Transf (AST/SGOT) 21 U/L (0-35) Alanine Aminotransferase (ALT/SGPT) 25 U/L (0-56) Alkaline Phosphatase 83 U/L (0-126) Troponin I < 0.012 ng/ml Total Protein 8.0 g/dl (6.3-8.2) Albumin 5.0 g/dl (3.5-5.0) Human Chorionic Gonadotropin, Qual Negative (NEGATIVE) Chemistry Test 09/01/18 00:00 09/01/18 09:55 Urine Color Yellow Urine Clarity Clear Urine pH 6.0 pH (4.8-9.5) Urine Specific [place] 1.017 Urine Protein Negative mg/dL (NEGATIVE) Urine Glucose (UA) Negative mg/dL (NEGATIVE) Urine Ketones 20 mg/dL (NEGATIVE) Urine Blood Negative (NEGATIVE) Urine Nitrite Negative (NEGATIVE) Urine Bilirubin Negative (NEGATIVE) Urine Urobilinogen Negative mg/dL (0.2-1.9) Urine Leukocyte Esterase Negative (NEGATIVE) Urine RBC <1 /HPF (0-2/HPF) Urine WBC 1 /HPF (0-5/HPF) Urine Squamous Epithelial Cells Many /LPF (</=FEW) Urine Bacteria Negative /HPF (NONE-FEW) Urine Mucus None /HPF (NONE-FEW) Urine Opiates Screen Negative Urine Barbiturates Screen Negative Ur Tricyclic Antidepressants Screen Negative Urine Phencyclidine Screen Negative Urine Amphetamines Screen Negative Urine Benzodiazepines Screen Negative Urine Cocaine Screen Negative Urine Cannabinoids Screen Negative White Blood Count 6.3 k/uL (4.5-11.0) Red Blood Count 4.94 M/uL (4.17-5.56) Hemoglobin 16.3 g/dL (12.0-16.0) Hematocrit 46.1 % (34.0-47.0) Mean Corpuscular Volume 93.2 fL (80.0-96.0) Mean Corpuscular Hemoglobin 32.9 pg (26.0-33.0) Mean Corpuscular Hemoglobin Concent 35.3 g/dL (32.0-36.0) Red Cell Distribution Width 13.0 % (11.5-14.5) Platelet Count 306 K/uL (150-450) Mean Platelet Volume 7.3 fL (7.2-11.1) Neutrophils (%) (Auto) 69.7 % (39.4-72.5) Lymphocytes (%) (Auto) 21.0 % (17.6-49.6) Monocytes (%) (Auto) 7.4 % (4.1-12.4) Eosinophils (%) (Auto) 1.2 % (0.4-6.7) Basophils (%) (Auto) 0.7 % (0.3-1.4) Nucleated RBC Relative Count (auto) 0.0 /100WBC Neutrophils # (Auto) 4.4 K/uL (2.0-7.4) Lymphocytes # (Auto) 1.3 K/uL (1.3-3.6) Monocytes # (Auto) 0.5 K/uL (0.3-1.0) Eosinophils # (Auto) 0.1 K/uL (0.0-0.5) Basophils # (Auto) 0.0 K/uL (0.0-0.1) Nucleated RBC Absolute Count (auto) 0.00 K/uL Prothrombin Time 13.9 seconds (12.0-14.4) Prothromb Time International Ratio 1.06 Activated Partial Thromboplast Time 31 seconds (23-35) D-Dimer Quantitative (PE/DVT) < 0.27 ug/ml (0-0.50) Glomerular Filtration Rate Calc > 60.0 Calcium Level 10.0 mg/dl (8.4-10.2) Total Bilirubin 1.6 mg/dl (0.2-1.3) Aspartate Amino Transf (AST/SGOT) 21 U/L (0-35) Alanine Aminotransferase (ALT/SGPT) 25 U/L (0-56) Alkaline Phosphatase 83 U/L (0-126) Troponin I < 0.012 ng/ml Total Protein 8.0 g/dl (6.3-8.2) Albumin 5.0 g/dl (3.5-5.0) Human Chorionic Gonadotropin, Qual Negative (NEGATIVE) Coagulation Test 09/01/18 09:55 Prothrombin Time 13.9 seconds Prothromb Time International Ratio 1.06 Activated Partial Thromboplast Time 31 seconds D-Dimer Quantitative (PE/DVT) < 0.27 ug/ml Toxicology Test 09/01/18 00:00 Urine Opiates Screen Negative Urine Barbiturates Screen Negative Ur Tricyclic Antidepressants Screen Negative Urine Phencyclidine Screen Negative Urine Amphetamines Screen Negative Urine Benzodiazepines Screen Negative Urine Cocaine Screen Negative Urine Cannabinoids Screen Negative Urinalysis Test 09/01/18 00:00 Urine Color Yellow Urine Clarity Clear Urine pH 6.0 pH (4.8-9.5) Urine Specific [place] 1.017 Urine Protein Negative mg/dL (NEGATIVE) Urine Glucose (UA) Negative mg/dL (NEGATIVE) Urine Ketones 20 mg/dL (NEGATIVE) Urine Blood Negative (NEGATIVE) Urine Nitrite Negative (NEGATIVE) Urine Bilirubin Negative (NEGATIVE) Urine Urobilinogen Negative mg/dL (0.2-1.9) Urine Leukocyte Esterase Negative (NEGATIVE) Urine RBC <1 /HPF (0-2/HPF) Urine WBC 1 /HPF (0-5/HPF) Urine Squamous Epithelial Cells Many /LPF (</=FEW) Urine Bacteria Negative /HPF (NONE-FEW) Urine Mucus None /HPF (NONE-FEW) EKG/Imaging EKG Interpretation 12 lead EKG: Sinus tachycardia, ventricular rate 117, QTC 410, no ischemic changes or arrhythmias present Rhythm: Sinus tachycardia Crapo: normal QRS: normal ST segments: normal Imaging PATIENT NAME: Jayna Gee : 1990 MR: [id number] V: [id number] EXAM DATE: [id number] ORDERING PHYSICIAN: SUHA TRIVEDI TECHNOLOGIST: [facility] Patient: Jayna Gee : 1990 Visit/Account:[id number] Date of Sevice: 09/01/2018 Exam type: CHEST SINGLE AP History: Chest Pain Comparison: July 19, 2018. Findings: The lungs are free of acute effusions infiltrates or edema. The cardiac silhouette is normal in size. The trachea is in midline. There is no evidence of a pneumothorax or pneumomediastinum. IMPRESSION: 1. No acute cardiopulmonary process is seen ED Course/Re-evaluation ED Course Patient is an 28-year-old female here with complaints of chest pain, headache, nausea without vomiting for 3 days. Chest pain is located in the left upper chest, is described as sharp, radiating to jaw and arm without associated shortness breath or fevers. There is no leukocytosis, troponin and d-dimer were negative. Chest x-ray showed no acute findings. Patient was given Ativan, Toradol, aspirin. EKG showed no ischemic changes or arrhythmias. Labs are unremarkable, patient was updated regarding these findings. Since symptoms have been going on for 3 days, single troponin was sufficient to rule out cardiac ischemia. Patient was stable at time of discharge. Return precautions provided. Close PCP follow-up recommended. Decision to Disposition Date: Sep 01, 2018 Decision to Disposition Time: 11:31 Depart Departure Latest Vital Signs Vital Signs Date Time Temp Pulse Resp B/P (MAP) Pulse Ox O2 Delivery O2 Flow Rate FiO2 09/01/18 10:43 106 20 92 09/01/18 10:30 120/79 (93) 09/01/18 09:45 98.6 Room Air Impression: Primary Impression: Chest pain of unknown etiology Condition: Improved Disposition: HOME OR SELF-CARE Referrals: MAGUI MORRIS APRN ASSISTANT STORE MANAGER OPERATIONS-C (PCP) Patient Instructions: Chest Pain (DC) Additional Instructions: Please drink plenty of water. Please follow-up with your family doctor next 24- 48 hours for repeat evaluation. It does not appear that your chest pain is cardiac in origin, your clot marker which is a d-dimer was found to be negative as well making a clot in the lungs unlikely. Chest x-ray did not identify pneumonia or other infectious process. Please return promptly if you develop worsening chest pain, shortness breath, fevers, inability to keep down food or fluids per SUHA TRIVEDI DO Sep 01, 2018 09:41
[2018-09-01] MEDS ORDERED: NS(*) 0.9% 1000 ML BAG 1,000 ML IV ONE (09:52)
[2018-09-01] MEDS ORDERED: LORazepam 2 MG/ML VIAL IVP ONE (09:55)
[2018-09-01] MEDS ORDERED: ASPIRIN 81 MG CHEW PO ONE ×2 (09:55→10:05)
--- NOTE | 2018-09-01 10:06 | EKG ---
FACILITY: [facility] PATIENT NAME: MARCELINO PEREZ : [id number] MR: [id number] V: [id number] EXAM DATE: ORDERING PHYSICIAN: SUHA TRIVEDI TECHNOLOGIST: Test Reason : chest pain Blood Pressure : / mmHG Vent. Rate : 117 BPM Atrial Rate : 117 BPM P-R Int : 172 ms QRS Dur : 090 ms QT Int : 294 ms P-R-T Axes : 069 046 009 degrees QTc Int : 410 ms Sinus tachycardia with occasional premature ventricular complexes Nonspecific ST and T wave abnormality Abnormal ECG When compared with ECG of 18-JUL-2018 23:14, premature ventricular complexes are now present Vent. rate has increased BY 53 BPM Non-specific change in ST segment in Lateral leads Nonspecific T wave abnormality now evident in Inferior leads Nonspecific T wave abnormality no longer evident in Anterior leads Confirmed by IRAM AUGUSTIN ([id number]) on 09/01/2018 6:06:44 PM Referred By: Confirmed By:IRAM AUGUSTIN
[2018-09-01 10:07] LABS: PLATELET COUNT, AUTOMATED 306 K/uL (150-450)
[2018-09-01 10:18] LABS: INR 1.06
[2018-09-01] MEDS ORDERED: KETOROLAC 30 MG/ML VIAL IVP ONE (10:45)
--- NOTE | 2018-09-01 10:51 | RADIOLOGY IMAGING REPORT ---
FACILITY: [facility] PATIENT NAME: Jayna Gee : 1990 MR: [id number] V: [id number] EXAM DATE: ORDERING PHYSICIAN: SUHA TRIVEDI TECHNOLOGIST: Location: [facility] Patient: Jayna Gee : 1990 Visit/Account:[id number] Date of Sevice: 09/01/2018 Exam type: CHEST SINGLE AP History: Chest Pain Comparison: July 19, 2018. Findings: The lungs are free of acute effusions infiltrates or edema. The cardiac silhouette is normal in size . The trachea is in midline. There is no evidence of a pneumothorax or pneumomediastinum. IMPRESSION: 1. No acute cardiopulmonary process is seen Report Dictated By: Charlene Talavera MD at 09/01/2018 10:44 AM Report E-Signed By: Charlene Talavera MD at 09/01/2018 10:45 AM WSN:[id number]
[2018-09-01 11:30] VITALS: BP 122/78
== END 2018-09-01 11:39 | disposition home or self-care (01) ==
LOC: ER 09:43
DX: R07.9 Chest pain, unspecified (principal)
CPT/HCPCS: 71045; 80305; 81001; 84484; 84703; 85025; 85379; 85610; 85730; 93005; 96361; 96374; 96375; 99284; J1885; J2060; J7030; 82040; 82247; 82310; 82374; 82435; 82565; 82947; 84075; 84132; 84155; 84295; 84450; 84460; 84520

== ENCOUNTER 2018-09-03 19:24 | Emergency (ER) | payer MEDICAID ==
[2017-09-24 08:15] VITALS: Wt 59.0 kg
--- NOTE | 2018-09-03 19:35 | ER Report ---
History and Physical Time Seen By MD: 19:31 HPI/ROS CHIEF COMPLAINT: Chest pain HISTORY OF PRESENT ILLNESS: This is a 28-year-old female who presents to the emergency department for chest pain. Patient states that she was at work around 6 or 6:30 this morning, lifting a shoot for some concrete as she was lifting she felt some left-sided muscle pain in her left chest, shot up into her left neck, she stopped the activity and it did resolve, until she started lifting again a short while later causing recurrent discomforts in the left anterior chest in the ribs. She feels that she strained something, she also has some nausea she feels this is secondary to muscle pain. The pain is reproducible. She denies fe vers or chills, no diaphoresis, no rashes, no headaches, no blurred vision denies C-spine tenderness. REVIEW OF SYSTEMS: Constitutional: No fever, no chills. Eyes: No discharge. ENT: No sore throat. Cardiovascular: As above. Respiratory: No cough, no shortness of breath. Gastrointestinal: No abdominal pain, no vomiting. Genitourinary: No hematuria. Musculoskeletal: As above. Skin: No rashes. Neurological: No headache. Allergies: Coded Allergies: amoxicillin (Verified Allergy, Mild, itching, 09/03/18) naratriptan (Verified Allergy, Unknown, 09/03/18) itching ondansetron HCl (Verified Adverse Reaction, Intermediate, ARRYTHMIA, 09/03/18) ON 16 APR 2012, AFTER ZOFRAN 4MG IVP ADMIN, PT BRADYCARDIC (PULSE 30-35BPM), ARRHTHMIA ON 3-LEAD EKG. sumatriptan (Verified Adverse Reaction, Intermediate, NAUSEA/VOMITING, 09/03/18) nitrofurantoin (Verified Adverse Reaction, Mild, 09/03/18) itching amitriptyline (Verified Adverse Reaction, Unknown, 09/03/18) syncope / orthostatic hypotension ibuprofen (Verified Adverse Reaction, Unknown, REACTION TO COATING ON IBU TABS, 09/03/18) "tears up my stomach" lurasidone (Verified Adverse Reaction, Unknown, NAUSEA/VOMITING, 09/03/18) milnacipran (Verified Adverse Reaction, Unknown, 09/03/18) suicidal ideation Home Meds Reported Medications Lamotrigine (LAMOTRIGINE) 200 Mg Tablet, 1 TAB PO QHS 09/03/18 Aripiprazole (ABILIFY) 10 Mg Tablet, 10 MG PO QHS, TAB 08/09/18 Gabapentin (GABAPENTIN) 300 Mg Capsule, 600 MG PO QHS, CAPSULE 08/09/18 Gabapentin (GABAPENTIN) 300 Mg Capsule, 300 MG PO QAM, CAPSULE 08/09/18 Duloxetine HCl (Duloxetine HCl) 60 Mg Capsule.dr, 60 MG PO QHS 08/09/18 Discontinued Reported Medications Nicotine Polacrilex (NICORETTE) 2 Mg Gum, 2 MG BC Q1-2H PRN for NICOTINE REPLACEMENT, GUM 08/09/18 Multivits,Th W-Fe,Other Min (THERA-M) 1 Each Tablet, 1 EACH PO QDAY 08/09/18 Lamotrigine (LAMICTAL) 25 Mg Tablet, 25 MG PO QHS 08/09/18 Discontinued Scripts Cyclobenzaprine Hcl (CYCLOBENZAPRINE HCL) 10 Mg Tablet, 0.5-1 TAB PO TID PRN for muscle pain, #9 TAB 0 Refills Prov:ELVIN SANCHEZ DNP, ADMINISTRATIVE JUDGE-BC 08/13/18 Naproxen (NAPROXEN) 500 Mg Tablet, 1 TAB PO BID PRN for PAIN, #10 TAB 0 Refills Prov:ELVIN SANCHEZ DNP, ADMINISTRATIVE JUDGE-BC 08/13/18 Past Medical/Surgical History The patient has a past medical and surgical history of otitis media, wears glasses, astigmatism, fibromyalgia, headaches, migraines, rated cardiac, tachycardia, seasonal allergies, asthma, IBS, cholecystectomy, appendectomy, tubal ligation, knee surgery, depression, bipolar, anxiety, borderline personality, occasionally uses marijuana, smokes cigarettes. Reviewed Nurses Notes: Yes Hx Smoking: Yes Smoking Status: Former Smoker Exposure to Second Hand Smoke?: No Hx Substance Use Disorder: No (marijuana HX) Hx Alcohol Use: No (RARE) Constitutional Vital Sign - Last 24 Hours 09/03/18 09/03/18 09/03/18 09/03/18 19:30 19:30 19:39 19:54 Temp 98.4 Pulse 114 118 124 Resp 16 8 B/P (MAP) 142/96 127/86 (100) Pulse Ox 96 95 O2 Delivery Room Air 09/03/18 09/03/18 09/03/18 09/03/18 20:00 20:09 20:30 20:39 Pulse 100 90 Resp 16 B/P (MAP) 125/82 (96) 122/81 (95) Pulse Ox 96 97 09/03/18 09/03/18 09/03/18 09/03/18 20:54 21:00 21:09 21:14 Pulse 88 86 87 B/P (MAP) 115/78 (90) Pulse Ox 96 97 96 09/03/18 09/03/18 21:29 21:30 Pulse 91 B/P (MAP) 119/79 (92) Pulse Ox 97 Physical Exam General Appearance: The patient is alert, has no immediate need for airway protection and no signs of toxicity. Eyes: Pupils equal and round no pallor or injection. ENT, Mouth: Mucous membranes are moist. Respiratory: There are no retractions, lungs are clear to auscultation. Cardiovascular: Regular rate and rhythm. No murmurs, clicks or rubs. Gastrointestinal: Abdomen is soft and non tender, no masses, bowel sounds normal. Neurological: Alert and oriented 4. Moving all extremities. Following all commands. No focal neuro deficits Skin: Warm and dry, no rashes. Musculoskeletal: Neck is supple non tender. The left of midsternal anterior chest pain is reproducible with firm palpation, no crepitus or obvious deformities identified. Extremities are nontender, nonswollen and have full range of motion. DIFFERENTIAL DIAGNOSIS: After history and physical exam differential diagnosis was considered for chest pain including but not limited to myocardial ischemia, pericarditis pulmonary embolus, chest wall pain, pleural inflammation and pulmonary infectious causes. Medical Decision Making EKG/Imaging Imaging PATIENT NAME: Jayna Gee : 1990 MR: [id number] V: [id number] EXAM DATE: ORDERING PHYSICIAN: CRISTINO DONALDSON TECHNOLOGIST: [place] [facility] [place] Jayna Gee : 1990 Visit/Account:[id number] Date of Sevice: 09/03/2018 INDICATION: Rest pain DATE: 09/03/2018 8:48 PM. TECHNIQUE: RIBS LEFT COMPARISON: Chest radiograph of the same day FINDINGS: The marker has been placed at the level of the 10th right rib. No fracture is conspicuous. IMPRESSION: No fracture identified. Report Dictated By: Curly Jacobo MD at 09/03/2018 8:48 PM Report E-Signed By: Curly Jacobo MD at 09/03/2018 8:48 PM WSN:[id number] PATIENT NAME: Jayna Gee : 1990 MR: [id number] V: [id number] EXAM DATE: ORDERING PHYSICIAN: CRISTINO DONALDSON TECHNOLOGIST: [place] [facility] [place] Patient: Jayna Gee : 1990 Visit/Account:[id number] Date of Sevice: 09/03/2018 HISTORY: Pain after lifting. DATE: 09/03/2018 7:47 PM TECHNIQUE: CHEST PA LAT COMPARISON: September 01, 2018 FINDINGS: The cardiomediastinal silhouette is of normal size and contour. No pleural effusion. No pneumothorax. No consolidation. The lungs are adequately expanded. IMPRESSION: Radiographically normal chest Report Dictated By: Curly Jacobo MD at 09/03/2018 8:45 PM Report E-Signed By: Curly Jacobo MD at 09/03/2018 8:46 PM [facility] Course/Re-evaluation Clinical Indication for ER IV: Hydration, IV Access ED Course The patient was noted to room. A history of physical were obtained. Differential diagnoses were considered. An IV was started. A 1 L normal saline pulse was given. 12.5 mg IV Phenergan for the nausea, I do not believe that the pain that the patient is experiencing is ACS related, this does seem more muscular in nature as she was lifting some heavy equipment at the time it started. Patient agrees that the pain does seem more muscular in nature. Negative chest and rib x-rays. Patient was also given 30 mg IV Toradol, and a lidocaine patch to the anterior chest which did provide some relief. I did review the negative results with the patient, did tell her that this is likely a muscle strain, to use the lidocaine patch remove after 12 hours, she can also use egfp-kkb-jjammsp li docaine patches and any other hzuv-yru-caaokos medications as needed. She expressed understanding and was discharged home. She was agreeable with this plan of care. Decision to Disposition Date: Sep 03, 2018 Decision to Disposition Time: 21:30 Depart Departure Latest Vital Signs Vital Signs Date Time Temp Pulse Resp B/P (MAP) Pulse Ox O2 Delivery O2 Flow Rate FiO2 09/03/18 21:30 119/79 (92) 09/03/18 21:29 91 97 09/03/18 20:09 16 09/03/18 19:30 98.4 Room Air Impression: Primary Impression: Muscle strain Condition: Improved Disposition: HOME OR SELF-CARE Referrals: MAGUI MORRIS APRN ADMINISTRATIVE JUDGE-C (PCP) Patient Instructions: Muscle Strain (ED) Additional Instructions: There were no concerning findings on the x-ray today. You can take wzpy-ikb-urertrw medications to help with the discomfort. Remove the lidocaine patch in 12 hours. You can try an elzx-edp-uhinjwc lidocaine patch this may provide some relief. Be careful when lifting. Drink plenty of fluids. Get plenty of rest. Return to the ED for any other concerns or worsening symptoms. CRISTINO DONALDSON ADMINISTRATIVE JUDGE-BC Sep 03, 2018 19:35
[2018-09-03] MEDS ORDERED: LAMO200T45 PO (19:36)
[2018-09-03] MEDS ORDERED: NS(*) 0.9% 1000 ML BAG 1,000 ML IV ONE (19:50)
[2018-09-03] MEDS ORDERED: PROMETHAZINE 25 MG/ML 1 ML AMP IVP ONE (19:50)
[2018-09-03] MEDS ORDERED: KETOROLAC 30 MG/ML VIAL IVP ONE (20:10)
[2018-09-03] MEDS ORDERED: LIDOCAINE 5% PATCH TP SCH (20:35)
--- NOTE | 2018-09-03 20:51 | RADIOLOGY IMAGING REPORT ---
FACILITY: [facility] - [place] PATIENT NAME: Jayna Gee : 1990 MR: [id number] V: [id number] EXAM DATE: ORDERING PHYSICIAN: CRISTINO DONALDSON TECHNOLOGIST: [facility] Patient: Jayna Gee : 1990 Visit/Account:[id number] Date of Sevice: 09/03/2018 HISTORY: Pain after lifting. DATE: 09/03/2018 7:47 PM TECHNIQUE: CHEST PA LAT COMPARISON: September 01, 2018 FINDINGS: The cardiomediastinal silhouette is of normal size and contour. No pleural effusion. No pne umothorax. No consolidation. The lungs are adequately expanded. IMPRESSION: Radiographically normal chest Report Dictated By: Curly Jacobo MD at 09/03/2018 8:45 PM Report E-Signed By: Curly Jacobo MD at 09/03/2018 8:46 PM WSN:[id number]
--- NOTE | 2018-09-03 20:53 | RADIOLOGY IMAGING REPORT ---
FACILITY: [facility] - [place] PATIENT NAME: Jayna Gee : 1990 MR: [id number] V: [id number] EXAM DATE: ORDERING PHYSICIAN: CRISTINO DONALDSON TECHNOLOGIST: Location: [facility] - [place] Patient: Jayna Gee : 1990 Visit/Account:[id number] Date of Sevice: 09/03/2018 INDICATION: Rest pain DATE: 09/03/2018 8:48 PM. TECHNIQUE: RIBS LEFT COMPARISON: Chest radiograph of the same day FINDINGS: The marker has been placed at the level of the 10th right rib. No fracture is conspicuous. IMPRESSION: No fracture identified. Report Dictated By: Curly Jacobo MD at 09/03/2018 8:48 PM Report E-Signed By: Curly Jacobo MD at 09/03/2018 8:48 PM WSN:[email or web address]
[2018-09-03 21:30] VITALS: BP 119/79
[2018-09-04] MEDS ORDERED: PATCH REMOVAL 1 EA TP SCH (09:00)
== END 2018-09-03 21:38 | disposition home or self-care (01) ==
LOC: ER 19:42
DX: S29.011A Strain of muscle and tendon of front wall of thorax, initial encounter (principal)
CPT/HCPCS: 71046; 71100; 96374; 96375; 99284; J1885; J2550; J7030

== ENCOUNTER 2018-09-07 16:28 | Emergency (ER) | payer MEDICAID ==
[2017-09-24 08:15] VITALS: Wt 57.6 kg
[~2018-09-07 16:28] MED LIST changes: +LAMO200T45 PO
[2018-09-07 16:32] VITALS: BP 124/80
--- NOTE | 2018-09-07 16:43 | ER Report ---
History and Physical Time Seen By MD: 16:41 Hx. of Stated Complaint: PATIENT REPORTING THOUGHTS ABOUT SELF HARM HPI/ROS CHIEF COMPLAINT: Thoughts of self-harm HISTORY OF PRESENT ILLNESS: 28-year-old female patient presents to emergency room with complaint of thoughts of self-harm. Patient states that she has been having a rough time for the past 4 days. She states she's been having some thoughts about harming herself. She hasn't fact cut her left wrist. She states she also has taken more Benadryl than she should. She states she took 6 Benadryl yesterday and attempt to not have to think about anything. Patient states she does not want to harm herself and would like to come in and be admitted to behavioral health unit. She denies any stressors at home, stating that the kids are doing well as is her . REVIEW OF SYSTEMS: Respiratory: No cough, no dyspnea. Cardiovascular: No chest pain, no palpitations. Gastrointestinal: No vomiting, no abdominal pain. Musculoskeletal: No back pain. Allergies: Coded Allergies: amoxicillin (Verified Allergy, Mild, itching, 09/03/18) naratriptan (Verified Allergy, Unknown, 09/03/18) itching ondansetron HCl (Verified Adverse Reaction, Intermediate, ARRYTHMIA, 09/03/18) ON 16 APR 2012, AFTER ZOFRAN 4MG IVP ADMIN, PT BRADYCARDIC (PULSE 30-35BPM), ARRHTHMIA ON 3-LEAD EKG. sumatriptan (Verified Adverse Reaction, Intermediate, NAUSEA/VOMITING, 09/03/18) nitrofurantoin (Verified Adverse Reaction, Mild, 09/03/18) itching amitriptyline (Verified Adverse Reaction, Unknown, 09/03/18) syncope / orthostatic hypotension ibuprofen (Verified Adverse Reaction, Unknown, REACTION TO COATING ON IBU TABS, 09/03/18) "tears up my stomach" lurasidone (Verified Adverse Reaction, Unknown, NAUSEA/VOMITING, 09/03/18) milnacipran (Verified Adverse Reaction, Unknown, 09/03/18) suicidal ideation Home Meds Reported Medications Lamotrigine (LAMOTRIGINE) 200 Mg Tablet, 1 TAB PO QHS 09/03/18 Aripiprazole (ABILIFY) 10 Mg Tablet, 10 MG PO QHS, TAB 08/09/18 Gabapentin (GABAPENTIN) 300 Mg Capsule, 600 MG PO QHS, CAPSULE 08/09/18 Gabapentin (GABAPENTIN) 300 Mg Capsule, 300 MG PO QAM, CAPSULE 08/09/18 Duloxetine HCl (Duloxetine HCl) 60 Mg Capsule.dr, 60 MG PO QHS 08/09/18 Discontinued Reported Medications Nicotine Polacrilex (NICORETTE) 2 Mg Gum, 2 MG BC Q1-2H PRN for NICOTINE REPLACEMENT, GUM 08/09/18 Multivits,Th W-Fe,Other Min (THERA-M) 1 Each Tablet, 1 EACH PO QDAY 08/09/18 Lamotrigine (LAMICTAL) 25 Mg Tablet, 25 MG PO QHS 08/09/18 Discontinued Scripts Cyclobenzaprine Hcl (CYCLOBENZAPRINE HCL) 10 Mg Tablet, 0.5-1 TAB PO TID PRN for muscle pain, #9 TAB 0 Refills Prov:ELVIN SANCHEZ DNP, VOCATIONAL REHABILITATION ADMINISTRATOR-BC 08/13/18 Naproxen (NAPROXEN) 500 Mg Tablet, 1 TAB PO BID PRN for PAIN, #10 TAB 0 Refills Prov:ELVIN SANCHEZ DNP, VOCATIONAL REHABILITATION ADMINISTRATOR-BC 08/13/18 Past Medical/Surgical History Patient has a past medical history of fibromyalgia, migraines, bradycardia, tachycardia, asthma, IBS, reflux, cholecystitis, right hand fracture, history of marijuana use, depression, bipolar, anxiety, borderline personality. Patient has a surgical history of left knee surgery 2, right hand surgery, t ubal ligation, cholecystectomy, appendectomy. Patient has a family medical history of stroke, diabetes, psychiatric problems. Reviewed Nurses Notes: Yes Hx Smoking: Yes Smoking Status: Former Smoker Exposure to Second Hand Smoke?: No Hx Substance Use Disorder: No (marijuana HX) Hx Alcohol Use: No (RARE) Constitutional Vital Sign - Last 24 Hours 09/07/18 09/07/18 16:32 18:40 Temp 99.1 Pulse 95 79 Resp 20 16 B/P (MAP) 124/80 Pulse Ox 96 96 O2 Delivery Room Air Room Air Physical Exam General Appearance: The patient is alert, has no immediate need for airway protection and no current signs of toxicity. Respiratory: Chest is non tender, lungs are clear to auscultation. Cardiac: regular rate and rhythm Gastrointestinal: Abdomen is soft and non tender, no masses, bowel sounds xiomara l. Musculoskeletal: Neck: Neck is supple and non tender. Extremities have full range of motion and are non tender. Skin: No rashes or lesions. Psych: Patient is alert and oriented 4, she is able to maintain good eye contact, rate of speech is appropriate. DIFFERENTIAL DIAGNOSIS: After history and physical exam differential diagnosis was considered for depression, suicidal ideation, thoughts of self-harm. Medical Decision Making Data Points Result Diagram: 09/07/18 1733 09/07/18 1643 Laboratory Hematology Test 09/07/18 00:00 09/07/18 16:43 09/07/18 17:33 Urine Color Yellow Urine Clarity Slightly-cloudy Urine pH 5.0 pH (4.8-9.5) Urine Specific Jordan 1.012 Urine Protein Negative mg/dL (NEGATIVE) Urine Glucose (UA) Negative mg/dL (NEGATIVE) Urine Ketones Negative mg/dL (NEGATIVE) Urine Blood Negative (NEGATIVE) Urine Nitrite Negative (NEGATIVE) Urine Bilirubin Negative (NEGATIVE) Urine Urobilinogen Negative mg/dL (0.2-1.9) Urine Leukocyte Esterase Negative (NEGATIVE) Urine RBC None /HPF (0-2/HPF) Urine WBC <1 /HPF (0-5/HPF) Urine Squamous Epithelial Cells Many /LPF (</=FEW) Urine Bacteria Negative /HPF (NONE-FEW) Urine Mucus None /HPF (NONE-FEW) Urine HCG, Qualitative Negative (NEGATIVE) Urine Opiates Screen Negative Urine Barbiturates Screen Negative Ur Tricyclic Antidepressants Screen Negative Urine Phencyclidine Screen Negative Urine Amphetamines Screen Negative Urine Benzodiazepines Screen Negative Urine Cocaine Screen Negative Urine Cannabinoids Screen Negative Sodium Level 140 mmol/L (137-145) Potassium Level 4.1 mmol/L (3.5-5.0) Chloride Level 105 mmol/L (98-107) Carbon Dioxide Level 24 mmol/L (22-31) Blood Urea Nitrogen 13 mg/dl (7-18) Creatinine 0.80 mg/dl (0.52-1.04) Glomerular Filtration Rate Calc > 60.0 Random Glucose 90 mg/dl (75-110) Calcium Level 9.6 mg/dl (8.4-10.2) Magnesium Level 2.2 mg/dl (1.7-2.2) Total Bilirubin 1.2 mg/dl (0.2-1.3) Aspartate Amino Transf (AST/SGOT) 17 U/L (0-35) Alanine Aminotransferase (ALT/SGPT) 29 U/L (0-56) Alkaline Phosphatase 68 U/L (0-126) Total Protein 6.9 g/dl (6.3-8.2) Albumin 4.3 g/dl (3.5-5.0) Salicylates Level 21 mg/L Salicylate Last Dose Date unk Acetaminophen Level < 10 ug/ml Serum Alcohol < 10 mg/dl Red Blood Count 4.31 M/uL (4.17-5.56) Mean Corpuscular Volume 93.7 fL (80.0-96.0) Mean Corpuscular Hemoglobin 32.6 pg (26.0-33.0) Mean Corpuscular Hemoglobin Concent 34.7 g/dL (32.0-36.0) Red Cell Distribution Width 12.8 % (11.5-14.5) Mean Platelet Volume 7.6 fL (7.2-11.1) Neutrophils (%) (Auto) 62.1 % (39.4-72.5) Lymphocytes (%) (Auto) 27.5 % (17.6-49.6) Monocytes (%) (Auto) 6.9 % (4.1-12.4) Eosinophils (%) (Auto) 2.4 % (0.4-6.7) Basophils (%) (Auto) 1.1 % (0.3-1.4) Nucleated RBC Relative Count (auto) 0.0 /100WBC Neutrophils # (Auto) 3.6 K/uL (2.0-7.4) Lymphocytes # (Auto) 1.6 K/uL (1.3-3.6) Monocytes # (Auto) 0.4 K/uL (0.3-1.0) Eosinophils # (Auto) 0.1 K/uL (0.0-0.5) Basophils # (Auto) 0.1 K/uL (0.0-0.1) Nucleated RBC Absolute Count (auto) 0.00 K/uL Chemistry Test 09/07/18 00:00 09/07/18 16:43 09/07/18 17:33 Urine Color Yellow Urine Clarity Slightly-cloudy Urine pH 5.0 pH (4.8-9.5) Urine Specific Jordan 1.012 Urine Protein Negative mg/dL (NEGATIVE) Urine Glucose (UA) Negative mg/dL (NEGATIVE) Urine Ketones Negative mg/dL (NEGATIVE) Urine Blood Negative (NEGATIVE) Urine Nitrite Negative (NEGATIVE) Urine Bilirubin Negative (NEGATIVE) Urine Urobilinogen Negative mg/dL (0.2-1.9) Urine Leukocyte Esterase Negative (NEGATIVE) Urine RBC None /HPF (0-2/HPF) Urine WBC <1 /HPF (0-5/HPF) Urine Squamous Epithelial Cells Many /LPF (</=FEW) Urine Bacteria Negative /HPF (NONE-FEW) Urine Mucus None /HPF (NONE-FEW) Urine HCG, Qualitative Negative (NEGATIVE) Urine Opiates Screen Negative Urine Barbiturates Screen Negative Ur Tricyclic Antidepressants Screen Negative Urine Phencyclidine Screen Negative Urine Amphetamines Screen Negative Urine Benzodiazepines Screen Negative Urine Cocaine Screen Negative Urine Cannabinoids Screen Negative Glomerular Filtration Rate Calc > 60.0 Calcium Level 9.6 mg/dl (8.4-10.2) Magnesium Level 2.2 mg/dl (1.7-2.2) Total Bilirubin 1.2 mg/dl (0.2-1.3) Aspartate Amino Transf (AST/SGOT) 17 U/L (0-35) Alanine Aminotransferase (ALT/SGPT) 29 U/L (0-56) Alkaline Phosphatase 68 U/L (0-126) Total Protein 6.9 g/dl (6.3-8.2) Albumin 4.3 g/dl (3.5-5.0) Salicylates Level 21 mg/L Salicylate Last Dose Date unk Acetaminophen Level < 10 ug/ml Serum Alcohol < 10 mg/dl White Blood Count 5.8 k/uL (4.5-11.0) Red Blood Count 4.31 M/uL (4.17-5.56) Hemoglobin 14.0 g/dL (12.0-16.0) Hematocrit 40.4 % (34.0-47.0) Mean Corpuscular Volume 93.7 fL (80.0-96.0) Mean Corpuscular Hemoglobin 32.6 pg (26.0-33.0) Mean Corpuscular Hemoglobin Concent 34.7 g/dL (32.0-36.0) Red Cell Distribution Width 12.8 % (11.5-14.5) Platelet Count 275 K/uL (150-450) Mean Platelet Volume 7.6 fL (7.2-11.1) Neutrophils (%) (Auto) 62.1 % (39.4-72.5) Lymphocytes (%) (Auto) 27.5 % (17.6-49.6) Monocytes (%) (Auto) 6.9 % (4.1-12.4) Eosinophils (%) (Auto) 2.4 % (0.4-6.7) Basophils (%) (Auto) 1.1 % (0.3-1.4) Nucleated RBC Relative Count (auto) 0.0 /100WBC Neutrophils # (Auto) 3.6 K/uL (2.0-7.4) Lymphocytes # (Auto) 1.6 K/uL (1.3-3.6) Monocytes # (Auto) 0.4 K/uL (0.3-1.0) Eosinophils # (Auto) 0.1 K/uL (0.0-0.5) Basophils # (Auto) 0.1 K/uL (0.0-0.1) Nucleated RBC Absolute Count (auto) 0.00 K/uL Toxicology Test 09/07/18 00:00 09/07/18 16:43 Urine Opiates Screen Negative Urine Barbiturates Screen Negative Ur Tricyclic Antidepressants Screen Negative Urine Phencyclidine Screen Negative Urine Amphetamines Screen Negative Urine Benzodiazepines Screen Negative Urine Cocaine Screen Negative Urine Cannabinoids Screen Negative Salicylates Level 21 mg/L Salicylate Last Dose Date unk Acetaminophen Level < 10 ug/ml Serum Alcohol < 10 mg/dl Urinalysis Test 09/07/18 00:00 Urine Color Yellow Urine Clarity Slightly-cloudy Urine pH 5.0 pH (4.8-9.5) Urine Specific Jordan 1.012 Urine Protein Negative mg/dL (NEGATIVE) Urine Glucose (UA) Negative mg/dL (NEGATIVE) Urine Ketones Negative mg/dL (NEGATIVE) Urine Blood Negative (NEGATIVE) Urine Nitrite Negative (NEGATIVE) Urine Bilirubin Negative (NEGATIVE) Urine Urobilinogen Negative mg/dL (0.2-1.9) Urine Leukocyte Esterase Negative (NEGATIVE) Urine RBC None /HPF (0-2/HPF) Urine WBC <1 /HPF (0-5/HPF) Urine Squamous Epithelial Cells Many /LPF (</=FEW) Urine Bacteria Negative /HPF (NONE-FEW) Urine Mucus None /HPF (NONE-FEW) Urine HCG, Qualitative Negative (NEGATIVE) ED Course/Re-evaluation ED Course Patient was admitted to an exam room, history and physical were obtained. Differential diagnoses were considered. On examination lungs are clear, heart is regular, abdomen soft nontender. Patient is a very controlled during the interview, she is able to maintain good eye contact. Patient does have some superficial lacerations to the left wrist. She does admit to self-harm. She also states that yesterday she took 6 of Benadryl at one time. She denies having any suicidal ideation at this time. She does state that she would like to be admitted to behavioral health. The tech did come down, visited with her. She initially signed in to behavioral health. There was a mixup in the lab with her lab work and they did ask her to have a repeat urinalysis. She states that she would like to go home this time. She states that she is concerned that she needs to be at home with her family and that should be better off with her family that she would on behavioral health. We did discuss the concerns I had with self- harm, the taking of the Benadryl. She states that she was not going to do that. She states that she was going to follow-up with her counselor, on Friday. She also states that she would return to the emergency room if condition worsens. With patient not having any suicidal ideation at this time I believe the patient will be able to go home and follow-up with her counselor. She is return to emergency room if she develops any suicidal ideation. Patient verbalized understanding and agreement with plan. Decision to Disposition Date: Sep 07, 2018 Decision to Disposition Time: 18:25 Depart Departure Latest Vital Signs Vital Signs Date Time Temp Pulse Resp B/P (MAP) Pulse Ox O2 Delivery O2 Flow Rate FiO2 09/07/18 18:40 79 16 96 Room Air 09/07/18 16:32 99.1 124/80 Impression: Primary Impression: Depression Condition: Improved Disposition: HOME OR SELF-CARE Referrals: MAGUI MORRIS APRN VOCATIONAL REHABILITATION ADMINISTRATOR-C (PCP) Patient Instructions: Depression (ED) Additional Instructions: Continue with your current medications. Follow up with your counselor tomorrow or Friday. If you are having suicidal thoughts or thoughts of self harm you need to return to the ER. Have your or a family member take your gun for the time being. Problem Qualifiers Primary Impression: Depression Depression Type: major depressive disorder Major depression recurrence: single episode Active/Remission status: currently active Major depression episode severity: moderate Qualified Codes: F32.1 - Major depressive disorder, single episode, moderate SUNDAR PUENTES Sep 07, 2018 16:43
[2018-09-07 18:09] LABS: PLATELET COUNT, AUTOMATED 275 K/uL (150-450)
== END 2018-09-07 18:41 | disposition home or self-care (01) ==
LOC: ER 16:32
DX: F32.1 Major depressive disorder, single episode, moderate (principal); S61.512A Laceration without foreign body of left wrist, initial encounter; X78.9XXA Intentional self-harm by unspecified sharp object, initial encounter
CPT/HCPCS: 80305; 81001; 81025; 83735; 84443; 85025; 99283; G0480; 80320; 80329; 82040; 82247; 82310; 82374; 82435; 82565; 82947; 84075; 84132; 84155; 84295; 84450; 84460; 84520

== ENCOUNTER 2018-09-27 20:02 | Emergency (ER) | payer MEDICAID ==
[2017-09-24 08:15] VITALS: Wt 57.6 kg
[~2018-09-27 20:02] MED LIST changes: +LITH300T18 PO
[2018-09-27 20:06] VITALS: BP 128/89
--- NOTE | 2018-09-27 20:10 | ER Report ---
History and Physical Time Seen By MD: 20:06 Hx. of Stated Complaint: PATIENT HAD SPRAINED HER RIGHT ANKLE 4MONTHS AGO, AND THEN TODAY SHE REINJURED IT WHILE ROUGH HOUSING WITH HER AND KIDS. PATIENT STATES HER RIGHT ANKLE ANKLE TWISTED A FUNNY WAY AND SHE CAN'T GET THE PAIN UNDER CONTROL. HPI/ROS CHIEF COMPLAINT: ankle injury HISTORY OF PRESENT ILLNESS: This is a 28 year old female. Horsing around at home, and twisted right ankle again. Pain lateral side. Injured about [address] having pain. Normal sensation. Allergies: Coded Allergies: amoxicillin (Verified Allergy, Mild, itching, 09/27/18) naratriptan (Verified Allergy, Unknown, 09/27/18) itching ondansetron HCl (Verified Adverse Reaction, Intermediate, ARRYTHMIA, 09/27/18) ON 16 APR 2012, AFTER ZOFRAN 4MG IVP ADMIN, PT BRADYCARDIC (PULSE 30-35BPM), ARRHTHMIA ON 3-LEAD EKG. sumatriptan (Verified Adverse Reaction, Intermediate, NAUSEA/VOMITING, 09/27/18) nitrofurantoin (Verified Adverse Reaction, Mild, 09/27/18) itching amitriptyline (Verified Adverse Reaction, Unknown, 09/27/18) syncope / orthostatic hypotension ibuprofen (Verified Adverse Reaction, Unknown, REACTION TO COATING ON IBU TABS, 09/27/18) "tears up my stomach" lurasidone (Verified Adverse Reaction, Unknown, NAUSEA/VOMITING, 09/27/18) milnacipran (Verified Adverse Reaction, Unknown, 09/27/18) suicidal ideation Home Meds Reported Medications [place] Carbonate (LITHIUM CARBONATE) 300 Mg Tablet, 300 MG PO DAILY 09/22/18 Lamotrigine (LAMOTRIGINE) 200 Mg Tablet, 1 TAB PO QHS 09/03/18 Gabapentin (GABAPENTIN) 300 Mg Capsule, 600 MG PO QHS, CAPSULE 08/09/18 Gabapentin (GABAPENTIN) 300 Mg Capsule, 300 MG PO QAM, CAPSULE 08/09/18 Duloxetine HCl (Duloxetine HCl) 60 Mg Capsule.dr, 60 MG PO QHS 08/09/18 Discontinued Reported Medications Aripiprazole (ABILIFY) 10 Mg Tablet, 10 MG PO QHS, TAB 08/09/18 Reviewed Nurses Notes: Yes Hx Smoking: Yes Smoking Status: Former Smoker Exposure to Second Hand Smoke?: No Hx Substance Use Disorder: No (marijuana HX) Hx Alcohol Use: No (RARE) Constitutional Vital Sign - Last 24 Hours 09/27/18 20:06 Temp 98.0 Pulse 78 Resp 16 B/P (MAP) 128/89 Pulse Ox 96 Physical Exam General appearance: Patient is alert. Musculoskeletal: Right ankle shows mild swelling. There is no obvious deformity. No bruising. Medial malleolus is non-tender. Lateral malleolus is tender. Weight bearing: Able to bear weight, but with some pain. Neurologic: The patient has normal sensation distal to the injury. Active range of motion is intact, but with pain. Cardiovascular: Normal dorsalis pedis and posterior tibialis pulses. Normal capillary refill. Skin: No rash. No skin breakdown. DIFFERENTIAL DIAGNOSIS: After history and physical exam differential diagnosis was considered for ankle injury including sprain, fracture, dislocation and soft tissue injury. Medical Decision Making EKG/Imaging Imaging 3 views right ankle INDICATION: Pain COMPARISON: None Available FINDINGS: No evidence of fracture, dislocation, or acute osseous abnormality of the right ankle. The ankle mortise is symmetric. There is no significant ankle joint effusion. There is no focal soft tissue abnormality. No evidence of radiopaque foreign body. IMPRESSION: 1. No acute osseous abnormality of the right ankle Report Dictated By: DANDY MODI at 09/27/2018 9:23 PM ED Course/Re-evaluation ED Course Imaging negative for fracture. MARLA wrap with conservative measures discussed. Decision to Disposition Date: Sep 27, 2018 Decision to Disposition Time: 21:32 Depart Departure Latest Vital Signs Vital Signs Date Time Temp Pulse Resp B/P (MAP) Pulse Ox O2 Delivery O2 Flow Rate FiO2 09/27/18 20:06 98.0 78 16 128/89 96 Impression: Primary Impression: Ankle sprain Condition: Stable Disposition: HOME OR SELF-CARE Referrals: MAGUI MORRIS APRN LICENSED WEIGHER-C (PCP) Patient Instructions: Ankle Sprain (ED) Additional Instructions: Ibuprofen as needed for pain and swelling Apply ice 20 minutes every 1-2 hours while awake. An MARLA wrap can be used for compression to help reduce swelling. Rest the injured area, keep it elevated while at rest. Begin gentle range of motion exercises. Consider follow-up with orthopedic surgery for further evaluation. Problem Qualifiers Primary Impression: Ankle sprain Encounter type: initial encounter Involved ligament of ankle: anterior talofibular ligament Laterality: right Qualified Codes: S93.491A - Sprain of other ligament of right ankle, initial encounter KIRSTIN ARRIAGA MD Sep 27, 2018 20:10
--- NOTE | 2018-09-27 21:31 | RADIOLOGY IMAGING REPORT ---
FACILITY: [facility] PATIENT NAME: Jayna Gee : 1990 MR: [id number] V: [id number] EXAM DATE: ORDERING PHYSICIAN: KIRSTIN ARRIAGA TECHNOLOGIST: Location: [facility] [place] Patient: Jayna Gee : 1990 Visit/Account:[id number] Date of Sevice: 09/27/2018 3 views right ankle INDICATION: Pain COMPARISON: None Available FINDINGS: No evidence of fracture, dislocation, or acute osseous abnormality of the right ankle. The ankle mortise is symmetric. There is no significant ankle joint effusion. There is no focal soft tissue abnormality. No evidence of radiopaque foreign body. IMPRESSION: 1. No acute osseous abnormality of the right ankle Report Dictated By: DANDY MODI at 09/27/2018 9:23 PM Report E-Signed By: DANDY MODI at 09/27/2018 9:24 PM WSN:[email or web address]
== END 2018-09-27 21:54 | disposition home or self-care (01) ==
LOC: ER 20:10
DX: S93.491A Sprain of other ligament of right ankle, initial encounter (principal)
CPT/HCPCS: 99283

== ENCOUNTER 2018-10-07 13:37 | Emergency (ER) | payer MEDICAID ==
[2017-09-24 08:15] VITALS: Wt 57.6 kg
[2018-10-07 13:48] VITALS: BP 135/90
--- NOTE | 2018-10-07 13:48 | ER Report ---
History and Physical Time Seen By MD: 13:44 HPI/ROS CHIEF COMPLAINT: Right ankle pain HISTORY OF PRESENT ILLNESS: 20-year-old female patient presents to emergency room with complaint of right ankle pain. Patient states she's had multiple injuries to the right ankle over the several months. She states that she was walking interchondral boots and twisted her ankle. She states that happened a few months ago. She states then last week she was playing with kids and twisted her ankle doing that. She states that that again today she was walking and twisted her ankle again. She states that each time she is twisted her ankle she's heard popping in her ankle. She states now she feels very unsteady and has significant pain to the right ankle. Patient states she did put on a walking boot which she had to help the discomfort. She denies any numbness or tingling. She states that she is not able to plantarflex or dorsiflex her foot. She states she is not taking any medication for this. Patient states she is concerned that she has torn ligaments in her ankle. REVIEW OF SYSTEMS: Respiratory: No cough, no dyspnea. Cardiovascular: No chest pain, no palpitations. Gastrointestinal: No vomiting, no abdominal pain. Musculoskeletal: As noted above Allergies: Coded Allergies: amoxicillin (Verified Allergy, Mild, itching, 10/07/18) naratriptan (Verified Allergy, Unknown, 10/07/18) itching ondansetron HCl (Verified Adverse Reaction, Intermediate, ARRYTHMIA, 10/07/18) ON 16 APR 2012, AFTER ZOFRAN 4MG IVP ADMIN, PT BRADYCARDIC (PULSE 30-35BPM), ARRHTHMIA ON 3-LEAD EKG. sumatriptan (Verified Adverse Reaction, Intermediate, NAUSEA/VOMITING, 10/07/18) nitrofurantoin (Verified Adverse Reaction, Mild, 10/07/18) itching amitriptyline (Verified Adverse Reaction, Unknown, 10/07/18) syncope / orthostatic hypotension ibuprofen (Verified Adverse Reaction, Unknown, REACTION TO COATING ON IBU TABS, 10/07/18) "tears up my stomach" lurasidone (Verified Adverse Reaction, Unknown, NAUSEA/VOMITING, 10/07/18) milnacipran (Verified Adverse Reaction, Unknown, 10/07/18) suicidal ideation Home Meds Active Scripts Ketorolac Tromethamine (KETOROLAC TROMETHAMINE) 10 Mg Tab, 10 MG PO Q6H, #20 TAB Prov:SUNDAR PUENTES MANAGER OF HUMAN RESOURCES 10/07/18 Diclofenac Epolamine (FLECTOR) 1 Each Patch.td12, 1 PATCH TD Q12H PRN for PAIN, #14 ADH.PATCH 1 Refill Apply area of pain on ankle twice daily Prov:MAGUI MORRIS APRN MANAGER OF HUMAN RESOURCES-C 10/07/18 Reported Medications [place] Carbonate (LITHIUM CARBONATE) 300 Mg Tablet, 300 MG PO DAILY 09/22/18 Lamotrigine (LAMOTRIGINE) 200 Mg Tablet, 1 TAB PO QHS 09/03/18 Gabapentin (GABAPENTIN) 300 Mg Capsule, 600 MG PO QHS, CAPSULE 08/09/18 Gabapentin (GABAPENTIN) 300 Mg Capsule, 300 MG PO QAM, CAPSULE 08/09/18 Duloxetine HCl (Duloxetine HCl) 60 Mg Capsule.dr, 60 MG PO QHS 08/09/18 Past Medical/Surgical History Patient has a past medical history of fibromyalgia, migraines, bradycardia, tac hycardia, asthma, IBS, reflux, cholecystitis, right hand fracture, history of marijuana use, depression, bipolar, anxiety, borderline personality. Patient has a surgical history of left knee surgery 2, right hand surgery, tubal ligation, cholecystectomy, appendectomy. Patient has a family medical history of stroke, diabetes, psychiatric problems. Reviewed Nurses Notes: Yes Hx Smoking: Yes Smoking Status: Former Smoker Exposure to Second Hand Smoke?: No Hx Substance Use Disorder: No (marijuana HX) Hx Alcohol Use: No (RARE) Constitutional Vital Sign - Last 24 Hours 10/07/18 13:48 Temp 99.6 Pulse 101 Resp 16 B/P (MAP) 135/90 Pulse Ox 94 O2 Delivery Room Air Physical Exam General Appearance: The patient is alert, has no immediate need for airway protection and no current signs of toxicity. Respiratory: Chest is non tender, lungs are clear to auscultation. Cardiac: regular rate and rhythm Musculoskeletal: Neck: Neck is supple and non tender. Extremities have full range of motion and are non tender. Patient has tenderness to the lateral medial malleoli, there is no obvious swelling noted. There is no bruising noted. Skin: No rashes or lesions. DIFFERENTIAL DIAGNOSIS: After history and physical exam differential diagnosis was considered for fracture, sprain, ligamentous injury. Medical Decision Making EKG/Imaging Imaging Exam type: ANKLE 3 VIEW MIN RIGHT History: Patient states "tore tendons and ankle" COMPARISON: September 27, 2018 Findings: Three views of the right ankle were submitted. The ankle mortise appears intact. There is no evidence of acute fracture or dislocation IMPRESSION: 1. No evidence of acute fracture or dislocation involving the right ankle Report Dictated By: Charlene Talavera MD at 10/07/2018 2:29 PM Report E-Signed By: Charlene Talavera MD at 10/07/2018 2:31 PM ED Course/Re-evaluation ED Course Patient was admitted to exam room, history and physical were obtained. Differential diagnoses were considered. On examination lungs are clear, heart is regular, patient have tenderness to the medial and lateral malleoli, pain with dorsiflexion and plantar flexion. X-rays done of the ankle. Results were negative for fracture dislocation. I discussed findings with patient. We will go ahead and discharge her home. We will put her on crutches to help limited to weight on her foot. She is to get plenty of rest, ice ankle 2-3 times a day. She is to follow-up with Dr. Salas, orthopedist next week as scheduled. She is to follow-up with physical therapy tomorrow as scheduled. Patient verbalized understanding and agreement with plan. Decision to Disposition Date: Oct 07, 2018 Decision to Disposition Time: 15:01 Depart Departure Latest Vital Signs Vital Signs Date Time Temp Pulse Resp B/P (MAP) Pulse Ox O2 Delivery O2 Flow Rate FiO2 10/07/18 13:48 99.6 101 16 135/90 94 Room Air Impression: Primary Impression: Ankle sprain Condition: Improved Disposition: HOME OR SELF-CARE Referrals: MAGUI MORRIS APRNP-C (PCP) New Scripts Ketorolac Tromethamine (KETOROLAC TROMETHAMINE) 10 Mg Tab 10 MG PO Q6H, #20 TAB Prov: SUNDAR PUENTES 10/07/18 Patient Instructions: Ankle Sprain (ED) Additional Instructions: Ice the ankle 2-3 times a day for 10-15 minutes. Wear the walking boot whenever you are up moving around. Take Tylenol as needed for pain. Take the Toradol as directed to help with pain. Use your crutches as needed for comfort. Problem Qualifiers Primary Impression: Ankle sprain Encounter type: initial encounter Involved ligament of ankle: unspecified ligament Laterality: right Qualified Codes: S93.401A - Sprain of unspecified ligament of right ankle, initial encounter SUNDAR PUENTES Oct 07, 2018 13:48
--- NOTE | 2018-10-07 14:41 | RADIOLOGY IMAGING REPORT ---
[facility] PATIENT NAME: Jayna Gee : 1990 MR: [id number] V: [id number] EXAM DATE: ORDERING PHYSICIAN: SUNDAR PUENTES TECHNOLOGIST: Location: [facility] Patient: Jayna Gee : 1990 Visit/Account:[id number] Date of Sevice: 10/07/2018 Exam type: ANKLE 3 VIEW MIN RIGHT History: Patient states "tore tendons and ankle" COMPARISON: September 27, 2018 Findings: Three views of the right ankle were submitted. The ankle mortise appears intact. There is no eviden ce of acute fracture or dislocation IMPRESSION: 1. No evidence of acute fracture or dislocation involving the right ankle Report Dictated By: Charlene Talavera MD at 10/07/2018 2:29 PM Report E-Signed By: Charlene Talavera MD at 10/07/2018 2:31 PM WSN:[email or web address]
[2018-10-07] MEDS ORDERED: DICL1ADH32 TD (14:43)
[2018-10-07] MEDS ORDERED: KET10 PO (15:27)
== END 2018-10-07 15:34 | disposition home or self-care (01) ==
LOC: ER 13:46
DX: S93.401A Sprain of unspecified ligament of right ankle, initial encounter (principal)
CPT/HCPCS: 99283

== ENCOUNTER 2018-10-19 19:14 | Emergency (ER) | payer MEDICAID ==
[2017-09-24 08:15] VITALS: Wt 54.9 kg
[~2018-10-19 19:14] MED LIST changes: +DICL1ADH32 TD
--- NOTE | 2018-10-19 19:15 | ER Report ---
History and Physical Time Seen By MD: 19:11 HPI/ROS CHIEF COMPLAINT: vomiting HISTORY OF PRESENT ILLNESS: This is a 28 year old female. She has had vomiting over the last 24 hours, intermittently, continuous nausea. No diarrhea. Not keeping much fluids or food down. Feeling weak. Pain in periumbilical area and across both sides of abdomen, but no radiation to back. No shortness of breath. or cough, or chest pain. No fevers or chills. No sick contacts. Has mild urinary urgency, no dysuria. REVIEW OF SYSTEMS: above. Allergies: Coded Allergies: amoxicillin (Verified Allergy, Mild, itching, 10/07/18) naratriptan (Verified Allergy, Unknown, 10/07/18) itching ondansetron HCl (Verified Adverse Reaction, Intermediate, ARRYTHMIA, 10/07/18) ON 16 APR 2012, AFTER ZOFRAN 4MG IVP ADMIN, PT BRADYCARDIC (PULSE 30-35BPM), ARRHTHMIA ON 3-LEAD EKG. sumatriptan (Verified Adverse Reaction, Intermediate, NAUSEA/VOMITING, 10/07/18) nitrofurantoin (Verified Adverse Reaction, Mild, 10/07/18) itching amitriptyline (Verified Adverse Reaction, Unknown, 10/07/18) syncope / orthostatic hypotension ibuprofen (Verified Adverse Reaction, Unknown, REACTION TO COATING ON IBU TABS, 10/07/18) "tears up my stomach" lurasidone (Verified Adverse Reaction, Unknown, NAUSEA/VOMITING, 10/07/18) milnacipran (Verified Adverse Reaction, Unknown, 10/07/18) suicidal ideation Home Meds Active Scripts Promethazine Hcl (PROMETHAZINE HCL) 25 Mg Tablet, 25 MG PO Q8H PRN for NAUSEA/VOMITING, #20 TAB 0 Refills Prov:KIRSTIN ARRIAGA MD 10/19/18 Ketorolac Tromethamine (KETOROLAC TROMETHAMINE) 10 Mg Tab, 10 MG PO Q6H, #20 TAB Prov:SUNDAR PUENTES 10/07/18 Diclofenac Epolamine (FLECTOR) 1 Each Patch.td12, 1 PATCH TD Q12H PRN for PAIN, #14 ADH.PATCH 1 Refill Apply area of pain on ankle twice daily Prov:MAGUI MORRIS APRN STEAM CRANE OPERATOR-C 10/07/18 Reported Medications [place] Carbonate (LITHIUM CARBONATE) 300 Mg Tablet, 300 MG PO DAILY 09/22/18 Lamotrigine (LAMOTRIGINE) 200 Mg Tablet, 1 TAB PO QHS 09/03/18 Gabapentin (GABAPENTIN) 300 Mg Capsule, 600 MG PO QHS, CAPSULE 08/09/18 Gabapentin (GABAPENTIN) 300 Mg Capsule, 300 MG PO QAM, CAPSULE 08/09/18 Duloxetine HCl (Duloxetine HCl) 60 Mg Capsule.dr, 60 MG PO QHS 08/09/18 Reviewed Nurses Notes: Yes Hx Smoking: Yes Smoking Status: Former Smoker Exposure to Second Hand Smoke?: No Hx Substance Use Disorder: No (marijuana HX) Hx Alcohol Use: No (RARE) Constitutional Vital Sign - Last 24 Hours 10/19/18 10/19/18 10/19/18 10/19/18 19:15 19:23 19:44 21:30 Temp 98.5 Pulse 97 102 91 Resp 18 B/P (MAP) 126/84 (98) 126/84 Pulse Ox 97 95 95 O2 Delivery Room Air 10/19/18 10/19/18 10/19/18 22:00 22:30 23:00 Pulse 84 81 85 B/P (MAP) 118/77 (91) Pulse Ox 97 96 95 Intake and Output 10/19/18 10/19/18 10/20/18 15:03 23:03 07:03 Intake Total 2000 ml Balance 2000 ml Physical Exam General Appearance: The patient is alert. No acute distress. Non-toxic in appearance. Eyes: Pupils are equal, round. No pallor, injection or icterus. ENT: Mucous membranes are moist. Normal oral mucosa. Posterior oropharynx is normal. Neck: Supple and non tender. Respiratory: Lungs are clear to auscultation. Cardiovascular: Regular rate and rhythm. No murmurs, gallops or rubs. Normal capillary refill. Gastrointestinal: Abdomen is soft, tender diffusely, non-focal. Nondistended. No rebound or guarding. No masses or organomegaly. Normal active bowel sounds. No costovertebral angle tenderness with percussion. Neurological: Alert and oriented x3. No focal neurologic deficits Skin: Warm and dry. Musculoskeletal: Extremities are nontender. No tenderness in palpation of the back and spine. DIFFERENTIAL DIAGNOSIS: After history and physical exam, differential diagnosis was considered for abdominal pain with nausea and vomiting including but not limited to appendicitis, gastritis, gastroenteritis, food poisoning and urinary tract infection. Medical Decision Making Data Points Result Diagram: 10/19/18193110/19/181931 Laboratory Hematology Test 10/19/18 19:32 White Blood Count 10.1 k/uL (4.5-11.0) Red Blood Count 5.16 M/uL (4.17-5.56) Hemoglobin 17.3 g/dL (12.0-16.0) H Hematocrit 48.9 % (34.0-47.0) H Mean Corpuscular Volume 94.6 fL (80.0-96.0) Mean Corpuscular Hemoglobin 33.4 pg (26.0-33.0) H Mean Corpuscular Hemoglobin Concent 35.3 g/dL (32.0-36.0) Red Cell Distribution Width 12.5 % (11.5-14.5) Platelet Count 259 K/uL (150-450) Mean Platelet Volume 7.2 fL (7.2-11.1) Neutrophils (%) (Auto) 89.4 % (39.4-72.5) H Lymphocytes (%) (Auto) 3.7 % (17.6-49.6) L Monocytes (%) (Auto) 4.3 % (4.1-12.4) Eosinophils (%) (Auto) 2.1 % (0.4-6.7) Basophils (%) (Auto) 0.5 % (0.3-1.4) Nucleated RBC Relative Count (auto) 0.1 /100WBC Neutrophils # (Auto) 9.0 K/uL (2.0-7.4) H Lymphocytes # (Auto) 0.4 K/uL (1.3-3.6) L Monocytes # (Auto) 0.4 K/uL (0.3-1.0) Eosinophils # (Auto) 0.2 K/uL (0.0-0.5) Basophils # (Auto) 0.1 K/uL (0.0-0.1) Nucleated RBC Absolute Count (auto) 0.01 K/uL Chemistry Test 10/19/18 19:32 Sodium Level 139 mmol/L (137-145) Potassium Level 3.8 mmol/L (3.5-5.0) Chloride Level 104 mmol/L (98-107) Carbon Dioxide Level 23 mmol/L (22-31) Blood Urea Nitrogen 15 mg/dl (7-18) Creatinine 0.70 mg/dl (0.52-1.04) Glomerular Filtration Rate Calc > 60.0 Random Glucose 124 mg/dl (75-110) Calcium Level 9.3 mg/dl (8.4-10.2) Total Bilirubin 2.7 mg/dl (0.2-1.3) Aspartate Amino Transf (AST/SGOT) 26 U/L (0-35) Alanine Aminotransferase (ALT/SGPT) 40 U/L (0-56) Alkaline Phosphatase 88 U/L (0-126) Total Protein 8.1 g/dl (6.3-8.2) Albumin 4.7 g/dl (3.5-5.0) Amylase Level 113 U/L (0-110) Lipase 145 U/L (23-300) Human Chorionic Gonadotropin, Qual Negative (NEGATIVE) Urinalysis Test 10/19/18 19:32 Urine Color Yellow Urine Clarity Cloudy Urine pH 5.0 pH (4.8-9.5) Urine Specific [place] 1.028 Urine Protein Negative mg/dL (NEGATIVE) Urine Glucose (UA) Negative mg/dL (NEGATIVE) Urine Ketones Trace mg/dL (NEGATIVE) Urine Blood Negative (NEGATIVE) Urine Nitrite Negative (NEGATIVE) Urine Bilirubin Negative (NEGATIVE) Urine Urobilinogen Negative mg/dL (0.2-1.9) Urine Leukocyte Esterase Trace (NEGATIVE) Urine RBC 2 /HPF (0-2/HPF) Urine WBC 11 /HPF (0-5/HPF) Urine Squamous Epithelial Cells Many /LPF (</=FEW) Urine Transitional Epithelial Cells Many /LPF (NONE-FEW) Urine Bacteria Negative /HPF (NONE-FEW) Urine Mucus Few /HPF (NONE-FEW) EKG/Imaging Imaging EXAMINATION: Frontal chest with 2 views of the abdomen HISTORY: Abdominal pain. COMPARISON: Chest radiograph 09/03/2018 Abdominal radiographs 10/14/2016. FINDINGS: The lungs are clear. No focal consolidation or pleural fluid. Normal heart size and pulmonary vascularity, with normal cardiomediastinal contours. Nonobstructive bowel gas pattern, with air scattered throughout normal-caliber loops of small bowel and colon. Moderate volume of scattered colonic stool. No free intraperitoneal air. Cholecystectomy clips in the upper abdomen. No evidence of organomegaly or abnormal calcification. Visualized osseous structures are unremarkable. IMPRESSION: 1. Negative chest. 2. Nonobstructive bowel gas pattern with a moderate volume of colonic stool. Report Dictated By: Ty Lanza MD at 10/19/2018 8:38 PM ED Course/Re-evaluation Clinical Indication for ER IV: Hydration, IV Access ED Course Patient was a little dehydrated but otherwise negative. No sign of urinary infection. The rest of labs are looking okay. Abdominal 3 view negative for acute cause. Patient is feeling a little bit better after Phenergan and a liter fluid. Gave a second liter as well as another dose of Phenergan and she was doing better and was discharged home. Decision to Disposition Date: Oct 19, 2018 Decision to Disposition Time: 21:11 Depart Departure Latest Vital Signs Vital Signs Date Time Temp Pulse Resp B/P (MAP) Pulse Ox O2 Delivery O2 Flow Rate FiO2 10/19/18 23:00 85 95 10/19/18 22:00 118/77 (91) 10/19/18 19:23 98.5 18 Room Air Impression: Primary Impression: Gastroenteritis Condition: Improved Disposition: HOME OR SELF-CARE Referrals: MAGUI MORRIS APRN STEAM CRANE OPERATOR-C (PCP) New Scripts Promethazine Hcl (PROMETHAZINE HCL) 25 Mg Tablet 25 MG PO Q8H PRN for NAUSEA/VOMITING, #20 TAB 0 Refills Prov: KIRSTIN ARRIAGA MD 10/19/18 Patient Instructions: B.R.A.T.Diet, Gastroenteritis (ED) Additional Instructions: Rest. Increase fluid intake. Take Phenergan 25mg tablets, one every 8 hours as needed for nausea or vomiting. [place] diet and advance to regular over the next 24-48 hours as tolerated. KIRSTIN ARRIAGA MD Oct 19, 2018 19:15
[2018-10-19] MEDS ORDERED: NS(*) 0.9% 1000 ML BAG 1,000 ML IV ONE ×2 (19:25→21:10)
[2018-10-19] MEDS ORDERED: PROMETHAZINE 25 MG/ML 1 ML AMP IVP ONE ×2 (19:25→21:10)
[2018-10-19 20:07] LABS: PLATELET COUNT, AUTOMATED 259 K/uL (150-450)
--- NOTE | 2018-10-19 20:50 | RADIOLOGY IMAGING REPORT ---
FACILITY: [facility] [place] PATIENT NAME: Jayna Gee : 1990 MR: [id number] V: [id number] EXAM DATE: ORDERING PHYSICIAN: KIRSTIN ARRIAGA TECHNOLOGIST: Location: [facility] [place] Patient: Jayna Gee : 1990 Visit/Account:[id number] Date of Sevice: 10/19/2018 EXAMINATION: Frontal chest with 2 views of the abdomen HISTORY: Abdominal pain. COMPARISON: Chest radiograph 09/03/2018 Abdominal radiographs 10/14/2016. FINDINGS: The lungs are clear. No focal consolidation or pleural fluid. Normal heart size and pulmonary vascula rity, with normal cardiomediastinal contours. Nonobstructive bowel gas pattern, with air scattered throughout normal-caliber loops of small bowel a nd colon. Moderate volume of scattered colonic stool. No free intraperitoneal air. Cholecystectomy clips in the upper abdomen. No evidence of organomegaly or abnormal calcification. Visualized osseous structures are unremarkable . IMPRESSION: 1. Negative chest. 2. Nonobstructive bowel gas pattern with a moderate volume of colonic stool. Report Dictated By: Ty Lanza MD at 10/19/2018 8:38 PM Report E-Signed By: Ty Lanza MD at 10/19/2018 8:41 PM [id number]
[2018-10-19] MEDS ORDERED: PROM-110 PO (21:16)
[2018-10-19 22:00] VITALS: BP 118/77
[2018-10-19] MEDS ORDERED: PROMETHAZINE HCL 25 MG TAB TH 2 TAB/BOTTLE PO ONE (23:10)
== END 2018-10-19 23:31 | disposition home or self-care (01) ==
LOC: ER 19:21
DX: K52.9 Noninfective gastroenteritis and colitis, unspecified (principal)
CPT/HCPCS: 74022; 81001; 82150; 83690; 84703; 85025; 96361; 96374; 96376; 99284; J2550; J7030; 82040; 82247; 82310; 82374; 82435; 82565; 82947; 84075; 84132; 84155; 84295; 84450; 84460; 84520

== ENCOUNTER 2018-10-22 22:58 | Emergency (ER) | payer SELFPAY ==
[2017-09-24 08:15] VITALS: Wt 54.9 kg
--- NOTE | 2018-10-22 23:01 | ER Report ---
History and Physical Time Seen By MD: 22:56 HPI/ROS CHIEF COMPLAINT: Right ankle pain HISTORY OF PRESENT ILLNESS: 28-year-old female presents ambulatory to the ER complaining of right ankle pain. She notes a dull 6/10, deep boring pain, which is causing her to be nauseated. She's not vomited. She was seen here 3 days ago for abdominal pain. Diagnostic evaluation was unremarkable. Patient was seen here on 10/07/18 for ankle pain and diagnosed with an ankle sprain. She has multiple injuries. Prior to that. She's been referred to orthopedics. She states that she needs surgery for ruptured ligaments. Patient states she is unable to afford a Tylenol that she's broke. She was given a prescription for Toradol on 10/07/18 which she states she thinks she fell, but she doesn't know where. It's at. Patient was seen here a few days ago and given Phenergan for nausea, but she's been unable to fill the prescription. She is waiting for her Medicaid to kick in. REVIEW OF SYSTEMS: Respiratory: No cough, no dyspnea. Cardiovascular: No chest pain, no palpitations. Gastrointestinal: No vomiting, no abdominal pain. Musculoskeletal: As above Allergies: Coded Allergies: amoxicillin (Verified Allergy, Mild, itching, 10/07/18) naratriptan (Verified Allergy, Unknown, 10/07/18) itching ondansetron HCl (Verified Adverse Reaction, Intermediate, ARRYTHMIA, 10/07/18) ON 16 APR 2012, AFTER ZOFRAN 4MG IVP ADMIN, PT BRADYCARDIC (PULSE 30-35BPM), ARRHTHMIA ON 3-LEAD EKG. sumatriptan (Verified Adverse Reaction, Intermediate, NAUSEA/VOMITING, 10/07/18) nitrofurantoin (Verified Adverse Reaction, Mild, 10/07/18) itching amitriptyline (Verified Adverse Reaction, Unknown, 10/07/18) syncope / orthostatic hypotension ibuprofen (Verified Adverse Reaction, Unknown, REACTION TO COATING ON IBU TABS, 10/07/18) "tears up my stomach" lurasidone (Verified Adverse Reaction, Unknown, NAUSEA/VOMITING, 10/07/18) milnacipran (Verified Adverse Reaction, Unknown, 10/07/18) suicidal ideation Home Meds Active Scripts Diclofenac Epolamine (FLECTOR) 1 Each Patch.td12, 1 PATCH TD Q12H PRN for PAIN, #14 ADH.PATCH 1 Refill Apply area of pain on ankle twice daily Prov:MAGUI MORRIS APRN DEVULCANIZER OPERATOR-C 10/07/18 Reported Medications [place] Carbonate (LITHIUM CARBONATE) 300 Mg Tablet, 300 MG PO DAILY 09/22/18 Lamotrigine (LAMOTRIGINE) 200 Mg Tablet, 1 TAB PO QHS 09/03/18 Gabapentin (GABAPENTIN) 300 Mg Capsule, 600 MG PO QHS, CAPSULE 08/09/18 Gabapentin (GABAPENTIN) 300 Mg Capsule, 300 MG PO QAM, CAPSULE 08/09/18 Duloxetine HCl (Duloxetine HCl) 60 Mg Capsule.dr, 60 MG PO QHS 08/09/18 Discontinued Scripts Promethazine Hcl (PROMETHAZINE HCL) 25 Mg Tablet, 25 MG PO Q8H PRN for NAUSEA/VOMITING, #20 TAB 0 Refills Prov:KIRSTIN ARRIAGA MD 10/19/18 Ketorolac Tromethamine (KETOROLAC TROMETHAMINE) 10 Mg Tab, 10 MG PO Q6H, #20 TAB Prov:SUNDAR PUENTES DEVULCANIZER OPERATOR 10/07/18 Past Medical/Surgical History Patient has a past medical history of fibromyalgia, migraines, bradycardia, tachycardia, asthma, IBS, reflux, cholecystitis, right hand fracture, history of marijuana use, depression, bipolar, anxiety, borderline personality. Patient has a surgical history of left knee surgery 2, right hand surgery, tubal ligation, cholecystectomy, appendectomy. Patient has a family medical history of stroke, diabetes, psychiatric problems. Reviewed Nurses Notes: Yes Old Medical Records Reviewed: Yes Hx Smoking: Yes Smoking Status: Former Smoker Exposure to Second Hand Smoke?: No Hx Substance Use Disorder: No (marijuana HX) Hx Alcohol Use: No (RARE) Constitutional Vital Sign - Last 24 Hours 10/22/18 23:02 Temp 98.6 Pulse 93 Resp 14 B/P (MAP) 144/99 Pulse Ox 90 O2 Delivery Room Air Physical Exam General Appearance: The patient is alert, has no immediate need for airway protection and no current signs of toxicity. Vital signs stable, afebrile, pulse ox normal Eyes: Pupils equal and round no injection. Respiratory: Chest is non tender, lungs are clear to auscultation. Cardiac: regular rate and rhythm Gastrointestinal: Abdomen is soft and non tender, no masses, bowel sounds normal. Musculoskeletal: Neck: Neck is supple and non tender. Extremities have full range of motion and are non tender., Examination of the right lower extremity reveals a neurovascularly intact right foot with good capillary refill. There is no soft tissue swelling. There is no reproducible pain on palpation on any of the joint lines. There is no bruising, ecchymosis or soft-tissue induration. Skin: No rashes or lesions. DIFFERENTIAL DIAGNOSIS: After history and physical exam differential diagnosis was considered for sprain, strain, fracture, dislocation, drug-seeking behavior, psychiatric illness. Medical Decision Making ED Course/Re-evaluation ED Course Patient was admitted to an examination room. H&P was done. The differential diagnoses was considered. There are lack of clinical findings on examination of the right lower extremity. She is treated with Phenergan for her nausea, Tylenol and ketorolac for her pain. She's given a tube of lidocaine 5% ointment to keep applying to the affected area. She is advised to follow-up with her primary care as soon as possible. Decision to Disposition Date: Oct 22, 2018 Decision to Disposition Time: 23:12 Depart Departure Latest Vital Signs Vital Signs Date Time Temp Pulse Resp B/P (MAP) Pulse Ox O2 Delivery O2 Flow Rate FiO2 10/22/18 23:02 98.6 93 14 144/99 90 Room Air Impression: Primary Impression: Nausea Additional Impression: Right ankle pain Condition: Improved Disposition: HOME OR SELF-CARE Referrals: MAGUI MORRIS APRN DEVULCANIZER OPERATOR-C (PCP) Patient Instructions: Acute Nausea and Vomiting (ED), Ankle Sprain (ED) Problem Qualifiers Additional Impression: Right ankle pain Chronicity: chronic Qualified Codes: M25.571 - Pain in right ankle and joints of right foot; G89.29 - Other chronic pain DOUGLAS GAYTAN DO Oct 22, 2018 23:01
[2018-10-22 23:02] VITALS: BP 144/99
[2018-10-22] MEDS ORDERED: KETOROLAC TROM 10MG TAB PO ONE (23:15)
[2018-10-22] MEDS ORDERED: LIDOCAINE 5% OINT 35.44 GM OINT TP PRN (23:15)
[2018-10-22] MEDS ORDERED: ACETAMINOPHEN 325 MG TAB PO ONE (23:15)
[2018-10-22] MEDS ORDERED: PROMETHAZINE HCL 25 MG TAB PO ONE (23:15)
[2018-10-22] MEDS ORDERED: PROMETHAZINE HCL 25 MG TAB TH 2 TAB/BOTTLE PO ONE (23:55)
[2018-10-22] MEDS ORDERED: KETOROLAC TROM 10 MG TAB TH PO ONE (23:55)
== END 2018-10-22 23:55 | disposition home or self-care (01) ==
LOC: ER 23:05
DX: M25.571 Pain in right ankle and joints of right foot (principal); R11.0 Nausea
CPT/HCPCS: 99283; Q0169

== ENCOUNTER → 2018-10-29 | Outpatient (CLI) | payer SELFPAY ==
[2017-09-24 08:15] VITALS: BMI 20.3
[2018-10-29 08:28] LABS: PLATELET COUNT, AUTOMATED 283 K/uL (150-450)
== END ==
LOC: LAB 08:08
PROVIDERS: ATTEND Anesthesiology
DX: Z01.812 Encounter for preprocedural laboratory examination (principal)
CPT/HCPCS: 36415; 82040; 82247; 82248; 82310; 82374; 82435; 82565; 82947; 84075; 84132; 84155; 84295; 84450; 84460; 84520; 85025